=== PATIENT | female | born 1960 | race Caucasian/White ===

== ENCOUNTER 2016-05-23 21:53 | Emergency (ER) | payer OTHER ==
[2016-05-23 22:03] VITALS: BP 138/97; PULSE 86; RESP 16; TEMP 98.6; O2SAT 93
--- NOTE | 2016-05-23 23:20 | DX ---
Right humerus, 2 views History: Trauma, pain. Findings: No acute fracture or dislocation identified. No definite humerus fracture. Impression: 1. No definite acute fracture. 2. No destructive osseous lesion.
--- NOTE | 2016-05-23 23:23 | EDPHY ---
HPI/HX/ROS/PE/MDM Narrative: Chief complaint: Right arm pain HPI: 56-year-old female had a mechanical fall 4 days ago when she was not to the hardwood floor by 1 of her dogs. She has had persistent pain in the middle portion and the lateral aspect of her right arm since then. Is denies any decrease in her range of motion. No numbness or tingling. No decreased her strength. Has taken Advil and applied ice with no significant relief. No prior injuries to that area. ROS: 10 point Review of Systems is negative except as noted in the HPI. Physical exam: General: Awake, alert, no acute distress Right arm: Shoulder: Nontender, full range of motion without pain Humerus: Is no there is some mild tenderness with some mild ecchymosis in the mid shaft lateral aspect of her humerus. There is no medial, anterior, or posterior bony tenderness. Elbow: No bony tenderness, full range of motion without pain. She has full flexion extension strength of her flexors and extensors. Sensations intact in all dermatomes. There is no erythema. Skin: No rash ED Course: Right humerus x-ray: There is a faint lucency per my interpretation no lateral posterior aspect of the right humerus and mid shaft. There is no other obvious deformity. I have discussed with Dr. Feliz who does not appreciate any fractures at this time. Patient has a right arm contusion. There is no evidence of fracture per Radiology interpretation on the x-ray at this time. She has been taking Advil at home. Will prescribe Vicodin with instructions follow up with her primary care physician in 2-3 days. General Time Seen by Provider: 05/23/16 22:51 Initial Vital Signs: Initial Vital Signs Temperature (C) 37 C 05/23/16 21:57 Heart Rate 86 05/23/16 21:57 Respiratory Rate 16 05/23/16 21:57 Blood Pressure 138/97 H 05/23/16 21:57 O2 Sat (%) 93 05/23/16 21:57 O2 Delivery Mode Room Air Allergies/Adverse Reactions: tramadol Allergy (Mild, Verified 05/23/16 22:04) "some abx" Allergy (Uncoded 01/09/16 17:32) Home Medications: Medication Instructions Recorded Topiramate [Topamax 100MG (*)] 100 mg PO DAILY 07/20/14 ALPRAZolam [Xanax 0.5 MG (*)] 0.5 mg PO DAILY PRN 05/29/15 Amphet Asp and D/Amphet [Adderall 20 mg PO DAILY 05/29/15 20 mg (*)] Ascorbic Acid [Vitamin C 500 mg 500 mg PO DAILY PRN 05/29/15 (*)] Calcium Carb W/Vit D [Calcium Carb 500 mg PO DAILY 05/29/15 W/Vit D 500/200 (*)] FLUoxetine [Prozac 10 MG (*)] 10 mg PO DAILY 01/09/16 Hydrochlorothiazide [HCTZ (*)] 25 mg PO DAILY 01/09/16 Latanoprost 0.005% [Xalatan 0.005% 1 drops EACHEYE DAILY 01/09/16 (*)] cycloSPORINE 0.05% [Restasis Opht 1 drop EACHEYE DAILY 01/09/16 Drops(*)] Acetaminophen [Tylenol 325mg (*)] 650 mg PO Q4 PRN #0 tab 01/13/16 Magnesium Hydroxide [Milk of 30 ml PO DAILY PRN #0 udcup 01/13/16 Magnesia (*)] Polyethylene Glycol 3350 [Miralax 17 gm PO DAILY PRN #0 pkt 01/13/16 17 gm (*)] Sennosides/Docusate Sodium 1 - 2 tab PO BID #0 tab 01/13/16 [Senokot-S] Hydrocodone/Acetaminophen 1 - 2 each PO Q4-6PRN PRN #10 05/23/16 [Hydrocodon-Acetaminophen 5-325] tablet Departure - Departure Disposition: Home, Routine, Self-Care Clinical Impression: Contusion of upper arm Condition: Good Instructions: Contusion in Adults (ED) Additional Instructions: Continue to take ibuprofen and ice for pain. If you're still having pain you may take Vicodin. Follow up with her primary care physician in 2-3 days if still having discomfort. There is no evidence of fracture on the x-ray today, however occasionally subtle fractures may be missed on the initial evaluation. If he continues to have pain is always turcios to follow up with your doctor for repeat examination. Referrals: Etelvina Merlos MD [Primary Care Provider] - As per Instructions Prescriptions: Hydrocodone/Acetaminophen [Hydrocodon-Acetaminophen 5-325] 1 - 2 each PO Q4- 6PRN PRN #10 tablet PRN Reason: Pain, Severe
[2016-05-23] MEDS ORDERED: HYDROCOD/APAP 5/325 PREPACK#6 BTL TAKEHOME ONE (23:25)
== END 2016-05-23 23:34 | disposition home or self-care (01) ==
DX: S40.021A Contusion of right upper arm, initial encounter (principal); W18.39XA Other fall on same level, initial encounter

== ENCOUNTER 2016-08-23 15:04 | Emergency (ER) | payer OTHER ==
[2016-08-23 15:15] VITALS: RESP 20
--- NOTE | 2016-08-23 16:12 | EDPHY ---
H & P Time Seen by Provider: 08/23/16 15:33 HPI/ROS: This is a 56-year-old female presenting to the emergency department complaining of right elbow pain. patient states that she tripped over her dog landing on a marble floor any right elbow. patient states she did get right back up but is having pain with extension and flexion at elbow. denies any LOC, and no other injuries. REVIEW OF SYSTEMS: Constitutional: No fever no chills Eyes: no blurred vision Respiratory: no shortness of paul Cardiac: no chest pain Gastrointestinal: no nausea vomiting Musculoskeletal: no neck pain. right elbow pain Skin: no rash Neurological: no head or dizziness Smoking Status: Never smoked Physical Exam: CONSTITUTIONAL: patient appeared well nourished, non-ill appearing and normally developed. No acute distress. Vital signs as documented. HEENT: NCAT. PERRLA. EOMI. NECK: Supple, no C-spine pain with tenderness FROM without pain RESP: Non-labored resp effort, airway patent, CTAB CARDIAC: RRR w/o murmur, jenaro. Normal S1/S2 GI: Abd soft NTTP NEURO: AAOx3 EXTREMITIES: , decreased range of motion most likely due to pain. Positive cms intact SKIN: warm and dry, no laceration PSYCH: Normal affect, calm, no distress Constitutional: Initial Vital Signs Temperature (C) 36.5 C 08/23/16 15:12 Heart Rate 79 08/23/16 15:12 Respiratory Rate 20 08/23/16 15:12 Blood Pressure 121/87 H 08/23/16 15:12 O2 Sat (%) 95 08/23/16 15:12 O2 Delivery Mode Room Air Allergies/Adverse Reactions: tramadol Allergy (Mild, Verified 05/23/16 22:04) "some abx" Allergy (Uncoded 01/09/16 17:32) Home Medications: Medication Instructions Recorded Topiramate [Topamax 100MG (*)] 100 mg PO DAILY 07/20/14 ALPRAZolam [Xanax 0.5 MG (*)] 0.5 mg PO DAILY PRN 05/29/15 Amphet Asp and D/Amphet [Adderall 20 mg PO DAILY 05/29/15 20 mg (*)] Ascorbic Acid [Vitamin C 500 mg 500 mg PO DAILY PRN 05/29/15 (*)] Calcium Carb W/Vit D [Calcium Carb 500 mg PO DAILY 05/29/15 W/Vit D 500/200 (*)] FLUoxetine [Prozac 10 MG (*)] 10 mg PO DAILY 01/09/16 Hydrochlorothiazide [HCTZ (*)] 25 mg PO DAILY 01/09/16 Latanoprost 0.005% [Xalatan 0.005% 1 drops EACHEYE DAILY 01/09/16 (*)] cycloSPORINE 0.05% [Restasis Opht 1 drop EACHEYE DAILY 01/09/16 Drops(*)] Acetaminophen [Tylenol 325mg (*)] 650 mg PO Q4 PRN #0 tab 01/13/16 Magnesium Hydroxide [Milk of 30 ml PO DAILY PRN #0 udcup 01/13/16 Magnesia (*)] Polyethylene Glycol 3350 [Miralax 17 gm PO DAILY PRN #0 pkt 01/13/16 17 gm (*)] Sennosides/Docusate Sodium 1 - 2 tab PO BID #0 tab 01/13/16 [Senokot-S] Hydrocodone/Acetaminophen 1 - 2 each PO Q4-6PRN PRN #10 05/23/16 [Hydrocodon-Acetaminophen 5-325] tablet Medical Decision Making - Diagnostics Imaging: History: Pain following trauma. Comparison to 01/22/2014. Findings: Osseous structures are intact without fracture. There is no elbow joint effusion. Soft tissues are unremarkable. The elbow joint space is normal. Impression: Normal right elbow series. Dictated By: Sudeep Blackmon MD ED Course/Re-evaluation: Discussed plan of care with patient: x-ray of right elbow which shows no acute findings. discharge home---> stable, discussed discharge instructions with patient Differential Diagnosis: differential diagnosis considered elbow dislocation, condylar fracture, and radial fracture Departure - Departure Disposition: Home, Routine, Self-Care Clinical Impression: Elbow pain, right Condition: Good Instructions: Elbow Sprain (ED) Additional Instructions: 1. ice 15 minutes every hour for the next 6-12 hours as needed for swelling 2. you can take ibuprofen or Tylenol as needed for pain 3. keep elevated as needed, decrease any strenuous activity with right arm 4. follow up with your primary care provider within the next 2 weeks for any persistent pain Referrals: Etelvina Merlos MD [Primary Care Provider] - As per Instructions
[2016-08-23] MEDS ORDERED: IBUPROFEN 600 MG TAB PO ONE ×2 (16:39→16:46)
[2016-08-23 17:03] VITALS: BP 106/73; PULSE 72; TEMP 98.6; O2SAT 97
== END 2016-08-23 17:05 | disposition home or self-care (01) ==
DX: S59.901A Unspecified injury of right elbow, initial encounter (principal); W01.0XXA Fall on same level from slipping, tripping and stumbling without subsequent striking against object, initial encounter; Y93.89 Activity, other specified

== ENCOUNTER 2017-01-06 14:15 | Emergency (ER) | payer OTHER ==
[2017-01-06 14:34] VITALS: RESP 18
--- NOTE | 2017-01-06 15:34 | EDPHY ---
H & P Stated Complaint: Playing w/dog,fell,landed on face, no LOC Time Seen by Provider: 01/06/17 15:08 HPI/ROS: CHIEF COMPLAINT: Mechanical fall, facial trauma HISTORY OF PRESENT ILLNESS: The patient presents to the ED after she sustained a mechanical fall earlier today. The patient fell landing on her left cheek. She also struck her left zygomatic area. The patient had an unknown loss of consciousness. She complains of a headache in the ED. The patient has remote history of intracranial hemorrhage following trauma. She is not currently on anticoagulant medications. She recently has been evaluated for a precancerous lesion in her esophagus. She denies any acute posterior neck pain. The patient has no complaints of chest pain, back pain, abdominal pain or difficulty breathing. REVIEW OF SYSTEMS: A comprehensive 10 point review of systems is otherwise negative aside from elements mentioned in the history of present illness. Source: Patient Exam Limitations: No limitations - Personal History Current Tetanus Diphtheria and Acellular Pertussis (TDAP): Yes Tetanus Vaccine Date: 2012 - Medical/Surgical History Hx Asthma: No Hx Chronic Respiratory Disease: No Hx Diabetes: No Hx Cardiac Disease: No Hx Renal Disease: No Hx Cirrhosis: No Hx Alcoholism: No Hx HIV/AIDS: No Hx Splenectomy or Spleen Trauma: No Other PMH: HX: subdural hematoma, DEPRESSION, COSMETIC SURGERY, HTN, othro surgeries, Anxiety, glaucoma, add - Social History Smoking Status: Never smoked - Physical Exam Exam: General Appearance: Alert, no distress Head: Ecchymosis noted around the left periorbital tissue, ecchymosis and tenderness noted at the symphysis of the mandible Eyes: Pupils equal, round, reactive ENT, Mouth: No hemotympanum, no oral trauma Neck: Nontender, trachea midline Respiratory: No chest wall tender, subcutaneous air, lungs clear bilaterally Cardiovascular: Regular rate and rhythm Abdomen: Abdomen is soft and nontender, pelvis stable Skin: Superficial abrasions noted to the bilateral lower extremities Back: No midline T/L/S pain Extremities: Nontender, full range of motion Neurological: A&Ox3, normal motor function, normal sensory exam Constitutional: Initial Vital Signs Temperature (C) 36.8 C 01/06/17 14:30 Heart Rate 95 01/06/17 14:30 Respiratory Rate 18 01/06/17 14:30 Blood Pressure 110/79 01/06/17 14:30 O2 Sat (%) 95 01/06/17 14:30 O2 Delivery Mode Room Air Allergies/Adverse Reactions: tramadol Allergy (Mild, Verified 01/06/17 14:30) "some abx" Allergy (Uncoded 01/09/16 17:32) Home Medications: Medication Instructions Recorded Topiramate [Topamax 100MG (*)] 100 mg PO DAILY 07/20/14 ALPRAZolam [Xanax 0.5 MG (*)] 0.5 mg PO DAILY PRN 05/29/15 Amphet Asp and D/Amphet [Adderall 20 mg PO DAILY 05/29/15 20 mg (*)] Ascorbic Acid [Vitamin C 500 mg 500 mg PO DAILY PRN 05/29/15 (*)] Calcium Carb W/Vit D [Calcium Carb 500 mg PO DAILY 05/29/15 W/Vit D 500/200 (*)] FLUoxetine [Prozac 10 MG (*)] 10 mg PO DAILY 01/09/16 Hydrochlorothiazide [HCTZ (*)] 25 mg PO DAILY 01/09/16 Latanoprost 0.005% [Xalatan 0.005% 1 drops EACHEYE DAILY 01/09/16 (*)] cycloSPORINE 0.05% [Restasis Opht 1 drop EACHEYE DAILY 01/09/16 Drops(*)] Acetaminophen [Tylenol 325mg (*)] 650 mg PO Q4 PRN #0 tab 01/13/16 Magnesium Hydroxide [Milk of 30 ml PO DAILY PRN #0 udcup 01/13/16 Magnesia (*)] Polyethylene Glycol 3350 [Miralax 17 gm PO DAILY PRN #0 pkt 01/13/16 17 gm (*)] Sennosides/Docusate Sodium 1 - 2 tab PO BID #0 tab 01/13/16 [Senokot-S] Hydrocodone/Acetaminophen 1 - 2 each PO Q4-6PRN PRN #10 05/23/16 [Hydrocodon-Acetaminophen 5-325] tablet Medical Decision Making - Diagnostics Imaging Results: Imaging Impressions Head CT 01/06/17 15:31 Impression: No acute posttraumatic abnormality identified. 2. CT of the Facial Bones Indication: Trauma. Hit chin on pavement. Technique: 0.625 mm thick collimated slices were obtained through the face from just below the mandible to above the frontal sinuses. The data was reconstructed in the sagittal and coronal planes. Dose reduction techniques were utilized. Findings: No mandibular or maxillary fracture is identified. Mandibular teeth appear intact. The TMJs are normally aligned and intact. The paranasal and mastoid sinuses are normally aerated. No facial bone fracture is identified. The zygomatic arches and pterygoid plates are intact. Impression: Negative. Message was left for Lebron Echeverria MD at 01/06/2017 16:06 General information for patients regarding this examination can be found at [facility]. If you have questions or comments about this report, please contact me at [phone] (hospital) or [phone] (cell). Face CT 01/06/17 15:32 Impression: No acute posttraumatic abnormality identified. 2. CT of the Facial Bones Indication: Trauma. Hit chin on pavement. Technique: 0.625 mm thick collimated slices were obtained through the face from just below the mandible to above the frontal sinuses. The data was reconstructed in the sagittal and coronal planes. Dose reduction techniques were utilized. Findings: No mandibular or maxillary fracture is identified. Mandibular teeth appear intact. The TMJs are normally aligned and intact. The paranasal and mastoid sinuses are normally aerated. No facial bone fracture is identified. The zygomatic arches and pterygoid plates are intact. Impression: Negative. Message was left for Lebron Echeverria MD at 01/06/2017 16:06 General information for patients regarding this examination can be found at [facility]. If you have questions or comments about this report, please contact me at ([facility]) or [phone] (cell). ED Course/Re-evaluation: The patient presents to the ED with headache, facial pain, swelling and ecchymosis following a mechanical fall. Given the patient's complaints, she was taken for a CT scan of the head which demonstrated no evidence of intracranial hemorrhage or skull fracture. The patient also underwent a facial bone scanning given her significant tenderness and swelling. This was also negative for fracture. The patient had no midline cervical spine tenderness. I have cleared her cervical spine clinically. The patient is noted to have superficial abrasions to her extremity. The patient has a GCS of 15 and nontender abdominal examination. At this point time I do feel the patient can be discharged home with instructions to ice her area of swelling. She can take Tylenol and ibuprofen as needed for pain. Differential Diagnosis: Differential diagnosis considered includes intracranial hemorrhage, skull fracture, facial bone fracture, mandibular fracture, contusion, hematoma Departure - Departure Disposition: Home, Routine, Self-Care Clinical Impression: Facial contusion, Abrasion of lower extremity, History of intracranial hemorrhage Condition: Good Instructions: Facial Contusion (ED) Additional Instructions: 1. Ice as needed for swelling. 2. Tylenol and ibuprofen as needed for pain.
[2017-01-06] MEDS ORDERED: HYDROCODONE/APAP 5/325 TAB PO ONE (16:21)
[2017-01-06 16:24] VITALS: BP 112/74; PULSE 85; TEMP 98.1; O2SAT 94
== END 2017-01-06 16:23 | disposition home or self-care (01) ==
DX: S00.83XA Contusion of other part of head, initial encounter (principal); S80.812A Abrasion, left lower leg, initial encounter; S80.811A Abrasion, right lower leg, initial encounter; I10 Essential (primary) hypertension; Z87.820 Personal history of traumatic brain injury; W01.198A Fall on same level from slipping, tripping and stumbling with subsequent striking against other object, initial encounter; Y99.8 Other external cause status; Y93.89 Activity, other specified

== ENCOUNTER 2017-03-07 14:24 | Inpatient (IN) | payer OTHER ==
[2017-03-07] MEDS ORDERED: fentaNYL 100 MCG/2 ML INJ IVP ONE (14:47)
--- NOTE | 2017-03-07 15:21 | EDPHY ---
H & P Time Seen by Provider: 03/07/17 14:24 HPI/ROS: CHIEF COMPLAINT: Right hip pain HISTORY OF PRESENT ILLNESS: Patient was walking and had a dog cause her to fall landing on her right hip. Severe pain in the right hip with any movement or weight-bearing started just after the fall. Does not radiate. Not associated with weakness or numbness in the leg. No other injuries. Did not hit her head, no neck or back pain. No recent illnesses. REVIEW OF SYSTEMS: Eye: no change in vision ENT: no sore throat Cardiac: no chest pain or syncope Pulmonary: no cough or SOB Abdomen: no vomiting, diarrhea, abdominal pain Musculoskeletal: no back pain Skin: no rash Neuro: no headache Constitutional: no fever : no urinary symptoms A comprehensive 10 point review of systems is otherwise negative aside from elements mentioned in the history of present illness. PAST MEDICAL HISTORY: Includes left hip and femur fracture fixed by [facility], depression, anxiety, calcaneus fracture, hypertension, subdural. Social history: Alcohol today. General Appearance: Alert and conversant, cooperative. The patient is actually quite chatty. Eyes: No scleral icterus. ENT, Mouth: Normal mucous membranes. Respiratory: Normal respiratory effort, breath sounds equal, lungs are clear to auscultation. Cardiovascular: Regular rate and rhythm. Gastrointestinal: Abdomen is soft and non tender. Neurological: Alert and oriented x3. Normally conversant. Face symmetric, normal movement and sensation in all extremities except for decreased range of motion of the right hip because of pain. Skin: Warm and dry, no rashes. Musculoskeletal: Pelvis stable. Right hip pain with rotation or axial loading. No midline spinal tenderness. Psychiatric: Not agitated. Emergency Department course/MDM: Fell 50 mcg IV for pain. X-ray results discussed with the patient. Personally interpreted shows right intertrochanteric hip fracture. Admission, consult [facility] for sports medicine as she is a patient of their practice. Julissa EMT called [facility] practice, they requested consult the on -call physician at [phone]: Caesar will consult ortho. Smoking Status: Never smoked Constitutional: Initial Vital Signs Temperature (C) 36.3 C 03/07/17 14:29 Heart Rate 76 03/07/17 14:29 Respiratory Rate 12 03/07/17 14:29 Blood Pressure 126/78 H 03/07/17 14:29 O2 Sat (%) 90 L 03/07/17 14:29 O2 Delivery Mode Room Air Allergies/Adverse Reactions: tramadol Allergy (Mild, Verified 01/06/17 14:30) "some abx" Allergy (Uncoded 01/09/16 17:32) Home Medications: Medication Instructions Recorded Topiramate [Topamax 100MG (*)] 100 mg PO DAILY 07/20/14 ALPRAZolam [Xanax 0.5 MG (*)] 0.5 mg PO DAILY PRN 05/29/15 Amphet Asp and D/Amphet [Adderall 20 mg PO DAILY 05/29/15 20 mg (*)] FLUoxetine [Prozac 10 MG (*)] 10 mg PO DAILY 01/09/16 Hydrochlorothiazide [HCTZ (*)] 25 mg PO DAILY 01/09/16 Latanoprost 0.005% [Xalatan 0.005% 1 drops EACHEYE DAILY 01/09/16 (*)] cycloSPORINE 0.05% [Restasis Opht 1 drop EACHEYE DAILY 01/09/16 Drops(*)] Herbals/Supplements -Info Only 1 ea PO DAILY 03/07/17 Medical Decision Making - Diagnostics Imaging Results: Imaging Impressions Hip X-Ray 03/07/17 14:31 Impression: Interim development of an acute mildly displaced right femoral intertrochanteric fracture. When clinically feasible, a DEXA scan is suggested. Right hip x-ray intertrochanteric fracture. Personally interpreted. Imaging: I viewed and interpreted images myself Differential Diagnosis: Distal considered including but not limited to pelvic fracture, hip contusion, hip dislocation, femur fracture. Consult/Admit Bed Type: [place] [id number] - Data Points Medications Given: Discontinued Medications Fentanyl (Sublimaze) 50 mcg IVP EDNOW ONE Stop: 03/07/17 14:48 Last Admin: 03/07/17 14:51 Dose: 50 mcg Hydromorphone HCl (Dilaudid) 0.5 mg IVP EDNOW ONE Stop: 03/07/17 15:33 Last Admin: 03/07/17 15:35 Dose: 0.5 mg Hydromorphone HCl (Dilaudid) 0.5 mg IVP EDNOW ONE Stop: 03/07/17 17:30 Last Admin: 03/07/17 17:33 Dose: 0.5 mg Departure - Departure Disposition: [facility] Inpatient Acute Clinical Impression: Closed right hip fracture Qualifiers: Encounter type: initial encounter Qualified Code(s): S72.001A - Fracture of unspecified part of neck of right femur, initial encounter for closed fracture Condition: Good
[2017-03-07] MEDS ORDERED: HYDROmorphONE/DILAUDID 1 MG/ML INJ IVP ONE ×2 (15:32→17:29)
[2017-03-07 16:00] LABS: % IMMATURE GRANULYOCYTES 0.3 % (0.0-1.1); ABSOLUTE IMMATURE GRANULOCYTES 0.01 10^3/uL (0.00-0.10); ADD DIFF? NO; ADD MORPH? NO; ADD SCAN? NO; ATYPICAL LYMPHOCYTE FLAG 10 (0-99); FRAGMENT RBC FLAG 0 (0-99); HEMATOCRIT 30.7 % (38.0-47.0); HEMOGLOBIN 10.5 g/dL (12.6-16.3); LEFT SHIFT FLG 0 (0-99); LIPEMIA HEMOLYSIS FLAG 90 (0-99); MEAN CELL HEMOGLOBIN 36.8 pg (27.9-34.1); MEAN CELL HEMOGLOBIN CONCENTR. 34.2 g/dL (32.4-36.7); MEAN CELL VOLUME 107.7 fL (81.5-99.8); MEAN PLATELET VOLUME 10.3 fL (8.7-11.7); PLATELET CLUMPS FLAG 0 (0-99); PLATELET COUNT 174 10^3/uL (150-400); RED BLOOD CELL COUNT 2.85 10^6/uL (4.18-5.33); RED CELL DISTRIBUTION WIDTH 12.4 % (11.5-15.2)
[2017-03-07 16:14] LABS: ANION GAP 10 mEq/L (8-16); CALCIUM 8.5 mg/dL (8.5-10.4); CARBON DIOXIDE 28 mEq/l (22-31); CHLORIDE 100 mEq/L (97-110); CREATININE 0.7 mg/dL (0.6-1.0); GLOMERULAR FILTRATION RATE > 60; GLUCOSE 87 mg/dL (70-100); POTASSIUM 4.7 mEq/L (3.5-5.2); SODIUM 138 mEq/L (134-144)
[2017-03-07 16:50] LABS: ETHANOL SERUM 382 mg/dL (0-10); SPECIMEN HEMOLYSIS 203
--- NOTE | 2017-03-07 16:57 | PDGENHP ---
History and Physical - Chief Complaint Acute hip pain - History of Present Illness Primary care provider: Dr. Merlos Primary orthopedist: Dr. Braulio Acevedo HPI: 56-year-old female presents with acute pain located in her right hip, characterized as severe, with onset of symptoms immediately after she experienced a mechanical fall on the day of this presentation. The patient reports that she became entangled with her dog, falling to her right, landing on her right hip, experiencing immediate pain. She reports that the pain was exacerbated by any type of movement or weight-bearing, and has been alleviated by pain medications in the emergency department. She denies any head or other body trauma, although the patient is somewhat unclear about the exact details of what occurred at the time of her fall. The duration of her pain has been fairly constant since her fall, and she has presented to the emergency department for further evaluation. The patient does endorse that she has been drinking alcohol on the day of this presentation, but otherwise denies any other physical symptoms. History Information - Allergies/Home Medication List Allergies/Adverse Reactions: tramadol Allergy (Mild, Verified 01/06/17 14:30) "some abx" Allergy (Uncoded 01/09/16 17:32) Home Medications: Topiramate [Topamax 100MG (*)] 100 mg PO DAILY 07/20/14 [Last Taken 03/06/17] ALPRAZolam [Xanax 0.5 MG (*)] 0.5 mg PO DAILY PRN 05/29/15 [Last Taken 03/04/17] Amphet Asp and D/Amphet [Adderall 20 mg (*)] 20 mg PO DAILY 05/29/15 [Last Taken 03/04/17] FLUoxetine [Prozac 10 MG (*)] 10 mg PO DAILY 01/09/16 [Last Taken 03/07/17] Hydrochlorothiazide [HCTZ (*)] 25 mg PO DAILY 01/09/16 [Last Taken 03/07/17] Latanoprost 0.005% [Xalatan 0.005% (*)] 1 drops EACHEYE DAILY 01/09/16 [Last Taken 03/07/17] cycloSPORINE 0.05% [Restasis Opht Drops(*)] 1 drop EACHEYE DAILY 01/09/16 [Last Taken 03/07/17] Amphet Asp and D/Amphet [Adderall 20 mg (*)] 20 mg PO DAILY 03/07/17 [Last Taken 03/04/17] Herbals/Supplements -Info Only 1 ea PO DAILY 03/07/17 [Last Taken 03/07/17] I have personally reviewed and updated: family history, medical history, social history, surgical history - Past Medical History hypertension Additional medical history: Osteopenia, squamous cell dysplasia of the esophagus , mood disorder, migraine disorder, previous subdural hemorrhage, previous facial contusion, alcoholism - Surgical History Additional surgical history: December 2015 left inter medullary nail for hip fracture Dr. Acevedo. Left calcaneal surgery by Dr. Taylor - Family History Additional family history: Father with pulmonary hypertension - Social History Smoking Status: Never smoked Alcohol Use: Heavy (Patient was drinking heavily on the day of presentation) Drug Use: None Additional social history: She reports she is independent in her ADLs and lovers her dog Review of Systems Review of Systems: ROS: 10pt was reviewed & negative except for what was stated in HPI & below Muscolosketal: Reports: joint pain Physical Exam Physical Exam: Temp Pulse Resp BP Pulse Ox 36.3 C 80 14 106/69 97 03/07/17 14:29 03/07/17 15:38 03/07/17 15:38 03/07/17 15:38 03/07/17 15:38 Constitutional: no apparent distress, chronically ill appearing, uncomfortable, No not in pain (Moderate) Eyes: PERRL, anicteric sclera, EOMI Ears, Nose, Mouth, Throat: moist mucous membranes, hearing normal, ears appear normal, no oral mucosal ulcers Cardiovascular: regular rate and rhythym, no murmur, rub, or gallop, No irregularly irregular, No tachycardia, No edema Respiratory: no respiratory distress, no rales or rhonchi, clear to auscultation Gastrointestinal: normoactive bowel sounds, soft, non-tender abdomen, no palpable masses, No distension Genitourinary: no bladder fullness, no bladder tenderness Skin: other (No erythema or ecchymoses over the right lateral hip) Musculoskeletal: other (Shortened and externally rotated right lower extremity with deformation at the right hip with tenderness) Neurologic: AAOx3, sensation intact bilaterally, No weakness (Motor strength 5/ 5 distal right lower extremity) Psychiatric: interacting appropriately, not anxious, not encephalopathic, thought process linear Lab Data & Imaging Review 03/07/17 15:47 03/07/17 15:47 WBC 3.49 10^3/uL (3.80-9.50) L 03/07/17 15:47 RBC 2.85 10^6/uL (4.18-5.33) L 03/07/17 15:47 Hgb 10.5 g/dL (12.6-16.3) L 03/07/17 15:47 Hct 30.7 % (38.0-47.0) L 03/07/17 15:47 MCV 107.7 fL (81.5-99.8) H 03/07/17 15:47 MCH 36.8 pg (27.9-34.1) H 03/07/17 15:47 MCHC 34.2 g/dL (32.4-36.7) 03/07/17 15:47 RDW 12.4 % (11.5-15.2) 03/07/17 15:47 Plt Count 174 10^3/uL (150-400) 03/07/17 15:47 MPV 10.3 fL (8.7-11.7) 03/07/17 15:47 Neut % (Auto) 58.4 % (39.3-74.2) 03/07/17 15:47 Lymph % (Auto) 33.0 % (15.0-45.0) 03/07/17 15:47 Woodruff % (Auto) 6.3 % (4.5-13.0) 03/07/17 15:47 Eos % (Auto) 1.4 % (0.6-7.6) 03/07/17 15:47 Baso % (Auto) 0.6 % (0.3-1.7) 03/07/17 15:47 Nucleat RBC Rel Count 0.0 % (0.0-0.2) 03/07/17 15:47 Absolute Neuts (auto) 2.04 10^3/uL (1.70-6.50) 03/07/17 15:47 Absolute Lymphs (auto) 1.15 10^3/uL (1.00-3.00) 03/07/17 15:47 Absolute Monos (auto) 0.22 10^3/uL (0.30-0.80) L 03/07/17 15:47 Absolute Eos (auto) 0.05 10^3/uL (0.03-0.40) 03/07/17 15:47 Absolute Basos (auto) 0.02 10^3/uL (0.02-0.10) 03/07/17 15:47 Absolute Nucleated RBC 0.00 10^3/uL (0-0.01) 03/07/17 15:47 Immature Gran % 0.3 % (0.0-1.1) 03/07/17 15:47 Immature Gran # 0.01 10^3/uL (0.00-0.10) 03/07/17 15:47 Sodium 138 mEq/L (134-144) 03/07/17 15:47 Potassium 4.7 mEq/L (3.5-5.2) 03/07/17 15:47 Chloride 100 mEq/L (97-110) 03/07/17 15:47 Carbon Dioxide 28 mEq/l (22-31) 03/07/17 15:47 Anion Gap 10 mEq/L (8-16) 03/07/17 15:47 BUN 15 mg/dL (7-23) 03/07/17 15:47 Creatinine 0.7 mg/dL (0.6-1.0) 03/07/17 15:47 Estimated GFR > 60 03/07/17 15:47 Glucose 87 mg/dL (70-100) 03/07/17 15:47 Calcium 8.5 mg/dL (8.5-10.4) 03/07/17 15:47 Specimen Hemolysis 203 03/07/17 15:47 Ethyl Alcohol 382 mg/dL (0-10) H 03/07/17 15:47 Visualized and Interpreted imaging results: Yes Interpretation: Intra trochanteric fracture on the right, hardware on the left, pelvis x-ray Assessment & Plan Assessment: 56-year-old female presenting with acute right hip fracture in the setting of alcohol intoxication Plan: 1. Hip fracture. Acute, new problem this provider, further intervention is warranted. Patient has a closed fracture requiring surgical intervention, I have discussed with Dr. Boston Walsh in the emergency department and the patient has been NPO since noon today, orthopedics, Dr. Endy Maynard, has been paged -the patient is currently not expressing any other injuries, will hold on trauma consult -pain control, bowel regimen, incentive spirometer, monitor hemoglobin level postoperatively 2. Alcoholism. Patient is currently intoxicated with alcohol greater than 300, she is at high risk for alcohol withdrawal although per chart review I see the patient has not experienced significant withdrawal requiring ICU level of care -reviewed outside records including ED report by Dr. Echeverria, reports the patient had a facial contusion after fall, patient is likely an ongoing high fall risk given her persistent alcoholism -will place her on a CIWA, and monitor closely -patient will require behavioral health nurse and social group worker consultation 3. For counseling pancytopenia. Secondary to alcohol bone marrow suppression, continue to monitor CBC 4. Hypertension. Continue medications once reconciled. Next 5. Squamous cell esophageal dysplasia. Patient not currently having any swallowing difficulties , she has outpatient follow-up for this Diet. NPO at present, IV fluids, resume diet after surgery Prophylaxis. High risk patient, SCDs at present, Lovenox 40 tomorrow if no postoperative blood loss Code. Full Disposition. Anticipated discharge uncertain this time, anticipated length stay is greater than 48 hours warranting inpatient admission status for reasonable medical necessity including acute hip fracture requiring surgical repair with high risk comorbid conditions as outlined above.
[2017-03-07] MEDS ORDERED: ACETAMINOPHEN 325 MG TAB PO PRN (17:03)
[2017-03-07] MEDS ORDERED: ONDANSETRON 4 MG/2 ML VIAL IVP PRN ×2 (17:03→21:43)
[2017-03-07] MEDS ORDERED: ONDANSETRON DISINTEGRATING 4 MG TAB PO PRN (17:03)
[2017-03-07] MEDS ORDERED: LACTULOSE 20 GM/30 ML UDCUP PO PRN (17:05)
[2017-03-07] MEDS ORDERED: BISACODYL 10 MG SUPP PR PRN (17:05)
[2017-03-07] MEDS ORDERED: MAGNESIUM HYDROXIDE 30 ML UDCUP PO PRN (17:05)
[2017-03-07] MEDS ORDERED: POLYETHYLENE GLYCOL 3350 17 GM PKT PO PRN (17:05)
[2017-03-07] MEDS ORDERED: LORazepam 1 MG TAB PO PRN (17:07)
[2017-03-07] MEDS ORDERED: LORazepam 2 MG/ML INJ IVP PRN (17:07)
[2017-03-07] MEDS ORDERED: D5W 1/2 NS W/ 20 KCl/L 1,000 ML IV SCH (17:15)
[2017-03-07] MEDS ORDERED: fentaNYL 100 MCG/2 ML INJ ONE ×3 (19:43→22:10)
[2017-03-07] MEDS: fentaNYL 100 MCG/2 ML INJ IVP PRN ×3 (19:49→20:29)
--- NOTE | 2017-03-07 19:54 | PDANEPAE ---
ANE History of Present Illness R hip TFN for intertrochanteric fx ANE Past Medical History - Cardiovascular History Hx Hypertension: Yes - Pulmonary History Hx Oxygen in Use at Home: No Hx Sleep Apnea: No - Endocrine History Hx Diabetes: No - GI History Gastrointestinal History Comment: esophageal dysplasia - Chronic Pain History Chronic Pain: No ANE Review of Systems Review of systems is: negative Review of Systems: - Exercise capacity Exercise capacity: >=4 METS ANE Patient History - Allergies Allergies/Adverse Reactions: tramadol Allergy (Mild, Verified 03/07/17 19:28) ceftriaxone Allergy (Verified 03/07/17 19:27) Rash lisinopril Allergy (Verified 03/07/17 19:27) Rash - Home Medications Home medications: home medication list seen and reviewed Home Medications: Topiramate [Topamax 100MG (*)] 100 mg PO DAILY 07/20/14 [Last Taken 03/06/17] ALPRAZolam [Xanax 0.5 MG (*)] 0.5 mg PO DAILY PRN 05/29/15 [Last Taken 03/04/17] Amphet Asp and D/Amphet [Adderall 20 mg (*)] 20 mg PO DAILY 05/29/15 [Last Taken 03/04/17] FLUoxetine [Prozac 10 MG (*)] 10 mg PO DAILY 01/09/16 [Last Taken 03/07/17] Hydrochlorothiazide [HCTZ (*)] 25 mg PO DAILY 01/09/16 [Last Taken 03/07/17] Latanoprost 0.005% [Xalatan 0.005% (*)] 1 drops EACHEYE DAILY 01/09/16 [Last Taken 03/07/17] cycloSPORINE 0.05% [Restasis Opht Drops(*)] 1 drop EACHEYE DAILY 01/09/16 [Last Taken 03/07/17] Herbals/Supplements -Info Only 1 ea PO DAILY 03/07/17 [Last Taken 03/07/17] - NPO status NPO Status: no food or drink >8 hours NPO Since - Liquids (Date): 03/07/17 NPO Since - Liquids (Time): 11:00 NPO Since - Solids (Date): 03/07/17 NPO Since - Solids (Time): 11:00 - Anes Hx Anes Hx: no prior problems - Smoking Hx Smoking Status: Never smoked - Alcohol Use Alcohol Use: Heavy (Patient was drinking heavily on the day of presentation) - Family Anes Hx Family Anes Hx: none ANE Labs/Vital Signs - Labs Result Diagrams: 03/07/17 15:47 03/07/17 15:47 - Vital Signs Blood Pressure: 145/100 Heart Rate: 76 Respiratory Rate: 22 O2 Sat (%): 100 Height: 157.48 cm Weight: 40.823 kg ANE Physical Exam - Airway Neck exam: FROM Mallampati Score: Class 1 Mouth exam: normal dental/mouth exam - Pulmonary Pulmonary: no respiratory distress - Cardiovascular Cardiovascular: regular rate and rhythym - ASA Status ASA Status: III ANE Anesthesia Plan Anesthesia Plan: general endotracheal anesthesia
[2017-03-07] MEDS ORDERED: MIDAZOLAM 2 MG/2 ML VIAL IVP ONE (19:59)
[2017-03-07] MEDS ORDERED: PROPOFOL 200 MG/20 ML VIAL ONE (20:15)
[2017-03-07] MEDS ORDERED: LIDOCAINE 2% 100 MG/5 ML SYR ONE (20:15)
[2017-03-07] MEDS ORDERED: DEXAMETHASONE 4 MG/ML VIAL ONE (20:15)
[2017-03-07] MEDS ORDERED: ONDANSETRON 4 MG/2 ML VIAL ONE (20:15)
[2017-03-07] MEDS ORDERED: ROCURONIUM 100 MG/10 ML VIAL ONE (20:20)
[2017-03-07] MEDS ORDERED: OXYCODONE/APAP 5/325 TAB PO PRN ×2 (20:24→21:43)
[2017-03-07] MEDS ORDERED: ROPIVACAINE HCL 20 MG/10 ML INJ EP ONE (20:27)
[2017-03-07] MEDS ORDERED: CEFAZOLIN 1 GM/DEXTROSE/50 ML BAG IV ONE (20:31)
[2017-03-07] MEDS ORDERED: MIDAZOLAM 2 MG/2 ML VIAL ONE (20:36)
[2017-03-07] MEDS ORDERED: ACETAMINOPHEN 500 MG TAB PO PRN (21:43)
[2017-03-07] MEDS ORDERED: NALOXONE HCL 0.4 MG/ML INJ IVP PRN (21:43)
[2017-03-07] MEDS ORDERED: PROMETHAZINE HCL 25 MG/ML INJ IVP PRN (21:43)
[2017-03-07] MEDS ORDERED: fentaNYL 100 MCG/2 ML INJ IVP PRN (21:43)
[2017-03-07] MEDS ORDERED: HYDROCODONE/APAP 5/325 TAB PO PRN (21:43)
[2017-03-07] MEDS ORDERED: DEXAMETHASONE 4 MG/ML VIAL IVP PRN (21:43)
[2017-03-07] MEDS ORDERED: HYDROmorphONE/DILAUDID 1 MG/ML INJ IVP PRN (21:43)
[2017-03-07] MEDS ORDERED: MEPERIDINE 25 MG/ML SYR IVP PRN (21:43)
[2017-03-07] MEDS ORDERED: DIAZEPAM 10 MG/2 ML SYR IVP PRN (21:44)
[2017-03-07] MEDS ORDERED: SUGAMMADEX SODIUM 200 MG/2 ML VIAL IVP ONE (21:47)
--- NOTE | 2017-03-07 21:47 | POSTANESTH ---
Post Anesthetic Evaluation Cardiovascular Status: Normal, Stable, Similar to Pre-Op Cond Respiratory Status: Normal, Stable, Similar to Pre-op Cond. Level of Consciousness/Mental Status: Can Participate in Eval, Moderately Sleepy Pain Control: Adequate, Prn Tx Ordered Nausea/Vomiting Control: Adequate, Prn Tx Ordered Complications Possibly Related to Anesthesia: None Noted
[2017-03-07] MEDS ORDERED: HYDROmorphONE/DILAUDID 1 MG/ML INJ ONE (22:11)
--- NOTE | 2017-03-07 22:35 | GCON ---
[f rep st] CONSULTATION ORTHOPEDIC ER CONSULT CHIEF COMPLAINT: Right hip pain. DIAGNOSIS: Intertrochanteric fracture, right hip. HISTORY OF PRESENT ILLNESS: A 56-year-old female, who underwent a left short TFN for intertrochanter ic fracture over a year ago, comes in today after a recent fall on some flagstone onto her right hip. Triaged to the emergency room. X-rays were taken. Reportedly had a blood alcohol level of over 0. 3. Please see pertinent details of admitting H and P. PHYSICAL EXAMINATION: PERTINENT ORTHOPEDIC: Reveals a well-appearing female. Slightly slurred spee ch. Bilateral upper extremities without pain, full motion. Chest with equal expansion. Pelvis stab le. Right hip short and externally rotated. Painful log roll. X-RAY & LABORATORY DATA: Reviewed, show an intertrochanteric fracture of the right hip and a left hi p with a short TFN. IMPRESSION AND PLAN: Right hip intertrochanteric fracture. Recommend surgical fixation. The patien t understands the risks, benefits, expectations, alternatives, and would like to pursue surgical inte rvention. Her last meal was at noon. She will be n.p.o. for 8 hours prior to surgery. /[id number]/MODL
--- NOTE | 2017-03-07 22:40 | GOP ---
[f rep st] OPERATIVE REPORT DATE OF OPERATION: 03/07/2017 SURGEON: Endy Maynard MD PREOPERATIVE DIAGNOSIS: Right hip intertrochanteric fracture. POSTOPERATIVE DIAGNOSIS: Right hip intertrochanteric fracture. PROCEDURE PERFORMED: Intramedullary nail right femur with a trochanteric femoral nail device without distal interlocking. FINDINGS: ESTIMATED BLOOD LOSS: Minimal. INDICATIONS: Please see details of ER H and P. A 56-year-old female with a mechanical fall, with re ported blood alcohol level of over 0.3, presents for operative fixation of right intertrochanteric fr acture. She does have a history of a left short TFN. DESCRIPTION OF PROCEDURE: The patient was identified in the preoperative holding area. The right le g was identified. She was short and externally rotated. She consents for treatment. Attempts were made to call her but he is aware. The patient brought to the operating room. General anesthesia on the rhoskins. We transferred her ove r to a Steris fracture table. Well-padded perineal post. The well leg was placed in 45 degrees abdu ction, slight external rotation of 90 degree knee flexion. The operative leg was placed with the kne e in a neutral position with just slight traction. The inter joshua fracture was well reduced. The medial calcar was well reduced. Lateral view showed externally rotated hip, which I think was her no rmal anatomy because her anterior neck actually was lined up well. The right hip was prepped and gary ped in a sterile fashion. Surgical time-out was performed. A shower curtain Ioban draping. A 4 cm incision about a handsbreadth above the greater trochanter. Sharp dissection through the ITB band. Blunt dissection with scissors down to the greater joshua. She had very little subcutaneous tissue a nd fat. We used a guide pin and over reaming and verified on a lateral and AP view. We used a ball- tip guidewire all the way down to the knee. She had a nice tight isthmus. We reamed up to a 12.5, a nd then placed an 11 mm x 360 mm nail. We placed the cephalomedullary device with the tip-at-tip ape x distance around 10 mm. The wounds were copiously washed out with 250 cc of warm normal saline. IT band closure with 2 inter rupted 2-0 PDS deep, 3-0 Monocryl and elie for skin. 10 cc of 0.2% ropivacaine were injected thro ughout the incision. Xeroform, 4x4s and a waterproof dressing applied. COMPLICATIONS: None. TOTAL SURGICAL TIME: 45 minutes. DISPOSITION: Extubated, awake to the PACU in stable condition. /[id number]/MODL
[2017-03-07] MEDS: SENNOSIDES/DOCUSATE SODIUM TAB PO SCH (23:09)
[2017-03-07] MEDS: ALPRAZolam 0.5 MG TAB PO PRN (23:15)
[2017-03-08 05:35] LABS: % IMMATURE GRANULYOCYTES 0.5 % (0.0-1.1); ABSOLUTE IMMATURE GRANULOCYTES 0.04 10^3/uL (0.00-0.10); ADD DIFF? NO; ADD MORPH? NO; ADD SCAN? NO; ATYPICAL LYMPHOCYTE FLAG 0 (0-99); FRAGMENT RBC FLAG 0 (0-99); HEMATOCRIT 25.5 % (38.0-47.0); HEMOGLOBIN 8.2 g/dL (12.6-16.3); LEFT SHIFT FLG 0 (0-99); LIPEMIA HEMOLYSIS FLAG 80 (0-99); MEAN CELL HEMOGLOBIN 35.7 pg (27.9-34.1); MEAN CELL HEMOGLOBIN CONCENTR. 32.2 g/dL (32.4-36.7); MEAN CELL VOLUME 110.9 fL (81.5-99.8); MEAN PLATELET VOLUME 9.9 fL (8.7-11.7); PLATELET CLUMPS FLAG 0 (0-99); PLATELET COUNT 161 10^3/uL (150-400); RED CELL DISTRIBUTION WIDTH 12.5 % (11.5-15.2)
[2017-03-08] MEDS: HYDROCODONE/APAP 5/325 TAB PO PRN ×4 (05:44→21:43)
[2017-03-08 05:45] LABS: ALANINE AMINOTRANSFERASE 37 IU/L (9-52); ALBUMIN 3.4 g/dL (3.5-5.0); ALKALINE PHOSPHATASE 45 IU/L (38-126); ANION GAP 9 mEq/L (8-16); ASPARTATE AMINOTRANSFERASE 58 IU/L (14-46); BILIRUBIN,TOTAL 0.5 mg/dL (0.1-1.4); CARBON DIOXIDE 28 mEq/l (22-31); CHLORIDE 102 mEq/L (97-110); CREATININE 0.8 mg/dL (0.6-1.0); GLOMERULAR FILTRATION RATE > 60; GLUCOSE 135 mg/dL (70-100); MAGNESIUM 1.7 mg/dL (1.6-2.3); POTASSIUM 4.4 mEq/L (3.5-5.2); SODIUM 139 mEq/L (134-144); TOTAL PROTEIN 5.9 g/dL (6.3-8.2)
[2017-03-08] MEDS ORDERED: HYDROCHLOROTHIAZIDE 25 MG TAB PO SCH (09:00)
[2017-03-08] MEDS ORDERED: ADDERALL 20 MG TAB PO SCH (09:00)
[2017-03-08] MEDS ORDERED: Herbals/Supplements -Info Only PO SCH (09:00)
[2017-03-08] MEDS: SENNOSIDES/DOCUSATE SODIUM TAB PO SCH ×2 (09:21→20:29)
[2017-03-08] MEDS: TOPIRAMATE 100 MG TAB PO SCH (09:22)
[2017-03-08] MEDS: ADDERALL 20 MG TAB PO SCH (09:23)
[2017-03-08] MEDS: FLUoxetine 10 MG CAP PO SCH (09:25)
[2017-03-08] MEDS: ENOXAPARIN 40 MG/0.4 ML SYR SC SCH (09:25)
--- NOTE | 2017-03-08 10:03 | HOSPPROG ---
Hospitalist Progress Note Assessment/Plan: 56-year-old female presenting with acute right hip fracture in the setting of alcohol intoxication. Today is my 1st encounter with the patient. Chart reviewed * right hip intertrochanteric fracture -status post nailing -postop day 1. * alcohol use and abuse with alcohol level greater than 300 -on CIWA protocol -noted macrocytosis -she is somewhat tremulus during my evaluation *urinary retention -matamoros in place/ was unable to void -will order to dc in a.m. and see how she does * pancytopenia * anemia, postop -recheck labs in a.m. *Underweight with a BMI of 16 * hypertension -this morning she is hypotensive will hold hydrochlorothiazide *squamous dysplasia of esophagus -to go to the [facility] in [place] for f/u with this *dvt prophylaxis : LMWH *Plan: repeat labs in a.m./ working with PT and OT/ did well with them, may be able to return home/ will continue monitoring. Subjective: Charissa says she is nervous about getting oob. Objective: Vital Signs Temp Pulse Resp BP Pulse Ox 36.9 C 86 16 97/61 L 99 03/08/17 07:30 03/08/17 07:30 03/08/17 07:30 03/08/17 09:25 03/08/17 07:30 Laboratory Results 03/08/17 04:29 03/08/17 04:29 03/07/17 03/08/17 03/09/17 05:59 05:59 05:59 Intake Total 2110 Output Total 855 Balance 1255 - Physical Exam Constitutional: chronically ill appearing, uncomfortable, other (very thin) Eyes: PERRL Ears, Nose, Mouth, Throat: hearing normal Cardiovascular: regular rate and rhythym Respiratory: no respiratory distress Genitourinary: matamoros in urethra Skin: warm Musculoskeletal: generalized weakness Neurologic: AAOx3 Psychiatric: interacting appropriately ICD10 Worksheet Patient Problems: Problems Problem Status Onset Closed right hip fracture Acute Calcaneus fracture Acute Hip fracture Acute Hypokalemia Acute Intraparenchymal hemorrhage of brain Acute Osteomyelitis Acute Subdural hematoma, post-traumatic Acute Traumatic epidural hematoma Acute
--- NOTE | 2017-03-08 10:05 | PDMN ---
Medical Necessity Medical necessity: Patient meets INPT criteria per physician note and [facility] [place] Musculoskeletal Surgery or Procedure GRG (R intertrochanteric hip fx s/p mechanical fall; to OR for IM nail R femur; hx alcoholism/BA > 300 at presentation; HTN; anticipated LOS > 2 midnights for surgical repair, PT/OT, monitoring for poss alcohol withdrawal, IV hydration/antibiotics/pain control postop.)
[2017-03-08] MEDS: CYCLOSPORINE 0.05% 1 EACH BOX EACHEYE SCH (11:42)
[2017-03-08] MEDS: LATANOPROST 0.005% 2.5 ML OPHT DROPS EACHEYE SCH (11:43)
[2017-03-08] MEDS: ALPRAZolam 0.5 MG TAB PO PRN (14:40)
--- NOTE | 2017-03-08 15:06 | ASMTCMCOM ---
CM Note CM Note Notes: Pt had surgery for hip fracture after a fall, reports she had been drinking alcohol. OT rec home vs HHC, PT rec [facility]. Pt on CIWA. Date Signed: 03/08/2017 03:05 PM Electronically Signed By:KOJO Jauregui
[2017-03-08] MEDS ORDERED: CEPACOL LOZENGE PO PRN (22:15)
[2017-03-09 05:00] LABS: % IMMATURE GRANULYOCYTES 0.3 % (0.0-1.1); ABSOLUTE IMMATURE GRANULOCYTES 0.02 10^3/uL (0.00-0.10); ADD DIFF? NO; ADD MORPH? NO; ADD SCAN? NO; ATYPICAL LYMPHOCYTE FLAG 0 (0-99); FRAGMENT RBC FLAG 0 (0-99); HEMATOCRIT 21.9 % (38.0-47.0); HEMOGLOBIN 7.3 g/dL (12.6-16.3); LEFT SHIFT FLG 0 (0-99); LIPEMIA HEMOLYSIS FLAG 80 (0-99); MEAN CELL HEMOGLOBIN 36.9 pg (27.9-34.1); MEAN CELL HEMOGLOBIN CONCENTR. 33.3 g/dL (32.4-36.7); MEAN CELL VOLUME 110.6 fL (81.5-99.8); MEAN PLATELET VOLUME 9.8 fL (8.7-11.7); PLATELET CLUMPS FLAG 0 (0-99); PLATELET COUNT 117 10^3/uL (150-400); RED BLOOD CELL COUNT 1.98 10^6/uL (4.18-5.33); RED CELL DISTRIBUTION WIDTH 12.1 % (11.5-15.2)
[2017-03-09 05:12] LABS: ALANINE AMINOTRANSFERASE 32 IU/L (9-52); ALBUMIN 2.9 g/dL (3.5-5.0); ALKALINE PHOSPHATASE 48 IU/L (38-126); ANION GAP 7 mEq/L (8-16); ASPARTATE AMINOTRANSFERASE 38 IU/L (14-46); BILIRUBIN,TOTAL 0.5 mg/dL (0.1-1.4); CALCIUM 8.5 mg/dL (8.5-10.4); CARBON DIOXIDE 28 mEq/l (22-31); CHLORIDE 103 mEq/L (97-110); CREATININE 0.7 mg/dL (0.6-1.0); GLOMERULAR FILTRATION RATE > 60; GLUCOSE 83 mg/dL (70-100); SODIUM 138 mEq/L (134-144); TOTAL PROTEIN 5.2 g/dL (6.3-8.2)
[2017-03-09] MEDS: HYDROCODONE/APAP 5/325 TAB PO PRN (08:02)
[2017-03-09] MEDS: TOPIRAMATE 100 MG TAB PO SCH (08:02)
[2017-03-09] MEDS: FLUoxetine 10 MG CAP PO SCH (08:03)
[2017-03-09] MEDS: SENNOSIDES/DOCUSATE SODIUM TAB PO SCH ×2 (08:03→21:11)
[2017-03-09] MEDS: LATANOPROST 0.005% 2.5 ML OPHT DROPS EACHEYE SCH (08:04)
[2017-03-09] MEDS: CYCLOSPORINE 0.05% 1 EACH BOX EACHEYE SCH (08:04)
[2017-03-09] MEDS: ADDERALL 20 MG TAB PO SCH (08:05)
--- NOTE | 2017-03-09 10:44 | HOSPPROG ---
Hospitalist Progress Note Assessment/Plan: 56-year-old female presenting with acute right hip fracture in the setting of alcohol intoxication. * right hip intertrochanteric fracture -status post nailing -postop day #2 * alcohol use and abuse with alcohol level greater than 300 -on CIPA protocol -noted macrocytosis -she doesn't feel it is an issue/ reviewed w her, her blood alcohol level *urinary retention -resolved * pancytopenia * anemia, postop/acute blood loss -hgb 7.3, hct 21.9 -will give her a unit of PRBC/ she is feeling poorly *Underweight with a BMI of 16 * hypertension -bp stable -holding hctz for now *squamous dysplasia of esophagus -to go to the [facility] in [place] for f/u with this *dvt prophylaxis : LMWH *Plan: give a unit of PRBC's, recheck h/h in a.m. Reviewed her care with PT and OT who are recommending SNF. Subjective: Charissa is tired, in pain at her left hip. Objective: Vital Signs Temp Pulse Resp BP Pulse Ox 36.8 C 76 16 115/74 94 03/09/17 07:24 03/09/17 07:24 03/09/17 07:24 03/09/17 07:24 03/09/17 07:24 Laboratory Results 03/09/17 04:27 03/09/17 04:27 03/08/17 03/09/17 03/10/17 05:59 05:59 05:59 Intake Total 2110 950 Output Total 855 350 Balance 1255 600 - Physical Exam Constitutional: chronically ill appearing, uncomfortable, other (thin) Eyes: PERRL Ears, Nose, Mouth, Throat: hearing normal Cardiovascular: regular rate and rhythym Respiratory: no respiratory distress Skin: warm Musculoskeletal: generalized weakness Neurologic: AAOx3 Psychiatric: interacting appropriately, not anxious ICD10 Worksheet Patient Problems: Problems Problem Status Onset Closed right hip fracture Acute Calcaneus fracture Acute Hip fracture Acute Hypokalemia Acute Intraparenchymal hemorrhage of brain Acute Osteomyelitis Acute Subdural hematoma, post-traumatic Acute Traumatic epidural hematoma Acute
--- NOTE | 2017-03-09 11:19 | SOAPPROG ---
SOAP Progress Note Assessment/Plan: Assessment: 56 yo female, pod #1 s/p right tfn by dr. devries -rle: wbat with walker for stability, rom as tolerated by pain -pt/ot for evaluation/treatment -pain per primary team -proph: may loies, scd's, incentive spirometry, lmwh -discharge per primary -regarding H/H from 03/09/17 at 7.3/21.9, down from admission on 03/07/17 at 10.5/30.7, along with her baseline anemia general, and her mild symptoms of lethargy and mildly elevated heart rate at 90 seated in chair, recommended transfusing 1 unit PRBCs and repeat CBC on 03/10/2017. -Ortho will continue to follow Subjective: Charissa as she prefers to go by,is a pleasant 56-year-old female sitting up in chair comfortably, she is postop day 1 status post right TFN y Dr. Akbar on March 07, 2017. She reports overnight she did well, reports pain controlled, denies fevers or chills. Reports she is voiding normally and moving her bowels. She reports she has extensive experience with multiple previous orthopedic injuries and subsequent surgeries, she states she knows what to expect, but is also disappointed that this happened at this time. Patient reports she was scheduled to the [facility] for evaluation and treatment of a cancer diagnosis that she is currently battling. Patient denies fevers or chills, denies chest pain or shortness breath, Objective: 56-year-old female, sitting comfortably in chair, appears pale but not agitated or in pain, RLE: bilateral thigh-high MAY hose in place, Dressings mery/intact, appropriately tender near incision sites, full knee/ankle range of motion without pain, neurovascularly intact distally with brisk cap refill, PT/DP 2+ and symmetric, Vital Signs Temp Pulse Resp BP Pulse Ox 36.8 C 76 16 115/74 94 03/09/17 07:24 03/09/17 07:24 03/09/17 07:24 03/09/17 07:24 03/09/17 07:24 Laboratory Results 03/09/17 04:27 03/09/17 04:27 03/08/17 03/09/17 03/10/17 05:59 05:59 05:59 Intake Total 2110 950 Output Total 855 350 Balance 1255 600 - Pending Discharge Pending Discharge Within 24 Hours: No ICD10 Worksheet Patient Problems: Problems Problem Status Onset Closed right hip fracture Acute Calcaneus fracture Acute Hip fracture Acute Hypokalemia Acute Intraparenchymal hemorrhage of brain Acute Osteomyelitis Acute Subdural hematoma, post-traumatic Acute Traumatic epidural hematoma Acute
[2017-03-09] MEDS ORDERED: ACETAMINOPHEN 325 MG TAB PO ONE (11:41)
[2017-03-09] MEDS: oxyCODONE IR 5 MG TAB PO PRN ×3 (12:01→22:24)
--- NOTE | 2017-03-09 14:35 | SOAPPROG ---
SOAP Progress Note Assessment/Plan: Assessment: 56 yo female, pod #2 s/p right tfn by dr. devries, doing well, but now with post operative anemia, mildly symptomatic from the anemia -RLE: wbat with walker for stability, rom as tolerated by pain -will also order pelvis ap and right frog leg to check fracture s/p surgery -follow up with orthopedics at [facility] orthopedics 1 week after surgery date in the office with Dr. devries or his PA Jose Raul Mckenzie PA-C for post op wound check -pt/ot for evaluation/treatment -pain per primary team -proph: jose garcias, scd's, incentive spirometry, lmwh -discharge per primary -regarding H/H from 03/09/17 at 7.3/21.9, down from admission on 03/07/17 at 10.5/30.7, along with her baseline anemia general, and her mild symptoms of lethargy and mildly elevated heart rate at 90 seated in chair, recommended transfusing 1 unit PRBCs and repeat CBC on 03/10/2017. -Ortho will continue to follow Subjective: Charissa is now postop day 2 status post right TFN, she denies any issues overnight, reports she slept mediocre, reports pain has been relatively well controlled, reports she is discouraged and her setback having another orthopedic injury. patient reports the biggest problem she has is when she tries to move her leg rotationally she will experience pain in the right hip, however she is able to lift her leg and move it forwards and backwards without issue She is moving her bowels normally and floating freely. She reports she feels a little tired/lethargic/out of energy, but denies any fevers or chills, denies any numbness or tingling, denies any chest pain, denies shortness of breath or difficulty breathing. Objective: RLE: dressings clean/dry/intact, no surrounding erythema, no evidence of drainage, no evidence of infection.appropriately tender to palpation surrounding surgical sites,full knee/ankle/digit range of motion, neurovascularly intact distally, PT/DP 2+ and symmetric Vital Signs Temp Pulse Resp BP Pulse Ox 36.6 C 79 14 133/86 H 98 03/09/17 12:54 03/09/17 12:54 03/09/17 12:54 03/09/17 12:54 03/09/17 12:54 Laboratory Results 03/09/17 04:27 03/09/17 04:27 03/08/17 03/09/17 03/10/17 05:59 05:59 05:59 Intake Total 2110 950 Output Total 855 350 Balance 1255 600 ICD10 Worksheet Patient Problems: Problems Problem Status Onset Closed right hip fracture Acute Calcaneus fracture Acute Hip fracture Acute Hypokalemia Acute Intraparenchymal hemorrhage of brain Acute Osteomyelitis Acute Subdural hematoma, post-traumatic Acute Traumatic epidural hematoma Acute
--- NOTE | 2017-03-09 17:01 | ASMTCMCOM ---
CM Note CM Note Notes: Today PT rec SNF. REferral sent to [facility] and is pending insurance auth. CM to follow. Date Signed: 03/09/2017 05:00 PM Electronically Signed By:KOJO Jauregui
[2017-03-09] MEDS: ACETAMINOPHEN 500 MG TAB PO SCH ×2 (18:11→21:12)
[2017-03-09] MEDS: ENOXAPARIN 40 MG/0.4 ML SYR SC SCH (18:15)
[2017-03-09] MEDS ORDERED: LATANOPROST 0.005% 2.5 ML OPHT DROPS EACHEYE SCH (21:00)
[2017-03-10] MEDS: oxyCODONE IR 5 MG TAB PO PRN ×3 (03:06→15:13)
[2017-03-10 05:47] LABS: % IMMATURE GRANULYOCYTES 0.4 % (0.0-1.1); ABSOLUTE IMMATURE GRANULOCYTES 0.03 10^3/uL (0.00-0.10); ADD DIFF? NO; ADD MORPH? NO; ADD SCAN? NO; ATYPICAL LYMPHOCYTE FLAG 0 (0-99); FRAGMENT RBC FLAG 0 (0-99); HEMATOCRIT 25.3 % (38.0-47.0); HEMOGLOBIN 8.5 g/dL (12.6-16.3); LEFT SHIFT FLG 0 (0-99); LIPEMIA HEMOLYSIS FLAG 80 (0-99); MEAN CELL HEMOGLOBIN 35.4 pg (27.9-34.1); MEAN CELL HEMOGLOBIN CONCENTR. 33.6 g/dL (32.4-36.7); MEAN CELL VOLUME 105.4 fL (81.5-99.8); MEAN PLATELET VOLUME 10.7 fL (8.7-11.7); PLATELET CLUMPS FLAG 0 (0-99); PLATELET COUNT 122 10^3/uL (150-400); RED CELL DISTRIBUTION WIDTH 16.3 % (11.5-15.2)
[2017-03-10 06:04] LABS: ANION GAP 6 mEq/L (8-16); CALCIUM 8.7 mg/dL (8.5-10.4); CARBON DIOXIDE 25 mEq/l (22-31); CHLORIDE 104 mEq/L (97-110); CREATININE 0.7 mg/dL (0.6-1.0); GLOMERULAR FILTRATION RATE > 60; GLUCOSE 81 mg/dL (70-100); POTASSIUM 4.3 mEq/L (3.5-5.2); SODIUM 135 mEq/L (134-144)
[2017-03-10 10:01] VITALS: RESP 18; TEMP 99
[2017-03-10] MEDS: SENNOSIDES/DOCUSATE SODIUM TAB PO SCH (10:20)
[2017-03-10] MEDS: TOPIRAMATE 100 MG TAB PO SCH (10:21)
[2017-03-10] MEDS: ALPRAZolam 0.5 MG TAB PO PRN (10:21)
[2017-03-10] MEDS: FLUoxetine 10 MG CAP PO SCH (10:22)
[2017-03-10] MEDS: ACETAMINOPHEN 500 MG TAB PO SCH ×2 (10:22→15:34)
[2017-03-10] MEDS: ADDERALL 20 MG TAB PO SCH (10:23)
[2017-03-10] MEDS: ENOXAPARIN 40 MG/0.4 ML SYR SC SCH (10:24)
[2017-03-10] MEDS: CYCLOSPORINE 0.05% 1 EACH BOX EACHEYE SCH (10:26)
[2017-03-10 11:40] VITALS: BP 148/91; PULSE 100; O2SAT 98
--- NOTE | 2017-03-10 13:37 | HOSPPROG ---
Hospitalist Progress Note Assessment/Plan: 56-year-old female presenting with acute right hip fracture in the setting of alcohol intoxication. * right hip intertrochanteric fracture -status post nailing -postop day #3 -doing well today * alcohol use and abuse with alcohol level greater than 300 -on CIWA protocol -noted macrocytosis -she doesn't feel it is an issue/ reviewed w her, her blood alcohol level *urinary retention -resolved * pancytopenia * anemia, postop/acute blood loss -hgb 8.5 and hct 25/ better -given a unit of prbc *Underweight with a BMI of 16 * hypertension -bp stable -holding hctz for now *squamous dysplasia of esophagus -to go to the [facility] in [place] for f/u with this *dvt prophylaxis : LMWH *Plan: dc to [place]/ further f/u with Dr Maynard Subjective: Charissa is feeling well today/ really appreciative toward Pete the OT. Objective: Vital Signs Temp Pulse Resp BP Pulse Ox 37.2 C 100 18 148/91 H 98 03/10/17 11:18 03/10/17 11:18 03/10/17 11:18 03/10/17 11:18 03/10/17 11:18 Laboratory Results 03/10/17 04:26 03/10/17 04:26 03/09/17 03/10/17 03/11/17 05:59 05:59 05:59 Intake Total 950 1571 250 Output Total 350 Balance 600 1571 250 - Physical Exam Constitutional: no apparent distress, appears nourished Eyes: PERRL Ears, Nose, Mouth, Throat: hearing normal Respiratory: no respiratory distress Gastrointestinal: normoactive bowel sounds Skin: warm Musculoskeletal: generalized weakness Neurologic: AAOx3 Psychiatric: interacting appropriately, not anxious ICD10 Worksheet Patient Problems: Problems Problem Status Onset Closed right hip fracture Acute Calcaneus fracture Acute Hip fracture Acute Hypokalemia Acute Intraparenchymal hemorrhage of brain Acute Osteomyelitis Acute Subdural hematoma, post-traumatic Acute Traumatic epidural hematoma Acute
--- NOTE | 2017-03-10 14:05 | PDIAF ---
- Diagnosis Diagnosis: Right hip inter trochanteric hip fracture status post nailing, anemia Code Status: Full Code - Medication Management Discharge Medications: Medications to Continue on Transfer Topiramate [Topamax 100MG (*)] 100 mg PO DAILY 07/20/14 [Last Taken 03/06/17] ALPRAZolam [Xanax 0.5 MG (*)] 0.5 mg PO DAILY PRN 05/29/15 [Last Taken 03/04/17] Amphet Asp and D/Amphet [Adderall 20 mg (*)] 20 mg PO DAILY 05/29/15 [Last Taken 03/04/17] FLUoxetine [Prozac 10 MG (*)] 10 mg PO DAILY 01/09/16 [Last Taken 03/07/17] Hydrochlorothiazide [HCTZ (*)] 25 mg PO DAILY 01/09/16 [Last Taken 03/07/17] Latanoprost 0.005% [Xalatan 0.005% (*)] 1 drops EACHEYE DAILY 01/09/16 [Last Taken 03/07/17] cycloSPORINE 0.05% [Restasis Opht Drops(*)] 1 drop EACHEYE DAILY 01/09/16 [Last Taken 03/07/17] Herbals/Supplements -Info Only 1 ea PO DAILY 03/07/17 [Last Taken 03/07/17] Acetaminophen [Tylenol ES 500 mg (*)] 1,000 mg PO TID tab 03/10/17 [Last Taken Unknown] Enoxaparin [Lovenox 40 MG (*)] 40 mg SC DAILY #11 syr 03/10/17 [Last Taken Unknown] Polyethylene Glycol 3350 [Miralax 17 gm (*)] 17 gm PO DAILY PRN pkt 03/10/17 [ Last Taken Unknown] Sennosides/Docusate Sodium [Senokot-S] 1 - 2 tab PO BID tab 03/10/17 [Last Taken Unknown] oxyCODONE IR [Oxycodone Ir (*)] 10 mg PO Q4HRS PRN tab 03/10/17 [Last Taken Unknown] Discharge Medications: Refer to the Discharge Home Medication list for PRN reason. - Orders Services needed: Physical Therapy, Occupational Therapy Diet Recommendation: no restrictions on diet Diet Texture: Regular Texture Diet Activity/Weight Bearing Restrictions: wbat Additional: Continue low-molecular weight heparin for the next [address] Maynard in next 2 weeks. - Labs/Radiology BMP Date: 03/13/17 CBC Date: 03/13/17 (weekly) - Follow Up Care Current Providers and Referrals: Patient,NotPresent [Unknown] - As per Instructions Endy Maynard MD [Medical Doctor] -
--- NOTE | 2017-03-10 14:46 | ASMTCMCOM ---
CM Note CM Note Notes: Pt medically stable for d/c to [facility] who have obtained [employer] authorization. WC transport set up by [facility] at 1600. Orders sent in [employer]. MARGARITA Cuellar to call report. Date Signed: 03/10/2017 02:46 PM Electronically Signed By:KOJO Jauregui
--- NOTE | 2017-03-10 15:19 | SOAPPROG ---
SOAP Progress Note Assessment/Plan: Assessment: 56 yo female, pod #2 s/[address] devries, s/p transfusion of 1 unit PRBC' s with improving hematocrit, doing well -RLE: wbat with walker for stability, rom as tolerated by pain -patient showed x-rays told they look great with good alignment of the fracture site and intact hardware w/o signs of failure. -follow up with orthopedics at [facility] orthopedics 1 week after surgery date in the office with Dr. devries or his PA Jose Raul Mckenzie PAJanice for post op wound check -pt/ot for evaluation/treatment -pain per primary team -proph: jose garcias, scd's, incentive spirometry, lmwh -discharge per primary -ortho signing off. 03/10/17 15:20 Subjective: patient denies any issues over night, reports that she slept okay, denies any fevers or chills, denies cp/sob, reports pain w/ rotation is still the only real complaint, but it is improving as they figure out what works for her pain control. patient reports she has been voiding and moving her bowels without issue. has worked with OT today, liked the session more as she states he explained it better, feels comfortable walking with walker. Objective: patient appears to be resting comfortably in her chair, with noted more color than yesterday in her skin RLE: dressings c/d/i, no drainage or signs of infection, appropriately ttp, full knee/ankle rom, nvid w/ brisk cap refill Vital Signs Temp Pulse Resp BP Pulse Ox 37.2 C 100 18 148/91 H 98 03/10/17 11:18 03/10/17 11:18 03/10/17 11:18 03/10/17 11:18 03/10/17 11:18 Laboratory Results 03/10/17 04:26 03/10/17 04:26 03/09/17 03/10/17 03/11/17 05:59 05:59 05:59 Intake Total 950 1571 250 Output Total 350 Balance 600 1571 250 - Pending Discharge Pending Discharge Within 24 Hours: Yes Pending Discharge Date: 03/11/17 Pending Discharge Time: 11:00 ICD10 Worksheet Patient Problems: Problems Problem Status Onset Closed right hip fracture Acute Calcaneus fracture Acute Hip fracture Acute Hypokalemia Acute Intraparenchymal hemorrhage of brain Acute Osteomyelitis Acute Subdural hematoma, post-traumatic Acute Traumatic epidural hematoma Acute
--- NOTE | 2017-03-10 20:13 | GDS ---
[f rep st] DISCHARGE SUMMARY DISCHARGE DIAGNOSES: 1. Right hip intertrochanteric fracture. 2. Alcohol use. 3. Urinary retention. 4. Pancytopenia. 5. Anemia, acute blood loss. 6. Underweight with a body index of 16. 7. Hypertension. 8. Squamous dysplasia of the esophagus. CONSULTATIONS: Dr. Endy Maynard with orthopedic services. HISTORY: Briefly, the patient is a 56-year-old woman who presented to the emergency room with acute pain in her right hip. She became entangled with her dog, falling to her right side, landing on her hip, experiencing immediate pain. She came to the emergency room for further evaluation and seen by Dr. Maynard. She had surgery on 03/07/2017, and had a surgical fixation with Dr. Maynard. HOSPITAL COURSE: 1. Right intertrochanteric hip fracture. She is postop day #3, status post 2 TFN. She has done well with her procedure. She will be discharged to [facility] today. 2. Alcohol use and abuse. Her alcohol level is greater than 300. She was placed on the CIWA protocol. She did not have any signs or symptoms of withdrawal. 3. Urinary retention, resolved. 4. Pancytopenia, likely secondary to alcohol use. 5. Anemia, acute blood loss. She was transfused a unit of packed red blood cells. This improved. Will have her hemoglobin and hematocrit monitored at the care home facility. 6. Underweight with a BMI of 16. 7. Hypertension. Her blood pressure has been stable. Her hydrochlorothiazide had been on hold due to poor intake. 8. Squamous dysplasia of the esophagus. She has an appointment to go to the [facility] in the [place] area for followup. DISCHARGE CONDITION: Stable. Blood pressure is 148/91, heart rate is 79, respiratory rate is 18, O2 sats on room air 98%, temperature is 37.2 Celsius. MEDICATIONS AT DISCHARGE: Please see the EMR. DISCHARGE INSTRUCTIONS: 1. Follow up with Dr. Maynard in 1-2 weeks. 2. Weightbearing as tolerated to right lower extremity. 3. Continue Lovenox for the next 11 days. Greater than 30 minutes discharging and coordinating care please. /[id number]/MODL MTDD
--- NOTE | 2017-03-11 12:04 | ASDISCHSUM ---
Discharge Information Plan Status:SNF Medically Cleared to Leave: Discharge Date:03/10/2017 04:27 PM D/C Disposition:[facility] Facility ADT D/C Disposition:[facility] Facility Projected Discharge Date:03/10/2017 11:00 AM Transportation at D/C:Wheelchair Van Discharge Delay Reason: Follow-Up Date:03/10/2017 11:00 AM Discharge Slot: Final Diagnosis: Placement Information Referral Type:*Home Health Care Services Referral ID:[id number] Provider Name: Address 1: Phone Number: Address 2: Fax Number: City: Selection Factors: State: Referral Type:*Half-Way/SNF Referral ID:[id number] Provider Name:[facility] Address 1:[address] [place] [address] Address 2: City:[place] Selection Factors: State:[place] Patient Contact Information Contact Name:NELDA Relationship: Address:[address] [facility] Work Phone: City:[place] Alternate Phone: [facility]/Zip Code:[place] [address] Email: Financial Information Financial Class:HMO and PPO Plans Primary Plan Desc:[employer] PPO POS HMO Primary Plan Number:[id number] Secondary Plan Desc: Secondary Plan Number: Assessment Information [facility] CM Progress Note CM Note CM Note Notes: Pt had surgery for hip fracture after a fall, reports she had been drinking alcohol. OT rec home vs [facility], PT rec [facility]. Pt on [facility]. Date Signed: 03/08/2017 03:05 PM Electronically Signed By:KOJO Jauregui BC CM Progress Note CM Note CM Note Notes: Today PT rec SNF. REferral sent to [facility] and is pending insurance auth. CM to follow. Date Signed: 03/09/2017 05:00 PM Electronically Signed By:KOJO Jauregui [facility] CM Progress Note CM Note CM Note Notes: Pt medically stable for d/c to [facility] who have obtained [employer] authorization. WC transport set up by [facility] at 1600. Orders sent in [employer]scripts. MARGARITA Cuellar to call report. Date Signed: 03/10/2017 02:46 PM Electronically Signed By:KOJO Jauregui Intervention Information
== END 2017-03-10 16:27 | DRG 481 ==
LOC: EDUNIT# → F3N 18:17
PROVIDERS: ADMIT Internal Medicine; ATTEND Student in an Organized Health Care Education/Training Program
DX: S72.101A Unspecified trochanteric fracture of right femur, initial encounter for closed fracture (principal); W01.0XXA Fall on same level from slipping, tripping and stumbling without subsequent striking against object, initial encounter; Y93.K1 Activity, walking an animal; D62 Acute posthemorrhagic anemia; R33.9 Retention of urine, unspecified; F10.129 Alcohol abuse with intoxication, unspecified; D61.818 Other pancytopenia; R63.6 Underweight; Z68.1 Body mass index [BMI] 19.9 or less, adult; I10 Essential (primary) hypertension; Q39.9 Congenital malformation of esophagus, unspecified; Z87.81 Personal history of (healed) traumatic fracture
CPT/HCPCS: 96374; 97110-GP; 97116-GP; 97161-GP; 97165-GO; 97530-GO; 97530-GP; 97535-GO; C1713; C1769; G0480; J0690; J1100; J1170; J1650; J2001; J2250; J2405; J2704; J2795; J3010; P9016

== ENCOUNTER 2017-08-20 10:24 | Inpatient (IN) | payer BC, OTHER ==
[2017-08-20] MEDS ORDERED: NS 500 ML IV ONE (10:43)
--- NOTE | 2017-08-20 10:43 | EDPHY ---
H & P Time Seen by Provider: 08/20/17 10:32 HPI/ROS: CHIEF COMPLAINT: Difficulty swallowing, shortness of breath HISTORY OF PRESENT ILLNESS: Patient is a 57-year-old female who presents emergency department with multiple complaints. The patient states she has had difficulty swallowing for some time. She has been followed by the [facility]. She went to the [facility] and had EGD on 07/29/2017. During that procedure she aspirated and subsequently developed pneumonia. She was admitted to the hospital for few days. She states she had some internal bleeding with nonstop diarrhea but this had resolved. The patient states that she has had ongoing issues with swallowing. Yesterday she attempted to swallow some water and "aspirated." Since that time she has been unable to tolerate any oral intake. Every time she tries to eat liquids or solid she chokes. She denies any nausea or vomiting. No abdominal pain. No chest pain. REVIEW OF SYSTEMS: My complete review of systems is negative except as mentioned in the HPI. Past Medical/Surgical History: Includes subdural hematoma, anxiety, glaucoma, femur fracture, esophageal cancer , squamous cell cancer, IBS, fructose intolerance, urinary retention, pancytopenia, anemia, weight lost The past surgical history: Includes femur fracture, left hip surgery Social history: The patient does not smoke Smoking Status: Never smoked Physical Exam: 36.8, 96/70, 95, 18, 91% on room air GENERAL: Well-appearing, in no acute distress, alert. Thin HEENT: Eyes normal to inspection, normal pharynx, no signs of dehydration. NECK: No thyromegaly, no lymphadenopathy, supple. RESPIRATORY: Clear to auscultation bilaterally, no rales, rhonchi or wheezing. CVS: Regular rate and rhythm, no rubs, murmurs, or gallops. ABDOMEN: Soft, nontender, nondistended, no organomegaly. BACK: Normal to inspection, no CVA tenderness. SKIN: Normal color, no rash, warm, dry. Pallor. EXTREMITIES: No pedal edema, no calf tenderness, no Homans sign or cords, no joint swelling. NEURO/PSYCH: Alert and oriented x3, normal mood and affect, normal motor sensory exam. Constitutional: Initial Vital Signs Temperature (C) 36.8 C 08/20/17 10:28 Heart Rate 95 08/20/17 10:28 Respiratory Rate 18 08/20/17 10:28 Blood Pressure 96/70 L 08/20/17 10:28 O2 Sat (%) 91 L 08/20/17 10:28 O2 Delivery Mode Room Air Allergies/Adverse Reactions: tramadol Allergy (Mild, Verified 03/07/17 19:28) ceftriaxone Allergy (Verified 03/07/17 19:27) Rash lisinopril Allergy (Verified 03/07/17 19:27) Rash Home Medications: Medication Instructions Recorded ALPRAZolam [Xanax 0.5 MG (*)] 0.5 mg PO DAILY PRN 08/20/17 Amphet Asp and D/Amphet [Adderall 20 mg PO BID PRN 08/20/17 20 mg (*)] FLUoxetine [Prozac 10 MG (*)] 10 mg PO DAILY 08/20/17 Herbals/Supplements -Info Only 1 ea PO DAILY 08/20/17 Hydrochlorothiazide [HCTZ (*)] 25 mg PO DAILY 08/20/17 Pantoprazole Sodium [Protonix 40mg 40 mg PO DAILY 08/20/17 (*)] Sucralfate [Carafate 1gm/10ml Oral 1 gm PO BID 08/20/17 Liquid (*)] Topiramate [Topamax 100MG (*)] 100 mg PO BID 08/20/17 Medical Decision Making - Diagnostics Imaging Results: Imaging Impressions Chest X-Ray 08/20/17 10:44 Impression: Mild peribronchial thickening suggesting airways disease/bronchitis. Esophagram Cervical 08/20/17 10:45 Impression: Aspiration, with esophagram terminated. Findings discussed with Dr. Cristina Welch on 08/20/2017 at 11:49. ED Course/Re-evaluation: In the emergency department I discussed possible etiologies with the patient. I answered all her questions. IV was placed. Patient was given normal saline 500 mL IV for hydration. Laboratory studies, EKG and chest x-ray, there was wall were ordered. I discussed the diagnostic test with the patient answered her questions. She was concerned that she might be able to complete the barium swallow. She will give the test and temp. EKG shows n sinus tachycardia 100 with regular rhythm, normal axis, borderline prolonged QT interval]. There are no ST or T-wave abnormalities. Barium swallow: I discussed case with Dr. Rouse. They attempted to perform the study but the patient immediately had aspiration. This study was stopped. I discussed this with the patient post study. Chest x-ray: The patient has a noted infiltrate. Because of this she was given Levaquin 750 mg IV. I explained this to the patient. I discussed case with the hospitalist service. They will admit. Differential Diagnosis: My differential includes but is not limited to bronchitis, pneumonia, aspiration pneumonia, foreign body, GERD, peptic ulcer disease, esophageal stricture, malignancy, mass - Data Points Laboratory Results: Laboratory Results 08/20/17 10:54 08/20/17 10:54 08/20/17 08/20/17 10:54 10:54 WBC 15.55 10^3/uL H 10^3/uL (3.80-9.50) RBC 3.23 10^6/uL L 10^6/uL (4.18-5.33) Hgb 11.1 g/dL L g/dL (12.6-16.3) Hct 33.6 % L % (38.0-47.0) MCV 104.0 fL H fL (81.5-99.8) MCH 34.4 pg H pg (27.9-34.1) MCHC 33.0 g/dL g/dL (32.4-36.7) RDW 12.8 % % (11.5-15.2) Plt Count 307 10^3/uL 10^3/uL (150-400) MPV 9.4 fL fL (8.7-11.7) Neut % (Auto) 82.0 % H % (39.3-74.2) Lymph % (Auto) 12.4 % L % (15.0-45.0) Bremer % (Auto) 4.8 % % (4.5-13.0) Eos % (Auto) 0.0 % L % (0.6-7.6) Baso % (Auto) 0.3 % % (0.3-1.7) Nucleat RBC Rel Count 0.0 % % (0.0-0.2) Absolute Neuts (auto) 12.77 10^3/uL H 10^3/uL (1.70-6.50) Absolute Lymphs (auto) 1.93 10^3/uL 10^3/uL (1.00-3.00) Absolute Monos (auto) 0.74 10^3/uL 10^3/uL (0.30-0.80) Absolute Eos (auto) 0.00 10^3/uL L 10^3/uL (0.03-0.40) Absolute Basos (auto) 0.04 10^3/uL 10^3/uL (0.02-0.10) Absolute Nucleated RBC 0.00 10^3/uL 10^3/uL (0-0.01) Immature Gran % 0.5 % % (0.0-1.1) Immature Gran # 0.07 10^3/uL 10^3/uL (0.00-0.10) Sodium 142 mEq/L mEq/L (135-145) Potassium 3.7 mEq/L mEq/L (3.5-5.2) Chloride 99 mEq/L mEq/L (97-110) Carbon Dioxide 23 mEq/l mEq/l (22-31) Anion Gap 20 mEq/L H mEq/L (8-16) BUN 17 mg/dL mg/dL (7-23) Creatinine 0.7 mg/dL mg/dL (0.6-1.0) Estimated GFR > 60 Glucose 92 mg/dL mg/dL (70-100) Calcium 9.4 mg/dL mg/dL (8.5-10.4) Troponin I < 0.012 ng/mL ng/mL (0.000-0.034) Medications Given: Ondansetron HCl (Zofran) 4 mg IVP Q4HRS PRN PRN Reason: Nausea/Vomiting, Can't Take PO Stop: 02/16/18 11:22 Last Admin: 08/20/17 11:32 Dose: 4 mg Discontinued Medications Sodium Chloride (Ns) 500 mls @ 1,000 mls/hr IV EDNOW ONE PRN Reason: Protocol Stop: 08/20/17 11:12 Last Admin: 08/20/17 11:00 Dose: 500 mls Levofloxacin/Dextrose (Levaquin 750 Mg (Premix)) 150 mls @ 100 mls/hr IV EDNOW ONE PRN Reason: Protocol Stop: 08/20/17 12:52 Last Admin: 08/20/17 11:47 Dose: 150 mls Morphine Sulfate (Morphine) 2 mg IVP EDNOW ONE Stop: 08/20/17 11:46 Last Admin: 08/20/17 11:47 Dose: 2 mg Departure - Departure Disposition: [facility] Acute Clinical Impression: Aspiration pneumonitis Dysphagia Qualifiers: Dysphagia type: unspecified Qualified Code(s): R13.10 - Dysphagia, unspecified Aspiration into airway Qualifiers: Encounter type: initial encounter Qualified Code(s): T17.908A - Unspecified foreign body in respiratory tract, part unspecified causing other injury, initial encounter Condition: Good
--- NOTE | 2017-08-20 10:54 | CPEKG ---
Heart Rate: 100 RR Interval: 600 P-R Interval: 144 QRSD Interval: 102 QT Interval: 388 QTC Interval: 501 P [place]: 75 QRS [place]: 78 T Wave [place]: 104 EKG Severity - ABNORMAL ECG - EKG Impression: SINUS TACHYCARDIA EKG Impression: NONSPECIFIC REPOL ABNORMALITY, DIFFUSE LEADS EKG Impression: BORDERLINE PROLONGED QT INTERVAL Electronically Signed By: Cristina Welch 20-Aug-2017 15:16:12
[2017-08-20 11:20] LABS: PLATELET COUNT 307 10^3/uL (150-400)
[2017-08-20] MEDS ORDERED: ONDANSETRON DISINTEGRATING 4 MG TAB PO PRN (11:23)
[2017-08-20] MEDS ORDERED: ONDANSETRON 4 MG/2 ML VIAL IVP PRN (11:23)
[2017-08-20] MEDS ORDERED: ACETAMINOPHEN 325 MG TAB PO PRN (11:23)
[2017-08-20] MEDS ORDERED: LORazepam 2 MG/ML INJ IVP PRN (11:25)
[2017-08-20] MEDS ORDERED: LORazepam 1 MG TAB PO PRN (11:25)
[2017-08-20] MEDS ORDERED: ONDANSETRON 4 MG/2 ML VIAL ONE (11:29)
--- NOTE | 2017-08-20 12:48 | ASMTCMCOM ---
CM Note CM Note Notes: Pt presented to the Emergency Department today with difficulty swallowing and shortness of breath. Chart reviewed. Pt admitted for further evaluation and treatment. Pt lives with her here in [place] and is self employed. Discharge needs remain unclear at this time. Anticipate pt will likely discharge home with family support when medically stable. CM will cont to follow. Current discharge plan: To be determined Date Signed: 08/20/2017 12:48 PM Electronically Signed By:Tanya Bryan RN
--- NOTE | 2017-08-20 13:23 | PDGENHP ---
History and Physical - Chief Complaint Acute dysphagia - History of Present Illness Primary care provider: Dr. Merlos HPI: 57-year-old female presenting with acute dysphagia characterized as inability to tolerate any oral intake with onset of symptoms on the evening prior and duration persistent thereafter. The patient reports that she has inability to swallow solids and liquids and result in associated vomiting. Last night she sat upright to alleviate any aspiration of oral saliva, repetitively having to spit it out rather than swallow it. She reports that this has resulted in dry mouth and hoarseness. She otherwise denies any shortness of breath or chest pain. Her last bowel movement was yesterday and was reportedly normal. She denies any other infectious symptoms. Of note, the patient had cryo treatment of her lower esophagus on July 29, followed by was reported as aspiration pneumonia and hospitalization beginning on July 31. These episodes of care with the [facility] in [place]. History Information - Allergies/Home Medication List Allergies/Adverse Reactions: tramadol Allergy (Mild, Verified 03/07/17 19:28) ceftriaxone Allergy (Verified 03/07/17 19:27) Rash lisinopril Allergy (Verified 03/07/17 19:27) Rash Home Medications: ALPRAZolam [Xanax 0.5 MG (*)] 0.5 mg PO DAILY PRN 08/20/17 [Last Taken 08/19/17] Amphet Asp and D/Amphet [Adderall 20 mg (*)] 20 mg PO BID PRN 08/20/17 [Last Taken 08/18/17] FLUoxetine [Prozac 10 MG (*)] 10 mg PO DAILY 08/20/17 [Last Taken 08/19/17] Herbals/Supplements -Info Only 1 ea PO DAILY 08/20/17 [Last Taken 08/20/17] Hydrochlorothiazide [HCTZ (*)] 25 mg PO DAILY 08/20/17 [Last Taken Unknown] Pantoprazole Sodium [Protonix 40mg (*)] 40 mg PO DAILY 08/20/17 [Last Taken ] Sucralfate [Carafate 1gm/10ml Oral Liquid (*)] 1 gm PO BID 08/20/17 [Last Taken 08/19/17] Topiramate [Topamax 100MG (*)] 100 mg PO BID 08/20/17 [Last Taken 08/19/17] I have personally reviewed and updated: family history, medical history, social history, surgical history - Past Medical History hypertension Additional medical history: Osteopenia, 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 Acevedo. Left calcaneal surgery by Dr. Taylor. Recent endoscopy and colonoscopy at [facility] - Family History Additional family history: Father with pulmonary hypertension, no family history of esophageal motility disorders - Social History Smoking Status: Never smoked Alcohol Use: Heavy (Last use several days ago) Drug Use: None Additional social history: She reports she is independent in her ADLs Review of Systems Review of Systems: ROS: 10pt was reviewed & negative except for what was stated in HPI & below Constitutional: Reports: weight loss Gastrointestinal: Reports: vomitting, other (Dysphagia) Physical Exam Physical Exam: Temp Pulse Resp BP Pulse Ox 37.7 C 91 18 98/66 L 97 08/20/17 12:12 08/20/17 12:12 08/20/17 12:12 08/20/17 12:12 08/20/17 12:12 O2 (L/minute) 4 Constitutional: no apparent distress, not in pain, chronically ill appearing, cachectic, No uncomfortable Eyes: PERRL, anicteric sclera, EOMI Ears, Nose, Mouth, Throat: hearing normal, no oral mucosal ulcers, dry mucous membranes Cardiovascular: regular rate and rhythym, no murmur, rub, or gallop, No edema Respiratory: no respiratory distress, no rales or rhonchi, clear to auscultation Gastrointestinal: normoactive bowel sounds, soft, non-tender abdomen, no palpable masses, No distension Musculoskeletal: other (Proximal muscle wasting) Neurologic: AAOx3, sensation intact bilaterally, No weakness Psychiatric: interacting appropriately, not anxious, not encephalopathic, thought process linear Lab Data & Imaging Review 08/20/17 10:54 08/20/17 10:54 WBC 15.55 10^3/uL (3.80-9.50) H 08/20/17 10:54 RBC 3.23 10^6/uL (4.18-5.33) L 08/20/17 10:54 Hgb 11.1 g/dL (12.6-16.3) L 08/20/17 10:54 Hct 33.6 % (38.0-47.0) L 08/20/17 10:54 MCV 104.0 fL (81.5-99.8) H 08/20/17 10:54 MCH 34.4 pg (27.9-34.1) H 08/20/17 10:54 MCHC 33.0 g/dL (32.4-36.7) 08/20/17 10:54 RDW 12.8 % (11.5-15.2) 08/20/17 10:54 Plt Count 307 10^3/uL (150-400) 08/20/17 10:54 MPV 9.4 fL (8.7-11.7) 08/20/17 10:54 Neut % (Auto) 82.0 % (39.3-74.2) H 08/20/17 10:54 Lymph % (Auto) 12.4 % (15.0-45.0) L 08/20/17 10:54 Stanton % (Auto) 4.8 % (4.5-13.0) 08/20/17 10:54 Eos % (Auto) 0.0 % (0.6-7.6) L 08/20/17 10:54 Baso % (Auto) 0.3 % (0.3-1.7) 08/20/17 10:54 Nucleat RBC Rel Count 0.0 % (0.0-0.2) 08/20/17 10:54 Absolute Neuts (auto) 12.77 10^3/uL (1.70-6.50) H 08/20/17 10:54 Absolute Lymphs (auto) 1.93 10^3/uL (1.00-3.00) 08/20/17 10:54 Absolute Monos (auto) 0.74 10^3/uL (0.30-0.80) 08/20/17 10:54 Absolute Eos (auto) 0.00 10^3/uL (0.03-0.40) L 08/20/17 10:54 Absolute Basos (auto) 0.04 10^3/uL (0.02-0.10) 08/20/17 10:54 Absolute Nucleated RBC 0.00 10^3/uL (0-0.01) 08/20/17 10:54 Immature Gran % 0.5 % (0.0-1.1) 08/20/17 10:54 Immature Gran # 0.07 10^3/uL (0.00-0.10) 08/20/17 10:54 Sodium 142 mEq/L (135-145) 08/20/17 10:54 Potassium 3.7 mEq/L (3.5-5.2) 08/20/17 10:54 Chloride 99 mEq/L (97-110) 08/20/17 10:54 Carbon Dioxide 23 mEq/l (22-31) 08/20/17 10:54 Anion Gap 20 mEq/L (8-16) H 08/20/17 10:54 BUN 17 mg/dL (7-23) 08/20/17 10:54 Creatinine 0.7 mg/dL (0.6-1.0) 08/20/17 10:54 Estimated GFR > 60 08/20/17 10:54 Glucose 92 mg/dL (70-100) 08/20/17 10:54 Calcium 9.4 mg/dL (8.5-10.4) 08/20/17 10:54 Troponin I < 0.012 ng/mL (0.000-0.034) 08/20/17 10:54 Visualized and Interpreted Chest x-ray results: Yes Chest X-Ray results: no infiltrate Visualized and Interpreted EKG results: Yes EKG Interpretation: Positive for: other (Sinus tachycardia) Assessment & Plan Assessment: 57-year-old female presents with acute dysphagia and inability to tolerate oral intake Plan: 1. Dysphagia. Acute, new problem this provider, further workup indicated. Suspect this is secondary to ulcerated esophagus with resultant narrowing -discussed with Dr. Hook, he recommends supportive care with IV PPI, IV fluids, pain medication if needed -he will consult on the patient today and recommend any further studies -continue NPO with ice chips and medications -[employer] eval -order outside records from [facility] to further investigate the underlying diagnosis of reported squamous cell esophageal dysplasia 2. Suspected aspiration pneumonitis. Acute, evidence of aspiration on esophagram, elevated white blood cell count but no overt consolidation on chest x-ray -hold on antibiotics -monitor white blood cell count -monitor for signs of infection 3. Suspected severe protein calorie malnutrition. Evidenced by proximal muscle wasting, low BMI, reported history of irritable bowel syndrome and fructose intolerance, which also further limits the patient's dietary intake -get dietary consult -attempt to advance diet once tolerates 4. Chronic mood disorder. Continue home medications 5. Alcoholism. Chronic, reviewed outside records including 03/10/2017 discharge summary by Nanci Parra, reports patient had a right hip fracture requiring TFNin the setting of alcohol intoxication -monitor on CIWA -check alcohol level as patient's reported last drink may be somewhat unreliable Diet. NPO with ice chips Prophylaxis. Low risk patient, SCDs Code. Full Disposition. Anticipated discharge is 08/21, pending further stabilization of conditions outlined above.
[2017-08-20] MEDS ORDERED: ALPRAZolam 1 MG TAB PO PRN (13:30)
[2017-08-20] MEDS ORDERED: ADDERALL 20 MG TAB PO PRN (13:30)
[2017-08-20] MEDS: PANTOPRAZOLE SODIUM 40 MG VIAL IVP SCH ×2 (15:00→20:33)
[2017-08-20] MEDS ORDERED: IOPAMIDOL (ISOVUE-300) 100 ML BTL ONE (16:01)
--- NOTE | 2017-08-20 17:42 | GCON ---
[f rep st] CONSULTATION GI CONSULTATION. REQUESTING PHYSICIAN: Riky Pedraza MD CHIEF COMPLAINT: Dysphagia. HISTORY OF PRESENT ILLNESS: The patient is a 57-year-old female who presented to the emergency room here with a progressively more severe dysphagia and inability to handle solids or liquids this morning. She has an extensive GI history, starting in October 2016 when she had an EGD performed at [facility] for evaluation of low weight and was found to have white plaques of her esophagus suggestive of monilial esophagitis, albeit the biopsies showed moderate squamous dysplasia. Because of this, she had followup EGD in February 2017 without intervening endoscopic therapy. She had an EGD with endoscopic ultrasound performed, which showed multiple pill-like plaque ulcerations from 25 cm from the incisors to the GE junction, which biopsies again confirmed moderate squamous dysplasia. Because of this, she was referred to Dr. Kristin Ortiz, at the [facility] in [place] and had an EGD on 03/21/2017 with chromo-endoscopy. This revealed 2 abnormalities, one at 30 cm from the incisors and one at 33cm. These were both excised with a cap-assisted endoscopic mucosal resection. The histology of these resections revealed [id number] squamous dysplasia. She again had a repeat EGD, most recently on 07/29/2017, by Dr. Ortiz, at which time he did chromo-endoscopy, zoom magnification, and narrow-beam imaging and found several spots of mucosal abnormality to which he used spray cryotherapy. Patient was sent home and shortly thereafter developed acute onset of chest pain, passage of black diarrhea, and a fever to 104. She was seen at a nearby hospital and had a CT angiography performed, which reviewed no pulmonary emboli, albeit showed diffuse thickening of the esophageal wall with periesophageal fat stranding and fluid, as well as bilateral pleural effusions. She was transferred to the [facility] on 08/01/2017 and was hospitalized there for 3 days for treatment of aspiration pneumonia. She was discharged home and returned to [place] on the of this month and has had chronic [id number] dysphagia since that time, being on a soft diet. She was seen once by her PCP at [facility] and was doing fairly well until today, when she had acute exacerbation of her dysphagia and inability to handle liquid, solids, or secretions. She has denied any fever, chills, or night sweats. She has lost 7 pounds in the last month. She has had chronic low weight for greater than 3 years' time with negative medical workup for the same. MEDICATIONS: Prior to admission, included Xanax 0.5 mg p.o. p.r.n. anxiety, Adderall 20 mg p.o. b.i.d., Prozac 10 mg p.o. daily, hydrochlorothiazide 25 mg p.o. daily, herbal supplements daily, pantoprazole 40 mg p.o. daily, sucralfate 1 g slurry p.o. b.i.d., Topamax 100 mg p.o. b.i.d. ALLERGIES: Tramadol, ceftriaxone, and lisinopril. PAST MEDICAL HISTORY: Significant for chronic low weight, osteopenia, chronic macrocytic anemia, history of migraine headaches, mood disorder, history of subdural hematoma, history of chronic alcohol excess, history of irritable bowel syndrome/diarrhea predominant. PAST SURGICAL HISTORY: Significant for external reduction and internal fixation of left hip in December 2015 and left calcaneal surgery in the past. Also, recent endoscopies and colonoscopies at the [facility] (colonoscopy is normal). FAMILY HISTORY: Positive for pulmonary hypertension in her father. There is no history of GI malignancies or peptic ulcer disease. SOCIAL HISTORY: She is nonsmoker. She has been heavy alcohol consumer for many years. She denies any illicit drug use. REVIEW OF SYSTEMS: Other than complaints of dysphagia, odynophagia, fatigue, and intermittent diarrhea, was negative for comprehensive review of systems. PHYSICAL EXAMINATION: VITAL SIGNS: On my examination today, temperature is 37.7 Celsius, pulse 80 regular, blood pressure 98/66, respiratory rate of 18, O2 saturation 97% on 4 L per nasal cannula. GENERAL: A cachectic and fatigued- appearing woman lying in bed, coughing up phlegm. INTEGUMENT: Clear. HEENT: Head atraumatic, normocephalic. Pupils equal, round, and reactive to light. EOMs intact. Sclerae anicteric. Nares patent. Mucous membranes moist. Dentition good. NECK: Supple. Trachea midline. LYMPHATICS: No cervical or axillary adenopathy palpated. PULMONARY: Lungs clear to percussion and auscultation with the exception of bilateral rhonchi that clear with cough. CARDIOVASCULAR: Regular rhythm rate. Normal S1, S2 without murmur. Peripheral pulses strong bilaterally. No pedal edema. GASTROINTESTINAL: Abdomen scaphoid. Positive bowel sounds. No liver or spleen tip palpable. No masses or tenderness noted. No fluid wave noted. EXTREMITIES: Without deformity. NEURO: Alert and oriented x3. No focal neurologic deficits. LABORATORY DATA: White count 15.55, hemoglobin 11.1, hematocrit 33.6, MCV 104, platelets 307,000. Electrolytes normal. Anion gap 20, BUN 17, creatinine 0.7, glucose 92. Troponin I less than 0.012. Calcium 9.4. Chest x-ray: Mild peribronchial thickening suggestive of airway disease/ bronchitis. Esophagogram revealed prompt aspiration of barium into lungs. IMPRESSION: 1. Dysphagia, likely secondary to ulceration of the esophagus from recent cryotherapy on esophagogastroduodenoscopy performed at the [facility] by Dr. Ortiz on 07/29/2017. 2. Squamous dysplasia of the esophagus; status post multiple ablative therapies. 3. Elevated white count with recent aspiration of barium. Rule out aspiration pneumonia. 4. Inflammatory bowel disease-diarrhea predominant. 5. Chronic low weight of unclear etiology. 6. Mood disorder. 7. History of macrocytic anemia. 8. History of chronic heavy alcohol use. RECOMMENDATIONS: 1. Would recommend CT scan of the chest to rule out micro-perforation of the esophagus with containment, as well as to rule out aspiration pneumonia. 2. NPO except for ice chips. 3. IV PPI therapy. 4. Would not recommend esophagogastroduodenoscopy until esophageal wall can be further evaluated with CT. /[id number]/MODL MTDD
[2017-08-20] MEDS: TOPIRAMATE 100 MG TAB PO SCH ×2 (20:33→21:57)
[2017-08-20] MEDS: HYDROmorphone HCL/NS 0.5 MG/ML SYR IVP PRN (20:33)
[2017-08-20] MEDS: SUCRALFATE 1 GM/10 ML UDCUP PO SCH (20:33)
[2017-08-20] MEDS: ERTAPENEM 1 GM VIAL IV SCH (22:49)
[2017-08-21] MEDS: D5W 1/2 NS W/ 20 KCl/L 1,000 ML IV SCH ×3 (00:38→21:15)
[2017-08-21 04:50] LABS: PLATELET COUNT 228 10^3/uL (150-400)
[2017-08-21] MEDS: HYDROmorphone HCL/NS 0.5 MG/ML SYR IVP PRN ×4 (05:41→21:30)
[2017-08-21] MEDS ORDERED: Herbals/Supplements -Info Only PO SCH (09:00)
[2017-08-21] MEDS: ERTAPENEM 1 GM VIAL IV SCH (09:18)
[2017-08-21] MEDS: PANTOPRAZOLE SODIUM 40 MG VIAL IVP SCH ×2 (09:27→21:16)
[2017-08-21] MEDS: SUCRALFATE 1 GM/10 ML UDCUP PO SCH ×2 (09:40→21:21)
[2017-08-21] MEDS: TOPIRAMATE 100 MG TAB PO SCH ×2 (09:40→21:22)
[2017-08-21] MEDS: FLUoxetine 10 MG CAP PO SCH (09:40)
[2017-08-21] MEDS ORDERED: guaiFENesin/CODEINE PHOS 10 ML UDCUP PO PRN (10:00)
[2017-08-21] MEDS ORDERED: BENZONATATE 100 MG CAP PO PRN (10:01)
--- NOTE | 2017-08-21 10:23 | SOAPPROG ---
SOAP Progress Note Assessment/Plan: Assessment: 1. Distal esophageal obstruction secondary to recent cryotherapy. 2. Posterior mediastinal inflammatory changes without perforation identified. 3. Aspiration pneumonia secondary to chronic micro-aspiration from #1, on IV antibiotics. Plan: 1. NPO. 2. IV antibiotics. 3. Continued hospitalization. 4. I will discuss with Dr Buckner tomorrow whether or not EGD with temporary plastic distal esophageal stent would be clinically indicated. Otis Hook MD 08/21/17 10:26 Subjective: CC: Esophageal obstruction. Interval HPI: Patient continues to complain of inability to swallow, coughing incessantly. Objective: Vital Signs Temp Pulse Resp BP Pulse Ox 37.5 C 90 18 120/73 92 08/21/17 04:00 08/21/17 04:00 08/21/17 04:00 08/21/17 04:00 08/21/17 04:00 Microbiology 08/20/17 13:49 - Final Sputum, Expectorated Laboratory Results 08/21/17 04:34 08/21/17 04:34 08/20/17 08/21/17 08/22/17 05:59 05:59 05:59 Intake Total 2145 Output Total 500 Balance 1645 Physical Exam - Physical Exam General Appearance: moderate distress, cachetic, thin Respiratory: rhonchi (Bilateral) Cardiac/Chest: regular rate, rhythm Abdomen: normal bowel sounds, non-tender, soft Skin: normal color, warm/dry Neuro/Psych: no motor/sensory deficits, alert, oriented x 3 ICD10 Worksheet Patient Problems: Problems Problem Status Onset Aspiration into airway Acute Aspiration pneumonitis Acute Dysphagia Acute Calcaneus fracture Acute Closed right hip fracture Acute Hip fracture Acute Hypokalemia Acute Intraparenchymal hemorrhage of brain Acute Osteomyelitis Acute Subdural hematoma, post-traumatic Acute Traumatic epidural hematoma Acute
[2017-08-21] MEDS: IPRATROPIUM/ALBUTEROL 3 ML DEYVIAL IH SCH ×3 (11:23→17:28)
[2017-08-21] MEDS: ACETYLCYSTEINE 10% IH/PO 4 ML VIAL IH SCH ×3 (11:23→17:28)
[2017-08-21] MEDS: guaiFENesin 600 MG TAB.ER PO SCH ×2 (11:29→21:22)
--- NOTE | 2017-08-21 13:25 | HOSPPROG ---
Hospitalist Progress Note Assessment/Plan: Assessment: 57-year-old female presents with acute dysphagia and inability to tolerate oral intake c/b acute aspiration pneumonia Plan: 1. Dysphagia. Acute, suspect this is secondary to ulcerated esophagus with resultant narrowing and inflammation, patient currently cannot tolerate any PO intake -discussed with Dr. Hook, he recommends reassess by Dr. Martines tomorrow to determine whether plastic stent may be safe approach, but he does not recommend dilation w/ current level of inflammation -currently does not tolerate anything -PPI IV 2. Aspiration Pneumonia. POA, acute, new problem to this provider, further w/u indicated. CT chest demonstrating R side air space disease (personally interpreted), fevers shortly after presentation, and now worsening cough and sputum production -send sputum cx, RVP -since patient cannot marquis PO, use inhaled solutions to attempt to mobilize secretions, acetylcysteine + duonebs, gauge effect -D#2 Abx, Invanz 3. Suspected severe protein calorie malnutrition. Evidenced by proximal muscle wasting, low BMI, reported history of irritable bowel syndrome and fructose intolerance, which also further limits the patient's dietary intake -get dietary consult -check pre-albumin 4. Chronic mood disorder. Continue home medications 5. Alcoholism. Monitor on CIWA Diet. NPO with ice chips Prophylaxis. Low risk patient, SCDs Code. Full Disposition. upgrade to inpatient admission status as anticipated LOS > 48hrs for reasonable medical necessity including aspiration PNA, inability to tolerate any oral intake Subjective: very uncomfortable from productive cough, no PO intake Objective: Vital Signs Temp Pulse Resp BP Pulse Ox 37.9 C 68 24 H 107/71 91 L 08/21/17 11:26 08/21/17 11:32 08/21/17 11:32 08/21/17 11:26 08/21/17 11:32 Microbiology 08/21/17 10:50 Respiratory Panel (PCR) - Final Nasal, Sinus - Swab No Organism Detected 08/20/17 13:49 - Final Sputum, Expectorated Laboratory Results 08/21/17 04:34 08/21/17 04:34 08/20/17 08/21/17 08/22/17 05:59 05:59 05:59 Intake Total 2145 Output Total 500 Balance 1645 - Physical Exam Constitutional: chronically ill appearing, uncomfortable, cachectic, No appears nourished, No not in pain (mild) Cardiovascular: regular rate and rhythym, no murmur, rub, or gallop, No edema Respiratory: rhonchi (R lateral seg), No expiratory wheeze, No bronchial breath sounds, No respiratory distress Gastrointestinal: soft, non-tender abdomen, no palpable masses, No normoactive bowel sounds (hypoactive bowel sounds), No distension Musculoskeletal: other (proximal muscle wasting) Neurologic: AAOx3 Psychiatric: not encephalopathic, thought process linear, anxious, No agitated ICD10 Worksheet Patient Problems: Problems Problem Status Onset Aspiration into airway Acute Aspiration pneumonitis Acute Dysphagia Acute Calcaneus fracture Acute Closed right hip fracture Acute Hip fracture Acute Hypokalemia Acute Intraparenchymal hemorrhage of brain Acute Osteomyelitis Acute Subdural hematoma, post-traumatic Acute Traumatic epidural hematoma Acute
--- NOTE | 2017-08-21 13:42 | ASMTCMCOM ---
CM Note CM Note Notes: Chart reviewed for discharge planning purposes. Patient is to have speech evaluation and this is pending. Discharge needs to be determined. CM to follow. Date Signed: 08/21/2017 01:41 PM Electronically Signed By:Le Mendoza RN
--- NOTE | 2017-08-21 14:07 | PDMN ---
Medical Necessity Medical necessity: C/M review: Patient meets INPT criteria under [facility] M-283 Pneumonia due to aspiration, Gastroenterology GRG (Dysphagia): Acute and persistent dysphagia - suspect secondary to ulcerated esophagus with resultant narrowing and inflammation, patient unable to tolerate anything orally, aspiration pneumonia, suspected severe protein calorie malnutrition, BMI 14.8 kg /m2, requiring GI Consult, Dietary consult, ongoing IV Invanz QD, IV Protonix BID, IV Dilaudid, IV D5W 05/24 with20 meq KCL 100 ml/hr. infusion, scheduled Acetylcysteine and Duonebs, pulse oximetry, supplemental O2, CIWA protocol, comorbid chronic mood disorder, alcoholism. anticipates > 2 MN LOS for ongoing med nec for eval and TX of above.
[2017-08-21] MEDS ORDERED: ACETAMINOPHEN 650 MG SUPP PR PRN (14:23)
[2017-08-21] MEDS ORDERED: KETOROLAC 15 MG/1 ML SDV IVP PRN (14:24)
[2017-08-22] MEDS: IPRATROPIUM/ALBUTEROL 3 ML DEYVIAL IH SCH ×5 (01:10→23:36)
[2017-08-22] MEDS: ACETYLCYSTEINE 10% IH/PO 4 ML VIAL IH SCH ×5 (01:10→23:35)
[2017-08-22] MEDS: HYDROmorphone HCL/NS 0.5 MG/ML SYR IVP PRN ×4 (04:00→22:58)
[2017-08-22 04:44] LABS: PLATELET COUNT 212 10^3/uL (150-400)
[2017-08-22 04:53] LABS: INR 1.12 (0.83-1.16); PROTIME(PATIENT) 14.6 SEC (12.0-15.0)
[2017-08-22] MEDS: D5W 1/2 NS W/ 20 KCl/L 1,000 ML IV SCH ×2 (06:13→16:34)
[2017-08-22] MEDS: ERTAPENEM 1 GM VIAL IV SCH (10:18)
[2017-08-22] MEDS: FLUoxetine 10 MG CAP PO SCH (10:22)
[2017-08-22] MEDS: guaiFENesin 600 MG TAB.ER PO SCH ×2 (10:23→21:03)
[2017-08-22] MEDS: SUCRALFATE 1 GM/10 ML UDCUP PO SCH ×2 (10:24→21:02)
[2017-08-22] MEDS: TOPIRAMATE 100 MG TAB PO SCH ×2 (10:24→21:02)
[2017-08-22] MEDS: PANTOPRAZOLE SODIUM 40 MG VIAL IVP SCH ×2 (10:31→20:56)
--- NOTE | 2017-08-22 14:37 | ASMTCMCOM ---
CM Note CM Note Notes: Chart reviewedd. Discussed with Dr. Pedraza. Medical needs right now. No therapies ordered. Refused to see speeach yesterday. Needs to be determined at this time. CM to follow. Date Signed: 08/22/2017 02:36 PM Electronically Signed By:Le Mendoza RN
--- NOTE | 2017-08-22 14:55 | SOAPPROG ---
SOAP Progress Note Assessment/Plan: Assessment:Plan: 1) esoph obstruction from cryotherapy - calling Dr. Ortiz at present to discuss. ?need for temporary stent? ?med to reduce inflammation? 2) Aspiration pneumonia - abx as per hospitalist, need to open esoph up to resolve aspiration risk 3) nutrition - if cannot open esoph she may need TPN of PEG pending length of esoph obstruction I have left a vm for Dr. Ortiz, I have spoken with Dr. Buckner and reviewed her radiology data myself 08/22/17 16:05 ADDENDUM: there maybe a TE fistula on esophagram - reviewed with radiology spoke with Dr. Ortiz and Dr. Buckner May need EGD and stent Subjective: cc- esoph obstruction, aspiration pneumonia I cant swallow pt in bed spiting her saliva and coughing has low grade fever, egophony on exam Objective: Vital Signs Temp Pulse Resp BP Pulse Ox 37.5 C 85 18 106/59 L 98 08/22/17 14:26 08/22/17 11:55 08/22/17 11:55 08/22/17 11:55 08/22/17 11:55 Laboratory Results 08/22/17 04:20 08/22/17 04:20 08/21/17 08/22/17 08/23/17 05:59 05:59 05:59 Intake Total 1160 1122 Output Total 200 Balance 960 1122 PT 14.6 SEC (12.0-15.0) 08/22/17 04:20 INR 1.12 (0.83-1.16) 08/22/17 04:20 A+Ox3 + rhonchi and egophony no rales S1S2, no m/r/g +BS, soft nt Laboratory Tests 08/22/17 04:20 Iron 11.0 L TIBC 207 L Iron Saturation 5 L Ferritin 199.0 Vitamin B12 949 H ADDENDUM: reviewed esophagram with radiology and there maybe a TE fistula present. ICD10 Worksheet Patient Problems: Problems Problem Status Onset Aspiration into airway Acute Aspiration pneumonitis Acute Dysphagia Acute Calcaneus fracture Acute Closed right hip fracture Acute Hip fracture Acute Hypokalemia Acute Intraparenchymal hemorrhage of brain Acute Osteomyelitis Acute Subdural hematoma, post-traumatic Acute Traumatic epidural hematoma Acute
--- NOTE | 2017-08-22 18:10 | HOSPPROG ---
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 Ortiz at [facility] -possible TE fisula on esophagram -d/w Dr. Roberts, he reports he will d/w Drs. Buckner and Diana whether plastic stent to be placed on EGD, patient at risk for perforation 2. Aspiration Pneumonia. POA, CT chest demonstrating R side air space disease, fevers shortly after presentation, and now worsening cough and sputum production -RVP neg, sputum Cx 4+ GPC, 1+ GNR -since patient cannot marquis PO, use inhaled solutions to attempt to mobilize secretions, acetylcysteine + duonebs, gauge effect -D#3 Abx, Invanz -cough remains pervasive and not substantially improved s/p above, and she has ongoing fever indicating ongoing insult -if not improving tomorrow, get pulm consult 3. Severe protein calorie malnutrition. Evidenced by proximal muscle wasting, low BMI 15.2, reported history of irritable bowel syndrome and fructose intolerance, which also further limits the patient's dietary intake, pre- albumin level 7.7 -get dietary consult -d/w Dr. Roberts, if it is anticipated that it will be several weeks prior to patient's symptoms improving, would rec either IR PEG vs. TPN, albeit neither of which solve her ongoing aspiration problem 4. Chronic mood disorder. Continue home medications 5. Alcoholism. Monitor on CIWA 6. Constipation. Unable to marquis oral laxatives, recommend bisocodyl supp or enemas tomorrow if no BM Diet. NPO with ice chips Prophylaxis. Mod risk patient, SCDs, holding pharm given possible procedure tomorrow Code. Full Disposition. ADD uncertain, patient's symptoms uncontrolled, unable to marquis PO intake. High-level medical complexity, high risk worsening morbidity and/or mortality secondary to the issues as outlined above. Subjective: ongoing hoarseness, ongoing cough nad pain now in ribs w/ cough, no BMs Objective: Vital Signs Temp Pulse Resp BP Pulse Ox 37.9 C 87 17 97/66 L 96 08/22/17 15:47 08/22/17 15:47 08/22/17 15:47 08/22/17 15:47 08/22/17 15:47 Laboratory Results 08/22/17 04:20 08/22/17 04:20 08/21/17 08/22/17 08/23/17 05:59 05:59 05:59 Intake Total 1160 1122 Output Total 200 Balance 960 1122 PT 14.6 SEC (12.0-15.0) 08/22/17 04:20 INR 1.12 (0.83-1.16) 08/22/17 04:20 - Physical Exam Constitutional: chronically ill appearing, uncomfortable, cachectic, No not in pain (moderate) Cardiovascular: regular rate and rhythym, no murmur, rub, or gallop, No edema Respiratory: reduced air movement (cough triggered w/ deep insp), rhonchi (on insp bilat), No expiratory wheeze, No bronchial breath sounds Gastrointestinal: No normoactive bowel sounds (hypoactive bowel sounds), No tenderness, No guarding, No distension Neurologic: AAOx3, No weakness, No facial droop Psychiatric: interacting appropriately, not anxious, not encephalopathic, thought process linear ICD10 Worksheet Patient Problems: Problems Problem Status Onset Aspiration into airway Acute Aspiration pneumonitis Acute Dysphagia Acute Calcaneus fracture Acute Closed right hip fracture Acute Hip fracture Acute Hypokalemia Acute Intraparenchymal hemorrhage of brain Acute Osteomyelitis Acute Subdural hematoma, post-traumatic Acute Traumatic epidural hematoma Acute
[2017-08-22] MEDS: SODIUM FERRIC GLUCONAT/SUCROSE 125 MG in NS 100 ML IV SCH (20:57)
[2017-08-23] MEDS: D5W 1/2 NS W/ 20 KCl/L 1,000 ML IV SCH ×2 (04:42→17:59)
[2017-08-23] MEDS: IPRATROPIUM/ALBUTEROL 3 ML DEYVIAL IH SCH ×4 (05:21→20:11)
[2017-08-23] MEDS: ACETYLCYSTEINE 10% IH/PO 4 ML VIAL IH SCH ×4 (05:21→20:11)
[2017-08-23 08:34] LABS: PLATELET COUNT 209 10^3/uL (150-400)
[2017-08-23] MEDS: ERTAPENEM 1 GM VIAL IV SCH (08:51)
[2017-08-23] MEDS: HYDROmorphone HCL/NS 0.5 MG/ML SYR IVP PRN ×3 (09:01→17:58)
[2017-08-23] MEDS: TOPIRAMATE 100 MG TAB PO SCH ×2 (09:08→21:06)
[2017-08-23] MEDS: SUCRALFATE 1 GM/10 ML UDCUP PO SCH ×2 (09:08→21:06)
[2017-08-23] MEDS: FLUoxetine 10 MG CAP PO SCH (09:08)
[2017-08-23] MEDS: guaiFENesin 600 MG TAB.ER PO SCH ×2 (09:08→21:06)
[2017-08-23] MEDS: SODIUM FERRIC GLUCONAT/SUCROSE 125 MG in NS 100 ML IV SCH (09:11)
[2017-08-23] MEDS: PANTOPRAZOLE SODIUM 40 MG VIAL IVP SCH ×2 (09:11→21:01)
--- NOTE | 2017-08-23 13:32 | HOSPPROG ---
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 Roberts's further discussion regarding potential approaches to managing this; given that she had cryotherapy I would expect that she has friable tissue with compromised circulation that would make healing difficulty and further injury a concern -protein calorie malnutrition * Will need to come up with a plan for how to approach this given her anatomic difficulties as above -macrocytic anemia; I suspect this is actually primarily due to alcohol related issues, doubt she has much in the way of a real iron deficiency -alcohol abuse * There have been no signs at all of alcohol withdrawal here so I will stop monitoring for that at this point * Possibility for vitamin deficiencies and so will try and give vitamin replacements particularly thiamin PLANS: -continue antibiotics, respiratory care -repeat chest x-ray at this time -further discussion with Dr. Roberts as above regarding nutritional support and management of her TE fistula -continue to follow CBC for stability of hemoglobin; no current indication for transfusion -continue mechanical DVT prophylaxis, will hold on medication until further discussion with Dr. Tony and any possible procedures This patient remains at high risk for ongoing her worsening pneumonitis, further breakdown of esophageal tissue potential for bleeding or mediastinitis; SUBJECTIVE: She continues to have ongoing cough constantly, complaining of ribcage in upper abdominal pain from coughing per se No pain that sounds like real esophageal pain at this time Not dyspneic but still needing oxygen OBJECTIVE Vitals reviewed: Stable without fever, still requiring oxygen at 2-3 L Exam: alert oriented Quite thin skin warm dry color ok resps not labored; coughs constantly during my visit with lungs somewhat rhonchorous BSs heart regular abd soft nondistended nontender, bowel sounds present limbs warm, no edema iv site ok Laboratory data: Hemoglobin stable at 8 otherwise no changes in CBC Chem panel stable I reviewed the images from her esophageal study chest x-ray and chest CT Objective: Vital Signs Temp Pulse Resp BP Pulse Ox 36.8 C 71 18 103/62 97 08/23/17 11:32 08/23/17 11:32 08/23/17 11:32 08/23/17 11:32 08/23/17 11:32 Laboratory Results 08/23/17 08:29 08/23/17 08:29 08/22/17 08/23/17 08/24/17 06:59 06:59 06:59 Intake Total 2282 572.1 Output Total 200 600 Balance 2082 -27.9 PT 14.6 SEC (12.0-15.0) 08/22/17 04:20 INR 1.12 (0.83-1.16) 08/22/17 04:20 - Time Spent With Patient Time Spent with Patient: greater than 35 minutes Time Spent with Patient: Greater than 35 minutes spent on this patients care, greater than 50% of time spent counseling, educating, and coordinating care regarding the above mentioned plan. ICD10 Worksheet Patient Problems: Problems Problem Status Onset Aspiration into airway Acute Aspiration pneumonitis Acute Dysphagia Acute Calcaneus fracture Acute Closed right hip fracture Acute Hip fracture Acute Hypokalemia Acute Intraparenchymal hemorrhage of brain Acute Osteomyelitis Acute Subdural hematoma, post-traumatic Acute Traumatic epidural hematoma Acute
[2017-08-23] MEDS: THIAMINE HCL 100 MG TAB PO SCH (14:04)
--- NOTE | 2017-08-23 14:56 | SOAPPROG ---
SOAP Progress Note Assessment/Plan: Assessment:Plan: 1) esoph obstruction from cryotherapy - calling Dr. Ortiz at present to discuss. ?need for temporary stent? ?med to reduce inflammation? 2) Aspiration pneumonia - abx as per hospitalist, need to open esoph up to resolve aspiration risk 3) nutrition - if cannot open esoph she may need TPN of PEG pending length of esoph obstruction I have left a vm for Dr. Ortzi, I have spoken with Dr. Buckner and reviewed her radiology data myself 08/22/17 16:05 ADDENDUM: there maybe a TE fistula on esophagram - reviewed with radiology spoke with Dr. Ortiz and Dr. Buckner May need EGD and stent 08/23/17 14:53 as above reviewed again with different radiologist and they do feel CT shows TE fistula will reorder esophagram but have initial images in thoracic esoph I did speak to Dr. Ortiz yesterday and will keep him informed as results come in Will likely need esoph stent if TE fistula is present ABX as per hospitalists Consider PPN or TPN - PPN maybe better initital option especially if TE fistula present ans stent resolves her sx's will follow Subjective: CC- aspiration vs TE fistula pt still with sx's, less egophony on exam it may all be TE fistula Objective: Vital Signs Temp Pulse Resp BP Pulse Ox 36.8 C 71 18 103/62 97 08/23/17 11:32 08/23/17 11:32 08/23/17 11:32 08/23/17 11:32 08/23/17 11:32 Laboratory Results 08/23/17 08:29 08/23/17 08:29 08/22/17 08/23/17 08/24/17 05:59 05:59 05:59 Intake Total 1160 1694.1 Output Total 200 600 Balance 960 1094.1 PT 14.6 SEC (12.0-15.0) 08/22/17 04:20 INR 1.12 (0.83-1.16) 08/22/17 04:20 A+Ox3 Coarse BS with some egophony, no rales S1S2 +BS, sot tender in upper abdomen no r/g ICD10 Worksheet Patient Problems: Problems Problem Status Onset Aspiration into airway Acute Aspiration pneumonitis Acute Dysphagia Acute Calcaneus fracture Acute Closed right hip fracture Acute Hip fracture Acute Hypokalemia Acute Intraparenchymal hemorrhage of brain Acute Osteomyelitis Acute Subdural hematoma, post-traumatic Acute Traumatic epidural hematoma Acute
--- NOTE | 2017-08-23 15:58 | ASMTCMCOM ---
CM Note CM Note Notes: Chart reviewed. Per our insurance verification team,([place]) patient has payment due to her [employer] coverage. The patient is having diagnostic testing and is unable to tolerate oral intake. Gastroenterology following. Needs to be determined at this time. CM to follow. Date Signed: 08/23/2017 03:57 PM Electronically Signed By:Le Mendoza RN
[2017-08-24] MEDS: HYDROmorphone HCL/NS 0.5 MG/ML SYR IVP PRN ×4 (08:26→18:52)
[2017-08-24] MEDS: guaiFENesin 600 MG TAB.ER PO SCH (08:33)
[2017-08-24] MEDS: FLUoxetine 10 MG CAP PO SCH (08:33)
[2017-08-24] MEDS: ERTAPENEM 1 GM VIAL IV SCH (08:33)
[2017-08-24] MEDS: SUCRALFATE 1 GM/10 ML UDCUP PO SCH (08:33)
[2017-08-24] MEDS: THIAMINE HCL 100 MG TAB PO SCH (08:34)
[2017-08-24] MEDS: TOPIRAMATE 100 MG TAB PO SCH (08:34)
[2017-08-24] MEDS: PANTOPRAZOLE SODIUM 40 MG VIAL IVP SCH ×2 (08:48→21:18)
--- NOTE | 2017-08-24 10:51 | HOSPPROG ---
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 Roberts's further discussion regarding potential approaches to managing this; given that she had cryotherapy I would expect that she has friable tissue with compromised circulation that would make healing difficulty and further injury a concern; clearly need some type of procedure will correction for this but will see what is recommended -protein calorie malnutrition * Will review further with Dr. Roberts when he arrives today, but need to begin some type of feeding soon; clearly will not be able to swallow things for a good bit -macrocytic anemia; I suspect this is actually primarily due to alcohol and other nutritional issues, doubt she has much in the way of a real iron deficiency -alcohol abuse * Possibility for vitamin deficiencies and so will try and give vitamin replacements particularly thiamin PLANS: -continue antibiotics, respiratory care -further discussion with Dr. Roberts as above regarding nutritional support and management of her TE fistula -continue mechanical DVT prophylaxis, will hold on medication until further discussion with Dr. Roberts and any possible procedures -will give thiamin intravenously other IV vitamins not available other than as TPN, expect will probably start TPN soon -will add some low-dose fentanyl patch at this time to give her more even pain management This patient remains at high risk for ongoing her worsening pneumonitis, further breakdown of esophageal tissue potential for bleeding or mediastinitis; SUBJECTIVE: She continues to have ongoing cough constantly, complaining of ribcage in upper abdominal pain from coughing per se No pain that sounds like real esophageal pain at this time Not dyspneic but still needing oxygen OBJECTIVE Vitals reviewed: Stable without fever, still requiring oxygen at 2-3 L Exam: alert oriented Quite thin skin warm dry color ok resps not labored; coughs constantly during my visit with lungs somewhat rhonchorous BSs heart regular abd soft nondistended nontender, bowel sounds present limbs warm, no edema iv site ok Laboratory data: Hemoglobin stable at 8 otherwise no changes in CBC Chem panel stable I reviewed the images from her repeat esophageal which close so is a very large TE fistula with no passage of contrast into the esophagus beyond the fistula, air bronchograms present, no aspiration was visible Objective: Vital Signs Temp Pulse Resp BP Pulse Ox 36.8 C 72 16 112/71 100 08/24/17 07:55 08/24/17 07:55 08/24/17 07:55 08/24/17 07:55 08/24/17 07:55 Laboratory Results 08/23/17 08:29 08/24/17 04:32 08/23/17 08/24/17 08/25/17 06:59 06:59 06:59 Intake Total 572.1 2345 Output Total 600 Balance -27.9 2345 PT 14.6 SEC (12.0-15.0) 08/22/17 04:20 INR 1.12 (0.83-1.16) 08/22/17 04:20 - Time Spent With Patient Time Spent with Patient: greater than 35 minutes Time Spent with Patient: Greater than 35 minutes spent on this patients care, greater than 50% of time spent counseling, educating, and coordinating care regarding the above mentioned plan. ICD10 Worksheet Patient Problems: Problems Problem Status Onset Aspiration into airway Acute Aspiration pneumonitis Acute Dysphagia Acute Calcaneus fracture Acute Closed right hip fracture Acute Hip fracture Acute Hypokalemia Acute Intraparenchymal hemorrhage of brain Acute Osteomyelitis Acute Subdural hematoma, post-traumatic Acute Traumatic epidural hematoma Acute
[2017-08-24] MEDS: ACETYLCYSTEINE 10% IH/PO 4 ML VIAL IH SCH (11:56)
[2017-08-24] MEDS: IPRATROPIUM/ALBUTEROL 3 ML DEYVIAL IH SCH (11:57)
[2017-08-24] MEDS: THIAMINE HCL IV SCH (12:51)
[2017-08-24] MEDS: NS IV SCH (12:51)
[2017-08-24] MEDS: D5W 1/2 NS W/ 20 KCl/L 1,000 ML IV SCH (12:52)
[2017-08-24] MEDS: fentaNYL 12 MCG PATCH TD SCH (12:52)
--- NOTE | 2017-08-24 12:57 | SOAPPROG ---
MIGUELANGEL Progress Note Assessment/Plan: Assessment:Plan: 1) TE fistula - documented with esophagram - no contrast in distal esophagus, needs STENT with Dr. Buckner tentatively for tomorrow 2) nutrition - if stent successful then will be able take PO and may not need any PPN/TPN. 3) anemia - prob nutritional/alcohol, ferritin almost 200 but iron sat only 5% - she did get iron Subjective: cc- TE fistula pt still with pulm issue from TE fistula coughing a lot, chest hurts from coughing Objective: Vital Signs Temp Pulse Resp BP Pulse Ox 36.8 C 68 16 99/58 L 100 08/24/17 12:14 08/24/17 12:14 08/24/17 12:14 08/24/17 12:14 08/24/17 12:14 Laboratory Results 08/23/17 08:29 08/24/17 04:32 08/23/17 08/24/17 08/25/17 05:59 05:59 05:59 Intake Total 1694.1 2345 Output Total 600 Balance 1094.1 2345 PT 14.6 SEC (12.0-15.0) 08/22/17 04:20 INR 1.12 (0.83-1.16) 08/22/17 04:20 Alert and oriented Coarse BS, egophony no rales s1s2, rrr +BS, soft mild epi tenderness ICD10 Worksheet Patient Problems: Problems Problem Status Onset Aspiration into airway Acute Aspiration pneumonitis Acute Dysphagia Acute Calcaneus fracture Acute Closed right hip fracture Acute Hip fracture Acute Hypokalemia Acute Intraparenchymal hemorrhage of brain Acute Osteomyelitis Acute Subdural hematoma, post-traumatic Acute Traumatic epidural hematoma Acute
[2017-08-24] MEDS ORDERED: IPRATROPIUM/ALBUTEROL 3 ML DEYVIAL IH PRN (16:00)
[2017-08-24] MEDS: LATANOPROST 0.005% 2.5 ML OPHT DROPS EACHEYE SCH (21:18)
[2017-08-25] MEDS: HYDROmorphone HCL/NS 0.5 MG/ML SYR IVP PRN ×3 (01:05→20:32)
[2017-08-25] MEDS: D5W 1/2 NS W/ 20 KCl/L 1,000 ML IV SCH ×2 (01:05→13:00)
[2017-08-25] MEDS: PANTOPRAZOLE SODIUM 40 MG VIAL IVP SCH ×2 (09:40→20:35)
[2017-08-25] MEDS: ERTAPENEM 1 GM VIAL IV SCH (09:47)
[2017-08-25] MEDS: THIAMINE HCL IV SCH (09:47)
[2017-08-25] MEDS: NS IV SCH (09:47)
--- NOTE | 2017-08-25 13:54 | SOAPPROG ---
MIGUELANGEL Progress Note Assessment/Plan: Assessment:Plan: 1) TE fistula - documented with esophagram - no contrast in distal esophagus, needs STENT with Dr. Buckner tentatively for tomorrow 2) nutrition - if stent successful then will be able take PO and may not need any PPN/TPN. 3) anemia - prob nutritional/alcohol, ferritin almost 200 but iron sat only 5% - she did get iron 08/25/17 13:54 stent schedule for approx [address] Buckner Objective: Vital Signs Temp Pulse Resp BP Pulse Ox 36.7 C 67 18 108/73 91 L 08/25/17 09:37 08/25/17 09:37 08/25/17 09:37 08/25/17 09:37 08/25/17 09:37 Laboratory Results 08/23/17 08:29 08/24/17 04:32 08/24/17 08/25/17 08/26/17 05:59 05:59 05:59 Intake Total 2345 2746 Balance 2345 2746 PT 14.6 SEC (12.0-15.0) 08/22/17 04:20 INR 1.12 (0.83-1.16) 08/22/17 04:20 ICD10 Worksheet Patient Problems: Problems Problem Status Onset Aspiration into airway Acute Aspiration pneumonitis Acute Dysphagia Acute Calcaneus fracture Acute Closed right hip fracture Acute Hip fracture Acute Hypokalemia Acute Intraparenchymal hemorrhage of brain Acute Osteomyelitis Acute Subdural hematoma, post-traumatic Acute Traumatic epidural hematoma Acute
--- NOTE | 2017-08-25 15:44 | HOSPPROG ---
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 Roberts's further discussion regarding potential approaches to managing this; given that she had cryotherapy I would expect that she has friable tissue with compromised circulation that would make healing difficulty and further injury a concern; clearly need some type of procedure will correction for this but will see what is recommended -protein calorie malnutrition * Will review further with Dr. Roberts when he arrives today, but need to begin some type of feeding soon; clearly will not be able to swallow things for a good bit -macrocytic anemia; I suspect this is actually primarily due to alcohol and other nutritional issues, doubt she has much in the way of a real iron deficiency -alcohol abuse * Possibility for vitamin deficiencies and so will try and give vitamin replacements particularly thiamin PLANS: -continue antibiotics, respiratory care -further discussion with Dr. Roberts as above regarding nutritional support and management of her TE fistula -continue mechanical DVT prophylaxis, will hold on medication until further discussion with Dr. Roberts and any possible procedures -will give thiamin intravenously other IV vitamins not available other than as TPN, expect will probably start TPN soon -will add some low-dose fentanyl patch at this time to give her more even pain management This patient remains at high risk for ongoing her worsening pneumonitis, further breakdown of esophageal tissue potential for bleeding or mediastinitis; SUBJECTIVE: She continues to have ongoing cough constantly, complaining of ribcage in upper abdominal pain from coughing per se No pain that sounds like real esophageal pain at this time Not dyspneic but still needing oxygen OBJECTIVE Vitals reviewed: Stable without fever, still requiring oxygen at 2-3 L Exam: alert oriented Quite thin skin warm dry color ok resps not labored; coughs constantly during my visit with lungs somewhat rhonchorous BSs heart regular abd soft nondistended nontender, bowel sounds present limbs warm, no edema iv site ok Laboratory data: Hemoglobin stable at 8 otherwise no changes in CBC Chem panel stable I reviewed the images from her repeat esophageal which close so is a very large TE fistula with no passage of contrast into the esophagus beyond the fistula, air bronchograms present, no aspiration was visible Objective: Vital Signs Temp Pulse Resp BP Pulse Ox 36.7 C 83 18 126/86 H 92 08/25/17 15:42 08/25/17 15:42 08/25/17 15:42 08/25/17 15:42 08/25/17 15:42 Laboratory Results 08/23/17 08:29 08/24/17 04:32 08/24/17 08/25/17 08/26/17 06:59 06:59 06:59 Intake Total 2345 2746 Balance 2345 2746 PT 14.6 SEC (12.0-15.0) 08/22/17 04:20 INR 1.12 (0.83-1.16) 08/22/17 04:20 ICD10 Worksheet Patient Problems: Problems Problem Status Onset Aspiration into airway Acute Aspiration pneumonitis Acute Dysphagia Acute Calcaneus fracture Acute Closed right hip fracture Acute Hip fracture Acute Hypokalemia Acute Intraparenchymal hemorrhage of brain Acute Osteomyelitis Acute Subdural hematoma, post-traumatic Acute Traumatic epidural hematoma Acute
[2017-08-25] MEDS ORDERED: LR 1,000 ML IV ONE (16:33)
--- NOTE | 2017-08-25 16:58 | PDANEPAE ---
ANE History of Present Illness EGD ANE Past Medical History - Cardiovascular History Hx Hypertension: Yes Hx Arrhythmias: No Hx Chest Pain: No Hx Coronary Artery / Peripheral Vascular Disease: No Hx CHF / Valvular Disease: No Hx Palpitations: No - Pulmonary History Hx COPD: No Hx Asthma/Reactive Airway Disease: No Hx Recent Upper Respiratory Infection: Yes Hx Oxygen in Use at Home: Yes Hx Sleep Apnea: No Sleep Apnea Screening Result - Last Documented: Negative - Endocrine History Hx Diabetes: No Hypothyroid: No Hyperthyroid: No Obesity: no - GI History Gastrointestinal History Comment: esophageal dysplasia - Chronic Pain History Chronic Pain: No ANE Review of Systems Review of systems is: negative Review of Systems: - Exercise capacity Exercise capacity: >=4 METS ANE Patient History - Allergies Allergies/Adverse Reactions: tramadol Allergy (Mild, Verified 03/07/17 19:28) ceftriaxone Allergy (Verified 03/07/17 19:27) Rash lisinopril Allergy (Verified 03/07/17 19:27) Rash - Home Medications Home medications: home medication list seen and reviewed Home Medications: ALPRAZolam [Xanax 0.5 MG (*)] 0.5 mg PO DAILY PRN 08/20/17 [Last Taken 08/19/17] Amphet Asp and D/Amphet [Adderall 20 mg (*)] 20 mg PO BID PRN 08/20/17 [Last Taken 08/18/17] FLUoxetine [Prozac 10 MG (*)] 10 mg PO DAILY 08/20/17 [Last Taken 08/19/17] Herbals/Supplements -Info Only 1 ea PO DAILY 08/20/17 [Last Taken 08/20/17] Hydrochlorothiazide [HCTZ (*)] 25 mg PO DAILY 08/20/17 [Last Taken 08/19/17] Pantoprazole Sodium [Protonix 40mg (*)] 40 mg PO DAILY 08/20/17 [Last Taken ] Sucralfate [Carafate 1gm/10ml Oral Liquid (*)] 1 gm PO BID 08/20/17 [Last Taken 08/19/17] Topiramate [Topamax 100MG (*)] 100 mg PO BID 08/20/17 [Last Taken 08/19/17] Latanoprost 0.005% [Xalatan 0.005% (*)] 1 drop EACHEYE HS 08/24/17 [Last Taken Unknown] - NPO status NPO Since - Liquids (Date): 08/24/17 NPO Since - Solids (Date): 08/20/17 - Anes Hx Anes Hx: no prior problems - Smoking Hx Smoking Status: Never smoked - Alcohol Use Alcohol Use: Heavy (Last use several days ago) ANE Labs/Vital Signs - Labs Result Diagrams: 08/23/17 08:29 08/24/17 04:32 - Vital Signs Blood Pressure: 126/86 Heart Rate: 83 Respiratory Rate: 18 O2 Sat (%): 92 Height: 160.02 cm Weight: 40.733 kg ANE Physical Exam - Airway Neck exam: FROM Mallampati Score: Class 1 Mouth exam: normal dental/mouth exam - Pulmonary Pulmonary: no respiratory distress - Cardiovascular Cardiovascular: regular rate and rhythym - ASA Status ASA Status: II ANE Anesthesia Plan Anesthesia Plan: general endotracheal anesthesia
[2017-08-25] MEDS ORDERED: MIDAZOLAM 2 MG/2 ML VIAL IVP ONE (17:00)
[2017-08-25] MEDS ORDERED: PROPOFOL 200 MG/20 ML VIAL ONE (17:03)
[2017-08-25] MEDS ORDERED: fentaNYL 100 MCG/2 ML INJ ONE (17:03)
[2017-08-25] MEDS ORDERED: ROCURONIUM 50 MG/5 ML VIAL ONE (17:05)
[2017-08-25] MEDS ORDERED: LIDOCAINE 2% 5 ML SDV ONE (17:05)
[2017-08-25] MEDS ORDERED: DEXAMETHASONE 4 MG/ML VIAL ONE (17:25)
[2017-08-25] MEDS ORDERED: SUGAMMADEX SODIUM 200 MG/2 ML VIAL IVP ONE (17:35)
[2017-08-25] MEDS ORDERED: ONDANSETRON 4 MG/2 ML VIAL ONE (17:36)
[2017-08-25] MEDS ORDERED: NALOXONE HCL 0.4 MG/ML INJ IVP PRN (18:00)
[2017-08-25] MEDS ORDERED: oxyCODONE IR 5 MG TAB PO PRN (18:00)
[2017-08-25] MEDS ORDERED: ONDANSETRON 4 MG/2 ML VIAL IVP PRN (18:00)
[2017-08-25] MEDS ORDERED: fentaNYL 100 MCG/2 ML INJ IVP PRN (18:00)
[2017-08-25] MEDS ORDERED: ACETAMINOPHEN 500 MG TAB PO PRN (18:00)
[2017-08-25] MEDS ORDERED: LABETALOL HCL 5 MG/ML 20 ML MDV IVP PRN (18:00)
[2017-08-25] MEDS ORDERED: LR 500 ML IV PRN (18:00)
[2017-08-25] MEDS ORDERED: HYDROmorphONE/DILAUDID 2 MG/ML INJ IVP PRN (18:00)
[2017-08-25] MEDS ORDERED: HYDROCODONE/APAP 5/325 TAB PO PRN (18:00)
[2017-08-25] MEDS ORDERED: PROMETHAZINE HCL 25 MG/ML INJ IVP PRN (18:00)
[2017-08-25] MEDS ORDERED: ALBUTEROL 3 ML DEYVIAL IH PRN (18:00)
--- NOTE | 2017-08-25 18:00 | POSTANESTH ---
Post Anesthetic Evaluation Cardiovascular Status: Normal, Stable Respiratory Status: Normal, Stable Level of Consciousness/Mental Status: Can Participate in Eval Pain Control: Adequate, Prn Tx Ordered Nausea/Vomiting Control: Adequate, Prn Tx Ordered Complications Possibly Related to Anesthesia: None Noted
--- NOTE | 2017-08-25 18:24 | GIREPORT ---
[facility] Surgical Services - Endoscopy Department Patient Name: Key Ambrocio Procedure Date: 08/25/2017 4:39 PM Patient Type: Outpatient Attending MD/ ER Physician: Valeriano Buckner MD Procedure: Upper GI endoscopy Indications: Abnormal abdominal x-ray of the GI tract Patient Profile: 57 year old female presents for evaluation of a tracho-esophageal fistu la and the possibility of an esophageal stent. Providers: Valeriano Buckner MD Medicines: General Anesthesia Complications: No immediate complications. Description of Procedure: After obtaining informed consent, the endoscope was passed under direct vision. Throughout the procedure, the patient's blood pressure, pulse, and oxygen saturations were monitored continuously. The Endoscope was intro duced through the mouth, and advanced to the upper third of esophagus. The up per GI endoscopy was accomplished without difficulty. The patient tolerated the procedure well. Findings: The esophagus was intubated and at 20cms from the gums the mucosa was ulcerated and erythmatous as the scope was further advanced the bronchi al tree was visualized. There was a direct connection to the bronchial rhea e. The remaining esophagus was not seen. However, a small opening was seen which may represent mid esophagus. The scope however could not be advan ezekiel into this opening due to the small diameter. Estimated Blood Loss: Estimated blood loss: none. Post Op Diagnosis: - Direct large connection between the esophagus at 21cms and the bronch ial tree. Not amenable to stenting. Recommendation: - [facility] to [facility] for [facility]. - Recommend transfer to [facility] (discussed with Dr. Cooney) - NPO - Thank you for allowing me to participate in the care of your patient Attending Participation: I personally performed the entire procedure. Valeriano Buckner MD Valeriano Buckner MD 08/25/2017 6:23:36 PM This report has been signed electronicallyValeriaon Buckner MD Number of Addenda: 0 Note Initiated On: 08/25/2017 4:39 PM [email or web address]
--- NOTE | 2017-08-25 18:37 | HOSPPROG ---
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 -macrocytic anemia; I suspect this is actually primarily due to alcohol and other nutritional issues, doubt she has much in the way of a real iron deficiency but she has received IV iron replacement here -alcohol abuse history * Possibility for vitamin deficiencies * Will be starting TPN at this point She has now had her upper endoscopy and I reviewed this in detail in the endoscopy suite with Dr. Buckner. Dr. Buckner and I then met with the patient in the recovery area after she has we can from sedation. Essentially she has an extremely large tracheal esophageal fistula with no definite significant opening to the lower esophagus. The defect was too large to treat with stent even if he could have gotten the stent into the distal esophagus which did not seem possible. Therefore no attempt at stent placement was made and the procedure was terminated. At this point she will need to have surgical attention. Dr. Buckner reviewed the case with Dr. Lester who felt that this case would need to be referred to either the [facility] here or another center with more experience dealing with such injury in that part of the chest. We have presented the patient with all of this information and answered her questions around this. At this point she will need some feeding and so will set her up for a PICC catheter and begin tube feedings tomorrow. Dr. Buckner will talk with her endoscopies from [facility] as he knows the surgeons in [place] since he worked there until just recently. Will contact the surgery folks in [place] to see whether they feel like this is a case that is appropriate to treat at their center or whether we should look to another center. PLANS: -continue antibiotics, respiratory care -PICC catheter and begin TPN -continue mechanical DVT prophylaxis, will hold on medication until further discussion with Dr. Roberts and any possible procedures -will begin working with Dr. Buckner on finding surgical care for her -continue low-dose fentanyl patch at this time to give her more even pain management This patient remains at high risk for ongoing her worsening pneumonitis, further breakdown of esophageal tissue potential for bleeding or mediastinitis and other complications SUBJECTIVE: Cough and dyspnea unchanged, still some pain with coughing No fever symptoms No shortness of breath at this time OBJECTIVE Vitals reviewed: Stable without fever, still requiring oxygen at 2-3 L Exam: alert oriented Quite thin skin warm dry color ok resps not labored; still coughs constantly during my visit with production of clear sputum lungs somewhat rhonchorous BSs heart regular abd soft nondistended nontender, bowel sounds present limbs warm, no edema iv site ok Objective: Vital Signs Temp Pulse Resp BP Pulse Ox 37.0 C 83 18 126/86 H 98 08/25/17 17:50 08/25/17 17:00 08/25/17 17:00 08/25/17 17:00 08/25/17 18:10 Laboratory Results 08/23/17 08:29 08/24/17 04:32 08/24/17 08/25/17 08/26/17 06:59 06:59 06:59 Intake Total 2345 2746 Balance 2345 2746 PT 14.6 SEC (12.0-15.0) 08/22/17 04:20 INR 1.12 (0.83-1.16) 08/22/17 04:20 - Time Spent With Patient Time Spent with Patient: greater than 35 minutes Time Spent with Patient: Greater than 35 minutes spent on this patients care, greater than 50% of time spent counseling, educating, and coordinating care regarding the above mentioned plan. ICD10 Worksheet Patient Problems: Problems Problem Status Onset Aspiration into airway Acute Aspiration pneumonitis Acute Dysphagia Acute Calcaneus fracture Acute Closed right hip fracture Acute Hip fracture Acute Hypokalemia Acute Intraparenchymal hemorrhage of brain Acute Osteomyelitis Acute Subdural hematoma, post-traumatic Acute Traumatic epidural hematoma Acute
[2017-08-25] MEDS: LATANOPROST 0.005% 2.5 ML OPHT DROPS EACHEYE SCH (20:34)
[2017-08-26] MEDS: D5W 1/2 NS W/ 20 KCl/L 1,000 ML IV SCH (03:42)
[2017-08-26 05:01] LABS: PLATELET COUNT 288 10^3/uL (150-400)
[2017-08-26] MEDS: HYDROmorphone HCL/NS 0.5 MG/ML SYR IVP PRN ×4 (05:55→19:50)
[2017-08-26] MEDS ORDERED: ALTEPLASE 2 MG VIAL IVP PRN (08:52)
[2017-08-26] MEDS ORDERED: LIDOCAINE 1% 300 MG/30 ML SDV ONE (09:29)
--- NOTE | 2017-08-26 09:43 | HOSPPROG ---
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 -macrocytic anemia; normal B12 level, I suspect this is possibly due to alcohol and other nutritional issues, doubt she has much in the way of a real iron deficiency but she has received IV iron replacement here -alcohol abuse history * Possibility for vitamin deficiencies * Will be starting TPN at this point Last evening doctor Dudley spoke with Dr. Ortiz at [facility] and the recommendation there was to arrange transfer to [place] if the patient is willing to do that. I reviewed various options with the patient this morning and she would like to go to the [facility] so I am waiting to hear back from Dr. Ortiz this morning to begin working through logistics. At this point she is stable overnight, with no worsening of her respirations and no other new symptoms or problems. She is in need of getting some food started at this point. PLANS: -I have placed a call and left message for Dr. Ortiz at [facility], waiting to hear back from him regarding transfer -continue antibiotics, respiratory care -strict NPO including no medicines -PICC catheter now and begin TPN here this evening unless she is going to be transferred during the day today to [place] -DVT prophylaxis, will add Lovenox at this time -continue low-dose fentanyl patch at this time to give her more even pain management This patient remains at ongoing high risk for worsening pneumonitis, further breakdown of esophageal tissue potential for bleeding or mediastinitis and other complications SUBJECTIVE: Main complaints continue to be persistent cough and ribcage and abdominal muscular pain related to the cough, as well as sense of hunger Feels fairly weak No new symptoms OBJECTIVE Vitals reviewed: Stable without fever, still requiring oxygen at 2-3 L Exam: alert oriented Quite thin skin warm dry color ok resps not labored; still coughs constantly during my visit with production of clear sputum lungs somewhat rhonchorous BSs heart regular abd soft nondistended nontender, bowel sounds present limbs warm, no edema iv site ok Laboratory data: Stable macrocytic anemia with normal B12, otherwise unremarkable CBC Stable basic metabolic panel Objective: Vital Signs Temp Pulse Resp BP Pulse Ox 36.5 C 63 14 117/64 100 08/26/17 07:59 08/26/17 07:59 08/26/17 07:59 08/26/17 07:59 08/26/17 07:59 Laboratory Results 08/26/17 04:25 08/26/17 04:25 08/25/17 08/26/17 08/27/17 06:59 06:59 06:59 Intake Total 2746 1374 Output Total 0 Balance 2746 1374 PT 14.6 SEC (12.0-15.0) 08/22/17 04:20 INR 1.12 (0.83-1.16) 08/22/17 04:20 - Time Spent With Patient Time Spent with Patient: greater than 35 minutes Time Spent with Patient: Greater than 35 minutes spent on this patients care, greater than 50% of time spent counseling, educating, and coordinating care regarding the above mentioned plan. ICD10 Worksheet Patient Problems: Problems Problem Status Onset Calcaneus fracture Acute Osteomyelitis Acute Traumatic epidural hematoma Acute Subdural hematoma, post-traumatic Acute Intraparenchymal hemorrhage of brain Acute Hip fracture Acute Hypokalemia Acute Closed right hip fracture Acute Dysphagia Acute Aspiration into airway Acute Aspiration pneumonitis Acute
[2017-08-26] MEDS: NS IV SCH (10:22)
[2017-08-26] MEDS: THIAMINE HCL IV SCH (10:22)
[2017-08-26] MEDS: PANTOPRAZOLE SODIUM 40 MG VIAL IVP SCH ×2 (10:26→22:19)
[2017-08-26] MEDS: ERTAPENEM 1 GM VIAL IV SCH (10:27)
[2017-08-26] MEDS ORDERED: D10W 1,000 ML IV PRN (11:12)
[2017-08-26 12:02] LABS: INR 1.06 (0.83-1.16)
--- NOTE | 2017-08-26 12:27 | SOAPPROG ---
MIGUELANGEL Progress Note Assessment/Plan: Assessment:Plan: 1) TE fistula - documented with esophagram - no contrast in distal esophagus, needs STENT with Dr. Buckner tentatively for tomorrow 2) nutrition - if stent successful then will be able take PO and may not need any PPN/TPN. 3) anemia - prob nutritional/alcohol, ferritin almost 200 but iron sat only 5% - she did get iron 08/25/17 13:54 stent schedule for approx [address] Buckner 08/26/17 12:23 1) LARGE TE fistula - Dr. Buckner did not think amenable to stenting. Have been communicating with Dr. Ortiz at [facility] in [place]. he would like pt transferred. I did call [phone] and spoke to them. No beds early this am. theya re aware and trying to arrange from their end as well. 2) NPO strict 3) nutrition - TPN if not transferred today Dr. Nunes to picker feeder inpt service at 5pm today Subjective: cc- large TE fistula pt still with coughing asp pneumonia agreeable to transfer to [place] Objective: Vital Signs Temp Pulse Resp BP Pulse Ox 36.7 C 61 16 116/68 99 08/26/17 11:42 08/26/17 11:42 08/26/17 11:42 08/26/17 11:42 08/26/17 11:42 Laboratory Results 08/26/17 04:25 08/26/17 04:25 08/25/17 08/26/17 08/27/17 05:59 05:59 05:59 Intake Total 2746 1374 Output Total 0 Balance 2746 1374 PT 14.0 SEC (12.0-15.0) 08/26/17 11:50 INR 1.06 (0.83-1.16) 08/26/17 11:50 A+Ox3 Coarse BS , rhonchi S1S2 +BS soft, tender in upper mid abdo Laboratory Tests 08/20/17 08/21/17 08/22/17 10:54 04:34 04:20 WBC 15.55 H 8.48 D 8.03 Neut % (Auto) 82.0 H 79.8 H 73.2 PT INR APTT Iron TIBC Iron Saturation Ferritin Vitamin B12 08/22/17 08/23/17 08/26/17 04:20 08:29 04:25 WBC 8.16 5.99 Neut % (Auto) 73.2 81.2 H PT INR APTT Iron 11.0 L TIBC 207 L Iron Saturation 5 L Ferritin 199.0 Vitamin B12 949 H 08/26/17 11:50 WBC Neut % (Auto) PT 14.0 INR 1.06 APTT 32.1 Iron TIBC Iron Saturation Ferritin Vitamin B12 ICD10 Worksheet Patient Problems: Problems Problem Status Onset Aspiration into airway Acute Aspiration pneumonitis Acute Dysphagia Acute Calcaneus fracture Acute Closed right hip fracture Acute Hip fracture Acute Hypokalemia Acute Intraparenchymal hemorrhage of brain Acute Osteomyelitis Acute Subdural hematoma, post-traumatic Acute Traumatic epidural hematoma Acute
[2017-08-26] MEDS ORDERED: MAGNESIUM SULF 1 GM/DEXTROSE 100 ML IV ONE (12:30)
--- NOTE | 2017-08-26 16:44 | ASMTCMCOM ---
CM Note CM Note Notes: Pt had PICC line inserted and will be started on TPN per RN. Pt's TE fistula was unable to be stented and plan is now to transfer pt to [facility] in [place] under the care of Dr Kristin Ortiz. The [place] admissions line was called at [phone] and they have no bed availability. They asked that CM call them each day to see if a bed has opened up. Pt's insurance has not been contacted yet about arranging for transport. Per [place] mgmt mgr, financial counseling has been unable to contact them yet so there is no good number to call. CM will continue to follow. Date Signed: 08/26/2017 04:43 PM Electronically Signed By:Nakita Bender LCSW
[2017-08-26] MEDS: TPN 1 EA BAG IV SCH (22:20)
[2017-08-27] MEDS: LATANOPROST 0.005% 2.5 ML OPHT DROPS EACHEYE SCH ×2 (00:23→21:37)
[2017-08-27] MEDS: D5W 1/2 NS 1,000 ML IV SCH ×2 (03:06→21:37)
[2017-08-27 05:21] LABS: PLATELET COUNT 284 10^3/uL (150-400)
[2017-08-27 05:31] LABS: INR 1.05 (0.83-1.16); PROTIME(PATIENT) 13.9 SEC (12.0-15.0)
[2017-08-27] MEDS: PANTOPRAZOLE SODIUM 40 MG VIAL IVP SCH (09:37)
[2017-08-27] MEDS: ERTAPENEM 1 GM VIAL IV SCH (09:37)
--- NOTE | 2017-08-27 10:07 | SOAPPROG ---
SOAP Progress Note Assessment/Plan: Assessment/Plan: 1. Esophago-tracheal fistula, after cryotherapy procedure done by Dr. Ortiz at [facility] in [place]. Not amenable to endoscopic stenting. - as per Dr. Roberts's note yesterday, including transfer to [facility] for surgical correction of the above. As per hospitalist service. - decrease protonix to just daily - for her elevated MCV, recommend checking blood for folate level, TSH, if not done over the last year, for completeness. - once TPN at full rate, recommend d/c maintenance fluids. 2. Some diarrhea. Suspect a side-effect of antibiotics only, but will check c. diff. I will sign off. I will f/u on c. diff, but suspect will be negative. Else, please call if we can otherwise be of further help [phone]). Thanks! 08/27/17 15:40 Subjective: cc: TE fistula Complains of some diarrhea. Else, no rigors, chills, sweats. Objective: Vital Signs Temp Pulse Resp BP Pulse Ox 36.8 C 61 18 141/83 H 100 08/27/17 08:14 08/27/17 08:14 08/27/17 08:14 08/27/17 08:14 08/27/17 08:14 Laboratory Results 08/27/17 04:39 08/27/17 04:39 08/26/17 08/27/17 08/28/17 05:59 05:59 05:59 Intake Total 1374 50 Output Total 0 Balance 1374 50 PT 13.9 SEC (12.0-15.0) 08/27/17 04:39 INR 1.05 (0.83-1.16) 08/27/17 04:39 Physical Exam - Physical Exam General Appearance: WD/WN, alert, no apparent distress EENT: PERRL/EOMI, normal ENT inspection, pharynx normal, TMs normal Neck: non-tender, full range of motion, supple, normal inspection Respiratory: chest non-tender, respiratory distress Cardiac/Chest: normal peripheral pulses, regular rate, rhythm Peripheral Pulses: 2+: carotid (R), carotid (L), femoral (R), femoral (L), dorsalis-pedis (R), dorsalis-pedis (L) Abdomen: normal bowel sounds, non-tender, soft Pelvic Exam: deferred Rectal: deferred Back: Normal inspection Skin: normal color, warm/dry Lymphatic: no adenopathy Extremities: normal range of motion, non-tender, normal inspection, normal capillary refill Neuro/Psych: no motor/sensory deficits, alert, normal mood/affect, oriented x 3 ICD10 Worksheet Patient Problems: Problems Problem Status Onset Aspiration into airway Acute Aspiration pneumonitis Acute Dysphagia Acute Calcaneus fracture Acute Closed right hip fracture Acute Hip fracture Acute Hypokalemia Acute Intraparenchymal hemorrhage of brain Acute Osteomyelitis Acute Subdural hematoma, post-traumatic Acute Traumatic epidural hematoma Acute
[2017-08-27] MEDS: HYDROmorphone HCL/NS 0.5 MG/ML SYR IVP PRN ×3 (10:58→17:52)
[2017-08-27] MEDS: fentaNYL 12 MCG PATCH TD SCH (10:59)
--- NOTE | 2017-08-27 15:32 | HOSPPROG ---
Hospitalist Progress Note Assessment/Plan: # acute aspiration pneumonitis- cough remains persistent and severe- oxygen saturations 90% on room air Chest x-ray(personally reviewed and interpreted) multi lobar infiltrates consistent with pneumonitis - continue supplemental oxygen p.r.n. - continue pain management p.r.n. - on IV ertapenem day 7 - close monitoring and supportive care # large tracheal esophageal fistula- status post recent cryotherapy for squamous dysplasia- fistula confirmed on EGD not amendable to endoscopic stenting Gastroenterology and contact with her [place] providers - awaiting transfer for surgical repair - continue daily PPI # macrocytic anemia- will check folate and TSH to complete workup - H&H slightly down today 12/13 # severe protein calorie malnutrition- BMI 16- nutritional intake markedly compromised by tracheal esophageal fistula - TPN initiated # alcohol abuse history- no active withdrawal # prophylaxis Lovenox # diet TPN # disposition greater than 2 midnights as we await transition to [facility] for surgical repair of tracheoesophageal fistula I have discussed the case with the PharmD an RN-will slow down the rate of TPN as the patient believe she is having symptomatic abdominal cramping Subjective: Abdomen feels crampy Objective: Vital Signs Temp Pulse Resp BP Pulse Ox 36.9 C 67 17 124/76 H 90 L 08/27/17 12:48 08/27/17 12:48 08/27/17 12:48 08/27/17 12:48 08/27/17 12:48 Laboratory Results 08/27/17 04:39 08/27/17 04:39 08/26/17 08/27/17 08/28/17 05:59 05:59 05:59 Intake Total 1374 50 2788 Output Total 0 Balance 1374 50 2788 PT 13.9 SEC (12.0-15.0) 08/27/17 04:39 INR 1.05 (0.83-1.16) 08/27/17 04:39 - Physical Exam Constitutional: cachectic Eyes: anicteric sclera Ears, Nose, Mouth, Throat: dry mucous membranes Cardiovascular: regular rate and rhythym Respiratory: no respiratory distress Gastrointestinal: normoactive bowel sounds, No distension Genitourinary: no bladder fullness Skin: warm Musculoskeletal: No asymmetric calves Neurologic: AAOx3 Psychiatric: anxious Lymph, Heme, Immunologic: no cervical LAD ICD10 Worksheet Patient Problems: Problems Problem Status Onset Aspiration into airway Acute Aspiration pneumonitis Acute Dysphagia Acute Calcaneus fracture Acute Closed right hip fracture Acute Hip fracture Acute Hypokalemia Acute Intraparenchymal hemorrhage of brain Acute Osteomyelitis Acute Subdural hematoma, post-traumatic Acute Traumatic epidural hematoma Acute
--- NOTE | 2017-08-27 19:09 | ASMTCMCOM ---
CM Note CM Note Notes: Call placed to [facility] early in shift to inquire about bed availability. Spoke with warehouse attendant, Zoe. Per Zoe, "code purple" (meaning facility is full) has been lifted. Zoe to discuss transfer with admitting MD. This CM attempted to reach pt's insurance company to discuss transportation benefits. Unable to reach a compensation and benefits administrator due to closure for the weekend. Met with pt - asked pt to call phone number on the back of her insurance card to verify benefits. Pt reached a specialist, but the insurance rep said they could not verify her benefits without a electrical tests supervisor and the electrical tests supervisor's department was not open today or tomorrow. Call placed to Baylee Gibson, limnology teacher Managerment for further guidance. Met with pt again to discuss pt's financial options to private pay for transportation. Pt has the $20-30K needed for medevac transport, but pt does not want to private pay. Pt's friends inquiring if pt can transfer on a standard [place] airline flight - pt not interested in taking a non-medical flight. Updates provided to MARGARITA Sarah, and SHAHRIAR Barney. Call received from Sara at [facility]. Per Sara, able to accept pt tonight. Met with pt, pt would prefer to sort out insurance benefits prior to agreeing to private pay for transfer. Update provided to [facility] - Sara at [place] worried about pt's welfare and waiting until Tuesday for transfer. Call placed to Dr. Tomer Nunes, update provided. Per Dr. Nunes, pt is currently stable and under close monitoring, it is safe to await transfer until Tuesday assuming pt remains on TPN/fluids and does not eat or drink. Dr. Nunes requested this CM alert Hospital Medicine as well. Call placed to Dr. Slater. Per Dr. Slater, okay for pt to wait for transfer until Tuesday 08/29. Updates provided to MARGARITA Sarah and SHAHRIAR Barney. CM will attempt to contact pt's insurance company again on Monday 08/28 and Tuesday 08/29 to verify benefits. Pt will also attempt again. Update provided to Baylee Gibson. CM to further research transportation options, costs and benefits for transfer to [place] on Tuesday08/29/17. Will continue to follow. Current Discharge Plan: [facility]evac transport to [facility], Tuesday08/29/17 Date Signed: 08/27/2017 07:09 PM Electronically Signed By:Tanya Bryan RN
[2017-08-27] MEDS: TPN 1 EA BAG IV SCH (21:10)
[2017-08-28 05:33] LABS: PLATELET COUNT 315 10^3/uL (150-400)
[2017-08-28 05:43] LABS: INR 1.03 (0.83-1.16); PROTIME(PATIENT) 13.7 SEC (12.0-15.0)
[2017-08-28] MEDS: HYDROmorphone HCL/NS 0.5 MG/ML SYR IVP PRN ×3 (07:58→18:20)
[2017-08-28] MEDS: ERTAPENEM 1 GM VIAL IV SCH (08:02)
[2017-08-28] MEDS: PANTOPRAZOLE SODIUM 40 MG VIAL IVP SCH (08:04)
[2017-08-28] MEDS: POTASSIUM Cl (KCl) 10 MEQ in NS 100 ML IV SCH ×3 (11:17→14:11)
[2017-08-28] MEDS: ENOXAPARIN 30 MG/0.3 ML SYR SC SCH (12:40)
--- NOTE | 2017-08-28 14:33 | HOSPPROG ---
Hospitalist Progress Note Assessment/Plan: # acute aspiration pneumonitis- cough remains persistent and severe- oxygen saturations 99% on 2L Chest x-ray(personally reviewed and interpreted) multi lobar infiltrates consistent with pneumonitis - continue supplemental oxygen p.r.n. - continue pain management p.r.n. - on IV ertapenem day 7 (will discuss length of Abx with GI) - close monitoring and supportive care # large tracheal esophageal fistula- status post recent cryotherapy for squamous dysplasia- fistula confirmed on EGD not amendable to endoscopic stenting Gastroenterology and contact with her [place] providers - awaiting transfer for surgical repair- complications related to transport - continue daily PPI # macrocytic anemia- will check folate and TSH to complete workup - H&H slightly down today 12/13 # severe protein calorie malnutrition- BMI 16- nutritional intake markedly compromised by tracheal esophageal fistula - continue uptitrating TPN to goal # Hypokalemia - will adjust TPN # alcohol abuse history- no active withdrawal # prophylaxis Lovenox # diet TPN # disposition greater than 2 midnights as we await transition to [facility] for surgical repair of tracheoesophageal fistula I have discussed the case with the CM - having difficulty organizing medical transportation to [place] in [place] as a bed available Subjective: still coughing - abd with less cramping Objective: Vital Signs Temp Pulse Resp BP Pulse Ox 36.9 C 62 16 129/81 H 99 08/28/17 11:28 08/28/17 11:28 08/28/17 11:28 08/28/17 11:28 08/28/17 11:28 Laboratory Results 08/28/17 05:30 08/28/17 05:30 08/27/17 08/28/17 08/29/17 05:59 05:59 05:59 Intake Total 50 3904.5 Output Total 225 Balance 50 3679.5 PT 13.7 SEC (12.0-15.0) 08/28/17 05:30 INR 1.03 (0.83-1.16) 08/28/17 05:30 - Physical Exam Constitutional: chronically ill appearing, cachectic Eyes: anicteric sclera Ears, Nose, Mouth, Throat: moist mucous membranes Cardiovascular: regular rate and rhythym Respiratory: no respiratory distress Gastrointestinal: normoactive bowel sounds, No distension Genitourinary: no bladder fullness Skin: warm Musculoskeletal: No asymmetric calves Neurologic: AAOx3 Psychiatric: interacting appropriately Lymph, Heme, Immunologic: no cervical LAD ICD10 Worksheet Patient Problems: Problems Problem Status Onset Aspiration into airway Acute Aspiration pneumonitis Acute Dysphagia Acute Calcaneus fracture Acute Closed right hip fracture Acute Hip fracture Acute Hypokalemia Acute Intraparenchymal hemorrhage of brain Acute Osteomyelitis Acute Subdural hematoma, post-traumatic Acute Traumatic epidural hematoma Acute
[2017-08-28] MEDS: D5W 1/2 NS 1,000 ML IV SCH ×2 (19:05→21:58)
[2017-08-28] MEDS: LATANOPROST 0.005% 2.5 ML OPHT DROPS EACHEYE SCH (21:56)
[2017-08-28] MEDS: TPN 1 EA BAG IV SCH (21:57)
[2017-08-29 06:20] LABS: PLATELET COUNT 379 10^3/uL (150-400)
[2017-08-29 06:29] LABS: INR 1.05 (0.83-1.16); PROTIME(PATIENT) 13.9 SEC (12.0-15.0)
[2017-08-29] MEDS: ENOXAPARIN 30 MG/0.3 ML SYR SC SCH (08:51)
[2017-08-29] MEDS: HYDROmorphone HCL/NS 0.5 MG/ML SYR IVP PRN ×3 (09:13→19:48)
[2017-08-29] MEDS: PANTOPRAZOLE SODIUM 40 MG VIAL IVP SCH (09:15)
[2017-08-29] MEDS: ERTAPENEM 1 GM VIAL IV SCH (09:19)
[2017-08-29] MEDS: D5W 1/2 NS 1,000 ML IV SCH (15:09)
--- NOTE | 2017-08-29 16:53 | HOSPPROG ---
Hospitalist Progress Note Assessment/Plan: # acute aspiration pneumonitis- cough remains persistent and severe- oxygen saturations 95% on RA Chest x-ray(personally reviewed and interpreted) multi lobar infiltrates consistent with pneumonitis - continue supplemental oxygen p.r.n. - continue pain management p.r.n. 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- fistula confirmed on EGD not amendable to endoscopic stenting Gastroenterology and contact with her [place] providers - [facility] transport arranged for am - continue daily PPI # macrocytic anemia- will check folate and TSH to complete workup - H&H slightly down today 12/13 # severe protein calorie malnutrition- BMI 16- nutritional intake markedly compromised by tracheal esophageal fistula - at goal TPN # Hypokalemia - cont adjust TPN # alcohol abuse history- no active withdrawal # prophylaxis Lovenox # diet TPN # disposition greater than 2 midnights as we await transition to [facility] for surgical repair of tracheoesophageal fistula I have discussed the case with the CM - have established approval for [facility] transport in am Subjective: cough persists - abd rumbly Objective: Vital Signs Temp Pulse Resp BP Pulse Ox 37.4 C 74 16 122/77 H 95 08/29/17 12:50 08/29/17 12:50 08/29/17 12:50 08/29/17 12:50 08/29/17 12:50 Laboratory Results 08/29/17 06:05 08/29/17 15:10 08/28/17 08/29/17 08/30/17 05:59 05:59 05:59 Intake Total 3904.5 1108 1148 Output Total 225 Balance 3679.5 1108 1148 PT 13.9 SEC (12.0-15.0) 08/29/17 06:05 INR 1.05 (0.83-1.16) 08/29/17 06:05 - Physical Exam Constitutional: chronically ill appearing, cachectic Eyes: anicteric sclera Ears, Nose, Mouth, Throat: dry mucous membranes Cardiovascular: regular rate and rhythym Respiratory: no respiratory distress Gastrointestinal: normoactive bowel sounds, No distension Genitourinary: no bladder fullness Skin: warm Musculoskeletal: No asymmetric calves Neurologic: AAOx3 Psychiatric: interacting appropriately Lymph, Heme, Immunologic: no cervical LAD ICD10 Worksheet Patient Problems: Problems Problem Status Onset Aspiration into airway Acute Aspiration pneumonitis Acute Dysphagia Acute Calcaneus fracture Acute Closed right hip fracture Acute Hip fracture Acute Hypokalemia Acute Intraparenchymal hemorrhage of brain Acute Osteomyelitis Acute Subdural hematoma, post-traumatic Acute Traumatic epidural hematoma Acute
--- NOTE | 2017-08-29 20:36 | ASMTCMCOM ---
CM Note CM Note Notes: Spoke with pt regarding insurance coverage for a non-emergent air ambulance to [facility] ([address] [place], [place] [address]); pt states she spoke with her insurance company & they told her she "does not need authorization & should be covered". Obtained pt's insurance information; called [facility] at [phone] & spoke with Elvi (reference number [id number]); per [facility], "authorization is not required; pt's insurance plan covers 80% of non-emergent air ambulance as long as it meets criteria per medical policy ". Verified policy with Elvi via [employer] website. Per [facility], pt has met her deductible & will have a copay of approximately $1000. Pt updated; agreeable to copay. Alerted Yasmine ([phone]), at [facility]; informed pt has been accepted, a bed is available, but not being held until transport time is obtained. Spoke with Janki Franco ([phone] F#[phone]) at [email or web address] [facility] [place]; pt information/needs (TPN, IV fluids, IV pain meds, suction & O2) provided; paperwork faxed; confirmed received. Transport arranged for Tuesday08/30/17 at 0900. Updated Yasmine, at [facility]; Yasmine to call [facility] at 0700 on 08/30/17 to let pt's [facility] RN know what room number & [place] RN pt will be assigned at [facility]; pt's receiving MD will be Love Luciano. Pt's current medical records put on disk & placed in pt's chart for air ambulance crew. RN, MD, slip cover cutter, UC & pt updated. CM will continue to follow. Date Signed: 08/29/2017 08:35 PM Electronically Signed By:Lidia Serrato RN
[2017-08-29] MEDS: TPN 1 EA BAG IV SCH (21:18)
[2017-08-29] MEDS: LATANOPROST 0.005% 2.5 ML OPHT DROPS EACHEYE SCH (21:18)
[2017-08-30 05:57] VITALS: BP 116/73
--- NOTE | 2017-08-30 08:13 | PDIAF ---
- Diagnosis Diagnosis: tracheo-esophageal fistula Code Status: Full Code - Medication Management Discharge Medications: Medications to Continue on Transfer ALPRAZolam [Xanax 0.5 MG (*)] 0.5 mg PO DAILY PRN 08/20/17 [Last Taken 08/19/17] Amphet Asp and D/Amphet [Adderall 20 mg (*)] 20 mg PO BID PRN 08/20/17 [Last Taken 08/18/17] FLUoxetine [Prozac 10 MG (*)] 10 mg PO DAILY 08/20/17 [Last Taken 08/19/17] Topiramate [Topamax 100MG (*)] 100 mg PO BID 08/20/17 [Last Taken 08/19/17] Latanoprost 0.005% [Xalatan 0.005% (*)] 1 drop EACHEYE HS 08/24/17 [Last Taken Unknown] Enoxaparin [Lovenox] 30 mg SC DAILY syr 08/29/17 [Last Taken Unknown] Ertapenem [INVanz] 1 gm IV DAILY vial 08/29/17 [Last Taken Unknown] Ipratropium/Albuterol [Duoneb (*)] 3 ml IH Q6HRS PRN deyvial 08/29/17 [Last Taken Unknown] Pantoprazole Sodium [Protonix IV (*)] 40 mg IVP DAILY vial 08/29/17 [Last Taken Unknown] TPN [Hyperalimentation] 1 ea IV DAILY21 bag 08/29/17 [Last Taken Unknown] Thiamine HCl [Vitamin B-1] 100 mg PO DAILY tab 08/29/17 [Last Taken Unknown] fentaNYL [Duragesic 12 MCG Patch (*)] 12 mcg TD Q72H patch 08/29/17 [Last Taken Unknown] Discharge Medications: Refer to the Discharge Home Medication list for PRN reason. - Orders Services needed: Registered Nurse, Physical Therapy, Occupational Therapy Isolation Type: None Diet Recommendation: other Diet Texture: Thin Liquids (By feeding tube) - Follow Up Care Current Providers and Referrals: Etelvina Merlos MD [Primary Care Provider] - As per Instructions
--- NOTE | 2017-08-30 08:55 | GDS ---
[f rep st] DISCHARGE SUMMARY DISCHARGE DIAGNOSES: Include: 1. Tracheoesophageal fistula. 2. Chronic aspiration pneumonitis secondary to tracheoesophageal fistula. 3. Macrocytic anemia, chronic. 4. Severe protein-calorie malnutrition. 5. Hypokalemia. 6. Ihabi-ul-bjvicjx aspiration pneumonitis. HISTORY OF PRESENT ILLNESS: This is a 57-year-old female who presents on 08/20/2017, with complaints of dysphagia. For details of the patient's initial presentation, please see the history and physica l dated 08/20/2017. CONSULTATIVE SERVICES: Gastroenterology. PROCEDURE: EGD which showed visualization of a tracheoesophageal fistula, not amenable to EGD stenti ng. HOSPITAL COURSE BY ISSUE: 1. Tracheoesophageal fistula: Patient status post cryo treatment of esophagus on July 29 , followed by hospitalization for aspiration pneumonia. Patient was admitted to [facility], evaluated with imaging and EGD, confirming the presence of a tracheoesophageal fistula, which was not amenable to EG D stenting. Contact was made with the patient's GI team at [facility] who have the expertise to surgically repair this fistula. Patient was stabilized here at [facility], placed on TPN nutritional suppo rt, and on the day of disposition will be transported via [facility] to [facility] for repair. Shayy schwartz is currently registered as an inpatient in our acute care hospital, and the specialized services are not available in this hospital. The provider that provides these specialized services is [facility] to in [place], [place], and therefore is being transferred to their facility for intervention . 2. Dxcxp-ey-vjojiqj aspiration pneumonitis. Patient has been continued on IV ertapenem to avoid any worsening infectious complications. She has been afebrile with a normal white count during this hos pital stay. 3. Severe protein-calorie malnutrition. Patient has been unable to safely take p.o. intake for an e xtended period of time. She was initiated on TPN, which has been titrated to goal on the day of disp osition. This will be continued on transfer. MEDICATIONS AT THE TIME OF DISPOSITION: Please reference the med rec. Please note, the med rec refl ects the patient's outpatient medications, including p.o. medications which have been held during thi s hospitalization secondary to her p.o. status, should also reflect her acute inpatient medications w hich are all being administered intravenous including antibiotics and TPN. PENDING STUDIES AT THE TIME OF THIS DICTATION: None. I spent greater than 30 minutes in the planning and coordination of this discharge. FOLLOWUP: Patient is being transported via [facility] to [facility] for surgical repair of her tra cheoesophageal fistula. /[id number]/MODL
[2017-08-30] MEDS: fentaNYL 12 MCG PATCH TD SCH (09:17)
[2017-08-30] MEDS: ERTAPENEM 1 GM VIAL IV SCH (09:18)
[2017-08-30] MEDS: ENOXAPARIN 30 MG/0.3 ML SYR SC SCH (09:18)
[2017-08-30] MEDS: PANTOPRAZOLE SODIUM 40 MG VIAL IVP SCH (09:25)
== END 2017-08-30 09:15 | disposition short-term general hospital (02) | DRG 177 ==
LOC: F1N 12:04 → OBSVTOIN 08-21 13:19
PROVIDERS: ADMIT Internal Medicine; ATTEND Internal Medicine
PROC: 02HV33Z Insertion of Infusion Device into Superior Vena Cava, Percutaneous Approach (ICD-10-PCS; 2017-08-25)
PROC: 0DJ08ZZ Inspection of Upper Intestinal Tract, Via Natural or Artificial Opening Endoscopic (ICD-10-PCS; principal; 2017-08-25 17:00)
DX: J86.0 Pyothorax with fistula (principal); J69.0 Pneumonitis due to inhalation of food and vomit; E43 Unspecified severe protein-calorie malnutrition; Z68.1 Body mass index [BMI] 19.9 or less, adult; E87.6 Hypokalemia; D53.9 Nutritional anemia, unspecified; F39 Unspecified mood [affective] disorder; I10 Essential (primary) hypertension; F10.10 Alcohol abuse, uncomplicated
CPT/HCPCS: 80307; 82607-90; 84134-90; C1751; G0378; G0480; J1100; J1170; J1335; J1650; J1885; J1956; J2250; J2270; J2405; J2704; J2916; J2997; J3010; J3411; J3475; J3480; Q9967

== ENCOUNTER 2017-09-14 17:04 | Inpatient (IN) | payer BC ==
--- NOTE | 2017-09-14 17:36 | EDPHY ---
H & P Time Seen by Provider: 09/14/17 17:18 HPI/ROS: CHIEF COMPLAINT: Esophageal pain, cough HISTORY OF PRESENT ILLNESS: The patient is a 57-year-old female with a history of tracheoesophageal fistula, chronic aspiration pneumonia secondary to fistula and severe malnutrition who presents to the emergency department with a malfunctioning stent. Patient states that she was sent from [facility] to the [facility]. There she had 2 esophageal stents placed. She has had ongoing issues. Today she underwent barium esophagram. This revealed that there is small leak and continued fistula. Patient complains of ongoing esophageal pain. She has a chronic cough. This is not worse than usual. She denies fevers or chills. No nausea vomiting. The patient has difficulty eating. REVIEW OF SYSTEMS: My complete review of systems is negative except as mentioned in the HPI. Past Medical/Surgical History: Includes tracheoesophageal fistula, chronic aspiration pneumonitis, microcytic anemia, malnutrition, hypokalemia, osteopenia, squamous cell dysplasia of the esophagus, mood disorder, migraine, subdural hematoma, alcoholism, irritable bowel syndrome Past surgical history: Includes hip fracture repair, calcaneal surgery, colonoscopy, stent placement Family history: Father with pulmonary hypertension Social history: The patient does not smoke. Heavy alcohol use Smoking Status: Never smoked Physical Exam: 36.6, 87/75, 109, 20, and 100% on room air GENERAL: Cachectic, in no acute distress, alert. HEENT: Eyes normal to inspection, normal pharynx, no signs of dehydration. NECK: No thyromegaly, no lymphadenopathy, supple. RESPIRATORY: Coarse breath sounds in all lung stevens. No wheezing.. CVS: Regular rate and rhythm, no rubs, murmurs, or gallops. ABDOMEN: Soft, nontender, nondistended, no organomegaly. BACK: Normal to inspection, no CVA tenderness. SKIN: Normal color, no rash, warm, dry. No pallor. EXTREMITIES: No pedal edema, no calf tenderness, no Homans sign or cords, no joint swelling. NEURO/PSYCH: Alert and oriented, normal mood and affect, normal motor sensory exam. Constitutional: Initial Vital Signs Temperature (C) 36.6 C 09/14/17 17:15 Heart Rate 109 H 09/14/17 17:15 Respiratory Rate 20 04/25/18 17:15 Blood Pressure 87/75 L 09/14/17 17:15 O2 Sat (%) 100 09/14/17 17:15 O2 Delivery Mode Room Air Allergies/Adverse Reactions: tramadol Allergy (Mild, Verified 09/14/17 17:13) ceftriaxone Allergy (Verified 09/14/17 17:13) Rash lisinopril Allergy (Verified 09/14/17 17:13) Rash prochlorperazine [From Compazine] Allergy (Verified 09/14/17 17:13) Home Medications: Medication Instructions Recorded ALPRAZolam [Xanax 0.5 MG (*)] 0.5 mg PO DAILY PRN 08/20/17 Amphet Asp and D/Amphet [Adderall 20 mg PO BID PRN 08/20/17 20 mg (*)] FLUoxetine [Prozac 10 MG (*)] 10 mg PO DAILY 08/20/17 Topiramate [Topamax 100MG (*)] 100 mg PO BID 08/20/17 Latanoprost 0.005% [Xalatan 0.005% 1 drop EACHEYE HS 08/24/17 (*)] Enoxaparin [Lovenox] 30 mg SC DAILY syr 08/29/17 Ipratropium/Albuterol [Duoneb (*)] 3 ml IH Q6HRS PRN deyvial 08/29/17 Pantoprazole Sodium [Protonix IV 40 mg IVP DAILY vial 08/29/17 (*)] TPN [Hyperalimentation] 1 ea IV DAILY21 bag 08/29/17 Thiamine HCl [Vitamin B-1] 100 mg PO DAILY tab 08/29/17 AMOXICILLIN 09/14/17 Omeprazole 09/14/17 Medical Decision Making - Diagnostics Imaging Results: Imaging Impressions Chest X-Ray 09/14/17 17:40 Impression: Mild volume aspirated barium identified in the right middle and lower lobes. ED Course/Re-evaluation: Dr. Roberts called the emergency department prior to the patient's arrival. He recommend the patient be admitted with tube feeding. I reviewed the patient's medical record and previous visit. I discussed the plan with the patient. I answered all of her questions. Laboratory studies were ordered. The patient had elevated white count of 10. This is up from her previous value. Patient is anemic with hematocrit of 28. This is consistent with her previous values. Patient's chemistry panel is unremarkable. The patient's lipase is elevated in the 400s. Chest x-ray: Aspirated barium in the right middle and lower lobes. I discussed the results with the patient. I answered all of her questions. Patient was admitted to the hospital service. Dr. Mcghee will admit the patient. Differential Diagnosis: My differential includes but is not limited to pneumonitis, pneumonia, tracheoesophageal fistula, stent malfunction, varices, anemia, malnutrition, bacteremia, sepsis - Data Points Laboratory Results: Laboratory Results 09/14/17 17:40 09/14/17 17:40 09/14/1718 09/14/17 17:40 17:40 17:40 WBC 10.75 10^3/uL H 10^3/uL (3.80-9.50) RBC 2.80 10^6/uL L 10^6/uL (4.18-5.33) Hgb 9.0 g/dL L g/dL (12.6-16.3) Hct 28.1 % L % (38.0-47.0) MCV 100.4 fL H fL (81.5-99.8) MCH 32.1 pg pg (27.9-34.1) MCHC 32.0 g/dL L g/dL (32.4-36.7) RDW 12.7 % % (11.5-15.2) Plt Count 390 10^3/uL 10^3/uL (150-400) MPV 10.2 fL fL (8.7-11.7) Neut % (Auto) 63.9 % % (39.3-74.2) Lymph % (Auto) 23.8 % % (15.0-45.0) [place] % (Auto) 6.4 % % (4.5-13.0) Eos % (Auto) 5.0 % % (0.6-7.6) Baso % (Auto) 0.3 % % (0.3-1.7) Nucleat RBC Rel Count 0.0 % % (0.0-0.2) Absolute Neuts (auto) 6.87 10^3/uL H 10^3/uL (1.70-6.50) Absolute Lymphs (auto) 2.56 10^3/uL 10^3/uL (1.00-3.00) Absolute Monos (auto) 0.69 10^3/uL 10^3/uL (0.30-0.80) Absolute Eos (auto) 0.54 10^3/uL H 10^3/uL (0.03-0.40) Absolute Basos (auto) 0.03 10^3/uL 10^3/uL (0.02-0.10) Absolute Nucleated RBC 0.00 10^3/uL 10^3/uL (0-0.01) Immature Gran % 0.6 % % (0.0-1.1) Immature Gran # 0.06 10^3/uL 10^3/uL (0.00-0.10) PT 14.2 SEC SEC (12.0-15.0) INR 1.08 (0.83-1.16) APTT 31.1 SEC SEC (23.0-38.0) VBG Lactic Acid Sodium 144 mEq/L mEq/L (135-145) Potassium 4.2 mEq/L mEq/L (3.5-5.2) Chloride 110 mEq/L mEq/L (97-110) Carbon Dioxide 24 mEq/l mEq/l (22-31) Anion Gap 10 mEq/L mEq/L (8-16) BUN 24 mg/dL H mg/dL (7-23) Creatinine 0.8 mg/dL mg/dL (0.6-1.0) Estimated GFR > 60 Glucose 101 mg/dL H mg/dL (70-100) Calcium 9.7 mg/dL mg/dL (8.5-10.4) Total Bilirubin 0.4 mg/dL mg/dL (0.1-1.4) Conjugated Bilirubin 0.4 mg/dL mg/dL (0.0-0.5) Unconjugated Bilirubin 0.0 mg/dL mg/dL (0.0-1.1) AST 30 IU/L IU/L (14-46) ALT 26 IU/L IU/L (9-52) Alkaline Phosphatase 87 IU/L IU/L (38-126) Total Protein 7.7 g/dL g/dL (6.3-8.2) Albumin 4.0 g/dL g/dL (3.5-5.0) Lipase 447 IU/L H IU/L (23-300) 09/14/17 17:40 WBC RBC Hgb Hct MCV MCH MCHC RDW Plt Count MPV Neut % (Auto) Lymph % (Auto) [place] % (Auto) Eos % (Auto) Baso % (Auto) Nucleat RBC Rel Count Absolute Neuts (auto) Absolute Lymphs (auto) Absolute Monos (auto) Absolute Eos (auto) Absolute Basos (auto) Absolute Nucleated RBC Immature Gran % Immature Gran # PT INR APTT VBG Lactic Acid 1.3 mmol/L mmol/L (0.7-2.1) Sodium Potassium Chloride Carbon Dioxide Anion Gap BUN Creatinine Estimated GFR Glucose Calcium Total Bilirubin Conjugated Bilirubin Unconjugated Bilirubin AST ALT Alkaline Phosphatase Total Protein Albumin Lipase Medications Given: Discontinued Medications Sodium Chloride (Ns) 1,000 mls @ 0 mls/hr IV EDNOW ONE; Wide Open PRN Reason: Protocol Stop: 09/14/17 17:40 Last Admin: 09/14/17 18:51 Dose: 1,000 mls Departure - Departure Clinical Impression: Tracheoesophageal fistula, Aspiration into lower respiratory tract Anemia Qualifiers: Anemia type: unspecified type Qualified Code(s): D64.9 - Anemia, unspecified Malnutrition Qualifiers: Malnutrition type: unspecified type Qualified Code(s): E46 - Unspecified protein-calorie malnutrition Condition: Good
[2017-09-14] MEDS ORDERED: NS 1,000 ML IV ONE (17:39)
[2017-09-14 17:56] LABS: PLATELET COUNT 390 10^3/uL (150-400)
[2017-09-14 18:05] LABS: INR 1.08 (0.83-1.16); PROTIME(PATIENT) 14.2 SEC (12.0-15.0)
[2017-09-14] MEDS ORDERED: ONDANSETRON 4 MG/2 ML VIAL IVP PRN (21:55)
[2017-09-14] MEDS ORDERED: ACETAMINOPHEN 325 MG TAB PO PRN (21:55)
[2017-09-14] MEDS ORDERED: ONDANSETRON DISINTEGRATING 4 MG TAB PO PRN (21:55)
[2017-09-14] MEDS ORDERED: LOPERAMIDE HCL 2 MG CAP PO PRN (21:58)
[2017-09-14] MEDS ORDERED: ALPRAZolam 0.25 MG TAB PO PRN (21:58)
[2017-09-14] MEDS ORDERED: ADDERALL 20 MG TAB PO PRN (21:58)
[2017-09-14] MEDS ORDERED: ALTEPLASE 2 MG VIAL IVP PRN (22:03)
[2017-09-14] MEDS ORDERED: D10W 1,000 ML IV PRN (22:05)
--- NOTE | 2017-09-14 22:10 | PDGENHP ---
History and Physical - Chief Complaint Esophageal pain, cough - History of Present Illness The patient is a 57-year-old female with a history of tracheoesophageal fistula , chronic aspiration pneumonia secondary to fistula and severe malnutrition who presents with a malfunctioning stent. Patient states that she was sent from [facility] to the [facility]. There she had 2 esophageal stents placed. She has had ongoing issues. Today she underwent barium esophagram. This revealed that there is small leak and continued fistula. Dr. Roberts called the emergency department prior to the patient's arrival to the E.D. He recommend the patient be admitted with tube feeding. Patient complains of ongoing esophageal pain. She has a chronic cough. This is not worse than usual. She denies fevers or chills. No nausea vomiting. The patient has difficulty eating. IN the E.D she was found to be hypotensive. No e/o infection was found. BP has improved with IVF. CXR showed mild volume aspiration of barium in the RML and RLL. This was personally reviewed. Past Medical/Surgical History: Includes tracheoesophageal fistula, chronic aspiration pneumonitis, microcytic anemia, malnutrition, hypokalemia, osteopenia, squamous cell dysplasia of the esophagus, mood disorder, migraine, subdural hematoma, alcoholism, irritable bowel syndrome Past surgical history: Includes hip fracture repair, calcaneal surgery, colonoscopy, stent placement Family history: Father with pulmonary hypertension Social history: The patient does not smoke. Heavy alcohol use History Information - Allergies/Home Medication List Allergies/Adverse Reactions: tramadol Allergy (Mild, Verified 09/14/17 17:13) ceftriaxone Allergy (Verified 09/14/17 17:13) Rash lisinopril Allergy (Verified 09/14/17 17:13) Rash prochlorperazine [From Compazine] Allergy (Verified 09/14/17 17:13) Home Medications: ALPRAZolam [Xanax 0.5 MG (*)] 0.5 mg PO DAILY PRN 08/20/17 [Last Taken 09/13/17] Amphet Asp and D/Amphet [Adderall 20 mg (*)] 20 mg PO BID PRN 08/20/17 [Last Taken 2 Weeks Ago ~08/31/17] FLUoxetine [Prozac 10 MG (*)] 10 mg PO DAILY 08/20/17 [Last Taken 09/14/17] Latanoprost 0.005% [Xalatan 0.005% (*)] 1 drop EACHEYE HS 08/24/17 [Last Taken 09/13/17] Amox Tr/Potas Clav 200/5 [Augmentin 200 MG/5 ML (*)] 5 ml PO Q12 09/14/17 [Last Taken 09/14/17 09:00] Loperamide HCl [Imodium 2 mg (*)] 2 mg PO PRN PRN 09/14/17 [Last Taken 09/14/17] Omeprazole 40 mg PO DAILY 09/14/17 [Last Taken 09/14/17] Topiramate [Topamax 25MG (*)] 50 mg PO BID 09/14/17 [Last Taken 09/13/17] I have personally reviewed and updated: medical history, social history - Past Medical History hypertension Additional medical history: Osteopenia, squamous cell dysplasia of the esophagus currently undergoing cryo treatment at the [facility] in [place], mood disorder, migraine disorder, previous subdural hemorrhage, previous facial contusion, alcoholism, reported irritable bowel syndrome with fruit dose intolerant, chronic macrocytic anemia - Surgical History Additional surgical history: December 2015 left inter medullary nail for hip fracture Dr. Acevedo. Left calcaneal surgery by Dr. Taylor. Recent endoscopy and colonoscopy at [facility] - Family History Additional family history: Father with pulmonary hypertension, no family history of esophageal motility disorders - Social History Smoking Status: Never smoked Additional social history: She reports she is independent in her ADLs Review of Systems Review of Systems: ROS: 10pt was reviewed & negative except for what was stated in HPI & below Physical Exam Physical Exam: Temp Pulse Resp BP Pulse Ox 36.7 C 91 18 108/82 H 100 09/14/17 20:00 09/14/17 20:00 09/14/17 20:00 09/14/17 20:00 09/14/17 20:00 Constitutional: chronically ill appearing Eyes: PERRL, EOMI Ears, Nose, Mouth, Throat: moist mucous membranes, hearing normal, ears appear normal Cardiovascular: regular rate and rhythym, No edema Respiratory: no respiratory distress, no rales or rhonchi, clear to auscultation Gastrointestinal: normoactive bowel sounds, soft, non-tender abdomen Genitourinary: no bladder fullness Skin: warm Musculoskeletal: full muscle strength Neurologic: AAOx3 Psychiatric: interacting appropriately, not anxious, not encephalopathic Lymph, Heme, Immunologic: No petechiae Lab Data & Imaging Review 09/14/17 17:40 09/14/17 17:40 WBC 10.75 10^3/uL (3.80-9.50) H 09/14/17 17:40 RBC 2.80 10^6/uL (4.18-5.33) L 09/14/17 17:40 Hgb 9.0 g/dL (12.6-16.3) L 09/14/17 17:40 Hct 28.1 % (38.0-47.0) L 09/14/17 17:40 MCV 100.4 fL (81.5-99.8) H 09/14/17 17:40 MCH 32.1 pg (27.9-34.1) 09/14/17 17:40 MCHC 32.0 g/dL (32.4-36.7) L 09/14/17 17:40 RDW 12.7 % (11.5-15.2) 09/14/17 17:40 Plt Count 390 10^3/uL (150-400) 09/14/17 17:40 MPV 10.2 fL (8.7-11.7) 09/14/17 17:40 Neut % (Auto) 63.9 % (39.3-74.2) 09/14/17 17:40 Lymph % (Auto) 23.8 % (15.0-45.0) 09/14/17 17:40 Dupage % (Auto) 6.4 % (4.5-13.0) 09/14/17 17:40 Eos % (Auto) 5.0 % (0.6-7.6) 09/14/17 17:40 Baso % (Auto) 0.3 % (0.3-1.7) 09/14/17 17:40 Nucleat RBC Rel Count 0.0 % (0.0-0.2) 09/14/17 17:40 Absolute Neuts (auto) 6.87 10^3/uL (1.70-6.50) H 09/14/17 17:40 Absolute Lymphs (auto) 2.56 10^3/uL (1.00-3.00) 09/14/17 17:40 Absolute Monos (auto) 0.69 10^3/uL (0.30-0.80) 09/14/17 17:40 Absolute Eos (auto) 0.54 10^3/uL (0.03-0.40) H 09/14/17 17:40 Absolute Basos (auto) 0.03 10^3/uL (0.02-0.10) 09/14/17 17:40 Absolute Nucleated RBC 0.00 10^3/uL (0-0.01) 09/14/17 17:40 Immature Gran % 0.6 % (0.0-1.1) 09/14/17 17:40 Immature Gran # 0.06 10^3/uL (0.00-0.10) 09/14/17 17:40 PT 14.2 SEC (12.0-15.0) 09/14/17 17:40 INR 1.08 (0.83-1.16) 09/14/17 17:40 APTT 31.1 SEC (23.0-38.0) 09/14/17 17:40 VBG Lactic Acid 1.3 mmol/L (0.7-2.1) 09/14/17 17:40 Sodium 144 mEq/L (135-145) 09/14/17 17:40 Potassium 4.2 mEq/L (3.5-5.2) 09/14/17 17:40 Chloride 110 mEq/L (97-110) 09/14/17 17:40 Carbon Dioxide 24 mEq/l (22-31) 09/14/17 17:40 Anion Gap 10 mEq/L (8-16) 09/14/17 17:40 BUN 24 mg/dL (7-23) H 09/14/17 17:40 Creatinine 0.8 mg/dL (0.6-1.0) 09/14/17 17:40 Estimated GFR > 60 09/14/17 17:40 Glucose 101 mg/dL (70-100) H 09/14/17 17:40 Calcium 9.7 mg/dL (8.5-10.4) 09/14/17 17:40 Total Bilirubin 0.4 mg/dL (0.1-1.4) 09/14/17 17:40 Conjugated Bilirubin 0.4 mg/dL (0.0-0.5) 09/14/17 17:40 Unconjugated Bilirubin 0.0 mg/dL (0.0-1.1) 09/14/17 17:40 AST 30 IU/L (14-46) 09/14/17 17:40 ALT 26 IU/L (9-52) 09/14/17 17:40 Alkaline Phosphatase 87 IU/L (38-126) 09/14/17 17:40 Total Protein 7.7 g/dL (6.3-8.2) 09/14/17 17:40 Albumin 4.0 g/dL (3.5-5.0) 09/14/17 17:40 Lipase 447 IU/L (23-300) H 09/14/17 17:40 Assessment & Plan Assessment: #Tracheoesophageal fistula with malfunctioning stent #Squamous cell dysplasia of 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 -on RA #Hx of ETOH abuse, not in WD #Insomnia #Anemia, Macrocytic #Hypotension, transient, no e/o infection Plan: Admit TPN GI to see NPO IVF Protonix Anemia w/u Benzo's as needed SCD's
[2017-09-14] MEDS: PANTOPRAZOLE SODIUM 40 MG VIAL IVP SCH (22:38)
[2017-09-14] MEDS: LORazepam 2 MG/ML INJ IVP PRN (22:38)
[2017-09-14] MEDS: LATANOPROST 0.005% 2.5 ML OPHT DROPS EACHEYE SCH (22:39)
[2017-09-14] MEDS: NS 1,000 ML IV SCH (22:39)
[2017-09-15 05:21] LABS: PLATELET COUNT 350 10^3/uL (150-400)
[2017-09-15 05:36] LABS: INR 1.1 (0.83-1.16); PROTIME(PATIENT) 14.4 SEC (12.0-15.0)
[2017-09-15] MEDS: NS 1,000 ML IV SCH (08:57)
[2017-09-15] MEDS: FLUoxetine 10 MG CAP PO SCH (09:58)
[2017-09-15] MEDS: TOPIRAMATE 25 MG TAB PO SCH ×2 (09:58→21:17)
--- NOTE | 2017-09-15 10:47 | PDRADPN ---
Radiology Procedure Note Date of Procedure: 09/15/17 Radiologist: Jan Arciniega Anesthesia: Local (Specify) Pre-op Diagnosis: tpn needed Post-op Diagnosis: same Indication: venous access Procedure: RUE DL PICC Finding(s): good position, ok to use. suspect right subclavian stenosis as the 5F catheter was difficult to advance across this segment. Inf/Abcess present in the surg proc area at time of surgery?: No EBL: Minimal Complications: none
[2017-09-15] MEDS: PANTOPRAZOLE SODIUM 40 MG VIAL IVP SCH ×2 (10:50→21:17)
--- NOTE | 2017-09-15 10:53 | PDMN ---
Medical Necessity Medical necessity: Patient meets inpatient criteria per physician note and [facility] Gastroenterology GRG (ongoing esophageal pain/chronic cough/hypotensive; CXR shows mild volue aspiration of barium in RML, RLL; history of TE fistula, with 2 esophageal stents placed at [facility]; barium esophagram today showed small leak and continued fistula; anticipated LOS > 2 midnights as patient is NPO with IV hydration and TPN, IV protonix, GI to follow.)
[2017-09-15] MEDS ORDERED: LIDOCAINE 1% 300 MG/30 ML SDV ONE (10:55)
--- NOTE | 2017-09-15 11:04 | PDRADPN ---
Radiology Procedure Note Date of Procedure: 09/15/17 Radiologist: Jan Arciniega Pre-op Diagnosis: indwelling pelvic drain Post-op Diagnosis: same Indication: removal Procedure: sinogram, drain removal Finding(s): no fistula, well controlled cavity. drain removed easily. Inf/Abcess present in the surg proc area at time of surgery?: No Complications: none
--- NOTE | 2017-09-15 11:14 | ASMTCMCOM ---
CM Note CM Note Notes: Pt. is a 57-year-old woman admitted due to esophageal pain and a cough. Found to have a continued fistula and small leak. 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 in [place], [place]. Per past record, [facility] d/c'ed Pt. on 08/30/17 to [place] via air ambulance that was covered mostly by insurance. Pt. w/ addtional history of chronic aspiration PNA, alcoholism, IBS, migraines, insomnia, and a mood disorder. Pt. lives with her Hiram Lang. Per RN, has stated that both and Pt's fathers have in the past week or two. PT is ordered to help guide d/c planning process. SWer plans to visit Pt. tomorrow when more is known from GI about her course of medical care. SIMRAN/CARLOS ENRIQUE to follow. Date Signed: 09/15/2017 11:14 AM Electronically Signed By:Germaine Salas LCSW
--- NOTE | 2017-09-15 11:18 | ASMTLACE ---
NORRIS Acuity / Level of Answers: Yes Care: Did the patient have an inpatient admission? Comorbidities - select Answers: Opioid dependence all that apply / Chronic pain Other Notes: tracheoesophageal fistu la # of Emergency department Answers: 1-2 visits in the last 6 months Social determinants Answers: History of substance abuse (ETOH, street drugs, prescription drugs, etc.) Mental health diagnosis (anxiety, depression, pers onality disorders, etc.) Score: 15 Date Signed: 09/15/2017 11:18 AM Electronically Signed By:Germaine Salas LCSW
--- NOTE | 2017-09-15 14:27 | HOSPPROG ---
Hospitalist Progress Note Assessment/Plan: 57y female with complicated medical hx. First encounter, chart reviewed. D/W Dr Gold. 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 -on RA -no signs of PNA #Hx of ETOH abuse, not in WD -stable #Pain -IV morphine -ok to take pills #Insomnia -slept #Anemia, Macrocytic -multifactorial -order IV iron -check labs in am -may need transfusion #Hypotension, transient, no e/o infection -stable #Dispo -unclear -will need outpt TPN -CM working on it as well as outpt suction Subjective: Tearful, frustrated. C/O some pain. Objective: Vital Signs Temp Pulse Resp BP Pulse Ox 36.8 C 82 18 120/79 94 09/15/17 11:00 09/15/17 11:00 09/15/17 11:00 09/15/17 11:00 09/15/17 11:00 Laboratory Results 09/15/17 04:58 09/15/17 04:58 09/14/17 09/15/17 09/16/17 05:59 05:59 05:59 Intake Total 1000 730 Output Total 200 Balance 1000 530 PT 14.4 SEC (12.0-15.0) 09/15/17 04:58 INR 1.10 (0.83-1.16) 09/15/17 04:58 - Physical Exam Constitutional: chronically ill appearing, uncomfortable, cachectic Eyes: PERRL, anicteric sclera, EOMI Ears, Nose, Mouth, Throat: moist mucous membranes, hearing normal, ears appear normal Cardiovascular: No JVD, No tachycardia, No edema Respiratory: no respiratory distress, no rales or rhonchi, clear to auscultation Gastrointestinal: normoactive bowel sounds, tenderness, No ascites, No guarding Skin: warm, normal color, No mottled Musculoskeletal: normal joint ROM, no joint effusions, generalized weakness Neurologic: AAOx3 Psychiatric: interacting appropriately, not encephalopathic, thought process linear, anxious ICD10 Worksheet Patient Problems: Problems Problem Status Onset Calcaneus fracture Acute Osteomyelitis Acute Traumatic epidural hematoma Acute Subdural hematoma, post-traumatic Acute Intraparenchymal hemorrhage of brain Acute Hip fracture Acute Hypokalemia Acute Closed right hip fracture Acute Dysphagia Acute Aspiration into airway Acute Aspiration pneumonitis Acute Anemia Acute Tracheoesophageal fistula Acute Malnutrition Acute Aspiration into lower respiratory tract Acute
[2017-09-15] MEDS ORDERED: SODIUM FERRIC GLUCONAT/SUCROSE 125 MG in NS 100 ML IV ONE (14:28)
--- NOTE | 2017-09-15 16:21 | ASMTCMCOM ---
CM Note CM Note Notes: Per team, Pt. will need TPN at d/c and also need a [employer] home suction DME machine. [employer] referral faxed to [facility] for TPN. [employer] states that Pt. has 100% coverage for home TPN. Let hospitalist know will need script for [employer] home suction DME machine. Completed initial order information with [facility] ID# [id number]. Roderick FAX: . Roderick phone: . Will likely get script tomorrow from hospitalist. Consulted with RN. Date Signed: 09/15/2017 04:21 PM Electronically Signed By:Germaine Salas LCSW
[2017-09-15] MEDS: TPN 1 EA BAG IV SCH (21:17)
[2017-09-15] MEDS: LATANOPROST 0.005% 2.5 ML OPHT DROPS EACHEYE SCH (21:26)
[2017-09-16 04:51] LABS: INR 1.12 (0.83-1.16); PROTIME(PATIENT) 14.6 SEC (12.0-15.0)
[2017-09-16] MEDS: TOPIRAMATE 25 MG TAB PO SCH ×2 (09:45→19:55)
[2017-09-16] MEDS: PANTOPRAZOLE SODIUM 40 MG VIAL IVP SCH ×2 (09:45→21:13)
[2017-09-16] MEDS: FLUoxetine 10 MG CAP PO SCH (09:45)
--- NOTE | 2017-09-16 10:35 | HOSPPROG ---
Hospitalist Progress Note Assessment/Plan: 57y female with complicated medical hx. First encounter, chart reviewed. D/W Dr Gold. #Tracheoesophageal fistula with malfunctioning stent -reviewed w Dr Gold and there is a possibility the stents could expand -TPN for next 6-8 weeks -stents placed at [facility] -recommendation is for her to return to [facility] to f/u with Dr Ortiz -pt had requested to see if I could transfer her to for treatment #Squamous cell dysplasia of Esophagus -outpatient follow up #severe malnutrition with a BMI of 14.7 #small volume barium aspiration involving the RML and RLL. -on RA -no signs of PNA #Hx of ETOH abuse, not in WD -stable #Pain -encouraged her to try heat and other treatment options -since she is aspirating; will avoid anything oral -IV morphine #Insomnia -slept #Anemia, Macrocytic - will give a unit of PRBC's now - #Hypotension, transient, no e/o infection -stable #Dispo -likely Tuesday, Dr Gold came by to talk with Charissa about plan of care. She will f/u with Dr Ortiz at the [facility] for further evaluation; Initially, she wanted to see if a transfer to [facility] for further eval of her stents, but now feels comfortable about f/u with the doctor who placed them. She also is very pale and extremely weak. She is very immunocompromised not eating and receiving TPN; will give her a unit of prbc's. She understands risks and beneftis. Subjective: Key is very appreciative with the care being provided in regards to case management, etc. Has some pain in her abdomen. Objective: Vital Signs Temp Pulse Resp BP Pulse Ox 36.7 C 85 18 118/73 94 09/16/17 07:53 09/16/17 07:53 09/16/17 07:53 09/16/17 07:53 09/16/17 07:53 Laboratory Results 09/15/17 04:58 09/16/17 04:25 09/15/17 09/16/17 09/17/17 05:59 05:59 05:59 Intake Total 1000 730 Output Total 200 Balance 1000 530 PT 14.6 SEC (12.0-15.0) 09/16/17 04:25 INR 1.12 (0.83-1.16) 09/16/17 04:25 - Physical Exam Constitutional: no apparent distress, chronically ill appearing, cachectic Eyes: PERRL Ears, Nose, Mouth, Throat: hearing normal Cardiovascular: regular rate and rhythym Respiratory: no respiratory distress, no rales or rhonchi Skin: warm Musculoskeletal: generalized weakness Neurologic: AAOx3 Psychiatric: interacting appropriately, not anxious ICD10 Worksheet Patient Problems: Problems Problem Status Onset Anemia Acute Aspiration into lower respiratory tract Acute Malnutrition Acute Tracheoesophageal fistula Acute Aspiration into airway Acute Aspiration pneumonitis Acute Calcaneus fracture Acute Closed right hip fracture Acute Dysphagia Acute Hip fracture Acute Hypokalemia Acute Intraparenchymal hemorrhage of brain Acute Osteomyelitis Acute Subdural hematoma, post-traumatic Acute Traumatic epidural hematoma Acute
[2017-09-16] MEDS ORDERED: ACETAMINOPHEN 325 MG TAB PO ONE (14:34)
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
[2017-09-16] MEDS: NS 1,000 ML IV SCH (21:13)
[2017-09-16] MEDS: TPN 1 EA BAG IV SCH (21:28)
[2017-09-16] MEDS: LATANOPROST 0.005% 2.5 ML OPHT DROPS EACHEYE SCH (21:28)
[2017-09-17 05:30] LABS: INR 1.06 (0.83-1.16)
[2017-09-17] MEDS: LORazepam 2 MG/ML INJ IVP PRN ×2 (05:44→14:10)
[2017-09-17] MEDS: FLUoxetine 10 MG CAP PO SCH (10:03)
[2017-09-17] MEDS: TOPIRAMATE 25 MG TAB PO SCH ×2 (10:04→20:26)
[2017-09-17] MEDS: PANTOPRAZOLE SODIUM 40 MG VIAL IVP SCH ×2 (10:04→20:26)
--- NOTE | 2017-09-17 15:28 | HOSPPROG ---
Hospitalist Progress Note Assessment/Plan: 57y female with complicated medical hx. #Tracheoesophageal fistula with malfunctioning stent -reviewed w Dr Gold and there is a possibility the stents could expand -TPN for next 6-8 weeks -stents placed at [facility] -recommendation is for her to return to [facility] to f/u with Dr Ortiz -she is upset and wants to eat, recommended she stay NPO due to high risk of aspiration/ will change TPN for night only to help with her mobilization -recommended she f/u with Dr Ortiz and see if he can talk w [facility] to help arrange for her to get f/u #Squamous cell dysplasia of Esophagus -outpatient follow up #severe malnutrition with a BMI of 14.7 #small volume barium aspiration involving the RML and RLL. -on RA -no signs of PNA #Hx of ETOH abuse, not in WD -stable #Pain -encouraged her to try heat and other treatment options -since she is aspirating; will avoid anything oral -IV morphine #Insomnia -stable #Anemia, Macrocytic - improved w transfusion #Hypotension, transient, no e/o infection -stable #Dispo -likely Tuesday with TPN and fluids Subjective: Charissa is frustrated and wants to eat. Objective: Vital Signs Temp Pulse Resp BP Pulse Ox 36.8 C 91 18 148/83 H 96 09/17/17 11:14 09/17/17 11:14 09/17/17 11:14 09/17/17 11:14 09/17/17 11:14 Laboratory Results 09/17/17 12:29 09/17/17 05:10 09/16/17 09/17/17 09/18/17 05:59 05:59 05:59 Intake Total 730 1350 Output Total 200 Balance 530 1350 PT 14.0 SEC (12.0-15.0) 09/17/17 05:10 INR 1.06 (0.83-1.16) 09/17/17 05:10 - Physical Exam Constitutional: chronically ill appearing Eyes: PERRL Ears, Nose, Mouth, Throat: hearing normal Cardiovascular: regular rate and rhythym Respiratory: no respiratory distress Gastrointestinal: normoactive bowel sounds Skin: warm, No normal color (pale) Musculoskeletal: full muscle strength Neurologic: AAOx3 Psychiatric: interacting appropriately ICD10 Worksheet Patient Problems: Problems Problem Status Onset Anemia Acute Aspiration into lower respiratory tract Acute Malnutrition Acute Tracheoesophageal fistula Acute Aspiration into airway Acute Aspiration pneumonitis Acute Calcaneus fracture Acute Closed right hip fracture Acute Dysphagia Acute Hip fracture Acute Hypokalemia Acute Intraparenchymal hemorrhage of brain Acute Osteomyelitis Acute Subdural hematoma, post-traumatic Acute Traumatic epidural hematoma Acute
[2017-09-17] MEDS: NS 1,000 ML IV SCH (17:37)
[2017-09-17] MEDS: LATANOPROST 0.005% 2.5 ML OPHT DROPS EACHEYE SCH (20:25)
[2017-09-17] MEDS: TPN 1 EA BAG IV SCH (22:27)
[2017-09-18] MEDS: LORazepam 2 MG/ML INJ IVP PRN (06:12)
--- NOTE | 2017-09-18 09:03 | HOSPPROG ---
Hospitalist Progress Note Assessment/Plan: 57y female with complicated medical hx. #Tracheoesophageal fistula with malfunctioning stent -reviewed w Dr Gold and there is a possibility the stents could expand -TPN for next 6-8 weeks -stents placed at [facility] -recommendation is for her to return to [facility] to f/u with Dr Ortiz -she is upset and wants to eat, recommended she stay NPO due to high risk of aspiration/ TPN for night only to help with her mobilization -recommended she f/u with Dr Ortiz and see if he can talk w [facility] to help arrange for her to get f/u #Squamous cell dysplasia of Esophagus -outpatient follow up #severe malnutrition with a BMI of 14.7 #small volume barium aspiration involving the RML and RLL. -on RA -no signs of PNA #Hx of ETOH abuse, not in WD -stable #concern for self sabotaging behavior -talked her with her about working with the staff -she tied her iv line in knots #Pain -encouraged her to try heat and other treatment options -since she is aspirating; will avoid anything oral -IV morphine #Insomnia -stable #Anemia, Macrocytic - improved w transfusion #Hypotension,resolved #Dispo -likely Tuesday with TPN and fluids, will call Dr Roberts on Tuesday since he knows Charissa to see if he can help with getting her treatment options Subjective: Charissa is upset about the plan of care, frustrated about being on TPN. Objective: Vital Signs Temp Pulse Resp BP Pulse Ox 36.7 C 100 16 115/78 93 09/18/17 07:45 09/18/17 07:45 09/18/17 07:45 09/18/17 07:45 09/18/17 07:45 Laboratory Results 09/17/17 12:29 09/18/17 05:35 09/17/17 09/18/17 09/19/17 05:59 05:59 05:59 Intake Total 1350 Balance 1350 PT 14.0 SEC (12.0-15.0) 09/17/17 05:10 INR 1.06 (0.83-1.16) 09/17/17 05:10 - Physical Exam Constitutional: chronically ill appearing, cachectic Eyes: PERRL Ears, Nose, Mouth, Throat: hearing normal Cardiovascular: regular rate and rhythym Respiratory: bronchial breath sounds, rhonchi Skin: warm, No normal color (pale) Musculoskeletal: generalized weakness Neurologic: AAOx3 Psychiatric: anxious ICD10 Worksheet Patient Problems: Problems Problem Status Onset Anemia Acute Aspiration into lower respiratory tract Acute Malnutrition Acute Tracheoesophageal fistula Acute Aspiration into airway Acute Aspiration pneumonitis Acute Calcaneus fracture Acute Closed right hip fracture Acute Dysphagia Acute Hip fracture Acute Hypokalemia Acute Intraparenchymal hemorrhage of brain Acute Osteomyelitis Acute Subdural hematoma, post-traumatic Acute Traumatic epidural hematoma Acute
[2017-09-18] MEDS: TOPIRAMATE 25 MG TAB PO SCH ×2 (10:04→21:51)
[2017-09-18] MEDS: FLUoxetine 10 MG CAP PO SCH (10:04)
[2017-09-18] MEDS: PANTOPRAZOLE SODIUM 40 MG VIAL IVP SCH ×2 (10:05→21:50)
--- NOTE | 2017-09-18 15:53 | ASMTCMCOM ---
CM Note CM Note Notes: Chart reviewed. Plan to dc Tuesday. Plans in place for [facility] for infusion, [facility] for home suction and [facility] for home care. Patient is upset regarding her NPO status and calls the situation inhumane. Emotional support provided. CM to follow. Plan: Home with infusion therapy, HHC and [facility]. Date Signed: 09/18/2017 03:53 PM Electronically Signed By:Le Mendoza RN
[2017-09-18] MEDS: LATANOPROST 0.005% 2.5 ML OPHT DROPS EACHEYE SCH (21:50)
[2017-09-18] MEDS: TPN 1 EA BAG IV SCH (21:51)
[2017-09-18] MEDS: NS 1,000 ML IV SCH (21:51)
[2017-09-19] MEDS: LORazepam 2 MG/ML INJ IVP PRN (03:45)
[2017-09-19 05:47] LABS: PLATELET COUNT 311 10^3/uL (150-400)
[2017-09-19 05:56] LABS: INR 1.03 (0.83-1.16); PROTIME(PATIENT) 13.7 SEC (12.0-15.0)
[2017-09-19] MEDS: PANTOPRAZOLE SODIUM 40 MG VIAL IVP SCH (08:25)
[2017-09-19] MEDS: FLUoxetine 10 MG CAP PO SCH (08:25)
[2017-09-19] MEDS: TOPIRAMATE 25 MG TAB PO SCH (08:25)
[2017-09-19 11:51] VITALS: BP 118/82
[2017-09-19] MEDS: NS 1,000 ML IV SCH (12:10)
--- NOTE | 2017-09-19 13:07 | HOSPPROG ---
Hospitalist Progress Note Assessment/Plan: 57y female with complicated medical hx. #Tracheoesophageal fistula with malfunctioning stent -reviewed w Dr Gold and there is a possibility the stents could expand -TPN for next 6-8 weeks -stents placed at [facility] -recommendation is for her to return to [facility] to f/u with Dr Ortiz -she is upset and wants to eat, recommended she stay NPO due to high risk of aspiration/ TPN for night only to help with her mobilization -recommended she f/u with Dr Ortiz (I have left him a message) #Squamous cell dysplasia of Esophagus -outpatient follow up #severe malnutrition with a BMI of 14.7 #small volume barium aspiration involving the RML and RLL. -on RA -no signs of PNA #Hx of ETOH abuse, not in WD -stable #Pain -encouraged her to try heat and other treatment options -since she is aspirating; will avoid anything oral -IV morphine #Insomnia -stable #Anemia, Macrocytic - improved w transfusion #Hypotension,resolved #Dispo -dc home with TPN and fluids with f/u at or with [facility] Subjective: Charissa is wanting to leave, has some loose stools with the TPN Objective: Vital Signs Temp Pulse Resp BP Pulse Ox 36.2 C 95 18 118/82 H 96 09/19/17 11:47 09/19/17 11:47 09/19/17 11:47 09/19/17 11:47 09/19/17 11:47 Laboratory Results 09/19/17 05:25 09/19/17 05:25 09/18/17 09/19/17 09/20/17 05:59 05:59 05:59 Intake Total 1249 Balance 1249 PT 13.7 SEC (12.0-15.0) 09/19/17 05:25 INR 1.03 (0.83-1.16) 09/19/17 05:25 - Physical Exam Constitutional: chronically ill appearing Eyes: PERRL Ears, Nose, Mouth, Throat: hearing normal Cardiovascular: regular rate and rhythym Respiratory: rhonchi (scattered throughout) Gastrointestinal: soft, non-tender abdomen Skin: warm, No normal color (pale) Musculoskeletal: full muscle strength Neurologic: AAOx3 Psychiatric: interacting appropriately ICD10 Worksheet Patient Problems: Problems Problem Status Onset Calcaneus fracture Acute Osteomyelitis Acute Traumatic epidural hematoma Acute Subdural hematoma, post-traumatic Acute Intraparenchymal hemorrhage of brain Acute Hip fracture Acute Hypokalemia Acute Closed right hip fracture Acute Dysphagia Acute Aspiration into airway Acute Aspiration pneumonitis Acute Anemia Acute Tracheoesophageal fistula Acute Malnutrition Acute Aspiration into lower respiratory tract Acute
--- NOTE | 2017-09-19 13:27 | PDIAF ---
- Diagnosis Diagnosis: transesophageal leak from stent Code Status: Full Code - Medication Management Discharge Medications: Medications to Continue on Transfer Acetaminophen [Tylenol 120 mg Supp (*)] 120 mg LA Q4 #30 supp 09/19/17 [Last Taken Unknown] Ns [NS IV 1000ml (*)] 75 ml IV HS #14 bag 09/19/17 [Last Taken Unknown] Pharmacy To DoseTPN 1 ea MISC AD #14 bag 09/19/17 [Last Taken Unknown] TPN [Hyperalimentation] 1 ea IV DAILY21 #14 bag 09/19/17 [Last Taken Unknown] fentaNYL [Duragesic 12 MCG Patch (*)] 12 mcg TD Q72H #2 patch 09/19/17 [Last Taken Unknown] Discharge Medications: Refer to the Discharge Home Medication list for PRN reason. PICC Care - Routine: Yes - Orders Services needed: Home Care, Registered Nurse Home Care Face to Face: I certify that this patient was under my care and that I had the required [id number] encounter meeting the encounter requirements on the discharge day. My findings support the fact that the patient is homebound as defined in Home Care Face to Face Continued: CMS Chapter 7 Medicare Benefits Manual 30.1.1 , The condition of the patient is such that there exists a normal inability to leave home and consequently, leaving home would require a considerable and taxing effort. Isolation Type: None Diet Recommendation: other (npo at all times) Additional Instructions: stop all oral medications, you are aspirating iIhave given you a prescription for 2 fentanyl patches, change every 3 days, call your PCP to continue filling this, \ recommending Tylenol suppositories for pain continue TPN at night and then none during the day, I have ordered IV fluids with this, if you get too swollen; see your doctor and they can cut back the fluids Grateful Mr Sosa is helping you out I spoke with Rahel Oliver at Dr Ortiz's office and updated her on your care - Labs/Radiology CBC w/diff Date: 09/26/17 (weekly) CMP Date: 09/26/17 (weekly) PT/INR Date: 09/26/17 (weekly) Other Lab Name, Date and Time: triglycerides, mag, phos-check weekly with other labs Call or Fax Lab and Imaging Results to: Dr Merlos - Follow Up Care Current Providers and Referrals: Etelvina Merlso MD [Primary Care Provider] - As per Instructions
--- NOTE | 2017-09-19 14:12 | GDS ---
[f rep st] DISCHARGE SUMMARY DISCHARGE DIAGNOSES: 1. Transesophageal fistula with a malfunctioning stent. 2. Squamous cell dysplasia of the esophagus. 3. Severe malnutrition, with a body mass index of 14.7. 4. Small-volume aspiration involving the right middle lobe and right lower lobe , but without signs of pneumonia. 5. History of alcohol abuse. 6. Insomnia. 7. Anemia. 8. Hypotension. HISTORY OF PRESENT ILLNESS: Briefly, the patient is a 57-year-old female with a history of transesophageal fistula, chronic aspiration pneumonia, and severe malnutrition. She presented to the emergency room with a malfunctioning stent. She had 2 esophageal stents placed at the [facility]. She underwent a barium esophagram prior to admission. This revealed a small leak and continued fistula. Dr. Roberts had notified the Emergency Department prior to the patient' s arrival. During her stay, I reviewed her care with Gastroenterology. Their recommendation for her is to remain n.p.o., not to take any of her medications at all until she can follow up with Dr. Ortiz or one of the doctors at [facility]. Today I have left a message for to Dr. Ortiz in regard to the patient's admission. He is out of town and will be back in 1 week. In addition, I have talked to her primary care provider to monitor her electrolytes and labs closely while on the TPN. HOSPITAL COURSE PER PROBLEM: 1. Transesophageal fistula with malfunctioning stent. I reviewed her care with both Dr. Gold and Dr. Roberts. Their recommendation is to follow up with Dr. Ortiz. She has a plan in place. She has a friend at the bedside, Dr. Sosa, who is an anesthesiologist, who is very much her advocate and will help get her followup care. They may consider going down to [facility]. For now, will keep her n.p.o. and continue TPN. 2. Squamous cell dysplasia of the esophagus. Outpatient followup. 3. Severe malnutrition. She has a BMI of 14.7. 4. Small-volume barium aspiration. She has no signs of pneumonia. Her oxygen levels are stable. 5. History of alcohol abuse, not in withdrawal. 6. Pain. I have encouraged her to try heat and other treatments. Also recommended she use rectal Tylenol. I will give her a prescription of 2 low- dose fentanyl patches to use every 72 hours. 7. Insomnia. No further complaints. 8. Anemia. She was transfused a unit of blood. 9. Hypotension, resolved. DISCHARGE CONDITION: Stable. Blood pressure is 118/82, heart rate 95, respiratory rate 18, O2 sats on room air 96%, temperature is 36.2 Celsius. MEDICATIONS AT DISCHARGE: She will only be on a fentanyl patch and TPN. She is not to be on any oral medications. DISCHARGE INSTRUCTIONS: 1. I spoke with her primary care provider, Dr. Merlos, who will monitor her labs in the outpatient setting. 2. For the patient to get, soon, followup care in regard to her malfunctioning stent. I have left a message for Dr. Ortiz. 3. If she develops fever, chills, chest pain, or shortness of breath, to return to the ER. TIME SPENT: Greater than 90 minutes discharging and coordinating the patient's care. /[id number]/MODL MTDD
--- NOTE | 2017-09-19 14:49 | PDIAF ---
- Diagnosis Diagnosis: transesophageal leak from stent Code Status: Full Code - Medication Management Discharge Medications: Medications to Continue on Transfer Acetaminophen [Tylenol 120 mg Supp (*)] 120 mg NC Q4 #30 supp 09/19/17 [Last Taken Unknown] Ns [NS IV 1000ml (*)] 75 ml IV HS #14 bag 09/19/17 [Last Taken Unknown] Pharmacy To DoseTPN 1 ea MISC AD #14 bag 09/19/17 [Last Taken Unknown] TPN [Hyperalimentation] 1 ea IV DAILY21 #14 bag 09/19/17 [Last Taken Unknown] fentaNYL [Duragesic 12 MCG Patch (*)] 12 mcg TD Q72H #2 patch 09/19/17 [Last Taken Unknown] Discharge Medications: Refer to the Discharge Home Medication list for PRN reason. PICC Care - Routine: Yes - Orders Services needed: Home Care, Registered Nurse Home Care Face to Face: I certify that this patient was under my care and that I had the required [id number] encounter meeting the encounter requirements on the discharge day. My findings support the fact that the patient is homebound as defined in Home Care Face to Face Continued: CMS Chapter 7 Medicare Benefits Manual 30.1.1 , The condition of the patient is such that there exists a normal inability to leave home and consequently, leaving home would require a considerable and taxing effort. Isolation Type: None Diet Recommendation: other Additional Instructions: stop all oral medications, you are aspirating iIhave given you a prescription for 2 fentanyl patches, change every 3 days, call your PCP to continue filling this, \ recommending Tylenol suppositories for pain continue TPN at night and then none during the day, I have ordered IV fluids with this, if you get too swollen; see your doctor and they can cut back the fluids Grateful Mr Sosa is helping you out I spoke with Rahel Oliver at Dr Ortiz's office and updated her on your care - Labs/Radiology BMP Date: 08/24/17 (check every and tuesday) CBC w/diff Date: 09/26/17 (weekly) CMP Date: 09/26/17 (weekly) PT/INR Date: 09/26/17 (weekly) Other Lab Name, Date and Time: triglycerides, mag, phos-check every and tuesday Call or Fax Lab and Imaging Results to: Dr Gaurang - Follow Up Care Current Providers and Referrals: Etelvina Merlos MD [Primary Care Provider] - As per Instructions
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
== END 2017-09-19 15:16 | disposition home health service (06) | DRG 919 ==
LOC: OBSVTOIN 18:22 → F3E 19:50
PROVIDERS: ADMIT Family Medicine; ATTEND Internal Medicine
PROC: 0WPJX0Z Removal of Drainage Device from Pelvic Cavity, External Approach (ICD-10-PCS; principal; 2017-09-15)
PROC: 02HV33Z Insertion of Infusion Device into Superior Vena Cava, Percutaneous Approach (ICD-10-PCS; principal; 2017-09-15)
PROC: 3E0436Z Introduction of Nutritional Substance into Central Vein, Percutaneous Approach (ICD-10-PCS; 2017-09-15)
PROC: 30233N1 Transfusion of Nonautologous Red Blood Cells into Peripheral Vein, Percutaneous Approach (ICD-10-PCS; 2017-09-16)
DX: T85.598A Other mechanical complication of other gastrointestinal prosthetic devices, implants and grafts, initial encounter (principal); J86.0 Pyothorax with fistula; E43 Unspecified severe protein-calorie malnutrition; Z68.1 Body mass index [BMI] 19.9 or less, adult; K22.8 Other specified diseases of esophagus; F10.10 Alcohol abuse, uncomplicated; I95.9 Hypotension, unspecified; D64.9 Anemia, unspecified; G47.00 Insomnia, unspecified; I77.1 Stricture of artery; I10 Essential (primary) hypertension; Z87.81 Personal history of (healed) traumatic fracture; Y84.4 Aspiration of fluid as the cause of abnormal reaction of the patient, or of later complication, without mention of misadventure at the time of the procedure; Z72.89 Other problems related to lifestyle
CPT/HCPCS: 82607-90; 97161-GP; C1751; J2060; J2270; J2405; J2916; P9016

== ENCOUNTER → 2017-09-14 | Outpatient (CLI) | payer BC, OTHER | PROVIDERS: ATTEND Physician Assistant | DX: R13.10 Dysphagia, unspecified (principal); T85.638A Leakage of other specified internal prosthetic devices, implants and grafts, initial encounter; Z96.89 Presence of other specified functional implants; Y82.8 Other medical devices associated with adverse incidents; Z87.19 Personal history of other diseases of the digestive system ==

== ENCOUNTER → 2017-12-16 | Day surgery (SDC) | payer BC ==
[~2017-12-16] MED LIST: LIDOCAINE 1% 300 MG/30 ML SDV ONE
== END | disposition home or self-care (01) ==
LOC: FIMAGING 09:12
PROVIDERS: ATTEND Internal Medicine
PROC: 02HV33Z Insertion of Infusion Device into Superior Vena Cava, Percutaneous Approach (ICD-10-PCS; principal; 2017-12-16)
DX: J86.0 Pyothorax with fistula (principal)
CPT/HCPCS: 36569; 77001; C1751

== ENCOUNTER → 2017-12-19 | Outpatient (CLI) | payer BC | LOC: FIMAGING 09:26 | PROVIDERS: ATTEND Internal Medicine Gastroenterology | DX: K22.8 Other specified diseases of esophagus (principal) ==

== ENCOUNTER 2018-01-26 16:41 | Inpatient (IN) | payer BC ==
--- NOTE | 2018-01-26 17:21 | EDPHY ---
H & P Stated Complaint: SOB/tachy Time Seen by Provider: 01/26/18 17:21 - Personal History Current Tetanus/Diphtheria Vaccine: Yes Tetanus Vaccine Date: 2012 - Medical/Surgical History Hx Asthma: No Hx Chronic Respiratory Disease: No Hx Diabetes: No Hx Cardiac Disease: No Hx Renal Disease: No Hx Cirrhosis: No Hx Alcoholism: No Hx HIV/AIDS: No Hx Splenectomy or Spleen Trauma: No Other PMH: HX: subdural hematoma, Anxiety, glaucoma, left femur fx, left hip fx , esophagus - squamous cell, HTN TE fistula - Social History Smoking Status: Never smoked Constitutional: Initial Vital Signs Temperature (C) 39.4 C H 01/26/18 16:46 Heart Rate 134 H 01/26/18 16:46 Respiratory Rate 25 H 01/26/18 16:46 Blood Pressure 142/88 H 01/26/18 16:46 O2 Sat (%) 80 L 01/26/18 16:46 O2 Delivery Mode Nasal Cannula O2 (L/minute) 3 Allergies/Adverse Reactions: prochlorperazine Allergy (Unknown, Verified 01/26/18 16:51) ceftriaxone Allergy (Verified 01/26/18 16:51) Rash lisinopril Allergy (Verified 01/26/18 16:51) Rash Home Medications: Medication Instructions Recorded fentaNYL [Duragesic 12 MCG Patch 12 mcg TD Q72H #2 patch 09/19/17 (*)] Topiramate [Topamax] 50 mg PO DAILY 12/13/17 ALPRAZolam [Xanax 0.5 MG (*)] 0.5 mg PO DAILY PRN 01/26/18 OLANZapine/FLUOXETINE HCL [Symbyax 1 each PO HS 01/26/18 3-25 mg Capsule] TPN [Hyperalimentation] 1 ea IV DAILY@199901/26/18 Medical Decision Making - Diagnostics Imaging: I viewed and interpreted images myself ED Course/Re-evaluation: CHIEF COMPLAINT: Shortness of breath, nausea, vomiting. HISTORY OF PRESENT ILLNESS: This patient is a 57 year old female with history of squamous dysplasia of the esophagus complaining of cough, shortness of breath, nausea, and vomiting. She follows up at [facility] for this and has had recurrent scopes and biopsies as well as radiation treatment. She subsequently developed a tracheoesophageal fistula and currently has biopatch placed. She was recently admitted for aspiration pneumonia at [facility] and had IV antibiotic treatment. Her symptoms today feel similar to this but more severe. She states she has a 70% chance of aspirating on anything she swallows due to her fistula. She has felt febrile. She denies chest pain, vomiting, diarrhea, or other associated symptoms. REVIEW OF SYSTEMS: A comprehensive 10 system review of systems is otherwise negative aside from elements mentioned in the history of present illness and medical decision making. PHYSICAL EXAM: HR, BP, O2 Sat, RR. Temp noted General Appearance: Alert, ill-appearing. Head: Atraumatic without scalp tenderness or obvious injury Eyes: Pupils equal, round, reactive to light and accommodation, EOMI, no trauma , no injection. Ears: Clear bilaterally, no perforation, normal landmarks Nose: Atraumatic, no rhinorrhea, clear. Throat: Mucus membranes dry. Neck: Supple, nontender, no lymphadenopathy. Respiratory: Decreased breath sounds bilaterally. Rhonchi. Cardiovascular: Regular tachycardia, no murmurs, rubs, or gallops. Good capillary refill all extremities. Gastrointestinal: Abdomen is soft, nontender, non-distended, no masses, no rebound, no guarding, no peritoneal signs. Musculoskeletal: Normal active ROM of all extremities, atraumatic. Neurological: Alert, appropriate, and interactive. Nonfocal neuro exam. Skin: No rashes, good turgor, no nodules on palpation. Past medical history: Squamous dysplasia of esophagus s/p radiation. Tracheoesophageal fistula. Subdural hematoma. Anxiety. Glaucoma. Left femur fracture, left hip fracture. Hypertension. Past surgical history: SC dysplasia of esophagus s/p radiation, biopsies. Biopatch placed for tracheoesophageal fistula. Family history: Noncontributory Social history: . at bedside. PCP: Dr. Martines. GI: Dr. Roberts DIFFERENTIAL DIAGNOSIS: The differential diagnosis for the patient's shortness of breath and hypoxemia included but was not limited to pneumonia, myocardial infarction, acute mountain sickness, high altitude pulmonary edema, congestive heart failure, and pulmonary embolus. MEDICAL DECISION MAKIN57 y/o female with history of squamous dysplasia of the esophagus and tracheoesophageal fistula presents with fever, shortness of breath, nausea, vomiting. She was hypoxic at triage at 80%. Concern for recurrent aspiration pneumonia. Plan for chest x-ray, labs including CBC, chemistries, lactic acid, blood cultures, respiratory pathogen PCR, UA. Reviewed laboratory results and vitals as patient meets criteria for sepsis screening. HR 126. Temp 39.5. WBC 24,000. Patient does meet sepsis criteria per leukocytosis, tachypnea, fever, tachycardia. She does not meet criteria for severe sepsis at this time. Lactic acid within normal limits at 0.9. BP normal. Criteria otherwise negative for severe sepsis. CXR positive for bibasilar pneumonia. Radiologist report concurs. Plan to admit for IV antibiotics. Plan to administer 1gm IV Invanz, 500mg IV Azithromycin. 17:46 Patient is feeling quite anxious plan to administer 1mg IV Ativan. 17:57 Consulted with hospitalist service. Dr. Mcghee accepts admission to med/ surg for bibasilar pneumonia likely due to aspiration, tracheoesophageal fistula. - Data Points Laboratory Results: Laboratory Results 01/26/18 17:15 01/26/18 17:15 Medications Given: Fentanyl (Duragesic) 12 mcg TD Q72H PAULINA Stop: 02/05/18 18:44 Last Admin: 01/26/18 22:00 Dose: Not Given Azithromycin 500 mg/ Sodium (Chloride) 255 mls @ 255 mls/hr IV DAILY PAULINA PRN Reason: Protocol Stop: 02/26/18 08:59 Last Admin: 01/27/18 08:26 Dose: 255 mls Ertapenem 1 gm/ Sodium (Chloride) 100 mls @ 200 mls/hr IV DAILY PAULINA PRN Reason: Protocol Stop: 02/26/18 08:59 Last Admin: 01/27/18 08:25 Dose: 100 mls Lorazepam (Ativan Injection) 1 mg IVP Q4HRS PRN PRN Reason: Anxiety, Unable to Take PO Stop: 07/25/18 19:40 Last Admin: 01/27/18 15:22 Dose: 1 mg Methylprednisolone Sodium Succinate (Solu-Medrol) 60 mg IVP BID PAULINA Stop: 07/25/18 21:44 Last Admin: 01/27/18 08:23 Dose: 60 mg Miscellaneous Medication (Olanzapine/Fluoxetine Hcl [Symbyax 3-25 Mg Capsule]) 1 each PO HS PAULINA Stop: 07/25/18 20:59 Last Admin: 01/26/18 22:23 Dose: Not Given Ondansetron HCl (Zofran) 4 mg IVP Q4HRS PRN PRN Reason: Nausea/Vomiting, Can't Take PO Stop: 07/25/18 18:33 Last Admin: 01/26/18 20:10 Dose: 4 mg Topiramate (Topamax) 50 mg PO DAILY [facility] Stop: 07/26/18 08:59 Last Admin: 01/27/18 08:28 Dose: Not Given Total Parenteral Nutrition (Hyperalimentation) 1 ea IV DAILY21 [facility] Stop: 07/25/18 20:59 Last Admin: 01/26/18 22:22 Dose: 1 ea Discontinued Medications Albuterol (Proventil Neb) 3 ml IH QID [facility] Stop: 07/25/18 20:59 Last Admin: 01/26/18 21:17 Dose: 3 ml Azithromycin 500 mg/ Sodium (Chloride) 255 mls @ 255 mls/hr IV EDNOW ONE PRN Reason: Protocol Stop: 01/26/18 18:45 Last Admin: 01/26/18 19:11 Dose: 255 mls Ertapenem 1 gm/ Sodium (Chloride) 100 mls @ 200 mls/hr IV EDNOW ONE PRN Reason: Protocol Stop: 01/26/18 18:14 Last Admin: 01/26/18 18:11 Dose: 100 mls Sodium Chloride (Ns) 1,000 mls @ 50 mls/hr IV CONT [facility] Stop: 01/27/18 14:44 Last Admin: 01/26/18 19:08 Dose: 1,000 mls Sodium Chloride (Ns) 500 mls @ 1,500 mls/hr IV ONCE ONE Stop: 01/26/18 18:51 Last Admin: 01/26/18 19:23 Dose: 500 mls Lorazepam (Ativan Injection) 1 mg IVP EDNOW ONE Stop: 01/26/18 17:50 Last Admin: 01/26/18 17:52 Dose: 1 mg Departure - Departure Disposition: [facility] Acute Clinical Impression: Tracheoesophageal fistula Pneumonia Qualifiers: Pneumonia type: aspiration pneumonia Aspiration pneumonia type: unspecified Laterality: bilateral Lung location: lower lobe of lung Qualified Code(s): J69.0 - Pneumonitis due to inhalation of food and vomit Condition: Fair Report Scribed for: Gaudencio A Gurmeet Report Scribed by: Ivy Graves Date of Report: 01/26/18 Time of Report: 17:43
[2018-01-26 17:33] LABS: PLATELET COUNT 284 10^3/uL (150-400)
[2018-01-26 17:40] LABS: INR 1.1 (0.83-1.16); PROTIME(PATIENT) 14.4 SEC (12.0-15.0)
[2018-01-26] MEDS ORDERED: ERTAPENEM 1 GM in NS 100 ML IV ONE (17:45)
[2018-01-26] MEDS ORDERED: AZITHROMYCIN IV 500 MG in NS 250 ML IV ONE (17:46)
[2018-01-26] MEDS ORDERED: LORazepam 2 MG/ML INJ IVP ONE (17:49)
[2018-01-26] MEDS ORDERED: NS 500 ML IV ONE (18:32)
[2018-01-26] MEDS ORDERED: HYDROCODONE/APAP 5/325 TAB PO PRN (18:34)
[2018-01-26] MEDS ORDERED: ACETAMINOPHEN 325 MG TAB PO PRN (18:34)
[2018-01-26] MEDS ORDERED: ONDANSETRON DISINTEGRATING 4 MG TAB PO PRN (18:34)
[2018-01-26] MEDS ORDERED: ALPRAZolam 0.5 MG TAB PO PRN (18:36)
[2018-01-26] MEDS ORDERED: NS 1,000 ML IV SCH (18:45)
--- NOTE | 2018-01-26 18:46 | PDGENHP ---
History and Physical - Chief Complaint fever - History of Present Illness Other PMH: HX: subdural hematoma, Anxiety, glaucoma, left femur fx, left hip fx , esophagus - squamous cell, HTN TE fistula The patient is a 57 yo female with tracheoesophageal fistula c/o cough, shortness of breath, nausea, and vomiting. She is noted to have bibasilar pneumonia per CXR. She is not hypotensive, but meets sepsis criteria per leukocytosis, tachypnea, fever, tachycardia, and Leukocytosis. She has been started on Invanz and Azithromycin. Her lactic acid is unremarkable She follows up at [facility] for History of squamous dysplasia in esophagus with recurrent scopes and biopsies as well as radiation treatment. Subsequently she developed a tracheoesophageal fistula. Currently has biopatch placed. She was recently admitted for aspiration pneumonia at [facility]. Had IV antibiotic treatment. Symptoms feel similar. she has been told she has a 70% chance of aspirating on anything she swallows. Follows up at [place]. Past medical history:chronic pain, anxiety, squamous dysplasia of the esophagus , tracheoesophageal fistula Past surgical history: Family history:non contributory Social history: . PCP: Dr. Martines. GI: Dr. Roberts History Information - Allergies/Home Medication List Allergies/Adverse Reactions: prochlorperazine Allergy (Unknown, Verified 01/26/18 16:51) ceftriaxone Allergy (Verified 01/26/18 16:51) Rash lisinopril Allergy (Verified 01/26/18 16:51) Rash Home Medications: Topiramate [Topamax] 50 mg PO DAILY 12/13/17 [Last Taken Unknown] ALPRAZolam [Xanax 0.5 MG (*)] 0.5 mg PO DAILY PRN 01/26/18 [Last Taken Unknown] OLANZapine/FLUOXETINE HCL [Symbyax 3-25 mg Capsule] 1 each PO HS 01/26/18 [Last Taken Unknown] TPN [Hyperalimentation] 1 ea IV DAILY@199901/26/18 [Last Taken 01/25/18] I have personally reviewed and updated: medical history, social history - Past Medical History hypertension Additional medical history: Osteopenia, squamous cell dysplasia of the esophagus currently undergoing cryo treatment at the [facility] in [place], mood disorder, migraine disorder, previous subdural hemorrhage, previous facial contusion, alcoholism, reported irritable bowel syndrome with fruit dose intolerant, chronic macrocytic anemia - Surgical History Additional surgical history: December 2015 left inter medullary nail for hip fracture Dr. Acevedo. Left calcaneal surgery by Dr. Taylor. Recent endoscopy and colonoscopy at [facility] - Family History Additional family history: Father with pulmonary hypertension, no family history of esophageal motility disorders - Social History Smoking Status: Never smoked Additional social history: She reports she is independent in her ADLs Review of Systems Review of Systems: ROS: 10pt was reviewed & negative except for what was stated in HPI & below Physical Exam Physical Exam: Temp Pulse Resp BP Pulse Ox 39.5 C H 126 H 18 137/87 H 93 01/26/18 17:33 01/26/18 18:28 01/26/18 18:28 01/26/18 18:28 01/26/18 18:28 Constitutional: chronically ill appearing Eyes: PERRL Ears, Nose, Mouth, Throat: dry mucous membranes Cardiovascular: tachycardia, No edema Respiratory: reduced air movement, inspiratory crackles, rhonchi Gastrointestinal: normoactive bowel sounds, soft, non-tender abdomen Skin: warm Musculoskeletal: generalized weakness Neurologic: AAOx3 Psychiatric: interacting appropriately, not anxious, not encephalopathic Lymph, Heme, Immunologic: No petechiae Lab Data & Imaging Review 01/26/18 17:15 01/26/18 17:15 WBC 24.18 10^3/uL (3.80-9.50) H 01/26/18 17:15 RBC 3.06 10^6/uL (4.18-5.33) L 01/26/18 17:15 Hgb 8.8 g/dL (12.6-16.3) L 01/26/18 17:15 Hct 27.7 % (38.0-47.0) L 01/26/18 17:15 MCV 90.5 fL (81.5-99.8) 01/26/18 17:15 MCH 28.8 pg (27.9-34.1) 01/26/18 17:15 MCHC 31.8 g/dL (32.4-36.7) L 01/26/18 17:15 RDW 15.9 % (11.5-15.2) H 01/26/18 17:15 Plt Count 284 10^3/uL (150-400) 01/26/18 17:15 MPV 10.8 fL (8.7-11.7) 01/26/18 17:15 Neut % (Auto) 89.8 % (39.3-74.2) H 01/26/18 17:15 Lymph % (Auto) 4.4 % (15.0-45.0) L 01/26/18 17:15 [place] % (Auto) 4.5 % (4.5-13.0) 01/26/18 17:15 Eos % (Auto) 0.5 % (0.6-7.6) L 01/26/18 17:15 Baso % (Auto) 0.2 % (0.3-1.7) L 01/26/18 17:15 Nucleat RBC Rel Count 0.0 % (0.0-0.2) 01/26/18 17:15 Absolute Neuts (auto) 21.71 10^3/uL (1.70-6.50) H 01/26/18 17:15 Absolute Lymphs (auto) 1.06 10^3/uL (1.00-3.00) 01/26/18 17:15 Absolute Monos (auto) 1.09 10^3/uL (0.30-0.80) H 01/26/18 17:15 Absolute Eos (auto) 0.12 10^3/uL (0.03-0.40) 01/26/18 17:15 Absolute Basos (auto) 0.05 10^3/uL (0.02-0.10) 01/26/18 17:15 Absolute Nucleated RBC 0.00 10^3/uL (0-0.01) 01/26/18 17:15 Immature Gran % 0.6 % (0.0-1.1) 01/26/18 17:15 Immature Gran # 0.15 10^3/uL (0.00-0.10) H 01/26/18 17:15 RBC/WBC/PLT Morphology TNP 01/26/18 17:15 Platelet Estimate TNP 01/26/18 17:15 PT 14.4 SEC (12.0-15.0) 01/26/18 17:15 INR 1.10 (0.83-1.16) 09/06/18 17:15 APTT 33.1 SEC (23.0-38.0) 01/26/18 17:15 VBG Lactic Acid 0.9 mmol/L (0.7-2.1) 01/26/18 17:15 Sodium 137 mEq/L (135-145) 01/26/18 17:15 Potassium 4.6 mEq/L (3.3-5.0) 01/26/18 17:15 Chloride 105 mEq/L (97-110) 01/26/18 17:15 Carbon Dioxide 20 mEq/l (22-31) L 01/26/18 17:15 Anion Gap 12 mEq/L (8-16) 01/26/18 17:15 BUN 31 mg/dL (7-23) H 01/26/18 17:15 Creatinine 0.6 mg/dL (0.6-1.0) 01/26/18 17:15 Estimated GFR > 60 01/26/18 17:15 Glucose 98 mg/dL (70-100) 01/26/18 17:15 Calcium 8.7 mg/dL (8.5-10.4) 01/26/18 17:15 Total Bilirubin 0.2 mg/dL (0.1-1.4) 01/26/18 17:15 Assessment & Plan Assessment: #Sepsis as evidenced by Fever, tachypnea, tachycardia, leukocytosis, and pneumonia. no e/o end organ damage. no hypotension -has not received IVF. This will be ordered. She only weighs 36 kg -she is hemodynamically stable -abx per below #Acute respiratory failure #Bibasilar pneumonia, likely aspiration -cont Invanz and Azithromycin for Atypical coverage #Tracheoesophageal Fistula -she has had this for 6 months. We will need to clarify options going forward #SPCMN #Dysphagia -She needs to be NPO -she previously had a Jtube and this was removed 6 weeks ago as she did not like it and had diarrhea -she is currently on TPN #chronic pain syndrome Plan: per above the pt may benefit from goals of care discussion pending her clinical course cont TPN Dietary consult NPO SCD's for now total critical care time managing this patient with active sepsis and acute resp failure is 65 minutes
[2018-01-26] MEDS ORDERED: HYDROmorphONE/DILAUDID 1 MG/ML INJ IVP PRN (19:42)
[2018-01-26] MEDS: ONDANSETRON 4 MG/2 ML VIAL IVP PRN (20:10)
[2018-01-26] MEDS ORDERED: OLANZAPINE PO SCH (21:00)
[2018-01-26] MEDS ORDERED: FLUOXETINE HCL PO SCH (21:00)
[2018-01-26] MEDS ORDERED: ALBUTEROL 3 ML DEYVIAL IH SCH (21:00)
[2018-01-26] MEDS ORDERED: BENZONATATE 100 MG CAP PO PRN (21:56)
[2018-01-26] MEDS: fentaNYL 12 MCG PATCH TD SCH (22:00)
[2018-01-26] MEDS: TPN 1 EA BAG IV SCH (22:22)
[2018-01-26] MEDS: methylPREDNISolone SOD SUCC 125 MG/2 ML VIAL IVP SCH (22:26)
[2018-01-26] MEDS: LORazepam 2 MG/ML INJ IVP PRN (23:35)
[2018-01-27 05:18] LABS: PLATELET COUNT 256 10^3/uL (150-400)
--- NOTE | 2018-01-27 07:25 | PDMN ---
Medical Necessity Medical necessity: Pt meets inpt criteria per MD order and [facility] M-283, Pneumonia due to Aspiration, 3 days. Est LOS>2MN for management of sepsis and acute respiratory failure secondary to bibasilar pneumonia, likely due to aspiration. Sepsis evidenced by fever (102.7 on admission), tachypnea, tachycardia, leukocytosis (WBC's 24.4). Pt has recent hx of asp pneumonia (treated at [facility]) and hx of squamous cell dysplasia w/recurrent scopes and biopsies and radiation tx, tracheoesophogeal fistula- currently on TPN. Pt requiring 10 L O2 via oxymask, IV Solumedrol, IVF, blood cultures pending, ongoing med nec inpt eval/treatment for above conditions.
[2018-01-27] MEDS: methylPREDNISolone SOD SUCC 125 MG/2 ML VIAL IVP SCH ×2 (08:23→20:33)
[2018-01-27] MEDS: ERTAPENEM 1 GM in NS 100 ML IV SCH (08:25)
[2018-01-27] MEDS: AZITHROMYCIN IV 500 MG in NS 250 ML IV SCH (08:26)
[2018-01-27] MEDS ORDERED: TOPIRAMATE 25 MG TAB PO SCH (09:00)
[2018-01-27] MEDS: LORazepam 2 MG/ML INJ IVP PRN ×2 (09:28→15:22)
--- NOTE | 2018-01-27 09:28 | HOSPPROG ---
Hospitalist Progress Note Assessment/Plan: DIAGNOSES: # Sepsis as evidenced by Fever, tachypnea, tachycardia, leukocytosis, and pneumonia. no e/o end organ damage. 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 No progress healing despite multiple procedures at [facility] since then * Biopatch placed at [place] in December, question if this is functioning # SPCMN / Dysphagia * weighs only 36 KG; low pre-albumin * On TPN at home * She needs to be NPO * previous Jtube was removed 6 weeks ago as she did not like it and had diarrhea # chronic pain syndrome on low dose fentanyl patch * control less than ideal # other chronic conditions include history of subarachnoid hemorrhage, migraines ,mood disorder, irritable bowel syndrome Patient has had a couple of esophageal stents placed at [facility] and these have each fail. Most recently she was found to have a significant esophageal stenosis distal to her fistula. She has had 2 bio patch is placed over the fistula at [place] the most recent in late December. The hope is that this would allow better healing. However she continues to have now her 3rd episode of aspiration. She continues to have significant pain. She has been NPO receiving TPN at home. The patient did have for a time a jejunostomy tube for feedings but did not tolerate the 12 hr per day of being attached to a pump, and the formula was giving her diarrhea. She had her practitioners remove her feeding tube for these reasons. She has seen a surgeon in [place] at the [facility] who assessed her for possible surgical repair with partial esophagectomy. The patient has declined to consider that so far due to the potential risks associated with the surgery. At this point she remains with recurrent aspiration, uncontrolled esophageal discomfort, severe new malnutrition not improving much with efforts at nutrition including TPN so far, and no great evidence of effective healing with 6 months of effort. Her protein calorie malnutrition it is extremely severe with a body mass index of 14 and a low pre-albumin despite TPN daily at home. She has an appointment to be seen by her practitioners again at [facility] in 5 days, with plans to fly there 4 days from now. It is unclear whether she will be able to safely make that flight or not. Notably at this time the patient also is not able to swallow or keep down her Topamax, olanzapine, fluoxetine, and Xanax. She is not doing well with her mental health symptoms at this time as a result of this in addition to all of her medical issues. Our current goals for this hospitalization should include * Treat her for acute aspiration pneumonitis successfully * Attempt to gain better control of her coughing symptoms as these are quite distressing to her * Continue TPN Long-term goals for her will include hopefully eventually healing of her fistula and return to normal eating and swallowing and return to normal nutrition. I am concerned that continued efforts to manage her esophageal disease endoscopically have a high likelihood of continuing to fail. I am concerned that not only she not catching up on overall nutrition, but her stomach and small and large intestine will be come markedly atrophied such that when/if she does eventually become able to swallow she will still have tremendous difficulty catching up on nutrition and will have ongoing uncomfortable digestion. My plan this afternoon was to visit her again and review some recommendations/ options including * Consider a trial of inhaled lidocaine to reduce cough at this time * Consider placing a percutaneous jejunal tube through which she could take her usual oral medicines to treat her mental health issues and take cough medicine, and she could also take some food through that to supplement which she is getting via TPN which would get her more protein and calories and help her gut maintain his health in function * Visit with her practitioners at [facility] again as soon as she can safely get their and have them assess progress since the placement of the most recent patch ; I believe she should talk to them and asked them in earnest what they think the likelihood is that she can actually be successful with endoscopic based therapies and whether she should really be considering a surgical approach which I think would be much more likely to get her where she wants to be I did not have this discussion with the patient this afternoon as she is over sedated with medications here today. The could not get her to stay awake long enough to have this conversation. PLANS: * continue Invanz * Continue current prednisone and bronchodilators * Decrease her dose of Ativan in follow her alertness closely * Consider trial of inhaled lidocaine to treat her cough symptoms * Continue her TPN * Review with her when she is awake enough the possibility of placing a percutaneous tube through which she could get her usual mental health medicines , some cough medicines, as well as some nutrition to supplement her TPN and to allow her gut to maintain his health in function * At the moment I am Only partially optimistic about being able to potentially discharge her for her flight to [place] on Tuesday and release her to fly and commercial airline for that trip SUBJECTIVE: continues to complain of frequent coughing spells leading to decreased lung volume to point of having difficulty inhaling, leaving her feeling frightened; though this is relieved by eventually being able to inhale after a few seconds these spells are ongoing and now frequent enough to be very distressing to her She has her usual chronic pain in multiple body parts and systems, chronic weakness Ongoing frustration and depression related to her medical illnesses OBJECTIVE Vitals reviewed: Pulse now down to 90s, respiratory rate now normal, T-max 37.7 degrees good blood pressures Exam: alert oriented skin warm dry color ok resps not labored lungs clear BSs heart regular abd soft nondistended nontender, bowel sounds present limbs warm, no edema iv site ok Laboratory data: White blood cell count [id number] Hemoglobin 8, same as August of this year, suspect this is her baseline Hyperglycemic Albumin 3.1, prealbumin low at 11 Electrolytes stable Radiology: I reviewed her chest x-ray images from the ER last night and I agree that this is strongly suggestive of aspiration pneumonitis Objective: Vital Signs Temp Pulse Resp BP Pulse Ox 36.7 C 97 16 111/72 93 01/27/18 07:37 01/27/18 07:37 01/27/18 07:37 01/27/18 07:37 01/27/18 07:37 Microbiology 01/26/18 18:15 Respiratory Panel (PCR) - Final Nasal, Sinus - Swab No Organism Detected Laboratory Results 01/27/18 05:00 01/27/18 05:00 01/26/18 01/27/18 01/28/18 06:59 06:59 06:59 Intake Total 1450 Output Total 950 Balance 500 PT 14.4 SEC (12.0-15.0) 01/26/18 17:15 INR 1.10 (0.83-1.16) 01/26/18 17:15 - Time Spent With Patient Time Spent with Patient: greater than 35 minutes Time Spent with Patient: Greater than 35 minutes spent on this patients care, greater than 50% of time spent counseling, educating, and coordinating care regarding the above mentioned plan. ICD10 Worksheet Patient Problems: Problems Problem Status Onset Pneumonia Acute Tracheoesophageal fistula Acute Anemia Acute Aspiration into airway Acute Aspiration into lower respiratory tract Acute Aspiration pneumonitis Acute Calcaneus fracture Acute Closed right hip fracture Acute Dysphagia Acute Hip fracture Acute Hypokalemia Acute Intraparenchymal hemorrhage of brain Acute Malnutrition Acute Osteomyelitis Acute Subdural hematoma, post-traumatic Acute Traumatic epidural hematoma Acute
--- NOTE | 2018-01-27 11:40 | ASMTCMCOM ---
CM Note CM Note Notes: CM reviewed Pt's chart for d/c planning. Pt is a 57 y/o female with bibasilar pneumonia, likely aspiration. She has a hx of osteopenia and squamous cell dysplagia of the esophagus, currently undergoing cryo treatment at the [facility] in [place]. She presently has a traecheoesophageal fistula; she has had this for 6 months. She has a hx of a mood disorder and alcoholism. 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 She is active with [facility] for nursing. Anticipate a return to [facility] for nursing .CM will follow for this and other needs. D/C Plan: [facility] for nursing. Date Signed: 01/27/2018 11:40 AM Electronically Signed By:Lilly Oh
[2018-01-27] MEDS ORDERED: D10W 1,000 ML IV PRN (18:03)
[2018-01-27] MEDS: TPN 1 EA BAG IV SCH (20:18)
[2018-01-27] MEDS ORDERED: LORazepam 2 MG/ML INJ IVP ONE (23:20)
[2018-01-28 05:36] LABS: INR 1.04 (0.83-1.16); PROTIME(PATIENT) 13.8 SEC (12.0-15.0)
[2018-01-28] MEDS: ERTAPENEM 1 GM in NS 100 ML IV SCH (08:35)
[2018-01-28] MEDS: methylPREDNISolone SOD SUCC 125 MG/2 ML VIAL IVP SCH (08:35)
[2018-01-28] MEDS ORDERED: ALTEPLASE 2 MG VIAL IVP ONE (09:00)
[2018-01-28] MEDS: AZITHROMYCIN IV 500 MG in NS 250 ML IV SCH (09:42)
[2018-01-28] MEDS: LORazepam 2 MG/ML INJ IVP PRN (14:08)
--- NOTE | 2018-01-28 14:48 | HOSPPROG ---
Hospitalist Progress Note Assessment/Plan: 57-year-old admitted with increasing shortness of breath and cough. Her history is significant for an esophageal tracheal fistula status post stenting which has been unsuccessful and she has had recurrent aspiration pneumonias. # bibasilar pneumonia due to aspiration complicated by sepsis and acute respiratory failure. She has improved significant with antibiotics and supportive care to a point where she is now satting adequately on room air. Her main issue at this time is intractable cough. Unfortunately treatment has been limited by the fact that she is NPO due to her fistula. * Continue antibiotics * Continue supportive care * Cough suppression as able, seems to be worsened with anxiety and helped by lorazepam * NPO * Hopefully can discharge her by Tuesday so she can follow up at the [facility] as previously scheduled * Decrease steroids and wean off as tolerated # tracheoesophageal fistula caused by cryotherapy for esophageal squamous dysplasia at the [facility]. She has a follow-up scheduled next week after a previous stent and bio patch has failed. * Will add PPI for possible reflux complicating the cough and aspiration pneumonia # over-sedation secondary narcotics and benzodiazepines. Much improved today and will resume lower dose of lorazepam # dysphagia with severe protein calorie malnutrition * Continue TPN will resume home TPN on discharge * Patient NPO * Previous jtube removed due to patient request secondary to ongoing diarrhea. Unfortunately because of this she is unable to take her psychiatric medications which have caused her anxiety to escalate. # chronic pain syndrome, previously on fentanyl patch which has been discontinued by by patient as she felt this was not beneficial # anxiety/chronic mental illness on a number of psychiatric medications. She has been unable to take these and her anxiety has been increased. Additionally she has been on high-dose steroids which likely has caused worsening symptoms as well. Subjective: Patient new to me and chart reviewed, oxygen sats much improved however she continues to have a fairly significant cough Objective: Vital Signs Temp Pulse Resp BP Pulse Ox 36.9 C 100 18 135/76 H 94 01/28/18 11:50 01/28/18 11:50 01/28/18 11:50 01/28/18 11:50 01/28/18 11:50 Laboratory Results 01/27/18 05:00 01/28/18 05:15 01/27/18 01/28/18 01/29/18 05:59 05:59 05:59 Intake Total 1450 938 Output Total 950 Balance 500 938 PT 13.8 SEC (12.0-15.0) 01/28/18 05:15 INR 1.04 (0.83-1.16) 01/28/18 05:15 - Physical Exam Constitutional: cachectic Eyes: PERRL Ears, Nose, Mouth, Throat: moist mucous membranes Cardiovascular: regular rate and rhythym Respiratory: no respiratory distress, reduced air movement, inspiratory crackles , bronchial breath sounds Gastrointestinal: normoactive bowel sounds Genitourinary: no bladder fullness Skin: warm Musculoskeletal: generalized weakness Neurologic: AAOx3 ICD10 Worksheet Patient Problems: Problems Problem Status Onset Calcaneus fracture Acute Osteomyelitis Acute Traumatic epidural hematoma Acute Subdural hematoma, post-traumatic Acute Intraparenchymal hemorrhage of brain Acute Hip fracture Acute Hypokalemia Acute Closed right hip fracture Acute Dysphagia Acute Aspiration into airway Acute Aspiration pneumonitis Acute Anemia Acute Tracheoesophageal fistula Acute Malnutrition Acute Aspiration into lower respiratory tract Acute Pneumonia Acute
[2018-01-28] MEDS: PANTOPRAZOLE SODIUM 40 MG VIAL IVP SCH (15:04)
[2018-01-28] MEDS: TPN 1 EA BAG IV SCH (20:22)
[2018-01-29] MEDS: LORazepam 2 MG/ML INJ IVP PRN ×2 (05:20→23:39)
[2018-01-29 05:40] LABS: INR 1.03 (0.83-1.16); PROTIME(PATIENT) 13.7 SEC (12.0-15.0)
[2018-01-29] MEDS: methylPREDNISolone SOD SUCC 125 MG/2 ML VIAL IVP SCH (08:47)
[2018-01-29 08:50] LABS: PLATELET COUNT 298 10^3/uL (150-400)
[2018-01-29] MEDS: PANTOPRAZOLE SODIUM 40 MG VIAL IVP SCH (08:50)
[2018-01-29] MEDS: AZITHROMYCIN IV 500 MG in NS 250 ML IV SCH (09:00)
[2018-01-29] MEDS: ALBUTEROL 3 ML DEYVIAL IH PRN (09:19)
[2018-01-29] MEDS ORDERED: LIDOCAINE 1% 5 ML SDV IH ONE (10:00)
[2018-01-29] MEDS: NS 1,000 ML IV SCH (10:00)
[2018-01-29] MEDS: ERTAPENEM 1 GM in NS 100 ML IV SCH (10:13)
[2018-01-29] MEDS ORDERED: LORazepam 1 MG/0.5 ML UDSYR PO PRN (12:12)
--- NOTE | 2018-01-29 12:12 | HOSPPROG ---
Hospitalist Progress Note Assessment/Plan: 57-year-old admitted with increasing shortness of breath and cough. Her history is significant for an esophageal tracheal fistula status post stenting which has been unsuccessful and she has had recurrent aspiration pneumonias. # bibasilar pneumonia due to aspiration complicated by sepsis and acute respiratory failure. She has improved significant with antibiotics and supportive care to a point where she is now satting adequately on room air. Her main issue at this time is intractable cough. Unfortunately treatment has been limited by the fact that she is NPO due to her fistula. * Continue antibiotics * Continue supportive care * Cough suppression as able, seems to be worsened with anxiety and helped by lorazepam * NPO, although patiet is non compliant. * Improved and can likely dc tomorrow. # tracheoesophageal fistula caused by cryotherapy for esophageal squamous dysplasia at the [facility]. She has a follow-up scheduled next week after a previous stent and bio patch has failed. * Will add PPI for possible reflux complicating the cough and aspiration pneumonia # over-sedation secondary narcotics and benzodiazepines. Much improved today and will resume lower dose of lorazepam # dysphagia with severe protein calorie malnutrition * Continue TPN will resume home TPN on discharge * Patient NPO * Previous jtube removed due to patient request secondary to ongoing diarrhea. Unfortunately because of this she is unable to take her psychiatric medications which have caused her anxiety to escalate. # chronic pain syndrome, previously on fentanyl patch which has been discontinued by by patient as she felt this was not beneficial # anxiety/chronic mental illness on a number of psychiatric medications. She has been unable to take these and her anxiety has been increased. Additionally she has been on high-dose steroids which likely has caused worsening symptoms as well. Subjective: cough is the main issue, also continues to have significant anxiety which is difficult to treat. Will start liquid ativan Objective: Vital Signs Temp Pulse Resp BP Pulse Ox 36.7 C 84 18 129/85 H 94 01/29/18 08:00 01/29/18 10:10 01/29/18 10:10 01/29/18 08:00 01/29/18 10:10 Laboratory Results 01/29/18 08:30 01/29/18 05:10 01/28/18 01/29/18 01/30/18 05:59 05:59 05:59 Intake Total 938 Balance 938 PT 13.7 SEC (12.0-15.0) 01/29/18 05:10 INR 1.03 (0.83-1.16) 01/29/18 05:10 - Physical Exam Constitutional: cachectic Eyes: PERRL Ears, Nose, Mouth, Throat: moist mucous membranes Cardiovascular: regular rate and rhythym Respiratory: no respiratory distress Gastrointestinal: normoactive bowel sounds Genitourinary: no bladder fullness Skin: warm Musculoskeletal: generalized weakness Neurologic: AAOx3 Psychiatric: interacting appropriately, anxious ICD10 Worksheet Patient Problems: Problems Problem Status Onset Calcaneus fracture Acute Osteomyelitis Acute Traumatic epidural hematoma Acute Subdural hematoma, post-traumatic Acute Intraparenchymal hemorrhage of brain Acute Hip fracture Acute Hypokalemia Acute Closed right hip fracture Acute Dysphagia Acute Aspiration into airway Acute Aspiration pneumonitis Acute Anemia Acute Tracheoesophageal fistula Acute Malnutrition Acute Aspiration into lower respiratory tract Acute Pneumonia Acute
[2018-01-29] MEDS: fentaNYL 12 MCG PATCH TD SCH (18:27)
[2018-01-29] MEDS: TPN 1 EA BAG IV SCH (21:03)
[2018-01-30] MEDS: LORazepam 2 MG/ML INJ IVP PRN (05:40)
[2018-01-30 05:58] LABS: PLATELET COUNT 304 10^3/uL (150-400)
[2018-01-30 06:08] LABS: INR 0.96 (0.83-1.16)
[2018-01-30] MEDS: ERTAPENEM 1 GM in NS 100 ML IV SCH (07:44)
[2018-01-30] MEDS: ONDANSETRON 4 MG/2 ML VIAL IVP PRN (07:44)
--- NOTE | 2018-01-30 08:31 | HOSPPROG ---
Hospitalist Progress Note Assessment/Plan: 57-year-old admitted with increasing shortness of breath and cough. Her history is significant for an esophageal tracheal fistula due to a cryo procedure for squamous cell dysplasia of her esophagus, status post stenting through the [facility] which has been unsuccessful and she has had recurrent aspiration pneumonias. She has been found eating in her room throughout her hospital stay although admits to not eating yesterday. Overnight her oxygen needs went up a little bit, she has developed diarrhea and her LFTs have elevated. # bibasilar pneumonia due to aspiration complicated by sepsis and acute respiratory failure. She has improved with antibiotics and supportive care to a point where she is now satting adequately on room air. Her main issue at this time is intractable cough. Unfortunately treatment has been limited by the fact that she is NPO due to her fistula. * Continue antibiotics * Continue supportive care * Cough suppression as able, seems to be worsened with anxiety and helped by lorazepam * NPO, although patiet is non compliant. * Repeat chest x-ray today given increased oxygen needs . # leukocytosis: No improvement treatment for her aspiration pneumonia. Possible complication with C diff colitis and will check stool. * Check C diff, place precautions * Workup elevated LFTs with ultrasound, consider CT scan * Repeat chest x-ray # elevated LFTs over the last few days only symptoms currently are some nausea. Possible etiologies could be TPN although she has been on this for quite some time Her abdominal exam is minimally symptomatic * Follow trends * Check ultrasound, consider CT scan # tracheoesophageal fistula caused by cryotherapy for esophageal squamous dysplasia at the [facility]. She has a follow-up scheduled on this week after a previous stent and bio patch has failed. * Will add PPI for possible reflux complicating the cough and aspiration pneumonia # over-sedation secondary narcotics and benzodiazepines. Much improved today and will resume lower dose of lorazepam # dysphagia with severe protein calorie malnutrition * Continue TPN will resume home TPN on discharge * Patient NPO but brings in her food * Previous jtube removed due to patient request secondary to ongoing diarrhea. Unfortunately because of this she is unable to take her psychiatric medications which have caused her anxiety to escalate. # chronic pain syndrome, previously on fentanyl patch which has been discontinued by by patient as she felt this was not beneficial # anxiety/chronic mental illness on a number of psychiatric medications. She has been unable to take these and her anxiety has been increased. Additionally she has been on high-dose steroids which likely has caused worsening symptoms as well. I was hoping to get her out of the hospital today for treat her trip to [facility] tomorrow however with her decline in function that may not be possible. I will also look into possible transfer to [facility]. Subjective: Patient had some diarrhea this morning. Complains of mild nausea but minimal abdominal pain. Objective: Vital Signs Temp Pulse Resp BP Pulse Ox 37.9 C 111 H 20 132/84 H 90 L 01/30/18 08:00 01/30/18 08:00 01/30/18 08:00 01/30/18 08:00 01/30/18 08:00 Laboratory Results 01/30/18 05:40 01/30/18 05:40 01/29/18 01/30/18 01/31/18 05:59 05:59 05:59 Intake Total 1604 Balance 1604 PT 13.0 SEC (12.0-15.0) 01/30/18 05:40 INR 0.96 (0.83-1.16) 01/30/18 05:40 - Physical Exam Constitutional: chronically ill appearing, cachectic Eyes: PERRL Ears, Nose, Mouth, Throat: dry mucous membranes Cardiovascular: regular rate and rhythym Respiratory: no respiratory distress, inspiratory crackles, bronchial breath sounds Gastrointestinal: tenderness (Minimal without guarding in the right upper quadrant), No distension Genitourinary: no bladder fullness Skin: No normal color (Palate) Musculoskeletal: generalized weakness Neurologic: AAOx3 Psychiatric: anxious ICD10 Worksheet Patient Problems: Problems Problem Status Onset Pneumonia Acute Tracheoesophageal fistula Acute Anemia Acute Aspiration into airway Acute Aspiration into lower respiratory tract Acute Aspiration pneumonitis Acute Calcaneus fracture Acute Closed right hip fracture Acute Dysphagia Acute Hip fracture Acute Hypokalemia Acute Intraparenchymal hemorrhage of brain Acute Malnutrition Acute Osteomyelitis Acute Subdural hematoma, post-traumatic Acute Traumatic epidural hematoma Acute
[2018-01-30] MEDS: PANTOPRAZOLE SODIUM 40 MG VIAL IVP SCH (09:11)
[2018-01-30] MEDS: methylPREDNISolone SOD SUCC 125 MG/2 ML VIAL IVP SCH (09:11)
[2018-01-30] MEDS: AZITHROMYCIN IV 500 MG in NS 250 ML IV SCH (09:11)
[2018-01-30] MEDS: ACETAMINOPHEN 325 MG SUPP PR PRN (10:15)
--- NOTE | 2018-01-30 14:09 | GCON ---
INFECTIOUS DISEASE CONSULTATION. REFERRING PHYSICIAN: Mariia Oro MD REASON FOR REFERRAL: Leukocytosis and bilateral pneumonia. HISTORY OF PRESENT ILLNESS: Patient is a 57-year-old female who was admitted to [facility] on 01/26/2018, through the emergency room after presenting with complaints of shortness of breat h and racing heart. 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 The p atient has at points been instructed to be nothing by mouth and at some points has had her diet liber ated somewhat. The patient states that she does not always restrict herself to nothing by mouth curr ently. She states oftentimes she can swallow liquids with no problem whatsoever. She uses chocolate milk as an example. Other times, she may swallow liquids and have an acute episode of shortness of breath and cough. She states one of these episodes is what forced her into the hospital here. She h as been placed on ertapenem and azithromycin empirically. She has been on these for the last 3 days. Her white blood cell count has remained in the 20,000 range. She presented with fevers to 39.5 and was afebrile since admission up until this morning when she had a 2nd fever spike of 38.4. Otherwis e, she had been doing fairly well and had been improving and her oxygen requirements were down to arnold m air as of yesterday. She went back on 5 L per nasal cannula for today. She expresses some frustra tion that she is unable to function normally. She also expressed her desires to avoid an esophagecto my. PAST MEDICAL HISTORY: 1. History of subdural hematoma. 2. History of squamous cell dysplasia of the esophagus. 3. Hypertension. 4. Tracheoesophageal fistula. 5. Anxiety. 6. Glaucoma. PAST SURGICAL HISTORY: As above. ANTIBIOTICS: 1. Ertapenem. 2. Azithromycin. ALLERGIES: 1. Ceftriaxone. 2. Lisinopril. 3. Prochlorperazine. SOCIAL HISTORY: The patient denies any tobacco history. She lives independently. She is . FAMILY HISTORY: Reviewed but noncontributory. REVIEW OF SYSTEMS: Other than that detailed above in the history of present illness, a comprehensive 10-system review is negative. PHYSICAL EXAMINATION: VITAL SIGNS: Temperature maximum is 38.4, temperature current 37.2, heart rat e 102, respiratory rate is 32, blood pressure is 115/72. GENERAL: The patient is a well-formed, und erweight, middle-aged female in no acute distress. She is not toxic in appearance. She is alert and oriented x3. She has a pleasant demeanor. HEENT: Normocephalic for age. Atraumatic. No scleral icterus. No oral lesion or drainage from the nares. Eyes: Lids and conjunctivae are within normal limits. Pupils are equal and round bilaterally. NECK: Supple. No meningismus. LUNGS: Clear in t he upper stevens, very rhonchorous in the lower stevens bilaterally. Good effort. HEART: Regular rat e and rhythm, bordering on tachycardia. No murmur, rub, or gallop noted. SKIN: Warm and dry to the touch. No rash or lesion seen. MUSCULOSKELETAL: No muscle belly tenderness is noted. No joint line effusion or arthritis is seen. NEURO: Cranial nerves 2-12 seem to be intact. Peripheral sensation seems intact in extremities. LABORATORY DATA: The patient has a CBC dated 01/30/2018, shows a white blood cell count of 23.3, hem oglobin of 7.8, hematocrit 24.5, and a platelet count of 304. Differential is left-shifted with 87% segmented neutrophils. Serum chemistries on 01/30/2018, show sodium 141, potassium 3.8, chloride 106 , bicarbonate 28, BUN of 25, creatinine of 0.4. AST is elevated to 193, ALT is elevated at 255. Microbiologic data: Patient had blood cultures dated 01/26/2018, which show no growth to date. Nasa l sinus swab, respiratory panel, PCR are negative. RADIOLOGIC DATA: Patient has a chest x-ray dated 01/30/2018, which shows minimally worse right basil ar airspace consolidation. ASSESSMENT: Leukocytosis and bilateral basilar pneumonia probably secondary to aspiration. Possibly a CT scan may give us a better idea as to the extent of the pneumonia and pneumonitis and whether on the outside chance any abscess is developing. I am concerned that continued intake orally is riskin g continued pneumonitis and pneumonia secondary to having food stuffs flow through the fistula into t he trachea. Discussed this with the patient and said it would be a good idea for her to have nothing by mouth at this point. The antibiotic regimen of ertapenem and azithromycin is reasonable. I woul d also recommend a CT scan to delineate the extent of the problem. Discussed this case again with Dr Mark Oro, her hospitalist. PLAN: 1. Continue IV ertapenem and azithromycin. 2. Follow white count as well as fever curve. 3. Observe a strict nothing by mouth. 4. CT scan of the chest. /[id number]/MODL
--- NOTE | 2018-01-30 15:08 | ASMTCMCOM ---
CM Note CM Note Notes: Pts case discussed w/ MARGARITA Marcos and Dr. Oro. CM spoke to pts . He was asking if he should cancel her appointments w/ the [facility] in another state for the and the . Pt has a flight tomorrow out of [place]. Dr. Oro is recommending that those appointments are cancelled. ID has been consulted. Pt may need ivabx. Pt was tachy this AM and not feeling well. CM to follow. Plan: TBD Date Signed: 01/30/2018 03:08 PM Electronically Signed By:RAMESH Vann
[2018-01-30] MEDS ORDERED: IOPAMIDOL (ISOVUE-300) 100 ML BTL ONE (15:11)
[2018-01-30] MEDS: TPN 1 EA BAG IV SCH (21:09)
[2018-01-31 06:26] LABS: PLATELET COUNT 352 10^3/uL (150-400)
[2018-01-31] MEDS: ONDANSETRON 4 MG/2 ML VIAL IVP PRN (07:09)
[2018-01-31] MEDS: methylPREDNISolone SOD SUCC 125 MG/2 ML VIAL IVP SCH (08:31)
[2018-01-31] MEDS: ERTAPENEM 1 GM in NS 100 ML IV SCH (08:32)
[2018-01-31] MEDS: NS 1,000 ML IV SCH (08:32)
[2018-01-31] MEDS: LORazepam 2 MG/ML INJ IVP PRN ×2 (08:32→15:05)
[2018-01-31] MEDS: ACETAMINOPHEN 325 MG SUPP PR PRN (08:45)
[2018-01-31] MEDS: PANTOPRAZOLE SODIUM 40 MG VIAL IVP SCH (09:49)
[2018-01-31] MEDS: AZITHROMYCIN IV 500 MG in NS 250 ML IV SCH (09:49)
--- NOTE | 2018-01-31 11:19 | HOSPPROG ---
Hospitalist Progress Note Assessment/Plan: 57-year-old admitted with increasing shortness of breath and cough. Her history is significant for an esophageal tracheal fistula due to a cryo procedure for squamous cell dysplasia of her esophagus, status post stenting through the [facility] which has been unsuccessful and she has had recurrent aspiration pneumonias. She has been found eating in her room throughout her hospital stay although admits to not eating yesterday. Overnight her oxygen needs went up a little bit, she has developed diarrhea and her LFTs have elevated but have started to come down. # bibasilar pneumonia due to aspiration complicated by sepsis and acute respiratory failure. She has improved with antibiotics and supportive care to a point where she was sating adequately on room air, however she has since decompensated again and requires increased oxygen and has developed fevers. CT shows debris in the bronchus and the esophagus. * Continue antibiotics * Continue supportive care * add mucolytics. * Cough suppression as able, seems to be worsened with anxiety and helped by lorazepam * NPO, although patiet is non compliant. * reviewed CT, have asked pulm to review and see if worse doing bronch to clean out lungs and consider GI to clean out esophagus. . # leukocytosis: No improvement treatment for her aspiration pneumonia. * Likely from aspiration. # elevated LFTs over the last few days only symptoms currently are some nausea. slightly improved today. US unremarkable. I wonder if she had a brief episode of hypotension during the episode causing the elevated LFTs * Continue to follow # tracheoesophageal fistula caused by cryotherapy for esophageal squamous dysplasia at the [facility]. She has a follow-up scheduled on this week after a previous stent and bio patch has failed. * Will add PPI for possible reflux complicating the cough and aspiration pneumonia * She has canceled her appointment and will contact her doctor at the [facility] to see if they recommend she be transferred to [facility] as there is not much we can do for our situation at this facility. She will let us know, once she talks to [facility] # over-sedation secondary narcotics and benzodiazepines. Much improved today and will resume lower dose of lorazepam # dysphagia with severe protein calorie malnutrition * Continue TPN will resume home TPN on discharge * Patient NPO but brings in her food * Previous jtube removed due to patient request secondary to ongoing diarrhea. Unfortunately because of this she is unable to take her psychiatric medications which have caused her anxiety to escalate. # chronic pain syndrome, previously on fentanyl patch which has been discontinued by by patient as she felt this was not beneficial # anxiety/chronic mental illness on a number of psychiatric medications. She has been unable to take these and her anxiety has been increased. Additionally she has been on high-dose steroids which likely has caused worsening symptoms as well. I don't think she is well enough to pursue placing a FT at this time. I was hoping to get her out of the hospital today for treat her trip to [facility] tomorrow however with her decline in function that may not be possible. I will also look into possible transfer to [facility], however the patient is resistant but will call her DrMark at [facility] to see if he recommends she go to . Subjective: pt depressed, continues to have a cough, fever. Objective: Vital Signs Temp Pulse Resp BP Pulse Ox 37.7 C 109 H 22 H 109/62 86 L 01/31/18 10:56 01/31/18 10:56 01/31/18 10:56 01/31/18 10:56 01/31/18 10:56 Laboratory Results 01/31/18 06:00 01/31/18 06:00 01/30/18 01/31/18 02/01/18 05:59 05:59 05:59 Intake Total 1604 0 Output Total 500 Balance 1604 -500 PT 13.0 SEC (12.0-15.0) 01/30/18 05:40 INR 0.96 (0.83-1.16) 01/30/18 05:40 - Physical Exam Constitutional: chronically ill appearing, cachectic Eyes: PERRL Ears, Nose, Mouth, Throat: dry mucous membranes Cardiovascular: regular rate and rhythym Respiratory: reduced air movement, expiratory wheeze, bronchial breath sounds, respiratory distress Gastrointestinal: No tenderness Genitourinary: no bladder fullness Skin: No normal color (pallid) Musculoskeletal: generalized weakness Neurologic: AAOx3 Psychiatric: depressed ICD10 Worksheet Patient Problems: Problems Problem Status Onset Calcaneus fracture Acute Osteomyelitis Acute Traumatic epidural hematoma Acute Subdural hematoma, post-traumatic Acute Intraparenchymal hemorrhage of brain Acute Hip fracture Acute Hypokalemia Acute Closed right hip fracture Acute Dysphagia Acute Aspiration into airway Acute Aspiration pneumonitis Acute Anemia Acute Tracheoesophageal fistula Acute Malnutrition Acute Aspiration into lower respiratory tract Acute Pneumonia Acute
[2018-01-31] MEDS: ACETYLCYSTEINE 10% IH/PO 4 ML VIAL IH SCH ×2 (16:28→23:06)
[2018-01-31] MEDS: ALBUTEROL 3 ML DEYVIAL IH PRN ×2 (16:28→23:06)
--- NOTE | 2018-01-31 17:38 | PCMIDPN ---
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 No evidence of lung abscess by CT scan. Has now received 5 days of azithromycin. Given low likelihood that this is related to atypical pathogen, will discontinue given has received 5 days. Continue ertapenem which should have good activity against typical pathogens associated with aspiration. Discussed with patient that as long as tracheoesophageal fistula present will likely have ongoing issues with aspiration pneumonia which antibiotics will not represent definitive solution/eliminate problem. Likely will require ongoing care at tertiary referral center for management of tracheoesophageal fistula. * Fever: Likely related ongoing aspiration. Will repeat blood cultures if recurs as patient also at risk for PICC associated bacteremia or fungemia. 01/31/18 17:35 01/31/18 17:40 Subjective: Patient complains of persistent cough and recurrent fever earlier today. Frustrated with her circumstances and inability to eat. Objective: Vital Signs Temp Pulse Resp BP Pulse Ox 36.6 C 86 16 105/66 95 01/31/18 16:00 01/31/18 16:39 01/31/18 16:39 01/31/18 16:00 01/31/18 16:39 Laboratory Results 01/31/18 06:00 01/31/18 06:00 01/30/18 01/31/18 02/01/18 05:59 05:59 05:59 Intake Total 1604 0 Output Total 500 Balance 1604 -500 Ertapenem # 5 Azithromycin # 5 Blood cultures x2 01/26/2018 no growth Respiratory pathogen panel by PCR 01/26/2018 no growth T-max 39.[address] scan of chest with dense bilateral lower lobe consolidation; debris within esophageal stent and bronchi - Physical Exam General Appearance: alert, cachetic, non-toxic EENT: No scleral icterus, No thrush, No conjunctival petechiae Respiratory: crackles (Scattered at bases bilaterally) Cardiac/Chest: regular rate, rhythm Abdomen: non-tender, No distended - Line/s RUE PICC Lines: No drainage, No erythema ICD10 Worksheet Patient Problems: Problems Problem Status Onset Pneumonia Acute Tracheoesophageal fistula Acute Anemia Acute Aspiration into airway Acute Aspiration into lower respiratory tract Acute Aspiration pneumonitis Acute Calcaneus fracture Acute Closed right hip fracture Acute Dysphagia Acute Hip fracture Acute Hypokalemia Acute Intraparenchymal hemorrhage of brain Acute Malnutrition Acute Osteomyelitis Acute Subdural hematoma, post-traumatic Acute Traumatic epidural hematoma Acute
--- NOTE | 2018-01-31 17:40 | GHP ---
PULMONARY CONSULTATION DATE OF ADMISSION: 01/26/2018 REFERRING PHYSICIAN: Mariia Oro MD REASON FOR REFERRAL: Evaluation and management of pneumonia. HISTORY OF PRESENT ILLNESS: The patient is a 57-year-old woman who was admitted to the hospital 5 da ys ago with shortness of breath and racing heart. She has a history of squamous cell dysplasia of th e esophagus, which was treated at the [facility] with cryotherapy and radiation. This resulted in a tracheoesophageal fistula. She had stent placement in August that was revised in September due to ongoing leaking. She went back in December and had another stent replaced and had a bile patch placed. She ramirez d a feeding tube, but was unable to tolerate this, so has been placed on TPN. Apparently at her last visit, she was told she could start to have some p.o. intake, primarily clear liquids, but she found that she was coughing and intermittently aspirating with those. When she was admitted 5 days ago, s he was found to have an elevated white blood count, fevers to 39.5, and pulmonary infiltrates. She w as treated empirically with azithromycin and ertapenem. She still feels that she has she has had a c ough for the last 6 months. This has not really changed over the last month or so in terms of freque ncy, but the copious sputum production has decreased just a bit. Here in the hospital, she has been on supplemental oxygen and has been improving a little bit, but still is coughing quite a bit. She c ontinues to feel short of breath, but that is a bit better as well. PAST MEDICAL HISTORY: 1. Squamous cell dysplasia of the esophagus. 2. Hypertension. 3. Tracheoesophageal fistula. 4. Anxiety. MEDICATIONS: At the time of admission, include Duragesic, topiramate, TPN, olanzapine, fluoxetine, a nd alprazolam. Here in the hospital, she is currently on meropenem, azithromycin, methylprednisolone . ALLERGIES: Prochlorperazine, ceftriaxone, lisinopril. SOCIAL HISTORY: She does not smoke. She lives independently. FAMILY HISTORY: Unremarkable. REVIEW OF SYSTEMS: A 10-point review of systems adds nothing to the history of present illness. PHYSICAL EXAMINATION: GENERAL: The patient is awake, alert, in no acute distress. VITAL SIGNS: Bl ood pressure is 107/72 with a heart rate of 86. She is currently afebrile, but her temperature was 3 9 earlier. Her oxygen saturations are 95% on 3 L. HEENT: Normocephalic and atraumatic. No icterus . NECK: No JVD. Trachea is midline. CHEST: She has bilateral rhonchi and some crackles in the ba ses. She has a loud breath sounds anteriorly near the trachea, but no audible stridor. CARDIAC: Re gular rate and rhythm without murmur. ABDOMEN: Soft, nontender. Bowel sounds are present. EXTREMI TIES: No clubbing, cyanosis, or edema. LABORATORY/IMAGING: White blood count is 23.2, which is similar to admission. Hemoglobin is 8.1 wit h a platelet count of 352. Glucose is 149. Chemistry group is unremarkable. A chest x-ray from yesterday shows minimal improvement in bilateral infiltrate seen at the time of he r initial chest x-ray. A CT scan of the chest shows extensive basilar consolidation. There is some mucus plugging, left gre ater than right in the segmental airways. There is a large esophageal stent. The trachea is nearly completely effaced in the subglottic/subclavicular region. Images reviewed by me. ASSESSMENT: 1. Pneumonia. This is almost certainly due to aspiration. She is appropriately treated with ertape nem and azithromycin. She has had some minimal clinical improvement, although her white blood count remains elevated and she still has a fever. Her oxygen needs are down slightly. She has a small to moderate amount of mucus plugging, which could be contributing to her symptoms and hypoxemia. 2. Tracheal narrowing. This is caused by the stent at its superior border. Functionally, she does not have significant evidence of tracheal narrowing despite the impressive findings on CT scan. This could potentially make attempts at bronchoscopy a bit more challenging. RECOMMENDATIONS: 1. Maintain strict n.p.o. status, as I suspect that anything that she puts in her esophagus will end up in her lungs for the time being. 2. Add N-acetylcysteine to try to help mobilize secretions. This will be done in conjunction with v ibrating vest and acapella to help mobilize secretions. 3. Follow clinically. If she is not improving, consider bronchoscopy. /[id number]/MODL
[2018-01-31] MEDS: TPN 1 EA BAG IV SCH (21:49)
[2018-02-01] MEDS: LORazepam 2 MG/ML INJ IVP PRN ×3 (05:03→19:31)
[2018-02-01] MEDS: ACETYLCYSTEINE 10% IH/PO 4 ML VIAL IH SCH ×4 (05:05→20:42)
[2018-02-01 05:40] LABS: PLATELET COUNT 346 10^3/uL (150-400)
[2018-02-01] MEDS: ALBUTEROL 3 ML DEYVIAL IH PRN ×3 (08:41→20:42)
[2018-02-01] MEDS: methylPREDNISolone SOD SUCC 125 MG/2 ML VIAL IVP SCH (08:55)
[2018-02-01] MEDS: PANTOPRAZOLE SODIUM 40 MG VIAL IVP SCH (08:55)
[2018-02-01] MEDS: ERTAPENEM 1 GM in NS 100 ML IV SCH (08:56)
[2018-02-01] MEDS: ONDANSETRON 4 MG/2 ML VIAL IVP PRN (08:59)
[2018-02-01] MEDS: NS 1,000 ML IV SCH ×2 (11:19→23:21)
--- NOTE | 2018-02-01 14:52 | HOSPPROG ---
Hospitalist Progress Note Assessment/Plan: 57-year-old admitted with increasing shortness of breath and cough. Her history is significant for an esophageal tracheal fistula due to a cryo procedure for squamous cell dysplasia of her esophagus, status post stenting through the [facility] which has been unsuccessful and she has had recurrent aspiration pneumonias. She has been found eating in her room throughout her hospital stay although admits to not eating yesterday. Overnight her oxygen needs went up a little bit, she has developed diarrhea and her LFTs have elevated but have started to come down. # bibasilar pneumonia due to aspiration complicated by sepsis and acute respiratory failure. She has improved with antibiotics and supportive care to a point where she was sating adequately on room air, however she has since decompensated again and requires increased oxygen and has developed fevers. CT shows debris in the bronchus and the esophagus. * Continue antibiotics * Continue supportive care * add mucolytics. * Cough suppression as able, seems to be worsened with anxiety and helped by lorazepam * NPO, although pt has been reported to be non compliant. She denies this . # leukocytosis: No improvement treatment for her aspiration pneumonia. * Likely from aspiration. # elevated LFTs over the last few days only symptoms currently are some nausea. slightly improved today. US unremarkable. I wonder if she had a brief episode of hypotension during the episode causing the elevated LFTs * Continue to follow # tracheoesophageal fistula caused by cryotherapy for esophageal squamous dysplasia at the [facility]. She has a follow-up scheduled on this week after a previous stent and bio patch has failed. * Will add PPI for possible reflux complicating the cough and aspiration pneumonia * She has canceled her appointments with the [facility] # over-sedation secondary narcotics and benzodiazepines. Much improved today and will resume lower dose of lorazepam # dysphagia with severe protein calorie malnutrition * Continue TPN will resume home TPN on discharge * Patient NPO but brings in her food * Previous jtube removed due to patient request secondary to ongoing diarrhea. Unfortunately because of this she is unable to take her psychiatric medications which have caused her anxiety to escalate. # chronic pain syndrome, previously on fentanyl patch which has been discontinued by by patient as she felt this was not beneficial # anxiety/chronic mental illness on a number of psychiatric medications. She has been unable to take these and her anxiety has been increased. Additionally she has been on high-dose steroids which likely has caused worsening symptoms as well. I don't think she is well enough to pursue placing a FT at this time. Plan: the pt appears to cont to have aspiration events. cont current abx she will cont to have aspiration events until the fistula is managed. The pt is waiting to hear back from [place]. I will also reach out to our Cardiothoracic surgeon for an opinion Subjective: no cp or sob. still with cough. Objective: Vital Signs Temp Pulse Resp BP Pulse Ox 37.2 C 96 19 110/68 93 02/01/18 12:00 02/01/18 12:00 02/01/18 12:00 02/01/18 12:00 02/01/18 12:00 Laboratory Results 02/01/18 05:28 02/01/18 05:28 01/31/18 02/01/18 02/02/18 05:59 05:59 05:59 Intake Total 0 1475 Output Total 500 Balance -500 1475 PT 13.0 SEC (12.0-15.0) 01/30/18 05:40 INR 0.96 (0.83-1.16) 01/30/18 05:40 - Physical Exam Constitutional: chronically ill appearing Eyes: PERRL Ears, Nose, Mouth, Throat: moist mucous membranes Cardiovascular: regular rate and rhythym, No edema Respiratory: reduced air movement, rhonchi Gastrointestinal: normoactive bowel sounds, soft, non-tender abdomen Skin: warm Musculoskeletal: generalized weakness Neurologic: AAOx3 Psychiatric: interacting appropriately, not anxious, not encephalopathic Lymph, Heme, Immunologic: No petechiae ICD10 Worksheet Patient Problems: Problems Problem Status Onset Pneumonia Acute Tracheoesophageal fistula Acute Anemia Acute Aspiration into airway Acute Aspiration into lower respiratory tract Acute Aspiration pneumonitis Acute Calcaneus fracture Acute Closed right hip fracture Acute Dysphagia Acute Hip fracture Acute Hypokalemia Acute Intraparenchymal hemorrhage of brain Acute Malnutrition Acute Osteomyelitis Acute Subdural hematoma, post-traumatic Acute Traumatic epidural hematoma Acute
--- NOTE | 2018-02-01 15:56 | PDINTPN ---
[employer] [employer] Helper Progress Note Assessment/Plan: Assessment: Aspiration Pneumonia: Bilateral, with extensive basilar consolidation and some mucous plugging. On Ertapenam alone after completing course of Azithromycin. O2 needs and feeling of chest congestion improved a bit. Tracheal compression: Upper trachea. Due to esophageal stent. Impressive/ concerning on CT, but doesn't appear to cause significant symptoms. Tracheoesophageal fistula: S/P stent and patch, but still aspirating. Plan: Continue NPO status, ertapenem, CPT, nebs. 02/01/18 15:53 02/01/18 15:57 Subjective: Discouraged regarding the chronic nature of her illness, which seems intractable to her with no hope of resolution. She continues to have cough with fairly minimal sputum. She feels that her lungs are a bit clearer. Objective: Vital Signs Temp Pulse Resp BP Pulse Ox 36.8 C 97 18 120/76 95 02/01/18 15:36 02/01/18 15:36 02/01/18 15:36 02/01/18 15:36 02/01/18 15:36 Laboratory Results 02/01/18 05:28 02/01/18 05:28 01/31/18 02/01/18 02/02/18 05:59 05:59 05:59 Intake Total 0 1475 Output Total 500 Balance -500 1475 PT 13.0 SEC (12.0-15.0) 01/30/18 05:40 INR 0.96 (0.83-1.16) 01/30/18 05:40 Physical Exam - Physical Exam General Appearance: alert, no apparent distress EENT: normal ENT inspection Neck: normal inspection Respiratory: crackles, rales Cardiac/Chest: regular rate, rhythm, No edema Abdomen: normal bowel sounds, non-tender Skin: normal color, warm/dry Extremities: normal inspection Neuro/Psych: alert, normal mood/affect, oriented x 3 ICD10 Worksheet Patient Problems: Problems Problem Status Onset Pneumonia Acute Tracheoesophageal fistula Acute Anemia Acute Aspiration into airway Acute Aspiration into lower respiratory tract Acute Aspiration pneumonitis Acute Calcaneus fracture Acute Closed right hip fracture Acute Dysphagia Acute Hip fracture Acute Hypokalemia Acute Intraparenchymal hemorrhage of brain Acute Malnutrition Acute Osteomyelitis Acute Subdural hematoma, post-traumatic Acute Traumatic epidural hematoma Acute
--- NOTE | 2018-02-01 19:10 | PCMIDPN ---
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 Still with intermittent fever and prominent leukocytosis (also on Solu -Medrol at relatively low dose). Does not feel like she has had any clinical improvement. This may simply be due to probability that pneumonia will be slow to resolve. However, given lack of significant clinical progress, will broaden ertapenem to meropenem provide activity against Pseudomonas given frequent healthcare contact. * Fever: Likely related ongoing aspiration. Repeat blood cultures if has significant recurrent fever to ensure no evidence of PICC associated infection. 02/01/18 19:07 Subjective: Patient with persistent cough and difficulty bringing up sputum. Remains frustrated with clinical circumstances and lack of clear options for tracheoesophageal fistula. Objective: Vital Signs Temp Pulse Resp BP Pulse Ox 36.8 C 97 18 120/76 95 02/01/18 15:36 02/01/18 15:36 02/01/18 15:36 02/01/18 15:36 02/01/18 15:36 Laboratory Results 02/01/18 05:28 02/01/18 05:28 01/31/18 02/01/18 02/02/18 05:59 05:59 05:59 Intake Total 0 1475 Output Total 500 Balance -500 1475 Ertapenem # 6 Status post 5 days azithromycin Blood cultures x2 01/26/2018 no growth T-max 37.9 degrees - Physical Exam General Appearance: alert, no apparent distress, non-toxic EENT: No scleral icterus Respiratory: coarse breath sounds, other (Frequent cough) Cardiac/Chest: regular rate, rhythm ICD10 Worksheet Patient Problems: Problems Problem Status Onset Pneumonia Acute Tracheoesophageal fistula Acute Anemia Acute Aspiration into airway Acute Aspiration into lower respiratory tract Acute Aspiration pneumonitis Acute Calcaneus fracture Acute Closed right hip fracture Acute Dysphagia Acute Hip fracture Acute Hypokalemia Acute Intraparenchymal hemorrhage of brain Acute Malnutrition Acute Osteomyelitis Acute Subdural hematoma, post-traumatic Acute Traumatic epidural hematoma Acute
[2018-02-01] MEDS: fentaNYL 12 MCG PATCH TD SCH (19:50)
[2018-02-01] MEDS: TPN 1 EA BAG IV SCH (21:28)
[2018-02-01] MEDS: MEROPENEM 1 GM in NS 100 ML IV SCH (21:29)
[2018-02-02] MEDS: LORazepam 2 MG/ML INJ IVP PRN ×4 (03:28→14:05)
[2018-02-02] MEDS: MEROPENEM 1 GM in NS 100 ML IV SCH ×3 (05:16→21:03)
[2018-02-02] MEDS: ALBUTEROL 3 ML DEYVIAL IH PRN ×4 (05:38→22:37)
[2018-02-02] MEDS: ACETYLCYSTEINE 10% IH/PO 4 ML VIAL IH SCH ×4 (05:38→22:37)
[2018-02-02 05:41] LABS: PLATELET COUNT 363 10^3/uL (150-400)
[2018-02-02] MEDS: methylPREDNISolone SOD SUCC 125 MG/2 ML VIAL IVP SCH (09:01)
[2018-02-02] MEDS: PANTOPRAZOLE SODIUM 40 MG VIAL IVP SCH (09:05)
--- NOTE | 2018-02-02 10:48 | HOSPPROG ---
Hospitalist Progress Note Assessment/Plan: 57-year-old admitted with increasing shortness of breath and cough. 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 which has been unsuccessful and she has had recurrent aspiration pneumonias. She has been found eating in her room intermittently. # bibasilar pneumonia due to aspiration complicated by sepsis and acute respiratory failure. She has improved with antibiotics and supportive care to a point where she was sating adequately on room air, however she has since decompensated again and requires increased oxygen and has developed fevers. CT shows debris in the bronchus and the esophagus. * Continue antibiotics * Continue supportive care * Cont mucolytics. * Cough suppression as able, seems to be worsened with anxiety and helped by lorazepam * NPO, although pt has been reported to be non compliant. She denies this . # leukocytosis: No improvement treatment for her aspiration pneumonia. * Likely from aspiration. # elevated LFTs over the last few days only symptoms currently are some nausea. US unremarkable. 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. * PPI * She has canceled her appointments with the [facility] # over-sedation secondary narcotics and benzodiazepines. Much improved today and will resume lower dose of lorazepam # dysphagia with severe protein calorie malnutrition * Continue TPN will resume home TPN on discharge * Patient NPO but brings in her food * Previous jtube removed due to patient request secondary to ongoing diarrhea. Unfortunately because of this she is unable to take her psychiatric medications which have caused her anxiety to escalate. # chronic pain syndrome, previously on fentanyl patch which has been discontinued by by patient as she felt this was not beneficial # anxiety/chronic mental illness on a number of psychiatric medications. She has been unable to take these and her anxiety has been increased. Plan: There has not been significant improvement in the past few days. She likely will cont to Aspirate unless her Tracheoesophageal fistula is fixed. This was evaluated by our team in it was felt that her fistula could not be stented and that she needed surgical management at the [facility] or at [facility]. This was in August. Since then she has been seen by [facility] Dr. Lucas Newman with [facility]. The pt reports that Dr. Newman informed her that she needed removal of her Esophagus to prevent further aspiration into the trachea. At that time a PEG tube was also placed and ultimately this was removed. As the patient was not ready for surgical options provided by Dr. Newman, she traveled back to the [facility] at which point she underwent stenting. The first attempt failed and this required restenting. Given her ongoing aspirations, this most recent stent also appears to have failed. She was supposed to be at the [facility] this week but this was cancelled as she became ill requiring hospitalization at [facility] on 01/26 Today she is frustrated with the progress that has been made. 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 Cont with current abx regimen Decrease Steroids SCD's Subjective: Feels frustrated with her condition. feels SOB, weak, tired. Objective: Vital Signs Temp Pulse Resp BP Pulse Ox 37.0 C 98 23 H 124/82 H 99 02/02/18 08:00 02/02/18 08:00 02/02/18 08:00 02/02/18 08:00 02/02/18 08:00 Laboratory Results 02/02/18 05:20 02/01/18 05:28 02/01/18 02/02/18 02/03/18 05:59 05:59 05:59 Intake Total 1475 1857 Balance 1475 1857 PT 13.0 SEC (12.0-15.0) 01/30/18 05:40 INR 0.96 (0.83-1.16) 01/30/18 05:40 - Time Spent With Patient Time Spent with Patient: greater than 35 minutes Time Spent with Patient: Greater than 35 minutes spent on this patients care, greater than 50% of time spent counseling, educating, and coordinating care regarding the above mentioned plan. - Physical Exam Constitutional: chronically ill appearing Eyes: PERRL, EOMI Ears, Nose, Mouth, Throat: moist mucous membranes, hearing normal Cardiovascular: regular rate and rhythym, No edema Respiratory: no respiratory distress, reduced air movement, rhonchi Gastrointestinal: normoactive bowel sounds, soft, non-tender abdomen Skin: warm Musculoskeletal: generalized weakness Neurologic: AAOx3 Psychiatric: interacting appropriately, not anxious, not encephalopathic Lymph, Heme, Immunologic: No petechiae ICD10 Worksheet Patient Problems: Problems Problem Status Onset Pneumonia Acute Tracheoesophageal fistula Acute Anemia Acute Aspiration into airway Acute Aspiration into lower respiratory tract Acute Aspiration pneumonitis Acute Calcaneus fracture Acute Closed right hip fracture Acute Dysphagia Acute Hip fracture Acute Hypokalemia Acute Intraparenchymal hemorrhage of brain Acute Malnutrition Acute Osteomyelitis Acute Subdural hematoma, post-traumatic Acute Traumatic epidural hematoma Acute
--- NOTE | 2018-02-02 12:39 | PCMIDPN ---
Assessment/Plan: 1. Bilateral aspiration pneumonia in patient with history of squamous cell dysplasia of the esophagus with known tracheoesophageal fistula/stent failure: Long conversation with patient and her today. She still cannot make the decision as to whether not she wants to go the radical route and get an esophagectomy, which was recommended at the [facility] previously. Explained to her that palliative care will help guide her with these decisions, as they are very difficult. She is in touch with her endoscopist at the [facility], and is waiting to hear back. She prefers not to be transferred to the [facility] at this point in time. White blood cell count down today. Continue meropenem as is. No other new recommendations at this point in time. Over 35 min was spent with this patient today, reviewing record and talking with the patient and her . Subjective: Patient is very tearful today. Frustrated. Proceeded to have long, heartwrenching conversation about her prognosis and plans for the future. The patient does not feel that she would survive an esophagectomy, and is extremely anxious about that procedure. A palliative care consult has been ordered, which I feel is quite appropriate and needed. Patient is looking forward to having a conversation with them. Still coughing. Tells me"I have no quality of life." Objective: Meropenem 1 g IV q.8 hours day 1 (antibiotics day 8) T-max 37.2 degrees 81% on room air 9 5% on 5 L Vital Signs Temp Pulse Resp BP Pulse Ox 37.0 C 98 23 H 124/82 H 81 L 02/02/18 08:00 02/02/18 08:00 02/02/18 08:00 02/02/18 08:00 02/02/18 10:50 Laboratory Results 02/02/18 05:20 02/01/18 05:28 02/01/18 02/02/18 02/03/18 05:59 05:59 05:59 Intake Total 1475 1857 Balance 1475 1857 Respiratory panel PCR negative Blood cultures negative - Physical Exam General Appearance: cachetic, other (Pale) EENT: No scleral icterus, No thrush Respiratory: coarse breath sounds Extremities: other (PICC line right upper extremity looks fine) Abdomen: non-tender, soft Skin: No rash ICD10 Worksheet Patient Problems: Problems Problem Status Onset Pneumonia Acute Tracheoesophageal fistula Acute Anemia Acute Aspiration into airway Acute Aspiration into lower respiratory tract Acute Aspiration pneumonitis Acute Calcaneus fracture Acute Closed right hip fracture Acute Dysphagia Acute Hip fracture Acute Hypokalemia Acute Intraparenchymal hemorrhage of brain Acute Malnutrition Acute Osteomyelitis Acute Subdural hematoma, post-traumatic Acute Traumatic epidural hematoma Acute
[2018-02-02] MEDS ORDERED: LORazepam 2 MG/ML INJ IVP ONE (14:15)
--- NOTE | 2018-02-02 14:58 | ASMTCMCOM ---
CM Note CM Note Notes: Pt still deciding whether to have esophageal surgery, she had a palliative consult today and would like Mercedes to come to hospital for an informational meeting. She is also waiting to talk to her doctor at the [facility] again,CARLOS ENRIQUE w/f. DC Plan: TBD Date Signed: 02/02/2018 02:38 PM Electronically Signed By:Anamika Jessica RN
[2018-02-02] MEDS: TPN 1 EA BAG IV SCH (21:03)
[2018-02-03] MEDS: LORazepam 2 MG/ML INJ IVP PRN ×2 (00:17→07:42)
[2018-02-03] MEDS: ALBUTEROL 3 ML DEYVIAL IH PRN ×6 (02:11→21:20)
--- NOTE | 2018-02-03 02:41 | HOSPPROG ---
Hospitalist Progress Note Assessment/Plan: Hospitalist night float note Notified by RN that patient with increasing coughing fit overnight with episode of hypoxia down into the mid 70s. She was transitioned to a Venti mask and subsequently a non-rebreather with nebulizer treatment with steady improvement in her O2 sat to 88%. Patient notes she is feeling better with her improved oxygenation. She denies any fevers and is chronically cold no acute chills or rigors. Discussed with patient that should her respiratory status worsen if she would want more aggressive treatment. Options including BiPAP vs. Intubation were discussed. Patient would be amenable to trial of BiPAP but reiterates that she is a do not resuscitate do not intubate. She is amenable to a chest x-ray. Last few progress notes briefly reviewed. Patient with advanced esophageal cancer and persistent aspiration. Did review with the patient if she should require BiPAP that we would need to transfer her to the ICU and she is amenable to this plan if needed. She is reporting that she feels a little better note O2 sats are state that he aching in the high 80s. Will continue to monitor closely. Objective: Vital Signs Temp Pulse Resp BP Pulse Ox 36.8 C 105 H 4 L 138/88 H 80 L 02/02/18 23:42 02/03/18 02:10 02/02/18 23:42 02/02/18 23:42 02/03/18 02:10 Laboratory Results 02/02/18 05:20 02/01/18 05:28 02/01/18 02/02/18 02/03/18 05:59 05:59 05:59 Intake Total 1475 1857 4100 Output Total 200 Balance 1475 1857 3900 PT 13.0 SEC (12.0-15.0) 01/30/18 05:40 INR 0.96 (0.83-1.16) 01/30/18 05:40 ICD10 Worksheet Patient Problems: Problems Problem Status Onset Pneumonia Acute Tracheoesophageal fistula Acute Anemia Acute Aspiration into airway Acute Aspiration into lower respiratory tract Acute Aspiration pneumonitis Acute Calcaneus fracture Acute Closed right hip fracture Acute Dysphagia Acute Hip fracture Acute Hypokalemia Acute Intraparenchymal hemorrhage of brain Acute Malnutrition Acute Osteomyelitis Acute Subdural hematoma, post-traumatic Acute Traumatic epidural hematoma Acute
[2018-02-03] MEDS: ACETYLCYSTEINE 10% IH/PO 4 ML VIAL IH SCH ×4 (05:39→21:20)
[2018-02-03] MEDS: NS 1,000 ML IV SCH ×2 (05:43→17:44)
[2018-02-03] MEDS: MEROPENEM 1 GM in NS 100 ML IV SCH ×3 (05:43→21:35)
[2018-02-03 06:02] LABS: PLATELET COUNT 398 10^3/uL (150-400)
[2018-02-03] MEDS: PANTOPRAZOLE SODIUM 40 MG VIAL IVP SCH (09:42)
[2018-02-03] MEDS: methylPREDNISolone SOD SUCC 125 MG/2 ML VIAL IVP SCH (09:42)
--- NOTE | 2018-02-03 11:03 | PCMIDPN ---
Assessment/Plan: 1. Bilateral aspiration pneumonia in patient with history of squamous cell dysplasia of the esophagus with known tracheoesophageal fistula/stent failure: Will continue meropenem for now, likely 10-14 days. Told her that unfortunately she will continue to have this problem if the fistula is not definitively repaired. She understands that. She is e-mailing back and forth with her GI MD, to try and come up with a plan moving forward. She does not want an esophagectomy. 02/03/18 10:46 Subjective: Had a coughing fit in the middle of the night and was quite hypoxic. Required BiPAP briefly. Feels much better now, but continues to be"hungry all the time. "Did receive an e-mail from her doctor at the [facility], but did not provide specifics about her care plan moving forward. She also met with palliative care team, and is meeting with them again today to try and help her decide about her plans. Objective: Meropenem 1 g IV q.8 hours day 2 (antibiotics day 9) Afebrile Vital Signs Temp Pulse Resp BP Pulse Ox 36.9 C 104 H 38 H 142/95 H 83 L 02/03/18 08:00 02/03/18 08:00 02/03/18 08:00 02/03/18 08:00 02/03/18 08:00 Laboratory Results 02/03/18 05:30 02/03/18 05:30 02/02/18 02/03/18 02/04/18 05:59 05:59 05:59 Intake Total 1857 4100 Output Total 200 1 Balance 1857 3900 -1 - Physical Exam General Appearance: cachetic, other (Intermittently coughing during my interview ) EENT: No thrush Respiratory: coarse breath sounds Extremities: other (PICC line right upper extremity looks fine with no arm swelling or tenderness.) Skin: No rash ICD10 Worksheet Patient Problems: Problems Problem Status Onset Pneumonia Acute Tracheoesophageal fistula Acute Anemia Acute Aspiration into airway Acute Aspiration into lower respiratory tract Acute Aspiration pneumonitis Acute Calcaneus fracture Acute Closed right hip fracture Acute Dysphagia Acute Hip fracture Acute Hypokalemia Acute Intraparenchymal hemorrhage of brain Acute Malnutrition Acute Osteomyelitis Acute Subdural hematoma, post-traumatic Acute Traumatic epidural hematoma Acute
--- NOTE | 2018-02-03 16:16 | HOSPPROG ---
Hospitalist Progress Note Assessment/Plan: 57-year-old admitted with increasing shortness of breath and cough. 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 She has been found eating in her room intermittently. # bibasilar pneumonia due to aspiration complicated by sepsis and acute respiratory failure. She has improved with antibiotics and supportive care to a point where she was sating adequately on room air, however she has since decompensated again and requires increased oxygen and has developed fevers. CT shows debris in the bronchus and the esophagus. * Continue antibiotics * Continue supportive care * Cont mucolytics. * Cough suppression as able, seems to be worsened with anxiety and helped by lorazepam * NPO, although pt has been reported to be non compliant. She denies this . # leukocytosis: No improvement treatment for her aspiration pneumonia. * Likely from aspiration. # elevated LFTs over the last few days only symptoms currently are some nausea. US unremarkable. 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 * PPI * She has canceled her appointments with [facility] # over-sedation secondary narcotics and benzodiazepines. Much improved today and will resume lower dose of lorazepam # dysphagia with severe protein calorie malnutrition * Continue TPN will resume home TPN on discharge * Patient NPO but brings in her food * Previous jtube removed due to patient request secondary to ongoing diarrhea. Unfortunately because of this she is unable to take her psychiatric medications which have caused her anxiety to escalate. # chronic pain syndrome, previously on fentanyl patch which has been discontinued by by patient as she felt this was not beneficial # anxiety/chronic mental illness on a number of psychiatric medications. She has been unable to take these and her anxiety has been increased. Plan: She feels better than last night as she had deteriorated. However, she still has significant cough and SOB. No changes to current management today. I did call the [facility] and have left a message for Dr. Kristin Null to call me to discuss her care. She likely will cont to Aspirate unless her Tracheoesophageal fistula is fixed. This was evaluated by our team in it was felt that her fistula could not be stented and that she needed surgical management at the [facility] or at [place]. This was in August. Since then she has been seen by [facility] Dr. Lucas Newman with Thoracic Surger. The pt reports that Dr. Newman informed her that she needed removal of her Esophagus to prevent further aspiration into the trachea. At that time a PEG tube was also placed and ultimately this was removed. As the patient was not ready for surgical options provided by Dr. Newman, she traveled back to the [facility] at which point she underwent stenting. The first attempt failed and this required restenting. Given her ongoing aspirations, this most recent stent also appears to have failed. She was supposed to be at the [facility] this week but this was cancelled as she became ill requiring hospitalization at [facility] on 01/26 cont Palliative Care discussions Further complicating her condition is her SPCMN which would likely impair wound healing and may limit her surgical options. Cont with current abx regimen cont steroids at current dose SCD's Subjective: lots of cough. Some SOB. no cp. Objective: Vital Signs Temp Pulse Resp BP Pulse Ox 36.9 C 98 28 H 124/84 H 95 02/03/18 12:00 02/03/18 12:00 02/03/18 12:00 02/03/18 12:00 02/03/18 12:00 Laboratory Results 02/03/18 05:30 02/03/18 05:30 02/02/18 02/03/18 02/04/18 05:59 05:59 05:59 Intake Total 1857 4100 Output Total 200 1 Balance 1857 3900 -1 PT 13.0 SEC (12.0-15.0) 01/30/18 05:40 INR 0.96 (0.83-1.16) 01/30/18 05:40 - Physical Exam Constitutional: no apparent distress, chronically ill appearing Eyes: PERRL Ears, Nose, Mouth, Throat: moist mucous membranes, hearing normal Cardiovascular: regular rate and rhythym, No edema Respiratory: rhonchi Gastrointestinal: normoactive bowel sounds, soft, non-tender abdomen Skin: warm Neurologic: AAOx3 Psychiatric: interacting appropriately, not anxious, not encephalopathic Lymph, Heme, Immunologic: No petechiae ICD10 Worksheet Patient Problems: Problems Problem Status Onset Pneumonia Acute Tracheoesophageal fistula Acute Anemia Acute Aspiration into airway Acute Aspiration into lower respiratory tract Acute Aspiration pneumonitis Acute Calcaneus fracture Acute Closed right hip fracture Acute Dysphagia Acute Hip fracture Acute Hypokalemia Acute Intraparenchymal hemorrhage of brain Acute Malnutrition Acute Osteomyelitis Acute Subdural hematoma, post-traumatic Acute Traumatic epidural hematoma Acute
--- NOTE | 2018-02-03 16:35 | ASMTCMCOM ---
CM Note CM Note Notes: Pt had another Palliative meeting today with Blaine from [facility], please see Palliative note. PT will be here through the weekend. She still has not decided on direction of treatment, waiting for more answers from MD at [facility]. DC Plan: TBD Date Signed: 02/03/2018 04:35 PM Electronically Signed By:Anamika Jessica RN
[2018-02-03] MEDS: TPN 1 EA BAG IV SCH (21:35)
[2018-02-04] MEDS: LORazepam 2 MG/ML INJ IVP PRN ×2 (04:39→12:20)
[2018-02-04] MEDS: MEROPENEM 1 GM in NS 100 ML IV SCH ×3 (05:13→21:21)
[2018-02-04] MEDS: ALBUTEROL 3 ML DEYVIAL IH PRN ×4 (06:16→20:58)
[2018-02-04] MEDS: ACETYLCYSTEINE 10% IH/PO 4 ML VIAL IH SCH ×4 (06:16→20:59)
[2018-02-04] MEDS: ONDANSETRON 4 MG/2 ML VIAL IVP PRN (08:33)
[2018-02-04] MEDS: methylPREDNISolone SOD SUCC 125 MG/2 ML VIAL IVP SCH (08:36)
[2018-02-04] MEDS: PANTOPRAZOLE SODIUM 40 MG VIAL IVP SCH (08:36)
--- NOTE | 2018-02-04 10:20 | PCMIDPN ---
Assessment/Plan: 1. Bilateral aspiration pneumonia in patient with history of squamous cell dysplasia of the esophagus with known tracheoesophageal fistula/stent failure: Continue meropenem for now, likely 14 days. Had conversation with patient's outside of the room today. He suggested a conference call with perhaps next week with her care team if this can be arranged. Will see if we can make this work. Suggested that he take her outside to the patio today for some sun. Subjective: No overnight events. Patient is sleeping and I did not wake her. Patient asked me to step outside talked to him which I did. He suggested a conference call with next week. Please see below. Objective: Meropenem 1 g IV q.8 hours day 3 (antibiotics day 10) 89% on 6 L of oxygen T-max 37.1 degrees Vital Signs Temp Pulse Resp BP Pulse Ox 36.8 C 121 H 20 132/80 H 89 L 02/04/18 08:00 02/04/18 08:00 02/04/18 08:00 02/04/18 08:00 02/04/18 08:00 Laboratory Results 02/03/18 05:30 02/03/18 05:30 02/03/18 02/04/18 02/05/18 05:59 05:59 05:59 Intake Total 4100 2550 Output Total 200 1151 Balance 3900 1399 ICD10 Worksheet Patient Problems: Problems Problem Status Onset Pneumonia Acute Tracheoesophageal fistula Acute Anemia Acute Aspiration into airway Acute Aspiration into lower respiratory tract Acute Aspiration pneumonitis Acute Calcaneus fracture Acute Closed right hip fracture Acute Dysphagia Acute Hip fracture Acute Hypokalemia Acute Intraparenchymal hemorrhage of brain Acute Malnutrition Acute Osteomyelitis Acute Subdural hematoma, post-traumatic Acute Traumatic epidural hematoma Acute
--- NOTE | 2018-02-04 14:09 | HOSPPROG ---
Hospitalist Progress Note Assessment/Plan: 57-year-old admitted with increasing shortness of breath and cough. 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 # bibasilar pneumonia due to aspiration complicated by sepsis and acute respiratory failure. She has improved with antibiotics and supportive care to a point where she was sating adequately on room air, however she has since decompensated again and requires increased oxygen and has developed fevers. CT shows debris in the bronchus and the esophagus. * Continue antibiotics * Continue supportive care * Cont mucolytics. * Cough suppression as able, seems to be worsened with anxiety and helped by lorazepam * NPO, although pt has been reported to be non compliant. She denies this . # leukocytosis: No improvement treatment for her aspiration pneumonia. * Likely from aspiration. 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 * PPI * She has canceled her appointments with the [facility] # over-sedation secondary narcotics and benzodiazepines. Much improved today and will resume lower dose of lorazepam # dysphagia with severe protein calorie malnutrition * Continue TPN will resume home TPN on discharge * Patient NPO but brings in her food * Previous jtube removed due to patient request secondary to ongoing diarrhea. Unfortunately because of this she is unable to take her psychiatric medications which have caused her anxiety to escalate. # chronic pain syndrome, previously on fentanyl patch which has been discontinued by by patient as she felt this was not beneficial # anxiety/chronic mental illness on a number of psychiatric medications. She has been unable to take these and her anxiety has been increased. Plan: Now on 10 L of O2. I spoke to Dr. Kristin Null and he recommends a bronchoscopy for mucus plug removal and for imaging of the fistula. He wants to review the imaging prior to further recommendations. I will d/w Dr. Mac She likely will cont to Aspirate unless her Tracheoesophageal fistula is fixed. This was evaluated by our team in it was felt that her fistula could not be stented and that she needed surgical management at the [facility] or at [place]. This was in August. Since then she has been seen by [facility] Dr. Lucas Newman with Thoracic Surgery. The pt reports that Dr. Newman informed her that she needed removal of her Esophagus to prevent further aspiration into the trachea. At that time a PEG tube was also placed and ultimately this was removed. As the patient was not ready for surgical options provided by Dr. Newman, she traveled back to the [facility] at which point she underwent stenting. The first attempt failed and this required restenting. Given her ongoing aspirations, this most recent stent also appears to have failed. 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 Cont with current abx regimen cont steroids at current dose SCD's Subjective: + cough, + SOB. no n/v Objective: Vital Signs Temp Pulse Resp BP Pulse Ox 37.4 C 122 H 18 99/68 L 95 02/04/18 12:00 02/04/18 12:00 02/04/18 12:00 02/04/18 12:00 02/04/18 12:00 Laboratory Results 02/03/18 05:30 02/03/18 05:30 02/03/18 02/04/18 02/05/18 05:59 05:59 05:59 Intake Total 4100 2550 Output Total 200 1151 800 Balance 3900 1399 -800 PT 13.0 SEC (12.0-15.0) 01/30/18 05:40 INR 0.96 (0.83-1.16) 01/30/18 05:40 - Physical Exam Constitutional: chronically ill appearing Eyes: PERRL Ears, Nose, Mouth, Throat: moist mucous membranes Cardiovascular: regular rate and rhythym Respiratory: rhonchi Gastrointestinal: normoactive bowel sounds, soft, non-tender abdomen Skin: warm Musculoskeletal: generalized weakness Neurologic: AAOx3 Psychiatric: interacting appropriately, not anxious, not encephalopathic Lymph, Heme, Immunologic: No petechiae ICD10 Worksheet Patient Problems: Problems Problem Status Onset Pneumonia Acute Tracheoesophageal fistula Acute Anemia Acute Aspiration into airway Acute Aspiration into lower respiratory tract Acute Aspiration pneumonitis Acute Calcaneus fracture Acute Closed right hip fracture Acute Dysphagia Acute Hip fracture Acute Hypokalemia Acute Intraparenchymal hemorrhage of brain Acute Malnutrition Acute Osteomyelitis Acute Subdural hematoma, post-traumatic Acute Traumatic epidural hematoma Acute
--- NOTE | 2018-02-04 14:58 | PDINTPN ---
Trainmaster Progress Note Assessment/Plan: Assessment: Aspiration Pneumonia: Bilateral, with extensive basilar consolidation and some mucous plugging. On Ertapenam alone after completing course of Azithromycin. O2 needs and feeling of chest congestion improved a bit. Tracheal compression: Upper trachea. Due to esophageal stent. Impressive/ concerning on CT, but doesn't appear to cause significant symptoms. Tracheoesophageal fistula: S/P stent and patch, but still aspirating. Plan: Continue NPO status, ertapenem, CPT, nebs. Her treating cattle sorter would like images of the trachea to help guide management. Can also remove mucous plugs, but this is likely to offer only transient benefit. Will plan on bronchoscopy tomorrow. 02/04/18 14:59 Subjective: Depressed. Breathing feels about the same, with congestion and productive cough. Objective: Vital Signs Temp Pulse Resp BP Pulse Ox 37.4 C 122 H 18 99/68 L 95 02/04/18 12:00 02/04/18 12:00 02/04/18 12:00 02/04/18 12:00 02/04/18 12:00 Laboratory Results 02/03/18 05:30 02/03/18 05:30 02/03/18 02/04/18 02/05/18 05:59 05:59 05:59 Intake Total 4100 2550 Output Total 200 1151 800 Balance 3900 1399 -800 PT 13.0 SEC (12.0-15.0) 01/30/18 05:40 INR 0.96 (0.83-1.16) 01/30/18 05:40 Physical Exam - Physical Exam General Appearance: alert, no apparent distress EENT: normal ENT inspection Neck: normal inspection Respiratory: rhonchi Cardiac/Chest: regular rate, rhythm, edema Abdomen: normal bowel sounds, non-tender Skin: normal color, warm/dry Extremities: normal inspection Neuro/Psych: alert, normal mood/affect, oriented x 3 ICD10 Worksheet Patient Problems: Problems Problem Status Onset Pneumonia Acute Tracheoesophageal fistula Acute Anemia Acute Aspiration into airway Acute Aspiration into lower respiratory tract Acute Aspiration pneumonitis Acute Calcaneus fracture Acute Closed right hip fracture Acute Dysphagia Acute Hip fracture Acute Hypokalemia Acute Intraparenchymal hemorrhage of brain Acute Malnutrition Acute Osteomyelitis Acute Subdural hematoma, post-traumatic Acute Traumatic epidural hematoma Acute
[2018-02-04] MEDS: fentaNYL 12 MCG PATCH TD SCH (17:28)
[2018-02-04] MEDS: TPN 1 EA BAG IV SCH (21:21)
[2018-02-05] MEDS: LORazepam 2 MG/ML INJ IVP PRN ×2 (02:39→14:14)
[2018-02-05] MEDS: ALBUTEROL 3 ML DEYVIAL IH PRN ×3 (03:24→21:24)
[2018-02-05] MEDS: ACETYLCYSTEINE 10% IH/PO 4 ML VIAL IH SCH ×4 (03:24→21:24)
[2018-02-05] MEDS: ACETAMINOPHEN 325 MG SUPP PR PRN (04:48)
[2018-02-05] MEDS: ONDANSETRON 4 MG/2 ML VIAL IVP PRN (04:52)
[2018-02-05] MEDS: MEROPENEM 1 GM in NS 100 ML IV SCH ×3 (05:10→22:47)
[2018-02-05] MEDS: methylPREDNISolone SOD SUCC 125 MG/2 ML VIAL IVP SCH (08:54)
[2018-02-05] MEDS: PANTOPRAZOLE SODIUM 40 MG VIAL IVP SCH (08:55)
[2018-02-05] MEDS ORDERED: NS 500 ML IV ONE (09:31)
--- NOTE | 2018-02-05 10:17 | PCMIDPN ---
Assessment/Plan: 1. Bilateral aspiration pneumonia in patient with history of squamous cell dysplasia of the esophagus with known tracheoesophageal fistula/stent failure: Bronchoscopy today. Orders placed for cultures. Continue meropenem. Long- term plan not clear at this point in time. Patient is having a very hard time making decisions. 2. Fevers: Suspect related to ongoing aspiration event. No evidence of nosocomial processes, such as C difficile, or drug rash. The patient is at risk for fungemia in the setting of TPN and broad-spectrum antibiotics. Low threshold to start Micafungin if she deteriorates. Repeat blood cultures, including fungal cultures if recurrent fever. CBC and CMP today. Subjective: Had a fever to 39 degrees last night, along with a severe coughing fit. Having a bronchoscopy today. Blood pressure is also low; she is being bolused with normal saline. Denies lightheadedness, diarrhea, nausea or vomiting. Objective: Meropenem 1 g IV q.8 hours day 4 (antibiotics day 11 T-max 39.3 degrees Vital Signs Temp Pulse Resp BP Pulse Ox 37.2 C 112 H 12 77/55 L 91 L 02/05/18 08:00 02/05/18 08:00 02/05/18 08:00 02/05/18 08:00 02/05/18 08:00 Laboratory Results 02/03/18 05:30 02/03/18 05:30 02/04/18 02/05/18 02/06/18 05:59 05:59 05:59 Intake Total 2550 1104 Output Total 1151 1900 Balance 1399 -796 No new microbiology - Physical Exam General Appearance: cachetic, other (Having a coughing fit) EENT: No scleral icterus, No thrush Respiratory: coarse breath sounds Cardiac/Chest: tachycardia Extremities: other (PICC line right upper extremity looks okay) Abdomen: non-tender, soft Skin: other (Extremely pale.), No rash ICD10 Worksheet Patient Problems: Problems Problem Status Onset Pneumonia Acute Tracheoesophageal fistula Acute Anemia Acute Aspiration into airway Acute Aspiration into lower respiratory tract Acute Aspiration pneumonitis Acute Calcaneus fracture Acute Closed right hip fracture Acute Dysphagia Acute Hip fracture Acute Hypokalemia Acute Intraparenchymal hemorrhage of brain Acute Malnutrition Acute Osteomyelitis Acute Subdural hematoma, post-traumatic Acute Traumatic epidural hematoma Acute
[2018-02-05 10:44] LABS: PLATELET COUNT 366 10^3/uL (150-400)
[2018-02-05] MEDS: ALTEPLASE 2 MG VIAL IVP PRN ×3 (11:02→16:14)
[2018-02-05] MEDS ORDERED: ALBUTEROL 3 ML DEYVIAL ONE (11:11)
[2018-02-05] MEDS ORDERED: LIDOCAINE 1% 300 MG/30 ML SDV ONE (11:12)
[2018-02-05] MEDS ORDERED: LIDOCAINE 2% JELLY 5 ML TUBE ONE (11:12)
[2018-02-05] MEDS ORDERED: EPINEPHrine 1 MG/ML INJ ONE (11:12)
[2018-02-05] MEDS ORDERED: fentaNYL 100 MCG/2 ML INJ ONE (11:12)
[2018-02-05] MEDS ORDERED: MIDAZOLAM 2 MG/2 ML VIAL ONE (11:12)
[2018-02-05] MEDS ORDERED: BENZOCAINE UNIT DOSE SPRAY HURRICAINE MM ONE (11:15)
--- NOTE | 2018-02-05 12:03 | HOSPPROG ---
Hospitalist Progress Note Assessment/Plan: 57-year-old admitted with increasing shortness of breath and cough. 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 # bibasilar pneumonia due to aspiration complicated by sepsis and acute respiratory failure. * Continue antibiotics * Continue supportive care * Cont mucolytics. 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 # dysphagia with severe protein calorie malnutrition * Continue TPN * Patient NPO * Previous jtube removed due to patient request secondary to ongoing diarrhea. Unfortunately because of this she is unable to take her psychiatric medications which have caused her anxiety to escalate. # chronic pain syndrome, previously on fentanyl patch which has been discontinued by by patient as she felt this was not beneficial # anxiety/chronic mental illness on a number of psychiatric medications. She has been unable to take these and her anxiety has been increased. # Fever/Leukocytosis #possible Sepsis: She was febrile yesterday. Her BP is currently in 70's systolic. She is on 11 Liters. She has tachycardia Plan: Give Stat IVF bolus now. Cont with current abx. Obtain labs. Obtain stat CXR. Further reccs pending w/u and response to bolus fluids Bronchoscopy today. I spoke to Dr. Kristin Null and he recommends a bronchoscopy for mucus plug removal and for imaging of the fistula. He wants to review the imaging prior to further recommendations. Even if after reviewing the bronchoscopy imaging, Dr. Null thinks that the pt has options at the [facility], the challenge will be getting her there given her unstable condition She likely will cont to Aspirate unless her Tracheoesophageal fistula is fixed. This was evaluated by our team in it was felt that her fistula could not be stented and that she needed surgical management at the [facility] [place] at [place]. This was in August. Since then she has been seen by [facility] [place]. Lucas Newman with Thoracic Surgery. The pt reports that Dr. Newman informed her that she needed removal of her Esophagus to prevent further aspiration into the trachea. At that time a PEG tube was also placed and ultimately this was removed. As the patient was not ready for surgical options provided by Dr. Newman, she traveled back to the [facility] at which point she underwent stenting. The first attempt failed and this required restenting. Given her ongoing aspirations, this most recent stent also appears to have failed. 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 Cont with current abx regimen cont steroids at current dose SCD's Subjective: + cough. some SOB. Fever last night. Low blood pressure Objective: Vital Signs Temp Pulse Resp BP Pulse Ox 37.2 C 105 H 20 87/62 L 95 02/05/18 10:13 02/05/18 10:13 02/05/18 10:13 02/05/18 10:13 02/05/18 10:13 Laboratory Results 02/05/18 10:05 02/05/18 10:05 02/04/18 02/05/18 02/06/18 05:59 05:59 05:59 Intake Total 2550 1104 Output Total 1151 1900 850 Balance 1399 -796 -850 PT 13.0 SEC (12.0-15.0) 01/30/18 05:40 INR 0.96 (0.83-1.16) 01/30/18 05:40 - Physical Exam Constitutional: no apparent distress, chronically ill appearing Eyes: PERRL, EOMI Ears, Nose, Mouth, Throat: moist mucous membranes Cardiovascular: regular rate and rhythym, No edema Respiratory: reduced air movement, respiratory distress, rhonchi Gastrointestinal: normoactive bowel sounds, soft, non-tender abdomen Skin: warm Musculoskeletal: generalized weakness Neurologic: AAOx3 Psychiatric: interacting appropriately, not anxious, not encephalopathic Lymph, Heme, Immunologic: No petechiae ICD10 Worksheet Patient Problems: Problems Problem Status Onset Pneumonia Acute Tracheoesophageal fistula Acute Anemia Acute Aspiration into airway Acute Aspiration into lower respiratory tract Acute Aspiration pneumonitis Acute Calcaneus fracture Acute Closed right hip fracture Acute Dysphagia Acute Hip fracture Acute Hypokalemia Acute Intraparenchymal hemorrhage of brain Acute Malnutrition Acute Osteomyelitis Acute Subdural hematoma, post-traumatic Acute Traumatic epidural hematoma Acute
--- NOTE | 2018-02-05 12:54 | BVPULMO ---
Former[facility] Surgical Services- Pulmonology Patient Name: Key Ambrocio Procedure Date: 02/05/2018 12:32 PM Patient Type: Inpatient Attending MD/ER Physician: Gamaliel Mac MD Procedure: Bronchoscopy Indications: Bilateral infiltrate Providers: Gamaliel Mac MD Medicines: Lidocaine 1% applied to cords 2 mL, Lidocaine 1% subglottic space 6 mL, Fentany l 150 mcg IV, Midazolam 3 mg mg IV Complications: No immediate complications Procedure: After informed consent, a time out was performed. N95 masks were worn, and the procedure was done in a negative pressure room. The patient was given appropria te topical anesthesia and intravenous sedation. The fiberopic bronchoscope was pas sed via a bite block orally into the larynx and subsequently into the lower trachea bronchial tree. Throughout the procedure, the patient's blood pressure, pulse, and oxygen saturations were monitored continuously.The procedure was accomplished without difficulty. The patient tolerated the procedure well. The Bronchoscope (Video ICU) was introduced through the and advanced to the. Findings: Trachea/Alicia Abnormalities: Large Tracheo-esophageal fistula with a visible esophageal stent in the mid-distal trachea, extending approximately 4-4.5 cm to the main alicia distally (and slightly into the left main bronchus), and covering essentially the full width of the posterior trachea. The upper tracheal narrowi ng seen on CT was minimal on direct bronchoscopic examination. Bilateral Lung Abnormalities: Copious, mucopurulent secretions were found in rasheed th lower lobes. They were partially obstructing the airway. Thesse were suctioned and lavaged easily until clear. Post Op Diagnosis: - Large tracheo-esophageal fistula with visible esophageal stent. Fistula was approximately 4-4.5 cm long, extended to the main alicia, and was the width of the trachea posteriorly. - Copious, mucopurulent secretions were found in both lower lobes. Suctioned/la vaged until clear. - Specimen sent for GS and culture. Estimated Blood Loss: Estimated blood loss: none. Recommendation: - Await culture results. Gamaliel Mac MD 02/05/2018 12:53:24 PM Number of Addenda: 0 Note Initiated On: 02/05/2018 12:32 PM [email or web address]
--- NOTE | 2018-02-05 13:44 | PDINTPN ---
Material Control Supervisor Progress Note Assessment/Plan: Assessment: Aspiration Pneumonia: Bilateral, with extensive basilar consolidation and some mucous plugging. On Ertapenam alone after completing course of Azithromycin. O2 needs and feeling of chest congestion improved a bit. Tracheal compression: Upper trachea. Due to esophageal stent. Impressive/ concerning on CT, but doesn't appear to cause significant symptoms. Tracheoesophageal fistula: S/P stent and patch, but still aspirating. Plan: Continue NPO status, ertapenem, CPT, nebs. Will proceed with bronchoscopy. 02/04/18 14:59 02/05/18 13:44 Subjective: Cough unchanged. Continues to be discouraged by chronic illness. Objective: Vital Signs Temp Pulse Resp BP Pulse Ox 36.7 C 107 H 16 87/66 L 93 02/05/18 13:13 02/05/18 13:13 02/05/18 13:13 02/05/18 13:13 02/05/18 13:13 Laboratory Results 02/05/18 10:05 02/05/18 10:05 02/04/18 02/05/18 02/06/18 05:59 05:59 05:59 Intake Total 2550 1104 300 Output Total 1151 1900 850 Balance 1399 -796 -550 PT 13.0 SEC (12.0-15.0) 01/30/18 05:40 INR 0.96 (0.83-1.16) 01/30/18 05:40 Physical Exam - Physical Exam General Appearance: alert, no apparent distress EENT: normal ENT inspection Neck: normal inspection Respiratory: rhonchi Cardiac/Chest: regular rate, rhythm, No edema Abdomen: normal bowel sounds, non-tender Pelvic Exam: normal external exam Rectal: normal exam Extremities: normal inspection Neuro/Psych: alert, normal mood/affect, oriented x 3 ICD10 Worksheet Patient Problems: Problems Problem Status Onset Pneumonia Acute Tracheoesophageal fistula Acute Anemia Acute Aspiration into airway Acute Aspiration into lower respiratory tract Acute Aspiration pneumonitis Acute Calcaneus fracture Acute Closed right hip fracture Acute Dysphagia Acute Hip fracture Acute Hypokalemia Acute Intraparenchymal hemorrhage of brain Acute Malnutrition Acute Osteomyelitis Acute Subdural hematoma, post-traumatic Acute Traumatic epidural hematoma Acute
[2018-02-05] MEDS: TPN 1 EA BAG IV SCH (20:50)
[2018-02-06] MEDS: LORazepam 2 MG/ML INJ IVP PRN ×3 (01:42→13:46)
[2018-02-06] MEDS: MEROPENEM 1 GM in NS 100 ML IV SCH ×3 (05:09→21:15)
[2018-02-06] MEDS: ACETYLCYSTEINE 10% IH/PO 4 ML VIAL IH SCH ×4 (05:52→23:10)
[2018-02-06] MEDS: ALBUTEROL 3 ML DEYVIAL IH PRN (05:53)
[2018-02-06 06:38] LABS: INR 1.14 (0.83-1.16); PROTIME(PATIENT) 14.8 SEC (12.0-15.0)
[2018-02-06] MEDS: PANTOPRAZOLE SODIUM 40 MG VIAL IVP SCH (09:11)
[2018-02-06] MEDS: methylPREDNISolone SOD SUCC 125 MG/2 ML VIAL IVP SCH (09:15)
[2018-02-06] MEDS: MICAFUNGIN NA 100 MG in NS 100 ML IV SCH (10:09)
--- NOTE | 2018-02-06 10:49 | ASMTCMCOM ---
CM Note CM Note Notes: Pts case discussed with Jack and Dr. Ribeiro. Pt is not medically stable to d/c. PT is recommending HC. [facility] medically [facility]. CM to follow. Plan: TBD Date Signed: 02/06/2018 10:48 AM Electronically Signed By:RAMESH Vann
--- NOTE | 2018-02-06 11:31 | HOSPPROG ---
Hospitalist Progress Note Assessment/Plan: 57-year-old admitted with increasing shortness of breath and cough. 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 # bibasilar pneumonia due to aspiration complicated by sepsis and acute respiratory failure. * Continue Meropenum * Continue supportive care * Cont mucolytics. * Cough suppression as able, seems to be worsened with anxiety and helped by lorazepam * NPO * S/p Bronchoscopy by Dr. 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 - Plan to discuss bronchoscopy findings with Dr. Mac as well as Dr. Null of [facility] today # dysphagia with severe protein calorie malnutrition * Continue TPN * Patient NPO * Previous jtube removed due to patient request secondary to ongoing diarrhea. Unfortunately because of this she is unable to take her psychiatric medications which have caused her anxiety to escalate. # chronic pain syndrome, previously on fentanyl patch which has been discontinued by by patient as she felt this was not beneficial # anxiety/chronic mental illness on a number of psychiatric medications. She has been unable to take these and her anxiety has been increased. # Fever/Leukocytosis #Sepsis: She was febrile overnight. Her BP is currently in 70-80's systolic. She is on 11 Liters. She has tachycardia - Treatment of bibasilar PNA as above - Added Micafungin as above with blood/fungal cultures Even if after reviewing the bronchoscopy imaging, Dr. Null thinks that the pt has options at the [facility], the challenge will be getting her there given her unstable condition She likely will cont to Aspirate unless her Tracheoesophageal fistula is fixed. This was evaluated by our team in it was felt that her fistula could not be stented and that she needed surgical management at the [facility] [place] at [place]. This was in August. Since then she has been seen by [facility] Dr. Lucas Newman with Thoracic Surgery. The pt reports that Dr. Newman informed her that she needed removal of her Esophagus to prevent further aspiration into the trachea. At that time a PEG tube was also placed and ultimately this was removed. As the patient was not ready for surgical options provided by Dr. Newman, she traveled back to the [facility] at which point she underwent stenting. The first attempt failed and this required restenting. Given her ongoing aspirations, this most recent stent also appears to have failed. She was supposed to be at the [place] this week but this was cancelled as she became ill requiring hospitalization at [facility] on 01/26 cont Palliative Care discussions Further complicating her condition is her SPCMN which would likely impair wound healing and may limit her surgical options. Cont with current abx regimen cont steroids at current dose SCD's Dispo: Pending clinical course Subjective: Patient reports persistant cough this morning. Her SBP remains in 70's with HR in 110's. Objective: Vital Signs Temp Pulse Resp BP Pulse Ox 39.2 C H 139 H 24 H 94/59 L 69 L 02/06/18 08:00 02/06/18 10:30 02/06/18 10:30 02/06/18 08:00 02/06/18 10:30 Microbiology 02/05/18 12:24 Gram Stain - Final Lung - Aspirate Laboratory Results 02/05/18 10:05 02/06/18 06:20 02/05/18 02/06/18 02/07/18 05:59 05:59 05:59 Intake Total 1104 2200 Output Total 1900 1650 Balance -796 550 PT 14.8 SEC (12.0-15.0) 02/06/18 06:20 INR 1.14 (0.83-1.16) 02/06/18 06:20 - Physical Exam Constitutional: chronically ill appearing, uncomfortable, cachectic Eyes: PERRL Ears, Nose, Mouth, Throat: dry mucous membranes Cardiovascular: tachycardia Respiratory: reduced air movement, rhonchi (diffuse) Gastrointestinal: soft, non-tender abdomen Genitourinary: no bladder tenderness Skin: warm Musculoskeletal: generalized weakness Neurologic: AAOx3 Psychiatric: interacting appropriately ICD10 Worksheet Patient Problems: Problems Problem Status Onset Pneumonia Acute Tracheoesophageal fistula Acute Anemia Acute Aspiration into airway Acute Aspiration into lower respiratory tract Acute Aspiration pneumonitis Acute Calcaneus fracture Acute Closed right hip fracture Acute Dysphagia Acute Hip fracture Acute Hypokalemia Acute Intraparenchymal hemorrhage of brain Acute Malnutrition Acute Osteomyelitis Acute Subdural hematoma, post-traumatic Acute Traumatic epidural hematoma Acute
--- NOTE | 2018-02-06 14:28 | PCMIDPN ---
Assessment/Plan: Assessment: Ongoing recurrent aspirations for the trachea soft ill fistula. 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 Long discussion today with the patient and her family regarding need to decide on definitive esophagectomy verses palliative care. Explained to the family and patient at length that continuing to delay definitive intervention would ultimately result in the patient having a fatal event over the short term. Patient requested a discussion with cardiothoracic surgery regarding the procedure of esophagectomy itself. We will ask Dr. Sandro Fagan to come by and have that discussion with patient. Plan: 1. Continue both IV meropenem and micafungin. 2. Follow up with patient regarding decision on esophagectomy. 3. Follow respiratory status. 02/06/18 16:05 02/06/18 16:07 Subjective: Pt is alert and conversant. She is sitting up in her bed, listening to music, and working on her computer. Pt is still unsure whether or not she will agree to undergo surgery. Objective: Meropenem # 5 Micafungin # on Vital Signs Temp Pulse Resp BP Pulse Ox 38.9 C H 116 H 16 83/55 L 93 02/06/18 12:00 02/06/18 12:00 02/06/18 12:00 02/06/18 12:00 02/06/18 12:00 Microbiology 02/05/18 12:24 Gram Stain - Final Lung - Aspirate Laboratory Results 02/05/18 10:05 02/06/18 06:20 02/05/18 02/06/18 02/07/18 05:59 05:59 05:59 Intake Total 1104 2200 Output Total 1900 1650 1200 Balance -796 550 -1200 - Physical Exam General Appearance: thin, other (emaciated, malnourished) EENT: PERRL/EOMI, No scleral icterus Respiratory: other (currently on supplemental oxygen, repeatedly reminded pt to wear the oxygen mask during visit, ocassional dry cough), No respiratory distress, No accessory muscle use Neck: full range of motion Skin: warm/dry, pallor, No rash ICD10 Worksheet Patient Problems: Problems Problem Status Onset Pneumonia Acute Tracheoesophageal fistula Acute Anemia Acute Aspiration into airway Acute Aspiration into lower respiratory tract Acute Aspiration pneumonitis Acute Calcaneus fracture Acute Closed right hip fracture Acute Dysphagia Acute Hip fracture Acute Hypokalemia Acute Intraparenchymal hemorrhage of brain Acute Malnutrition Acute Osteomyelitis Acute Subdural hematoma, post-traumatic Acute Traumatic epidural hematoma Acute
--- NOTE | 2018-02-06 17:29 | SOAPPROG ---
SOAP Progress Note Assessment/Plan: Assessment: Aspiration Pneumonia: Bilateral, with extensive basilar consolidation and some mucous plugging. On meropenem and micfungin per Infectious Disease. Hypoxemia: Secondary to above O2 needs and feeling of chest congestion improved a bit. On 8 L simple mask currently. Tracheal compression: Upper trachea. Due to esophageal stent. Impressive/ concerning on CT, but doesn't appear to cause significant symptoms. Tracheoesophageal fistula: S/P stent and patch, but still aspirating. Communication of the esophagus/esophageal stent with erosion into to the posterior trachea. Area of erosion into the posterior trachea is quite large. Pictures from Dr. Mac reviewed. This is a surgical issue and will require resection/repair of both part of the esophagus and trachea. To be seen by thoracic surgery here. She is also been seen by a thoracic surgeon at [facility] last in September. Plan: Continue NPO status, antibiotics, CPT, nebs. Will await her decision regarding surgery at some point in the near future. I discussed this at length with both she and her . If she refuses surgery I would think we would need at some point to go more in the direction of palliative care/Hospice. 40 min of hospital time spent directly with the patient, including a prolonged discussion with both the patient and her . Nursing present. Previous radiologic studies and cultures reviewed, along with pictures from Dr. Mac's bronchoscopy. Subjective: Doing okay. Shortness of breath, chest heaviness and congestion comes and goes. Remains NPO. Objective: Vital Signs Temp Pulse Resp BP Pulse Ox 37.3 C 102 H 16 78/49 L 97 02/06/18 15:44 02/06/18 15:44 02/06/18 15:44 02/06/18 15:44 02/06/18 15:44 Microbiology 02/05/18 Unknown Mycobacterial Smear ([place]) - Final Lung Bilateral - Bronchial Washings 02/05/18 12:24 Gram Stain - Final Lung - Aspirate Laboratory Results 02/05/18 10:05 02/06/18 06:20 02/05/18 02/06/18 02/07/18 05:59 05:59 05:59 Intake Total 1104 2200 Output Total 1900 1650 1200 Balance -796 550 -1200 PT 14.8 SEC (12.0-15.0) 02/06/18 06:20 INR 1.14 (0.83-1.16) 02/06/18 06:20 Physical Exam - Physical Exam General Appearance: alert, no apparent distress, thin EENT: PERRL/EOMI, other (Simple mask in place) Neck: normal inspection Respiratory: decreased breath sounds (Bilaterally), rhonchi (Coarse rhonchi present bilaterally), No lungs clear, No normal breath sounds Cardiac/Chest: tachycardia (Sinus), No gallop Abdomen: normal bowel sounds, non-tender, soft Skin: warm/dry, pallor Extremities: No pedal edema Neuro/Psych: no motor/sensory deficits, No cognition abnormalities ICD10 Worksheet Patient Problems: Problems Problem Status Onset Calcaneus fracture Acute Osteomyelitis Acute Traumatic epidural hematoma Acute Subdural hematoma, post-traumatic Acute Intraparenchymal hemorrhage of brain Acute Hip fracture Acute Hypokalemia Acute Closed right hip fracture Acute Dysphagia Acute Aspiration into airway Acute Aspiration pneumonitis Acute Anemia Acute Tracheoesophageal fistula Acute Malnutrition Acute Aspiration into lower respiratory tract Acute Pneumonia Acute
[2018-02-06] MEDS: TPN 1 EA BAG IV SCH (21:15)
[2018-02-07] MEDS: NS 1,000 ML IV SCH ×2 (02:25→15:54)
[2018-02-07] MEDS: LORazepam 2 MG/ML INJ IVP PRN ×3 (02:35→23:14)
[2018-02-07 04:05] LABS: PLATELET COUNT 375 10^3/uL (150-400)
[2018-02-07] MEDS: MEROPENEM 1 GM in NS 100 ML IV SCH ×3 (05:16→23:18)
[2018-02-07] MEDS: ACETYLCYSTEINE 10% IH/PO 4 ML VIAL IH SCH ×4 (05:26→23:00)
[2018-02-07] MEDS: methylPREDNISolone SOD SUCC 125 MG/2 ML VIAL IVP SCH (08:00)
[2018-02-07] MEDS: PANTOPRAZOLE SODIUM 40 MG VIAL IVP SCH (08:02)
[2018-02-07] MEDS: MICAFUNGIN NA 100 MG in NS 100 ML IV SCH (08:07)
--- NOTE | 2018-02-07 12:03 | HOSPPROG ---
Hospitalist Progress Note Assessment/Plan: 57-year-old admitted with increasing shortness of breath and cough. 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 # bibasilar pneumonia due to aspiration complicated by sepsis and acute respiratory failure. * Continue Meropenum * Continue supportive care * Cont mucolytics. * Cough suppression as able, seems to be worsened with anxiety and helped by lorazepam * NPO * S/p Bronchoscopy by Dr. 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 - Plan to discuss bronchoscopy findings with Dr. Mac as well as Dr. Null of [facility] - Dr. Fagan from CT surgery consulted to discuss surgical interventions with patient, see below for prior surgical evaluation earlier this year # dysphagia with severe protein calorie malnutrition * Continue TPN * Patient NPO * Previous jtube removed due to patient request secondary to ongoing diarrhea. Unfortunately because of this she is unable to take her psychiatric medications which have caused her anxiety to escalate. # chronic pain syndrome, previously on fentanyl patch which has been discontinued by by patient as she felt this was not beneficial # anxiety/chronic mental illness on a number of psychiatric medications. She has been unable to take these and her anxiety has been increased. # Fever/Leukocytosis #Sepsis: She was febrile overnight. Her BP is currently in 70-80's systolic. She is on 11 Liters. She has tachycardia - Treatment of bibasilar PNA as above - Added Micafungin as above with blood/fungal cultures Even if after reviewing the bronchoscopy imaging, Dr. Null thinks that the pt has options at the [facility], the challenge will be getting her there given her unstable condition She likely will cont to Aspirate unless her Tracheoesophageal fistula is fixed. This was evaluated by our team in it was felt that her fistula could not be stented and that she needed surgical management at the [facility] or at [place]. This was in August. Since then she has been seen by [facility] Dr. Lucas Newman with Thoracic Surgery. The pt reports that Dr. Newman informed her that she needed removal of her Esophagus to prevent further aspiration into the trachea. At that time a PEG tube was also placed and ultimately this was removed. As the patient was not ready for surgical options provided by Dr. Newman, she traveled back to the [facility] at which point she underwent stenting. The first attempt failed and this required restenting. Given her ongoing aspirations, this most recent stent also appears to have failed. 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 Cont with current abx regimen cont steroids at current dose SCD's Dispo: Pending clinical course Subjective: Patient very uncomfortable this morning with severe cough Objective: Vital Signs Temp Pulse Resp BP Pulse Ox 36.8 C 88 22 H 86/60 L 92 02/07/18 04:00 02/07/18 09:10 02/07/18 09:10 02/07/18 04:00 02/07/18 09:10 Microbiology 02/05/18 Unknown Mycobacterial Smear ([place]) - Final Lung Bilateral - Bronchial Washings 02/05/18 12:24 Gram Stain - Final Lung - Aspirate Bronchial Washings Culture - Final Laboratory Results 02/07/18 03:55 02/07/18 03:55 02/06/18 02/07/18 02/08/18 05:59 05:59 05:59 Intake Total 2200 2455 Output Total 1650 3200 Balance 550 -745 PT 14.8 SEC (12.0-15.0) 02/06/18 06:20 INR 1.14 (0.83-1.16) 02/06/18 06:20 - Physical Exam Constitutional: chronically ill appearing, uncomfortable Eyes: anicteric sclera Ears, Nose, Mouth, Throat: dry mucous membranes Cardiovascular: tachycardia Respiratory: reduced air movement, respiratory distress, rhonchi Gastrointestinal: soft, non-tender abdomen Skin: warm Musculoskeletal: generalized weakness Neurologic: AAOx3 Psychiatric: interacting appropriately ICD10 Worksheet Patient Problems: Problems Problem Status Onset Pneumonia Acute Tracheoesophageal fistula Acute Anemia Acute Aspiration into airway Acute Aspiration into lower respiratory tract Acute Aspiration pneumonitis Acute Calcaneus fracture Acute Closed right hip fracture Acute Dysphagia Acute Hip fracture Acute Hypokalemia Acute Intraparenchymal hemorrhage of brain Acute Malnutrition Acute Osteomyelitis Acute Subdural hematoma, post-traumatic Acute Traumatic epidural hematoma Acute
[2018-02-07] MEDS: ALBUTEROL 3 ML DEYVIAL IH PRN (12:16)
[2018-02-07] MEDS: ONDANSETRON 4 MG/2 ML VIAL IVP PRN (12:39)
--- NOTE | 2018-02-07 17:08 | PCMIDPN ---
Assessment/Plan: Assessment/Plan: * Bilateral pneumonia: Persistent bilateral pneumonia associated with tracheoesophageal fistula. Recent bronchoscopy findings with persistent fistula noted. BAL cultures have shown no growth to date. Will continue empiric meropenem although may be able to narrow this back to ertapenem if cultures remain negative. Ongoing pneumonia in the setting of persistent fistula will be problematic. Cardiothoracic surgery consultation today to review treatment options including esophagectomy. * Fever: Suspect ongoing fever related to persistent aspiration pneumonia. Blood cultures repeated yesterday given risk of candidemia with PICC line and TPN plus broad-spectrum antibiotic use. Continue empiric micafungin while blood cultures are pending. 02/07/18 17:06 Subjective: Patient with ongoing questions regarding treatment options for persistent tracheoesophageal fistula. Objective: Vital Signs Temp Pulse Resp BP Pulse Ox 36.9 C 110 H 22 H 96/65 L 87 L 02/07/18 15:58 02/07/18 15:58 02/07/18 15:58 02/07/18 15:58 02/07/18 15:58 Microbiology 02/05/18 Unknown Mycobacterial Smear ([facility]) - Final Lung Bilateral - Bronchial Washings 02/05/18 12:24 Gram Stain - Final Lung - Aspirate Bronchial Washings Culture - Final Laboratory Results 02/07/18 12:30 02/07/18 03:55 02/06/18 02/07/18 02/08/18 05:59 05:59 05:59 Intake Total 2200 2455 Output Total 1650 3200 1000 Balance 550 -745 -1000 Meropenem # 6 Micafungin # 2 BAL cultures no growth Blood cultures and fungal blood culture no growth to date - Physical Exam General Appearance: alert, no apparent distress EENT: No scleral icterus Respiratory: No respiratory distress Neuro/Psych: No confused ICD10 Worksheet Patient Problems: Problems Problem Status Onset Pneumonia Acute Tracheoesophageal fistula Acute Anemia Acute Aspiration into airway Acute Aspiration into lower respiratory tract Acute Aspiration pneumonitis Acute Calcaneus fracture Acute Closed right hip fracture Acute Dysphagia Acute Hip fracture Acute Hypokalemia Acute Intraparenchymal hemorrhage of brain Acute Malnutrition Acute Osteomyelitis Acute Subdural hematoma, post-traumatic Acute Traumatic epidural hematoma Acute
[2018-02-07] MEDS: fentaNYL 12 MCG PATCH TD SCH (17:51)
[2018-02-07] MEDS: TPN 1 EA BAG IV SCH (22:58)
[2018-02-08] MEDS: NS 1,000 ML IV SCH (02:38)
[2018-02-08] MEDS: MEROPENEM 1 GM in NS 100 ML IV SCH ×2 (05:33→14:21)
[2018-02-08] MEDS: ACETYLCYSTEINE 10% IH/PO 4 ML VIAL IH SCH ×3 (05:50→17:06)
[2018-02-08] MEDS: methylPREDNISolone SOD SUCC 125 MG/2 ML VIAL IVP SCH (07:25)
[2018-02-08] MEDS: PANTOPRAZOLE SODIUM 40 MG VIAL IVP SCH (07:28)
[2018-02-08] MEDS: MICAFUNGIN NA 100 MG in NS 100 ML IV SCH (07:34)
[2018-02-08] MEDS: LORazepam 2 MG/ML INJ IVP PRN ×2 (07:49→12:24)
--- NOTE | 2018-02-08 12:00 | SOAPPROG ---
SOAP Progress Note Assessment/Plan: Assessment: Aspiration Pneumonia: Bilateral, with extensive basilar consolidation and mucous plugging. On meropenem and micafungin per Infectious Disease. Hypoxemia: Secondary to above O2 needs and feeling of chest congestion are stable. On 8 L simple mask currently. She often takes this off. Tracheal compression: Upper trachea. Due to esophageal stent. Impressive/ concerning on CT, but doesn't appear to cause significant symptoms. Anemia: H&H down today. Receiving blood. Will check iron studies. Tracheoesophageal fistula: S/P stent and patch, but still aspirating. Communication of the esophagus/esophageal stent with erosion into to the posterior trachea. Area of erosion into the posterior trachea is quite large. Pictures from Dr. Mac reviewed. This is a surgical issue and will require resection/repair of both esophagus and trachea. To be seen by thoracic surgery here, however this would not appear to be the best place for her. I have discussed with her the possibility of transfer to the [place]. She does have a relationship with a thoracic surgeon there who he she has seen at least once in the past. She has also mentioned [facility] Jose Miguel. Plan: Continue NPO status, antibiotics, CPT, nebs. Will recheck two-view chest x-ray tomorrow, along with iron studies. I will await her decision regarding possible transfer to the [place]. She needs to talk to her about this. Another option would be continue treatment as we are doing, transition her to oral antibiotics, inhaled therapies and oxygen and have her get herself to [facility]. If she refuses surgery I would think we would need at some point to go more in the direction of palliative care/Hospice as recurrent aspiration and chronic pneumonia cannot be prevented. 40 min of hospital time spent directly with the patient. I discussed the above issues with the patient at length. Discussed with Infectious Disease as well. Subjective: About the same. Intermittent cough and mucus persists. Complains of ongoing modest shortness of breath and chest tightness. Objective: Vital Signs Temp Pulse Resp BP Pulse Ox 36.8 C 93 32 H 123/82 H 89 L 02/08/18 07:18 02/08/18 07:18 02/08/18 07:18 02/08/18 07:18 02/08/18 07:18 Microbiology 02/05/18 Unknown Mycobacterial Smear ([place]) - Final Lung Bilateral - Bronchial Washings 02/05/18 12:24 Gram Stain - Final Lung - Aspirate Bronchial Washings Culture - Final Laboratory Results 02/08/18 04:59 02/08/18 04:59 02/07/18 02/08/18 02/09/18 05:59 05:59 05:59 Intake Total 3795 869 0 Output Total 3200 2000 1000 Balance -745 -1131 -1000 PT 14.8 SEC (12.0-15.0) 02/06/18 06:20 INR 1.14 (0.83-1.16) 02/06/18 06:20 Physical Exam - Physical Exam General Appearance: alert, mild distress, cachetic EENT: PERRL/EOMI, other (Oxygen intermittently in place at 8 L by simple mask) Neck: normal inspection (No obvious JVD) Respiratory: decreased breath sounds, rales (Scattered rales comma bronchial changes posteriorly), rhonchi (Rhonchi present centrally with cough), No lungs clear, No normal breath sounds, No wheezing Cardiac/Chest: regular rate, rhythm, No gallop Abdomen: normal bowel sounds, non-tender, soft Skin: warm/dry, pallor Extremities: No pedal edema Neuro/Psych: no motor/sensory deficits, No cognition abnormalities (However, she seems to not understand the gravity of her situation, asks the same questions about significance of surgery which we cannot answer here for her, etc ) ICD10 Worksheet Patient Problems: Problems Problem Status Onset Pneumonia Acute Tracheoesophageal fistula Acute Anemia Acute Aspiration into airway Acute Aspiration into lower respiratory tract Acute Aspiration pneumonitis Acute Calcaneus fracture Acute Closed right hip fracture Acute Dysphagia Acute Hip fracture Acute Hypokalemia Acute Intraparenchymal hemorrhage of brain Acute Malnutrition Acute Osteomyelitis Acute Subdural hematoma, post-traumatic Acute Traumatic epidural hematoma Acute
--- NOTE | 2018-02-08 12:29 | ASMTCMCOM ---
CM Note CM Note Notes: Spoke with Dr. Ribeiro regarding patient. He is researching transfer of patient to [facility] or [facility] in [place] where patient would pursue medical care. D/C plan remains TBD until Dr. Ribeiro has researched and made decision about facility patient will go to next. CM will follow. Date Signed: 02/08/2018 12:01 PM Electronically Signed By:Cheryl Montoya LCSW
--- NOTE | 2018-02-08 13:02 | HOSPPROG ---
Hospitalist Progress Note Assessment/Plan: 57-year-old admitted with increasing shortness of breath and cough. 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 # bibasilar pneumonia due to aspiration complicated by sepsis and acute respiratory failure. * Continue Meropenum * Continue supportive care * Cont mucolytics. * Cough suppression as able, seems to be worsened with anxiety and helped by lorazepam * NPO * S/p Bronchoscopy by Dr. 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 - Dr. Fagan from CT surgery consulted to discuss surgical interventions with patient, see below for prior surgical evaluation earlier this year, patient deciding to pursue possible surgical options. - Will contact Dr. Ortiz from [place] and Dr. Newman from [facility] today to discuss options at their facilities. # dysphagia with severe protein calorie malnutrition * Continue TPN * Patient NPO * Previous jtube removed due to patient request secondary to ongoing diarrhea. Unfortunately because of this she is unable to take her psychiatric medications which have caused her anxiety to escalate. # chronic pain syndrome, previously on fentanyl patch which has been discontinued by by patient as she felt this was not beneficial # anxiety/chronic mental illness on a number of psychiatric medications. She has been unable to take these and her anxiety has been increased. # Fever/Leukocytosis #Sepsis: She was febrile overnight. Her BP is currently in 70-80's systolic. She is on 11 Liters. She has tachycardia - Treatment of bibasilar PNA as above - Added Micafungin as above with blood/fungal cultures Even if after reviewing the bronchoscopy imaging, Dr. Null thinks that the pt has options at the [facility]. She likely will cont to Aspirate unless her Tracheoesophageal fistula is fixed. This was evaluated by our team in it was felt that her fistula could not be stented and that she needed surgical management at the [facility] or at [place]. This was in August. Since then she has been seen by [facility] Dr. Lucas Newman with Thoracic Surgery. The pt reports that Dr. Newman informed her that she needed removal of her Esophagus to prevent further aspiration into the trachea. At that time a PEG tube was also placed and ultimately this was removed. As the patient was not ready for surgical options provided by Dr. Newman, she traveled back to the [facility] at which point she underwent stenting. The first attempt failed and this required restenting. Given her ongoing aspirations, this most recent stent also appears to have failed. She was supposed to be at the [place] this week but this was cancelled as she became ill requiring hospitalization at [facility] on 01/26 cont Palliative Care discussions Further complicating her condition is her SPCMN which would likely impair wound healing and may limit her surgical options. Cont with current abx regimen cont steroids at current dose SCD's Dispo: Pending clinical course, may require transfer to outside facility in the next few days Subjective: Patient reports some increased strength this AM Objective: Vital Signs Temp Pulse Resp BP Pulse Ox 36.8 C 93 32 H 123/82 H 89 L 02/08/18 07:18 02/08/18 07:18 02/08/18 07:18 02/08/18 07:18 02/08/18 07:18 Microbiology 02/05/18 Unknown Mycobacterial Smear ([place]) - Final Lung Bilateral - Bronchial Washings 02/05/18 12:24 Gram Stain - Final Lung - Aspirate Bronchial Washings Culture - Final Laboratory Results 02/08/18 04:59 02/08/18 04:59 02/07/18 02/08/18 02/09/18 05:59 05:59 05:59 Intake Total 2455 869 0 Output Total 3200 2000 1000 Balance -745 -1131 -1000 PT 14.8 SEC (12.0-15.0) 02/06/18 06:20 INR 1.14 (0.83-1.16) 02/06/18 06:20 - Physical Exam Constitutional: chronically ill appearing, uncomfortable, cachectic Eyes: PERRL Ears, Nose, Mouth, Throat: dry mucous membranes Cardiovascular: tachycardia Respiratory: reduced air movement, rhonchi Gastrointestinal: soft, non-tender abdomen Genitourinary: no bladder tenderness Skin: warm Musculoskeletal: generalized weakness Neurologic: AAOx3 Psychiatric: interacting appropriately ICD10 Worksheet Patient Problems: Problems Problem Status Onset Pneumonia Acute Tracheoesophageal fistula Acute Anemia Acute Aspiration into airway Acute Aspiration into lower respiratory tract Acute Aspiration pneumonitis Acute Calcaneus fracture Acute Closed right hip fracture Acute Dysphagia Acute Hip fracture Acute Hypokalemia Acute Intraparenchymal hemorrhage of brain Acute Malnutrition Acute Osteomyelitis Acute Subdural hematoma, post-traumatic Acute Traumatic epidural hematoma Acute
--- NOTE | 2018-02-08 14:15 | PDDCSUM ---
Discharge Summary Discharge Summary: Date of Admission: 01/26/2018 Date of Discharge: 02/08/2018 Consults: ID, Pulmonology, CT Surgery Procedures: Bronchoscopy, CT Hospital Course Problem List: 57-year-old admitted with increasing shortness of breath and cough. 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 # bibasilar pneumonia due to aspiration complicated by sepsis and acute respiratory failure. * Continue Meropenum * Continue supportive care * Cont mucolytics. * Cough suppression as able, seems to be worsened with anxiety and helped by lorazepam * NPO * S/p Bronchoscopy by Dr. 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 - Dr. Fagan from CT surgery consulted to discuss surgical interventions with patient, see below for prior surgical evaluation earlier this year, patient deciding to pursue possible surgical options. - [place]ed [place]. Newman from [facility] [place] who accepted patient for transfer # dysphagia with severe protein calorie malnutrition * Continue TPN * Patient NPO * Previous jtube removed due to patient request secondary to ongoing diarrhea. Unfortunately because of this she is unable to take her psychiatric medications which have caused her anxiety to escalate. # chronic pain syndrome, previously on fentanyl patch which has been discontinued by by patient as she felt this was not beneficial # anxiety/chronic mental illness on a number of psychiatric medications. She has been unable to take these and her anxiety has been increased. # Fever/Leukocytosis #Sepsis: She was febrile overnight. Her BP is currently in 70-80's systolic. She is on 11 Liters. She has tachycardia - Treatment of bibasilar PNA as above - Added Micafungin as above with blood/fungal cultures She likely will cont to Aspirate unless her Tracheoesophageal fistula is fixed. This was evaluated by our team in it was felt that her fistula could not be stented and that she needed surgical management at the [facility] [place]. This was in August. Since then she has been seen by [facility] Dr. Lucas Newman with Thoracic Surgery. The pt reports that Dr. Newman informed her that she needed removal of her Esophagus to prevent further aspiration into the trachea. At that time a PEG tube was also placed and ultimately this was removed. As the patient was not ready for surgical options provided by Dr. Newman, she traveled back to the [facility] at which point she underwent stenting. The first attempt failed and this required restenting. Given her ongoing aspirations, this most recent stent also appears to have failed. She was supposed to be at the [place] this week but this was cancelled as she became ill requiring hospitalization at [facility] on 01/26 Time Spent on discharge was >35 minutes with >50% of time spent on patient education and counseling
--- NOTE | 2018-02-08 14:16 | PDIAF ---
- Diagnosis Diagnosis: Bilateral PNA, TE Fistula, Sepsis Code Status: Do Not Resuscitate - Medication Management Discharge Medications: Medications to Continue on Transfer fentaNYL [Duragesic 12 MCG Patch (*)] 12 mcg TD Q72H #2 patch 09/19/17 [Last Taken Unknown] Topiramate [Topamax] 50 mg PO DAILY 12/13/17 [Last Taken Unknown] ALPRAZolam [Xanax 0.5 MG (*)] 0.5 mg PO DAILY PRN 01/26/18 [Last Taken Unknown] OLANZapine/FLUOXETINE HCL [Symbyax 3-25 mg Capsule] 1 each PO HS 01/26/18 [Last Taken Unknown] TPN [Hyperalimentation] 1 ea IV DAILY@199901/26/18 [Last Taken 01/25/18] Discharge Medications: Refer to the Discharge Home Medication list for PRN reason. - Orders Isolation Type: None Diet Texture: Ice Chips, No Oral Liquids, Non Oral Meds - Follow Up Care Current Providers and Referrals: Pramod Martines MD [Primary Care Provider] - As per Instructions
[2018-02-08 17:31] VITALS: BP 126/87
--- NOTE | 2018-02-09 13:52 | ASDISCHSUM ---
Discharge Information Plan Status:Acute Transfer Medically Cleared to Leave: Discharge Date:02/08/2018 07:33 PM D/C Disposition:[facility] Not [facility] ADT D/C Disposition:[facility] Projected Discharge Date:02/06/2018 11:00 AM Transportation at D/C:ALS/BLS Discharge Delay Reason: Follow-Up Date:02/06/2018 11:00 AM Discharge Slot: Final Diagnosis: Placement Information Referral Type:Home Infusion Referral ID:[id number] Provider Name: Address 1: Phone Number: Address 2: Fax Number: City: Selection Factors: State: Referral Type:*Home Health Care Services Referral ID:[id number] Provider Name: Address 1: Phone Number: Address 2: Fax Number: City: Selection Factors: State: Referral Type:Palliative Care Referral ID:[id number] Provider Name: Address 1: Phone Number: Address 2: Fax Number: City: Selection Factors: State: Patient Contact Information Contact Name:CAROLYN Relationship:Other Address:[id number] Work Phone: City:[place] Alternate Phone: [facility]/Zip Code:[place] [address] Email: Financial Information Financial Class:BCOP Primary Plan Desc:BC OUT OF STATE PPO Primary Plan Number:[id number] Secondary Plan Desc: Secondary Plan Number: Assessment Information [facility] CM Progress Note CM Note CM Note Notes: CM reviewed Pt's chart for d/c planning. Pt is a 57 y/o female with bibasilar pneumonia, likely aspiration. She has a hx of osteopenia and squamous cell dysplagia of the esophagus, currently undergoing cryo treatment at the [facility] in [place]. She presently has a traecheoesophageal fistula; she has had this for 6 months. She has a hx of a mood disorder and alcoholism. 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 She is active with [facility] for nursing. Anticipate a return to [facility] for nursing .CM will follow for this and other needs. D/C Plan: [facility] for nursing. Date Signed: 01/27/2018 11:40 AM Electronically Signed By:Lilly Oh [facility] CM Progress Note CM Note CM Note Notes: Pts case discussed w/ MARGARITA Marcos and Dr. Oro. CM spoke to pts . He was asking if he should cancel her appointments w/ the [facility] in another state for the and the . Pt has a flight tomorrow out of [place]. Dr. Oro is recommending that those appointments are cancelled. ID has been consulted. Pt may need ivabx. Pt was tachy this AM and not feeling well. CM to follow. Plan: TBD Date Signed: 01/30/2018 03:08 PM Electronically Signed By:RAMESH Vann [facility] CM Progress Note CM Note CM Note Notes: Pt still deciding whether to have esophageal surgery, she had a palliative consult today and would like Carolemayelin to come to hospital for an informational meeting. She is also waiting to talk to her doctor at the [facility] again,CM w/fMark RO Plan: TBD Date Signed: 02/02/2018 02:38 PM Electronically Signed By:Anamika Jessica RN [facility] CM Progress Note CM Note CM Note Notes: Pt had another Palliative meeting today with Blaine from [facility], please see Palliative note. PT will be here through the weekend. She still has not decided on direction of treatment, waiting for more answers from MD at [facility]. DC Plan: TBD Date Signed: 02/03/2018 04:35 PM Electronically Signed By:Anamika Jessica RN [facility] CM Progress Note CM Note CM Note Notes: Pts case discussed with Jack and Dr. Ribeiro. Pt is not medically stable to d/c. PT is recommending HC. Pt will most likely d/c with [facility] and [facility] when medically stable. CM to follow. Plan: TBD Date Signed: 02/06/2018 10:48 AM Electronically Signed By:RAMESH Vann [facility] CM Progress Note CM Note CM Note Notes: Spoke with Dr. Ribeiro regarding patient. He is researching transfer of patient to [facility] or [facility] in [place] where patient would pursue medical care. D/C plan remains TBD until Dr. Ribeiro has researched and made decision about facility patient will go to next. CM will follow. Date Signed: 02/08/2018 12:01 PM Electronically Signed By:Cheryl Montoya LCSW Intervention Information
== END 2018-02-08 19:33 | disposition short-term general hospital (02) | DRG 871 ==
LOC: F3E 18:36
PROVIDERS: ADMIT Family Medicine; ATTEND Family Medicine
PROC: 0B968ZX Drainage of Right Lower Lobe Bronchus, Via Natural or Artificial Opening Endoscopic, Diagnostic (ICD-10-PCS; principal; 2018-02-05 11:30)
PROC: 0B9B8ZX Drainage of Left Lower Lobe Bronchus, Via Natural or Artificial Opening Endoscopic, Diagnostic (ICD-10-PCS; principal; 2018-02-05 11:30)
PROC: 30233N1 Transfusion of Nonautologous Red Blood Cells into Peripheral Vein, Percutaneous Approach (ICD-10-PCS; 2018-02-08)
DX: A41.9 Sepsis, unspecified organism (principal); J69.0 Pneumonitis due to inhalation of food and vomit; J86.0 Pyothorax with fistula; J96.00 Acute respiratory failure, unspecified whether with hypoxia or hypercapnia; E43 Unspecified severe protein-calorie malnutrition; R13.19 Other dysphagia; G89.4 Chronic pain syndrome; F41.9 Anxiety disorder, unspecified; T43.506A Underdosing of unspecified antipsychotics and neuroleptics, initial encounter; I10 Essential (primary) hypertension; Z85.09 Personal history of malignant neoplasm of other digestive organs
CPT/HCPCS: 84134-90; 92526-GN; 92610-GN; 97161-GP; J0171; J0456; J1200; J1335; J2060; J2185; J2248; J2250; J2405; J2930; J2997; J3010; J7613; P9016; Q9967

== ENCOUNTER 2018-02-26 20:54 | Inpatient (IN) | payer BC ==
--- NOTE | 2018-02-26 21:06 | EDPHY ---
H & P Stated Complaint: SOB, hypoxia Time Seen by Provider: 02/26/18 21:05 - Personal History Current Tetanus Diphtheria and Acellular Pertussis (TDAP): No Tetanus Vaccine Date: 2012 - Medical/Surgical History Hx Asthma: No Hx Chronic Respiratory Disease: No Hx Diabetes: No Hx Cardiac Disease: No Hx Renal Disease: No Hx Cirrhosis: No Hx Alcoholism: No Hx HIV/AIDS: No Hx Splenectomy or Spleen Trauma: No Other PMH: HX: subdural hematoma, Anxiety, glaucoma, left femur fx, left hip fx , esophagus - squamous cell, HTN TE fistula - Social History Smoking Status: Never smoked Constitutional: Initial Vital Signs O2 Sat (%) 99 02/26/18 20:55 O2 Delivery Mode Nasal Cannula O2 (L/minute) 5 Allergies/Adverse Reactions: prochlorperazine Allergy (Unknown, Verified 01/26/18 16:51) ceftriaxone Allergy (Verified 01/26/18 16:51) Rash lisinopril Allergy (Verified 01/26/18 16:51) Rash Home Medications: Medication Instructions Recorded fentaNYL [Duragesic 12 MCG Patch 12 mcg TD Q72H #2 patch 09/19/17 (*)] Topiramate [Topamax] 50 mg PO DAILY 12/13/17 ALPRAZolam [Xanax 0.5 MG (*)] 0.5 mg PO DAILY PRN 01/26/18 OLANZapine/FLUOXETINE HCL [Symbyax 1 each PO HS 01/26/18 3-25 mg Capsule] TPN [Hyperalimentation] 1 ea IV DAILY@199901/26/18 Acetaminophen [Tylenol Supp 325mg 325 mg VT Q6HRS PRN supp 02/08/18 (*)] Acetylcysteine 10% [Acetylcysteine 2 ml IH Q6HRS vial 02/08/18 10% Ih/Po] Albuterol [Proventil Neb] 3 ml IH QID PRN deyvial 02/08/18 Alteplase [Cathflo Activase 2 mg 2 mg IVP PRN PRN vial 02/08/18 (*)] LORazepam [Ativan inj 2 mg/ml (*)] 0.25 - 0.5 mg IVP Q4H PRN inj 02/08/18 Meropenem [Merrem Inj 1 gm (*)] 1 gm IV Q8HRS vial 02/08/18 Micafungin Na [Mycamine 100Mg Vial] 100 mg IV DAILY vial 02/08/18 Ondansetron HCl Pf [Zofran 4 mg 4 mg IVP Q4HRS PRN vial 02/08/18 Inj (*)] Pantoprazole Sodium [Protonix IV 40 mg IVP DAILY vial 02/08/18 (*)] Pharmacy To DoseTPN 1 ea MISC AD bag 02/08/18 diphenhydrAMINE [Benadryl 25 mg IVP Q6H PRN inj 02/08/18 Injection] methylPREDNISolone SOD SUCC 10 mg IVP DAILY vial 02/08/18 [Solu-Medrol 125 mg (*)] Medical Decision Making - Diagnostics Imaging Results: Imaging Impressions Chest X-Ray 02/26/18 21:11 Impression: 1. Bilateral pneumonia once again suspected right side greater than left. The distribution is similar to the prior study. 2. Esophageal stent remains in place. Imaging: I viewed and interpreted images myself ED Course/Re-evaluation: CHIEF COMPLAINT: Shortness of breath HPI: This patient is a 57 year old female with history of squamous dysplasia of the esophagus complaining of cough, shortness of breath, nausea, and vomiting. She follows up at [facility] for this and has had recurrent scopes and biopsies as well as radiation treatment. She subsequently developed a tracheoesophageal fistula and currently has a biopatch placed. She was recently admitted for aspiration pneumonia at [facility] and had IV antibiotic treatment. The fistula patch at [facility] did not work. Around one month ago I saw her in the emergency department for similar symptoms and admitted her for a bibasilar pneumonia. Since the pneumonia she has been on Ertapenem and Diflucan. Her symptoms today feel similar to this but more severe. She states she has a 70% chance of aspirating on anything she swallows due to her fistula. She denies chest pain, vomiting, diarrhea, or other associated symptoms. REVIEW OF SYSTEMS: A comprehensive 10 system review of systems is otherwise negative aside from elements mentioned in the history of present illness and medical decision making. PHYSICAL EXAM: HR, BP, O2 Sat, RR. Temp noted General Appearance: Alert, cachectic, ill-appearing, in respiratory distress. Head: Atraumatic without scalp tenderness or obvious injury Eyes: Pupils equal, round, reactive to light and accommodation, EOMI, no trauma , no injection. Ears: Clear bilaterally, no perforation, normal landmarks Nose: Atraumatic, no rhinorrhea, clear. Throat: Mucus membranes dry. Neck: Supple, nontender, no lymphadenopathy. Respiratory: Working to breathe. Decreased breath sounds bilaterally. Rhonchi. Cardiovascular: Regular tachycardia, no murmurs, rubs, or gallops. Good capillary refill all extremities. Gastrointestinal: Abdomen is soft, nontender, non-distended, no masses, no rebound, no guarding, no peritoneal signs. Musculoskeletal: Normal active ROM of all extremities, atraumatic. Neurological: Alert, appropriate, and interactive. Nonfocal neuro exam. Skin: No rashes, good turgor, no nodules on palpation. Past medical history: Squamous dysplasia of esophagus s/p radiation. Tracheoesophageal fistula. Subdural hematoma. Anxiety. Glaucoma. Left femur fracture, left hip fracture. Hypertension. Past surgical history: SC dysplasia of esophagus s/p radiation, biopsies. Biopatch placed for tracheoesophageal fistula. Family history: Noncontributory Social history: . at bedside. PCP: Dr. Martines. GI: Dr. Roberts DIAGNOSTICS AND PROCEDURES: Chest x-ray: Bibasilar pneumonia, appears worse than chest x-ray one month ago. DIFFERENTIAL DIAGNOSIS: The differential diagnosis for the patient's shortness of breath and hypoxemia included but was not limited to pneumonia, myocardial infarction, acute mountain sickness, high altitude pulmonary edema, congestive heart failure, and pulmonary embolus. MEDICAL DECISION MAKING: The patient is a 57 y/o female with history of squamous dysplasia of the esophagus and tracheoesophageal fistula presents with fever, shortness of breath , nausea, vomiting. She was hypoxic at triage at 85%, she was placed on 6L supplemental oxygen and is now having O2Sats of 89%. She is normally on 3L supplemental oxygen. On exam she is working to breathe and has decreased breath sounds. Plan for chest x-ray, labs including CBC, chemistries, lactic acid, blood cultures, respiratory pathogen PCR, UA. 500unit IV Heparin and 1mg IV Ativan administered. 2200: Reviewed laboratory results and vitals as patient meets criteria for sepsis screening. HR 132. RR 25 WBC 24.63. Patient does meet sepsis criteria per leukocytosis, tachypnea, tachycardia. She does not meet criteria for severe sepsis at this time. Lactic acid within normal limits at 1.7. BP normal. Criteria otherwise negative for severe sepsis. She will need to be admitted for further observation and evaluation. 2214: I reviewed patient's chest x-ray which reveals bibasilar pneumonia. She is already on an antibiotic and antifungal. She is still nauseous; 4mg IV Zofran administered. 2224: I consulted with hospitalist service, Dr. Garcia accepts admission of this patient for her symptoms and sepsis. 2228: Reassessed patient and discussed laboratory and imaging findings. I have also discussed plan for admission which the patient and her are comfortable with. 2236: Patient has a temperature of Temp 39.4 degrees; 1gm VT Tylenol, 30mg IV, and 1L IV NS administered. - Data Points Laboratory Results: Laboratory Results 02/26/18 21:45 02/26/18 21:45 02/26/18 02/26/18 02/26/18 21:45 21:45 21:45 WBC 24.63 10^3/uL H 10^3/uL (3.80-9.50) RBC 3.18 10^6/uL L 10^6/uL (4.18-5.33) Hgb 9.0 g/dL L g/dL (12.6-16.3) Hct 28.5 % L % (38.0-47.0) MCV 89.6 fL fL (81.5-99.8) MCH 28.3 pg pg (27.9-34.1) MCHC 31.6 g/dL L g/dL (32.4-36.7) RDW 15.8 % H % (11.5-15.2) Plt Count 388 10^3/uL 10^3/uL (150-400) MPV 10.3 fL fL (8.7-11.7) Neut % (Auto) 89.0 % H % (39.3-74.2) Lymph % (Auto) 5.5 % L % (15.0-45.0) [place] % (Auto) 4.3 % L % (4.5-13.0) Eos % (Auto) 0.2 % L % (0.6-7.6) Baso % (Auto) 0.3 % % (0.3-1.7) Nucleat RBC Rel Count 0.0 % % (0.0-0.2) Absolute Neuts (auto) 21.92 10^3/uL H 10^3/uL (1.70-6.50) Absolute Lymphs (auto) 1.35 10^3/uL 10^3/uL (1.00-3.00) Absolute Monos (auto) 1.06 10^3/uL H 10^3/uL (0.30-0.80) Absolute Eos (auto) 0.05 10^3/uL 10^3/uL (0.03-0.40) Absolute Basos (auto) 0.07 10^3/uL 10^3/uL (0.02-0.10) Absolute Nucleated RBC 0.00 10^3/uL 10^3/uL (0-0.01) Immature Gran % 0.7 % % (0.0-1.1) Immature Gran # 0.17 10^3/uL H 10^3/uL (0.00-0.10) RBC/WBC/PLT Morphology TNP Platelet Estimate TNP PT 16.3 SEC H SEC (12.0-15.0) INR 1.29 H (0.83-1.16) APTT 74.5 SEC H SEC (23.0-38.0) VBG Lactic Acid Sodium 142 mEq/L mEq/L (135-145) Potassium 4.6 mEq/L mEq/L (3.3-5.0) Chloride 105 mEq/L mEq/L (97-110) Carbon Dioxide 28 mEq/l mEq/l (22-31) Anion Gap 9 mEq/L mEq/L (8-16) BUN 13 mg/dL mg/dL (7-23) Creatinine 0.5 mg/dL L mg/dL (0.6-1.0) Estimated GFR > 60 Glucose 105 mg/dL H mg/dL (70-100) Calcium 8.8 mg/dL mg/dL (8.5-10.4) Total Bilirubin 0.4 mg/dL mg/dL (0.1-1.4) 02/26/18 21:40 WBC RBC Hgb Hct MCV MCH MCHC RDW Plt Count MPV Neut % (Auto) Lymph % (Auto) [place] % (Auto) Eos % (Auto) Baso % (Auto) Nucleat RBC Rel Count Absolute Neuts (auto) Absolute Lymphs (auto) Absolute Monos (auto) Absolute Eos (auto) Absolute Basos (auto) Absolute Nucleated RBC Immature Gran % Immature Gran # RBC/WBC/PLT Morphology Platelet Estimate PT INR APTT VBG Lactic Acid 1.7 mmol/L mmol/L (0.7-2.1) Sodium Potassium Chloride Carbon Dioxide Anion Gap BUN Creatinine Estimated GFR Glucose Calcium Total Bilirubin Medications Given: Discontinued Medications Heparin Sodium (Porcine) (Heparin Lock Flush) 500 unit IVP EDNOW ONE Stop: 02/26/18 21:52 Last Admin: 02/26/18 21:53 Dose: 500 unit Sodium Chloride (Ns) 1,000 mls @ 0 mls/hr IV EDNOW ONE; Wide Open PRN Reason: Protocol Stop: 02/26/18 22:28 Last Admin: 02/26/18 22:32 Dose: 1,000 mls Lorazepam (Ativan Injection) 1 mg IVP EDNOW ONE Stop: 02/26/18 21:52 Last Admin: 02/26/18 21:30 Dose: 1 mg Ondansetron HCl (Zofran) 4 mg IVP EDNOW ONE Stop: 02/26/18 22:14 Last Admin: 02/26/18 22:14 Dose: 4 mg Departure - Departure Disposition: [facility] Acute Clinical Impression: Tachycardia, Tachypnea, Hypoxemia Sepsis Qualifiers: Sepsis type: sepsis due to unspecified organism Qualified Code(s): A41.9 - Sepsis, unspecified organism Leukocytosis (leucocytosis) Qualifiers: Leukocytosis type: unspecified Qualified Code(s): D72.829 - Elevated white blood cell count, unspecified Fever Qualifiers: Fever type: unspecified Qualified Code(s): R50.9 - Fever, unspecified Condition: Fair Report Scribed for: Gaudencio Levi Report Scribed by: Frannie Rebollar Date of Report: 02/26/18 Time of Report: 21:05
[2018-02-26] MEDS ORDERED: LORazepam 2 MG/ML INJ ONE (21:14)
[2018-02-26] MEDS ORDERED: LORazepam 2 MG/ML INJ IVP ONE (21:51)
[2018-02-26 21:58] LABS: PLATELET COUNT 388 10^3/uL (150-400)
[2018-02-26 22:06] LABS: INR 1.29 (0.83-1.16); PROTIME(PATIENT) 16.3 SEC (12.0-15.0)
[2018-02-26] MEDS ORDERED: ONDANSETRON 4 MG/2 ML VIAL ONE (22:10)
[2018-02-26] MEDS ORDERED: ONDANSETRON 4 MG/2 ML VIAL IVP ONE (22:13)
[2018-02-26] MEDS ORDERED: NS 1,000 ML IV ONE (22:27)
[2018-02-26] MEDS ORDERED: ACETAMINOPHEN 650 MG SUPP PR ONE (22:34)
[2018-02-26] MEDS ORDERED: KETOROLAC 30 MG/1 ML SDV IVP ONE (22:36)
[2018-02-26] MEDS ORDERED: ACETAMINOPHEN 650 MG SUPP PR PRN (22:36)
[2018-02-26] MEDS ORDERED: LORazepam 2 MG/ML INJ IVP PRN (22:36)
[2018-02-26] MEDS ORDERED: ONDANSETRON 4 MG/2 ML VIAL IVP PRN (22:36)
[2018-02-26] MEDS ORDERED: ACETAMINOPHEN 325 MG SUPP PR ONE (22:39)
[2018-02-26] MEDS ORDERED: PANTOPRAZOLE SODIUM 40 MG VIAL IVP ONE (23:33)
[2018-02-26] MEDS ORDERED: ALTEPLASE 2 MG VIAL IVP PRN (23:41)
[2018-02-26] MEDS ORDERED: SCOPOLAMINE HYDROBROMIDE 1 MG/3 DAYS PATCH TD SCH (23:45)
--- NOTE | 2018-02-26 23:56 | PDGENHP ---
History and Physical - Chief Complaint shortness of breath - History of Present Illness Source - patient able to provides history and appears reliable. EMR reviewed and case discussed with ED provider. 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 Since that time patient has had numerous hospitalizations for aspiration pneumonia/pneumonitis. She has subsequently undergone multiple endoscopies as well as attempts at repair and stenting of her esophagus. Patient was intolerant of tube feeds due to report of diarrhea and subsequently had her J-tube removed. Patient has been followed by [facility] as well as seen at the [place]. She has a chronic PICC line with continuous need for TPN and daily ertapenem and Diflucan. Patient with persistent aspiration and symptoms. Patient states that yesterday she had been developing intermittent episodes of shortness of breath and inability to dry in any air. She also describes an episode of nausea vomiting this afternoon. Patient feels like she is drowning and cannot catch any air. She has had some fevers no chills. She has reported some abdominal pain and aching pain. Nausea and pain abdominal pain have resolved since arrival. Patient denies any chest pain or palpitations. Patient reports she had previously been using sublingual atropine or scopolamine patches to assist with her chronic secretions and aspiration. She has been receiving her Diflucan last at 6:00 p.m. And her Dipentum last at 7:00 p.m. History Information - Allergies/Home Medication List Allergies/Adverse Reactions: prochlorperazine Allergy (Unknown, Verified 01/26/18 16:51) ceftriaxone Allergy (Verified 01/26/18 16:51) Rash lisinopril Allergy (Verified 01/26/18 16:51) Rash Home Medications: Topiramate [Topamax] 50 mg PO DAILY 12/13/17 [Last Taken Unknown] ALPRAZolam [Xanax 0.5 MG (*)] 0.5 mg PO DAILY PRN 01/26/18 [Last Taken Unknown] OLANZapine/FLUOXETINE HCL [Symbyax 3-25 mg Capsule] 1 each PO HS 01/26/18 [Last Taken Unknown] TPN [Hyperalimentation] 1 ea IV DAILY@199901/26/18 [Last Taken 01/25/18] I have personally reviewed and updated: family history, medical history, social history, surgical history - Past Medical History hypertension Additional medical history: Osteopenia, squamous cell dysplasia of the esophagus currently undergoing cryo treatment at the [facility] in [place], mood disorder, migraine disorder, previous subdural hemorrhage, previous facial contusion, alcoholism, reported irritable bowel syndrome with fruit dose intolerant, chronic macrocytic anemia - Surgical History Additional surgical history: December 2015 left inter medullary nail for hip fracture Dr. Acevedo. Left calcaneal surgery by Dr. Taylor. Recent endoscopy and colonoscopy at [facility] - Family History Additional family history: Father with pulmonary hypertension, no family history of esophageal motility disorders - Social History Smoking Status: Never smoked Alcohol Use: Sober Drug Use: Marijuana (Occasional) Additional social history: She reports she is independent in her ADLs. and lives with . Patient with completed advance directives and is a DNR and DNI. She does report she would be amenable to use of BiPAP if absolutely needed but does not want to be intubated. Review of Systems Review of Systems: ROS: 10pt was reviewed & negative except for what was stated in HPI & below Constitutional: Reports: fever, weakness (Generalized). Denies: chills EENMT: Denies: nose congestion, sore throat Cardiac: Reports: no symptoms Respiratory: Reports: cough (Minimally productive. Patient reports lots of secretions.), shortness of breath Genitourinary: Reports: no symptoms Muscolosketal: Reports: no symptoms Skin: Reports: no symptoms Neurological: Reports: anxiety (Increased with shortness of breath), weakness ( Generalized). Denies: numbness, tingling Hematologic/Lymphatic: Reports: anemia Physical Exam Physical Exam: Selected Entries 02/26/18 21:01 Blood Pressure Automatic Method Heart Rate 132 H Respiratory 25 H Rate O2 Sat (%) 85 L Temperature (C) 38 C Blood Pressure 124/88 H Mean Arterial 100 Pressure (MAP) O2 Delivery Nasal Cannula Mode Temperature Oral Source Temp Pulse Resp BP Pulse Ox 38.0 C 135 H 38 H 127/89 H 96 02/26/18 23:43 02/26/18 23:43 02/26/18 23:43 02/26/18 23:32 02/26/18 23:43 O2 (L/minute) 5 Constitutional: chronically ill appearing, uncomfortable, cachectic, other ( Patient in moderate respiratory distress with increased work of breathing and 2- 3 word sentences. She is awake alert and oriented and interactive.) Eyes: PERRL (Slightly decreased reactivity to light bilaterally but symmetric.) , anicteric sclera, EOMI, No scleral injection Ears, Nose, Mouth, Throat: moist mucous membranes, other (No nasal discharge. No oropharyngeal erythema or exudates.), No poor dentition Cardiovascular: tachycardia, No edema Peripheral Pulses: 1+: dorsalis-pedis (R), dorsalis-pedis (L) Respiratory: reduced air movement, inspiratory crackles, respiratory distress ( Mild to moderate respiratory distress with increased work of breathing in 2-3 word sentences as noted above.), rhonchi (Diffusely rhonchorous breath sounds in the middle and lower lungs.), No no respiratory distress, No clear to auscultation, No expiratory wheeze Gastrointestinal: no palpable masses, other (Hypoactive bowel sounds), No tenderness, No guarding, No rebound, No distension Genitourinary: no bladder tenderness, No matamoros in urethra Skin: warm, no rashes or abrasions, other (Pallor) Musculoskeletal: generalized weakness, other (Patient able to sit up independently in the gurney.) Neurologic: AAOx3, sensation intact bilaterally, other (Grossly nonfocal exam.) , No facial droop Psychiatric: interacting appropriately, not encephalopathic, thought process linear, anxious, No depressed, No suicidal ideation, No poor insight, No poor judgement, No poor memory Lab Data & Imaging Review 02/26/18 21:45 02/26/18 21:45 WBC 24.63 10^3/uL (3.80-9.50) H 02/26/18 21:45 RBC 3.18 10^6/uL (4.18-5.33) L 02/26/18 21:45 Hgb 9.0 g/dL (12.6-16.3) L 02/26/18 21:45 Hct 28.5 % (38.0-47.0) L 02/26/18 21:45 MCV 89.6 fL (81.5-99.8) 02/26/18 21:45 MCH 28.3 pg (27.9-34.1) 02/26/18 21:45 MCHC 31.6 g/dL (32.4-36.7) L 02/26/18 21:45 RDW 15.8 % (11.5-15.2) H 02/26/18 21:45 Plt Count 388 10^3/uL (150-400) 02/26/18 21:45 MPV 10.3 fL (8.7-11.7) 02/26/18 21:45 Neut % (Auto) 89.0 % (39.3-74.2) H 02/26/18 21:45 Lymph % (Auto) 5.5 % (15.0-45.0) L 02/26/18 21:45 [place] % (Auto) 4.3 % (4.5-13.0) L 02/26/18 21:45 Eos % (Auto) 0.2 % (0.6-7.6) L 02/26/18 21:45 Baso % (Auto) 0.3 % (0.3-1.7) 02/26/18 21:45 Nucleat RBC Rel Count 0.0 % (0.0-0.2) 02/26/18 21:45 Absolute Neuts (auto) 21.92 10^3/uL (1.70-6.50) H 02/26/18 21:45 Absolute Lymphs (auto) 1.35 10^3/uL (1.00-3.00) 02/26/18 21:45 Absolute Monos (auto) 1.06 10^3/uL (0.30-0.80) H 02/26/18 21:45 Absolute Eos (auto) 0.05 10^3/uL (0.03-0.40) 02/26/18 21:45 Absolute Basos (auto) 0.07 10^3/uL (0.02-0.10) 02/26/18 21:45 Absolute Nucleated RBC 0.00 10^3/uL (0-0.01) 02/26/18 21:45 Immature Gran % 0.7 % (0.0-1.1) 02/26/18 21:45 Immature Gran # 0.17 10^3/uL (0.00-0.10) H 02/26/18 21:45 RBC/WBC/PLT Morphology TNP 02/26/18 21:45 Platelet Estimate TNP 02/26/18 21:45 PT 16.3 SEC (12.0-15.0) H 02/26/18 21:45 INR 1.29 (0.83-1.16) H 02/26/18 21:45 APTT 74.5 SEC (23.0-38.0) H 02/26/18 21:45 VBG Lactic Acid 1.7 mmol/L (0.7-2.1) 02/26/18 21:40 Sodium 142 mEq/L (135-145) 02/26/18 21:45 Potassium 4.6 mEq/L (3.3-5.0) 02/26/18 21:45 Chloride 105 mEq/L (97-110) 02/26/18 21:45 Carbon Dioxide 28 mEq/l (22-31) 02/26/18 21:45 Anion Gap 9 mEq/L (8-16) 02/26/18 21:45 BUN 13 mg/dL (7-23) 02/26/18 21:45 Creatinine 0.5 mg/dL (0.6-1.0) L 02/26/18 21:45 Estimated GFR > 60 02/26/18 21:45 Glucose 105 mg/dL (70-100) H 02/26/18 21:45 Calcium 8.8 mg/dL (8.5-10.4) 02/26/18 21:45 Total Bilirubin 0.4 mg/dL (0.1-1.4) 02/26/18 21:45 Imaging Review: PA and lateral chest x-ray 2124 hours History: Sepsis criteria. Cough and shortness of breath. Previous tracheoesophageal fistula with stent placement. Findings: Comparison to 02/05/2018. Esophageal stent is in stable position. PICC line is seen from right arm approach with tip in the SVC. There is moderate consolidation right mid to lower lung as well as left lung base compatible with pneumonia. The upper lungs are clear. Heart size and pulmonary vasculature are normal. Osseous structures appear to be normal. Impression: 1. Bilateral pneumonia once again suspected right side greater than left. The distribution is similar to the prior study. 2. Esophageal stent remains in place. Dictated By: Sudeep Blackmon MD Visualized and Interpreted Chest x-ray results: Yes EKG additional interpertation: Telemetry monitoring shows sinus tachycardia in the 130s to 140s. No acute ST changes. Assessment & Plan Assessment: 57 yo F known to hospitalist service recently hospitalized 01/26-02/08/18 before being the her city for aspiration pneumonia related to TE fistula aspiration pneumonia - patient to continue on ertapenem and Diflucan at this time. I do not feel that escalating to add on vancomycin will provide any additional benefit at this point as patient has chronic aspiration. Infectious Disease has been consulted for additional recommendations. Patient will be made NPO and aspiration precautions will be in place. Additionally will provide patient with a dose of Protonix. Her main complaint at this time is complaints of increased secretions and feeling like her lungs are full. Albuterol neb p.r.n. Will need to monitor closely with her tachycardia. Additionally will give patient a scopolamine patch and Protonix dosing. Consider use of atropine drops for severe secretions will hold off at this time. Patient reports that this did help her previously. Pulmonology will also be consulted in the morning for any additional recommendations. Patient has had extensive workup and recent transfers as well as follow-up at [facility] for her TE fistula. A total esophagectomy was recommended but patient did not desire to go this route. She reports she is having discussions with her CT surgery team regarding potential experimental options for treatment of her TE fistula. acute hypoxic respiratory failure - patient continues to have drops into the 80s despite 5 L of O2 supplementation intermittently with coughing and talking. She does appear to be tolerating 5 L at this time. Nebulizer p.r.n.. And continue antibiotics as noted above. Discussed with the patient regarding her advance directive she did bring a completed copy of her advanced directive. She does not want any heroic measures including CPR or intubation. Further discussion with the patient notes that she would be amenable to BiPAP if absolutely needed given that she is having severe air hunger. severe sepsis without organ dysfunction - patient with tachycardia, fever. No leukocytosis and lactate is within normal limits. Continue with management as noted above. tracheoesophageal fistula - see above discussion severe protein calorie malnutrition - continue patient's TPN. Patient will be NPO at this time. Patient does have a PICC line in place. anemia of chronic disease - no evidence of active bleeding. H&H does appear stable from previous hospitalization. Plan to monitor. benign essential HTN - patient's blood pressures were notably elevated in setting of acute respiratory distress will plan to monitor. She does not have any chest pain. chronic pain - morphine p.r.n. For pain and air hunger. Patient was previously on a fentanyl patch but she discontinued this on her own as it did not appear to have a give her any improvement. anxiety - patient with history of anxiety disorder as well as mood disorder. She had previously had issues on receiving her antipsychotics regularly due to her dysphagia. Ativan IV has been helping with her anxiety and will plan to continue this p.r.n.. FEN - IV fluids for supplementation. Continue TPN. Electrolyte monitoring replacement if needed. Patient will otherwise be NPO. PPX - SCDs. Holding anticoagulation pending assessment by palm in the morning. COR - DNR and DNI. Patient is amenable to BiPAP if absolutely needed. Dispo - patient admitted to inpatient status on SDU floor for close respiratory and cardiac monitoring. Anticipate greater than 2 midnight stay given the severity of her symptoms and known history of TE fistula with high risk for morbidity mortality.
[2018-02-27] MEDS: NS 1,000 ML IV SCH (01:07)
[2018-02-27 05:08] LABS: PLATELET COUNT 375 10^3/uL (150-400)
[2018-02-27] MEDS: ALBUTEROL 3 ML DEYVIAL IH PRN ×2 (08:20→12:06)
--- NOTE | 2018-02-27 10:54 | PDMN ---
Medical Necessity Medical necessity: Pt meets inpt criteria per MD order and MCG M-[id number], Pneumonia Due to Aspiration, 3 days. 57 y/o w/hx aspiration pneumonia related to TE fistula and recently hospitalized for this (01/26/18- 02/08/18) admitted w/ bilateral pneumonia, severe sepsis with fever, tachypnea and tachycardia HR 120' s-130's, and acute hypoxic resp failure requiring 5 LO2 initially. IVF, IV abx's , NPO, TPN, ID consult pending, anticipate >2MN given severity of symptoms and known hx of TE fistula, ongoing med nec treatment of above.
[2018-02-27] MEDS: LORazepam 2 MG/ML INJ IVP PRN ×4 (11:25→21:02)
[2018-02-27] MEDS ORDERED: ALBUTEROL 3 ML DEYVIAL IH PRN (11:58)
[2018-02-27] MEDS ORDERED: morphINE 10 MG/0.5 ML UDSYR PO PRN ×2 (12:15→12:33)
[2018-02-27] MEDS: ATROPINE 1% 5 ML OPHT.BTL EACHEYE SCH ×3 (12:22→23:24)
--- NOTE | 2018-02-27 12:42 | HOSPPROG ---
Hospitalist Progress Note Assessment/Plan: 57 yo F known to hospitalist service recently hospitalized 01/26-02/08/18 before being the her city for aspiration pneumonia related to TE fistula Aspiration Pneumonia - Patient to continue on ertapenem and Diflucan at this time. - Infectious Disease has been consulted for additional recommendations - Patient will be made NPO and aspiration precautions will be in place. - Her main complaint at this time is complaints of increased secretions and feeling like her lungs are full, Albuterol neb p.r.n. - Additionally will give patient a scopolamine patch and Protonix dosing. - Consider use of atropine drops for severe secretions will hold off at this time. - Pulmonology consulted in the morning for any additional recommendations. Acute hypoxic respiratory failure - patient continues to have drops into the 80s despite 5 L of O2 supplementation intermittently with coughing and talking. - Nebulizer p.r.n.. - Continue antibiotics as noted above. D - Patient does not want any heroic measures including CPR or intubation. Further discussion with the patient notes that she would be amenable to BiPAP if absolutely needed given that she is having severe air hunger. Severe sepsis without organ dysfunction - Patient with tachycardia, fever. - No leukocytosis and lactate is within normal limits. - Continue with management as noted above. Tracheoesophageal fistula - S/p Esophageal stent by Dr. Ortiz at [place] in [place] - Patient has had extensive workup and recent transfers as well as follow-up at [facility] for her TE fistula. A total esophagectomy was recommended but patient did not desire to go this route. She reports she is having discussions with her CT surgery team regarding potential experimental options for treatment of her TE fistula. Severe protein calorie malnutrition - continue patient's TPN. - Patient will be NPO at this time. - Patient does have a PICC line in place. Anemia of chronic disease - no evidence of active bleeding. - H&H does appear stable from previous hospitalization. - Plan to monitor. Benign essential HTN - Patient's blood pressures were notably elevated in setting of acute respiratory distress - Will plan to monitor. Chronic pain - morphine p.r.n. For pain and air hunger. - Patient was previously on a fentanyl patch but she discontinued this on her own as it did not appear to have a give her any improvement. Anxiety - Patient with history of anxiety disorder as well as mood disorder. - She had previously had issues on receiving her antipsychotics regularly due to her dysphagia. - Ativan IV has been helping with her anxiety and will plan to continue this p.r.n.. FEN - IV fluids for supplementation. Continue TPN. Electrolyte monitoring replacement if needed. Patient will otherwise be NPO. PPX - SCDs. Holding anticoagulation pending assessment by palm in the morning. COR - DNR and DNI. Patient is amenable to BiPAP if absolutely needed. Dispo - patient admitted to inpatient status on SDU floor for close respiratory and cardiac monitoring. Anticipate greater than 2 midnight stay given the severity of her symptoms and known history of TE fistula with high risk for morbidity mortality. Subjective: Patient reports severe SOB this morning with cough Objective: Vital Signs Temp Pulse Resp BP Pulse Ox 36.3 C 140 H 31 H 132/74 H 92 02/27/18 08:05 02/27/18 12:07 02/27/18 12:07 02/27/18 12:00 02/27/18 12:07 Laboratory Results 02/27/18 04:50 02/27/18 04:50 02/26/18 02/27/18 02/28/18 05:59 05:59 05:59 Intake Total 1772 Output Total 200 Balance 1572 PT 16.3 SEC (12.0-15.0) H 02/26/18 21:45 INR 1.29 (0.83-1.16) H 02/26/18 21:45 - Physical Exam Constitutional: chronically ill appearing, uncomfortable, cachectic Eyes: PERRL Ears, Nose, Mouth, Throat: moist mucous membranes Cardiovascular: tachycardia Respiratory: reduced air movement, expiratory wheeze Gastrointestinal: soft, non-tender abdomen Genitourinary: no bladder tenderness Skin: warm Musculoskeletal: generalized weakness Neurologic: AAOx3 Psychiatric: interacting appropriately ICD10 Worksheet Patient Problems: Problems Problem Status Onset Fever Acute Hypoxemia Acute Leukocytosis (leucocytosis) Acute Sepsis Acute Tachycardia Acute Tachypnea Acute Anemia Acute Aspiration into airway Acute Aspiration into lower respiratory tract Acute Aspiration pneumonitis Acute Calcaneus fracture Acute Closed right hip fracture Acute Dysphagia Acute Hip fracture Acute Hypokalemia Acute Intraparenchymal hemorrhage of brain Acute Malnutrition Acute Osteomyelitis Acute Pneumonia Acute Subdural hematoma, post-traumatic Acute Tracheoesophageal fistula Acute Traumatic epidural hematoma Acute
--- NOTE | 2018-02-27 14:08 | PDINTPN ---
Emergency Medical Technician/Driver Progress Note Assessment/Plan: Assessment: Tracheo-esophageal fistula: Very large, likely has continuous large-volume reflux/aspiration. Aspiration Pneumonia: Chronic/recurrent. On Ertapenem. O2 needs low, but quite tachypneic/dyspneic, tachycardic. Tachycardia: Likely due to respiratory status, systemic inflammation. Malnutrition: Chronic. On TPN. Plan: She has deteriorated clinically since her hospitalization last month. Primary options are palliative/hospice vs. surgery. Per Dr. Shields, surgery would apparently be at least 2 large procedures with prolonged recovery and fairly high morbidity/mortality. She elected not to have surgery during her hospitalization at last month. Her surgical risk is significantly higher now due to her clinical deterioration. I think that the best course at this point would be to continue with palliative care, emphasizing comfort care. She is hoping to be made more comfortable but to be more alert, but I don't think that is a realistic possibility at this point. Will discuss with her MDPOA and . She is DNR/DNI, which is appropriate 02/27/18 14:14 02/27/18 14:25 Subjective: C/O dry mouth, dyspnea, cough. Objective: Vital Signs Temp Pulse Resp BP Pulse Ox 36.3 C 140 H 31 H 132/74 H 92 02/27/18 08:05 02/27/18 12:07 02/27/18 12:07 02/27/18 12:00 02/27/18 12:07 Laboratory Results 02/27/18 04:50 02/27/18 04:50 02/26/18 02/27/18 02/28/18 05:59 05:59 05:59 Intake Total 1772 Output Total 200 Balance 1572 PT 16.3 SEC (12.0-15.0) H 02/26/18 21:45 INR 1.29 (0.83-1.16) H 02/26/18 21:45 CXR: Presistent Right>eft basilar infiltrate. Images reviewed by me. Physical Exam - Physical Exam General Appearance: alert EENT: normal ENT inspection Neck: normal inspection Respiratory: rhonchi Cardiac/Chest: tachycardia, No edema Abdomen: normal bowel sounds, non-tender Skin: normal color, warm/dry ICD10 Worksheet Patient Problems: Problems Problem Status Onset Fever Acute Hypoxemia Acute Leukocytosis (leucocytosis) Acute Sepsis Acute Tachycardia Acute Tachypnea Acute Anemia Acute Aspiration into airway Acute Aspiration into lower respiratory tract Acute Aspiration pneumonitis Acute Calcaneus fracture Acute Closed right hip fracture Acute Dysphagia Acute Hip fracture Acute Hypokalemia Acute Intraparenchymal hemorrhage of brain Acute Malnutrition Acute Osteomyelitis Acute Pneumonia Acute Subdural hematoma, post-traumatic Acute Tracheoesophageal fistula Acute Traumatic epidural hematoma Acute
--- NOTE | 2018-02-27 14:35 | PCMIDPN ---
Assessment/Plan: Assessment: Chronic aspiration pneumonia secondary to a very large trach esophageal defect. Patient had a large tracheal stent placed at [facility] in [place] weeks ago which did not prevent the recurrent aspiration issues. After her last inpatient visit she was referred to [place] for discussion of esophagectomy. Patient at that point to not wish to go forward with esophageal surgery and therefore was directed to palliative care. She is not done well with palliative care as an outpatient for numerous reasons. She continues to have air hunger and symptoms of discomfort and pain. At this point we will continue the ertapenem and fluconazole but it remains an open question of whether this patient would want to agree to esophageal surgery given other circumstances. Patient apparently did not have confidence in the surgeon's she was introduced to at the [place]. She is open to a 2nd opinion. Plan: 1. Continue both ertapenem and fluconazole. 2. Continue to advise nothing by mouth although the patient was witnessed to have numerous mouth. Ice chips while I was talking to her today. Subjective: Patient is resting in her hospital bed. Long conversation with patient and her . Patient complains of having symptoms of air hunger at home. She continues to take things by mouth. She had numerous episodes of respiratory distress during our conversation. Objective: Ertapenem # 1 Fluconazole # 1 Vital Signs Temp Pulse Resp BP Pulse Ox 36.3 C 140 H 31 H 132/74 H 92 02/27/18 08:05 02/27/18 12:07 02/27/18 12:07 02/27/18 12:00 02/27/18 12:07 Laboratory Results 02/27/18 04:50 02/27/18 04:50 02/26/18 02/27/18 02/28/18 05:59 05:59 05:59 Intake Total 1772 Output Total 200 Balance 1572 - Physical Exam General Appearance: WD/WN, alert, apparent distress, cachetic, non-toxic Respiratory: respiratory distress, coarse breath sounds, No lungs clear, No normal breath sounds Cardiac/Chest: regular rate, rhythm, tachycardia (Occasional) Extremities: non-tender, normal inspection Skin: normal color, warm/dry, No rash Neuro/Psych: alert, normal mood/affect, oriented x 3 ICD10 Worksheet Patient Problems: Problems Problem Status Onset Fever Acute Hypoxemia Acute Leukocytosis (leucocytosis) Acute Sepsis Acute Tachycardia Acute Tachypnea Acute Anemia Acute Aspiration into airway Acute Aspiration into lower respiratory tract Acute Aspiration pneumonitis Acute Calcaneus fracture Acute Closed right hip fracture Acute Dysphagia Acute Hip fracture Acute Hypokalemia Acute Intraparenchymal hemorrhage of brain Acute Malnutrition Acute Osteomyelitis Acute Pneumonia Acute Subdural hematoma, post-traumatic Acute Tracheoesophageal fistula Acute Traumatic epidural hematoma Acute
[2018-02-27] MEDS ORDERED: LEVALBUTEROL 0.63 MG/3 ML DEYVIAL ONE (14:54)
[2018-02-27] MEDS ORDERED: LEVALBUTEROL 0.63 MG/3 ML DEYVIAL IH PRN (14:57)
--- NOTE | 2018-02-27 15:40 | ASMTCMCOM ---
CM Note CM Note Notes: 57yr old female frequent admits for asp PNA. Has a Hx of esophageal CA, TE fistula, Esophageal stent. Has been tx at the [facility] in as well as UC in January. Mary Jo Ng is her MPOA [phone]. Patient is DNR/DNI status. Having difficulty breathing. by her side. Getting breathing txs every 2hrs. talking to family and patient about Comfort Measures. Date Signed: 02/27/2018 03:39 PM Electronically Signed By:Leandra Manuel LCSW
[2018-02-27] MEDS ORDERED: BISACODYL 10 MG SUPP PR PRN (15:51)
[2018-02-27] MEDS ORDERED: MAGNESIUM HYDROXIDE 30 ML UDCUP PO PRN (15:51)
[2018-02-27] MEDS: morphINE 50 MG in NS 50 ML IV SCH (16:22)
[2018-02-27] MEDS ORDERED: FLUCONAZOLE/NaCl 200 ML IV SCH (18:00)
[2018-02-27] MEDS ORDERED: ERTAPENEM 1 GM in NS 100 ML IV SCH (19:00)
[2018-02-27] MEDS ORDERED: LATANOPROST 0.005% 2.5 ML OPHT DROPS EACHEYE SCH (21:00)
[2018-02-27] MEDS: FAMOTIDINE 20 MG/NACL 50 ML IV SCH (22:26)
[2018-02-27 22:32] VITALS: BP 114/77
[2018-02-28] MEDS: LORazepam 2 MG/ML INJ IVP PRN ×3 (00:31→09:59)
[2018-02-28] MEDS: NS 1,000 ML IV SCH (02:19)
[2018-02-28] MEDS: morphINE 50 MG in NS 50 ML IV SCH (04:28)
[2018-02-28] MEDS: ATROPINE 1% 5 ML OPHT.BTL EACHEYE SCH (06:26)
[2018-02-28] MEDS ORDERED: ENOXAPARIN 40 MG/0.4 ML SYR SC SCH (09:00)
[2018-02-28] MEDS ORDERED: ENOXAPARIN 30 MG/0.3 ML SYR SC SCH (09:00)
--- NOTE | 2018-02-28 09:04 | HOSPPROG ---
Hospitalist Progress Note Assessment/Plan: 57 yo F known to hospitalist service recently hospitalized 01/26-02/08/18 [place] being the [place] city for aspiration pneumonia related to TE fistula Goals of care - I discussed patient's current clinical status with medical POA, Mary Jo Ng, , and patient on 02/27 who agreed to pursing comfort care measures - Ordered a morphine and ativan infusion - Hospice consult placed Aspiration Pneumonia - Patient to continue on ertapenem and Diflucan for now pending family visiting today - Infectious Disease has been consulted for additional recommendations - Patient made NPO and aspiration precautions will be in place. - Her main complaint at this time is complaints of increased secretions and feeling like her lungs are full, Albuterol neb p.r.n. - Additionally will give patient a scopolamine patch and Protonix dosing. - Consider use of atropine drops for severe secretions will hold off at this time. Acute hypoxic respiratory failure - patient continues to have drops into the 80s despite 5 L of O2 supplementation intermittently with coughing and talking. - Nebulizer p.r.n.. - Patient does not want any heroic measures including CPR or intubation. Further discussion with the patient notes that she would be amenable to BiPAP if absolutely needed given that she is having severe air hunger. Severe sepsis without organ dysfunction - Patient with tachycardia, fever. - No leukocytosis and lactate is within normal limits. - Continue with management as noted above. Tracheoesophageal fistula - S/p Esophageal stent by Dr. Ortiz at [facility] in [place] - Patient has had extensive workup and recent transfers as well as follow-up at [facility] for her TE fistula. A total esophagectomy was recommended but patient did not desire to go this route. Severe protein calorie malnutrition - holding patient's TPN. - Patient will be NPO at this time. - Patient does have a PICC line in place. Anemia of chronic disease - no evidence of active bleeding. - H&H does appear stable from previous hospitalization. - Plan to monitor. Benign essential HTN - Patient's blood pressures were notably elevated in setting of acute respiratory distress - Will plan to monitor. Chronic pain - morphine as above for pain and air hunger. - Patient was previously on a fentanyl patch but she discontinued this on her own as it did not appear to have a give her any improvement. Anxiety - Patient with history of anxiety disorder as well as mood disorder. - She had previously had issues on receiving her antipsychotics regularly due to her dysphagia. - Ativan IV has been helping with her anxiety and will plan to continue this p.r.n.. FEN - NPO. PPX - SCDs. COR - DNR and DNI. Dispo - Pending clinical course, possible discharge with hospice Subjective: Patient lethargic this morning, not able to converse Objective: Vital Signs Temp Pulse Resp BP Pulse Ox 39.1 C H 139 H 26 H 114/77 90 L 02/27/18 22:31 02/27/18 22:31 02/27/18 22:31 02/27/18 22:31 02/27/18 22:31 Laboratory Results 02/27/18 04:50 02/27/18 04:50 02/27/18 02/28/18 03/01/18 05:59 05:59 05:59 Intake Total 1772 2041 Output Total 200 525 Balance 1572 1516 PT 16.3 SEC (12.0-15.0) H 02/26/18 21:45 INR 1.29 (0.83-1.16) H 02/26/18 21:45 - Physical Exam Constitutional: chronically ill appearing, cachectic Eyes: anicteric sclera Cardiovascular: tachycardia Respiratory: reduced air movement, inspiratory crackles, respiratory distress Gastrointestinal: soft, non-tender abdomen Genitourinary: no bladder tenderness Skin: warm Musculoskeletal: no joint effusions Neurologic: No AAOx3 Psychiatric: No interacting appropriately ICD10 Worksheet Patient Problems: Problems Problem Status Onset Fever Acute Hypoxemia Acute Leukocytosis (leucocytosis) Acute Sepsis Acute Tachycardia Acute Tachypnea Acute Anemia Acute Aspiration into airway Acute Aspiration into lower respiratory tract Acute Aspiration pneumonitis Acute Calcaneus fracture Acute Closed right hip fracture Acute Dysphagia Acute Hip fracture Acute Hypokalemia Acute Intraparenchymal hemorrhage of brain Acute Malnutrition Acute Osteomyelitis Acute Pneumonia Acute Subdural hematoma, post-traumatic Acute Tracheoesophageal fistula Acute Traumatic epidural hematoma Acute
--- NOTE | 2018-02-28 10:24 | ASMTCMCOM ---
CM Note CM Note Notes: Hospice ordered. Met with patient's who appears distraught and shaken. Patient on comfort care. Agonal respirations. Family enroute. expressed uncertainty about next steps. Will call paralegal legal secretary for additional support. CM to follow for needs. Plan: Hospice care Date Signed: 02/28/2018 10:24 AM Electronically Signed By:Le Mendoza RN
[2018-02-28] MEDS: FAMOTIDINE 20 MG/NACL 50 ML IV SCH (12:45)
--- NOTE | 2018-02-28 16:30 | ASMTCMCOM ---
CM Note CM Note Notes: Patient and family seen by MARGARITA De León from [facility]. Ty is declining moving the patient as she is on comfort care and her mom and daughter are coming. Dr. Ribeiro aware. Patient this afternoon after her family visited.. Dr. Ribeiro pronounced . Political Organizer notified. Date Signed: 02/28/2018 04:28 PM Electronically Signed By:Le Mendoza RN
== END 2018-02-28 16:08 | disposition expired | DRG 871 ==
LOC: F2N 02-27 00:19 → F1N 02-27 18:09
PROVIDERS: ADMIT Family Medicine; ATTEND Family Medicine
DX: A41.9 Sepsis, unspecified organism (principal); J69.0 Pneumonitis due to inhalation of food and vomit; J96.01 Acute respiratory failure with hypoxia; J86.0 Pyothorax with fistula; E43 Unspecified severe protein-calorie malnutrition; E86.9 Volume depletion, unspecified; R65.20 Severe sepsis without septic shock; F41.9 Anxiety disorder, unspecified; I10 Essential (primary) hypertension; D63.8 Anemia in other chronic diseases classified elsewhere; G89.29 Other chronic pain; Z51.5 Encounter for palliative care; Z66 Do not resuscitate; Z85.01 Personal history of malignant neoplasm of esophagus
CPT/HCPCS: 96374; J1335; J1450; J1642; J1885; J2060; J2270; J2405; J7613